=== PATIENT | male | born 1990 | race Caucasian/White ===

== ENCOUNTER 2016-10-12 21:11 | Emergency (ER) | payer OTHER ==
[~2016-10-12] VITALS: Ht 170.2 cm; Wt 83.1 kg
[~2016-10-12 21:11] MED LIST: METH10TA4 PO; TYLOTC500 PO; [UNRECOGNIZED DRUG - CODE] PO
[2016-10-12 21:18] VITALS: TEMP 36.9; Ht 170.2 cm; Wt 83.1 kg
--- NOTE | 2016-10-12 22:11 | DIAGNOSTIC IMAGING REPORT ---
RIGHT WRIST MIN 3 VIEWS ROUTINE CLINICAL HISTORY: Severe right wrist pain. COMPARISON: None FINDINGS: Alignment of the right wrist is anatomic. No fracture or osseous lesion is identified. Joint spaces are preserved and no erosions are identified. IMPRESSION: Unremarkable right wrist radiographs. Electronically signed by: Kedar Land M.D. 10/12/2016 10:09 PM Dictated Date/Time: 10/12/2016 10:08 PM
[2016-10-12] MEDS ORDERED: TRAMADOL HCL 50 MG HOME PACK PO ONE (22:15)
[2016-10-12] MEDS ORDERED: TRAM-10 PO (22:19)
[2016-10-12 22:34] VITALS: BP 118/70; PULSE 72; O2SAT 98
--- NOTE | 2016-10-13 03:49 | EMERGENCY ROOM VISIT NOTE ---
ED Visit Note First contact with patient: 21:35 Chief Complaint: Right hand pain. History of Present Illness: Mr. Ball is a 26-year-old white male who ambulates into the ED accompanied by female friend complaining of posterior right hand pain. Patient reports he developed posterior right hand pain approximately one week ago. Since that time his pain has been constant and gradually increasing in intensity. He places his discomfort over the posterior predominately over the second through fifth metacarpals. He has difficulty describing his pain but does report intermittently its throbbing and sometimes in a sharp. He rates his discomfort 7/10. He feels like his pain is radiating around the hand and is now involving the anterior aspect of the metacarpals. His pain worsens with palpation, making a fist and flexion of the MCP joints. He has not identified any alleviating factors related to the pain. He reports he has taken a few doses of ibuprofen without relief of his discomfort. Associated with his discomfort he has noted some mild swelling over the posterior hand. He denies fevers, chills, sweats, recent trauma, previous traumas surgeries, shoulder pain, neck pain, elbow pain, forearm pain, recent injuries, previous significant injuries or surgeries. Review of Systems: As noted above in history of present illness. 5 body systems were reviewed and found to be negative as noted above. Past Medical History: Attention deficit disorder, seizures, sepsis, status post appendectomy and splenectomy. Current Medications: Concerta, Tylenol and Ritalin. Allergies to Medications: Penicillin. Social History: Patient is currently employed; he lives with his and feels safe in his home environment; he denies tobacco and alcohol use. Physical Examination: Vital Signs: Date Time Temp Pulse Resp B/P Pulse Ox O2 Delivery O2 Flow Rate FiO2 10/12/16 22:34 72 20 118/70 98 10/12/16 21:18 36.9 88 18 121/73 98 Room Air GENERAL: 26-year-old male in mild to moderate distress due to pain, nontoxic- appearing, afebrile and hemodynamically stable. NEUROLOGICAL: Awake, alert and oriented to person, place and time. Answering questions appropriately and following commands. Normal gait. Good hand eye coordination. No focal motor sensory deficits. SKIN: Warm, dry and pink. RIGHT HAND: No gross bony deformity. No tenderness throughout the forearm, wrist or carpals. Over the posterior aspect of the hand the skin is mildly erythematous and edematous. It is not warm or in the left hand. There is no signs of cellulitis or lymphangitis. This is diffuse and not localized to one area. He has tenderness over the posterior metacarpals without bony deformity or crepitus. No tenderness over the anterior metacarpals. He refused to do range of motion history the fingers due to pain but he did attempt. Throughout the fingers the skin was warm and pink and capillary refill is brisk. He was able to distinguish light sensations through all dermatomes of the hand. Do not appreciate any open wounds on the posterior anterior hand. ED Course: Patient is assessed as noted above. Right Hand X-Rays: Were read by myself and the radiologist showing no acute fractures or dislocations. No swelling or soft tissue injuries/ foreign bodies. Patient was placed in a wrist lacer splint. Patient was educated about cari's findings and instructed on his treatment plan; he verbalized understanding and agreement with this plan. Clinical Impression: Right hand pain. Decision-Making: Initially my differential diagnosis I considered cellulitis, other skin infections, metacarpal fracture, MCP joint dislocation, early contusion and other causes. Disposition: Patient discharged home in stable condition accompanied by his ; prior to departure he was reassessed and subjectively reported he was feeling much better and rated his discomfort 2/10. Plan: Comfort measures were discussed with the patient including alternating 50 mg of Ultram and 650 mg of acetaminophen every 3 hours, ice over areas of pain and swelling, splint use and follow-up with orthopedics. Patient was signed off work for 3 days. Patient was educated about tonight's findings and instructed on his treatment plan; he verbalizes understanding and agreement with this plan.
[2017-01-23] MEDS ORDERED: AMPH10TA2 PO (21:21)
== END 2016-10-12 22:35 | disposition home or self-care (01) ==
LOC: C.EDB 21:12 → C.EDD 22:35
DX: M25.541 Pain in joints of right hand (principal); G40.909 Epilepsy, unspecified, not intractable, without status epilepticus; F90.9 Attention-deficit hyperactivity disorder, unspecified type; Z98.890 Other specified postprocedural states; Z79.899 Other long term (current) drug therapy; Z88.0 Allergy status to penicillin

== ENCOUNTER 2017-01-23 21:07 | Emergency (ER) | payer OTHER ==
[~2017-01-23] VITALS: Ht 170.2 cm; Wt 81.1 kg
[~2017-01-23 21:07] MED LIST changes: +TRAM-10 PO
[2017-01-23 21:14] VITALS: TEMP 36.8; Ht 170.2 cm; Wt 81.1 kg
[2017-01-23] MEDS ORDERED: CNC/54 PO (21:21)
[2017-01-23] MEDS ORDERED: NORCO 5/325MG HOME PACK PO ONE (21:45)
[2017-01-23] MEDS ORDERED: HYDR-5688 PO (22:04)
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
[2017-01-23 22:12] VITALS: BP 143/92; PULSE 83; O2SAT 96
[2017-07-07] MEDS ORDERED: ACET-1256 PO (20:40)
[2017-07-07] MEDS ORDERED: AMX875 PO (20:40)
[2017-07-07] MEDS ORDERED: METH1TAB19 PO (20:40)
[2017-07-07] MEDS ORDERED: AMPH10TA2 PO (21:21)
[2017-07-08] MEDS ORDERED: OXYC-57 PO (00:48)
[2017-07-08] MEDS ORDERED: ONDA4TAB10 SL (00:48)
[2017-07-08] MEDS ORDERED: TAMS0.4C38 PO (00:48)
[2017-07-08] MEDS ORDERED: NAPR-1169 PO (00:48)
== END 2017-01-23 22:12 | disposition home or self-care (01) ==
LOC: C.EDB 21:08 → C.EDD 22:12
DX: L55.1 Sunburn of second degree (principal); F90.9 Attention-deficit hyperactivity disorder, unspecified type; Z79.899 Other long term (current) drug therapy; Z86.69 Personal history of other diseases of the nervous system and sense organs; Z82.0 Family history of epilepsy and other diseases of the nervous system; Z82.49 Family history of ischemic heart disease and other diseases of the circulatory system; Z83.3 Family history of diabetes mellitus; Z83.6 Family history of other diseases of the respiratory system

== ENCOUNTER 2017-06-05 20:09 | Emergency (ER) | payer OTHER ==
[~2017-06-05] VITALS: Ht 170.2 cm; Wt 79.6 kg
[~2017-06-05 20:09] MED LIST changes: +AMPH10TA2 PO; +CNC/54 PO; +HYDR-5688 PO; -METH10TA4 PO; -TRAM-10 PO; -TYLOTC500 PO; -[UNRECOGNIZED DRUG - CODE] PO
[2017-06-05 20:27] VITALS: TEMP 37; Ht 170.2 cm; Wt 79.6 kg
[2017-06-05] MEDS ORDERED: PROPARACAINE HCL 0.5% OP SOLN 15 ML BTL ONE (20:53)
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
[2017-06-05 21:48] VITALS: BP 129/77; PULSE 72; O2SAT 96
== END 2017-06-05 21:48 | disposition home or self-care (01) ==
LOC: C.EDB 20:10 → C.EDD 21:48
DX: S05.91XA Unspecified injury of right eye and orbit, initial encounter (principal); Y99.0 Civilian activity done for income or pay; W20.8XXA Other cause of strike by thrown, projected or falling object, initial encounter; Y92.89 Other specified places as the place of occurrence of the external cause; Y93.G1 Activity, food preparation and clean up; F90.9 Attention-deficit hyperactivity disorder, unspecified type; Z90.81 Acquired absence of spleen; Z79.899 Other long term (current) drug therapy

== ENCOUNTER 2018-01-06 21:21 | Emergency (ER) | payer OTHER ==
[~2018-01-06] VITALS: Ht 170.2 cm; Wt 80.5 kg
[~2018-01-06 21:21] MED LIST changes: +ACET-1256 PO; +AMX875 PO; -CNC/54 PO; -HYDR-5688 PO; +METH1TAB19 PO; +ONDA4TAB10 SL; +OXYC-57 PO; +TAMS0.4C38 PO
[2018-01-06 21:31] VITALS: TEMP 36.8; Ht 170.2 cm; Wt 80.5 kg
--- NOTE | 2018-01-06 21:50 | EMERGENCY ROOM VISIT NOTE ---
History Report prepared by Dai: Jose Alfredo Pappas Under the Supervision of: Dr. Donte Pickens M.D. First contact with patient: 21:37 Chief Complaint: SHOULDER PAIN Stated Complaint: SEVERE LEFT SHOULDER PAIN, CANT PUT WEIGHT ON IT History of Present Illness The patient is a 27 year old white male with a past medical history of ADD and seizures who presents to the ED with a cc of constant left arm pain beginning at 1500 yesterday. Patient states that the pain starts at his shoulder and radiates down to his hand. He states that the pain is worsened when he raises his arm. He describes the pain as feeling like "pins and needles". He denies a history of similar symptoms. Patient states that Tylenol has not resolved the symptoms. He states that his last seizure was in 2004. He states that he does not take medication for his seizures. Patient states that he is right-handed. Negative symptoms include an upset stomach. Source of History: patient Onset: 1500 yesterday Position: arm (left) Quality: other ("Pins and needles") Timing: constant Modifying Factors (Worsening): elevation (Raising arm) Modifying Factors (Relieving): other (None) Note: Patient denies an upset stomach. Review of Systems See HPI for pertinent positives and negatives. A total of ten systems were reviewed and were otherwise negative. Past Medical & Surgical Medical Problems: (1) ADD (attention deficit disorder) (2) History of seizures Surgical Problems: (1) History of splenectomy (2) S/P appendectomy (3) S/P splenectomy (4) Splenectomy Family History Cancer Diabetes mellitus MOTHER FH: lung cancer MATERNAL GRANDFATHER Hypertension Seizures Social History Smoking Status: Never Smoker Alcohol Use: none Marital Status: Housing Status: lives with family Occupation Status: employed Current/Historical Medications Scheduled Amphetamine-Dextroamphetamine 10MG (Adderall 10MG), 10 MG PO DAILY Methylphenidate Hcl (Methylphenidate Hcl Er), 54 MG PO QAM Scheduled PRN Acetaminophen (Tylenol), 1,000 MG PO Q6H PRN for Pain Allergies Coded Allergies: Penicillins (Verified Allergy, Intermediate, lip swollen, 01/06/18) Physical Exam Vital Signs Date Time Temp Pulse Resp B/P (MAP) Pulse Ox O2 Delivery O2 Flow Rate FiO2 01/06/18 22:55 82 20 132/76 98 01/06/18 21:31 36.8 83 18 127/82 98 Room Air Physical Exam GENERAL: Awake, alert, well-appearing, NAD, thinning hair HENT: Normocephalic, atraumatic, poor dentition. EYES: Normal conjunctiva. Sclera non-icteric. PERRL. No anisocoria. NECK: Supple. No nuchal rigidity. FROM. RESPIRATORY: CTAB, no rhonchi, wheezing, crackles CARDIAC: RRR, no MRG ABDOMEN: Soft, NTND, BS+, LUQ incisional scar MSK: No chest wall TTP, no LE edema; left shoulder pain with external rotation, abduction, and internal rotation positive empty can test NEURO: GCS 15, CN 2-12 intact, moves all 4s on command SKIN: No rash or jaundice noted. Medical Decision & Procedures ER Provider Diagnostic Interpretation: Radiology results as stated below per my review and radiologist interpretation: LEFT SHOULDER 3 VIEWS HISTORY: L shoulder pain COMPARISON: None. FINDINGS: There is no fracture or dislocation. Soft tissues are unremarkable. No radiopaque foreign bodies. The left clavicle is intact. IMPRESSION: No fractures. Electronically signed by: Osei Mejias M.D. 01/06/2018 10:33 PM Medications Administered Medications (Trade) Dose Ordered Sig/Sabine Route Start Time Stop Time Status Last Admin Dose Admin Ibuprofen (Motrin Tab) 600 mg NOW STAT PO 01/06/18 21:57 01/06/18 22:00 DC 01/06/18 22:08 600 MG Acetaminophen (Tylenol Tab) 650 mg NOW STAT PO 01/06/18 21:57 01/06/18 22:00 DC 01/06/18 22:08 650 MG ED Course 2142: The patient was evaluated in room A12B. A complete history and physical exam was performed. 2301: I reevaluated the patient. Discussed results and discharge instructions. He verbalized understanding and agreement. The patient is ready for discharge. Medical Decision Nursing notes reviewed. Ancillary studies and prior records reviewed. The patient is a 27 year old white male with a past medical history of ADD and seizures who presents to the ED with a cc of constant left arm pain beginning at 1500 yesterday. The patient's presentation and history were concerning for fracture, dislocation , neurovascular compromise, compartment syndrome, soft tissue injury, as well as others were entertained. Patient was seen and evaluated the bedside. Patient did complain of some left upper extremity shoulder pain as well as some paresthesias in the left upper extremity. Patient denies any recent heavy lifting strains sprains or trauma. Patient denies any chest pain or shortness of breath. I do not believe that this is referred chest pain or ACS. Patient did have pain with internal and external rotation as well as abduction. The patient did have positive empty cans test. The patient shoulder is not erythematous or swollen. Less likely septic arthritis. The patient is right-hand dominant. Patient did have a shoulder feel completed and was given Motrin Tylenol. Patient's pain was mildly improved. Patient's shoulder film was negative for acute fracture dislocation. Patient likely has a rotator cuff tear. Possibly supraspinatus. We did discuss the need for additional conservative measures and that he can follow-up with his PCP and if needed could discuss possible injections versus physical therapy versus orthopedic management. Patient was deemed suitable for outpatient follow-up and treatment at this time. Patient was given strict follow-up, discharge, and return precautions. All questions were answered. Patient was deemed suitable for outpatient follow-up at this time. Patient agreed with the plan of care and was safely discharged home. Medication Reconcilliation Current Medication List: was personally reviewed by me Blood Pressure Screening Patient's blood pressure: Normal blood pressure Blood pressure disposition: Did not require urgent referral Impression Primary Impression: Shoulder pain, acute Additional Impression: Supraspinatus tendon tear Scribe Attestation The scribe's documentation has been prepared under my direction and personally reviewed by me in its entirety. I confirm that the note above accurately reflects all work, treatment, procedures, and medical decision making performed by me. Departure Information Dispostion Home / Self-Care Referrals Jose Connelly M.D. (PCP) Patient Instructions ED Shoulder Pain [facility], ED Torn Rotator Cuff, My [facility] Additional Instructions Please return to the emergency department if you have worsening or recurrent symptoms not amenable to at-home treatment. Please call for a follow-up appointment with her primary care physician. Please take your medications as prescribed. If you have other concerns and/or complaints please feel free to also call your primary care physician's office or return the ED for further evaluation, management, and treatment. Please consider additional conservative management which may include physical therapy and follow-up with your primary care physician. You may discuss in injections into the joint as well as surgical management or more advanced imaging like an MRI if you have failure of conservative measures. You may take 800 mg Ibuprofen every 6 hours as needed for pain/fever with food unless told by your physician not to take NSAIDs. You may take tylenol 1000 mg every 6 hours as needed for pain/fever unless told by your physician to not take it or have liver problems. You may take motrin and tylenol separately or at the same time. Take your medications as prescribed. You have been examined and treated today on an emergency basis only. This is not a substitute for, or an effort to provide, complete comprehensive medical care. It is impossible to recognize and treat all injuries or illnesses in a single emergency department visit. It is therefore important that you follow up closely with [facility], your PCP, and/or your specialist(s). Call as soon as possible for an appointment. Thank you for your time and consideration. I look forward to speaking with you again soon. Please don't hesitate to call us if you have any questions. Problem Qualifiers Primary Impression: Shoulder pain, acute Laterality: left Qualified Codes: M25.512 - Pain in left shoulder Additional Impression: Supraspinatus tendon tear Encounter type: initial encounter Laterality: left Qualified Codes: S46.812A - Strain of other muscles, fascia and tendons at shoulder and upper arm level, left arm, initial encounter
[2018-01-06] MEDS ORDERED: IBUPROFEN 600 MG TAB PO STA (21:57)
[2018-01-06] MEDS ORDERED: ACETAMINOPHEN 325 MG TAB PO STA (21:57)
--- NOTE | 2018-01-06 22:34 | DIAGNOSTIC IMAGING REPORT ---
LEFT SHOULDER 3 VIEWS HISTORY: L shoulder pain COMPARISON: None. FINDINGS: There is no fracture or dislocation. Soft tissues are unremarkable. No radiopaque foreign bodies. The left clavicle is intact. IMPRESSION: No fractures. Electronically signed by: Osei Mejias M.D. 01/06/2018 10:33 PM Dictated Date/Time: 01/06/2018 10:32 PM
[2018-01-06 22:55] VITALS: BP 132/76; PULSE 82; O2SAT 98
== END 2018-01-06 22:57 | disposition home or self-care (01) ==
LOC: C.EDB 21:23 → C.EDA 22:57
DX: M25.512 Pain in left shoulder (principal); S46.812A Strain of other muscles, fascia and tendons at shoulder and upper arm level, left arm, initial encounter; X58.XXXA Exposure to other specified factors, initial encounter; Z88.0 Allergy status to penicillin

== ENCOUNTER 2018-04-14 17:38 | Emergency (ER) | payer OTHER ==
[~2018-04-14] VITALS: Ht 172.7 cm; Wt 79.6 kg
[~2018-04-14 17:38] MED LIST changes: -AMX875 PO; -ONDA4TAB10 SL; -OXYC-57 PO; -TAMS0.4C38 PO
[2018-04-14 17:48] VITALS: TEMP 37.1; Ht 172.7 cm; Wt 79.6 kg
[2018-04-14] MEDS ORDERED: CLOTRIMAZOLE 1% CR 15 GM TUBE EXT STA (18:06)
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
[2018-04-14 18:25] VITALS: BP 131/68; PULSE 9; O2SAT 97
== END 2018-04-14 18:35 | disposition home or self-care (01) ==
LOC: C.EDB 17:38 → C.EDD 18:35
DX: B35.4 Tinea corporis (principal); F98.8 Other specified behavioral and emotional disorders with onset usually occurring in childhood and adolescence; Z88.1 Allergy status to other antibiotic agents

== ENCOUNTER 2021-07-03 11:26 | Inpatient (IN) ==
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
[2021-07-03] MEDS ORDERED: ONDANSETRON INJ 2 MG/ML 2 ML VIAL IV STA (12:37)
[2021-07-03] MEDS ORDERED: SODIUM CHLORIDE 0.9% 1000ML 1,000 ML IV SCH (12:45)
[2021-07-03] MEDS ORDERED: cefTRIAXone SODIUM 2,000 MG/70 ML BAG IV STA (12:49)
[2021-07-03] MEDS ORDERED: AZITHROMYCIN 250 MG TAB PO ONE (12:49)
--- NOTE | 2021-07-03 13:20 | XRay Report ---
XR chest 1V portable CLINICAL HISTORY: Weakness. COMPARISON STUDY: Chest CT May 18, 2021. FINDINGS: Lung volumes are at the lower limits of normal. Lungs are clear. There is no pneumothorax o r pleural effusion. Cardiac size is normal. Mediastinal contours are normal. There is no evidence for pulmonary edema. IMPRESSION: No acute cardiopulmonary findings. ACT 112: Negative or not required by law. Electronically signed by: Kedar Land M.D. 07/03/2021 1:19 PM
[2021-07-03 13:24] LABS: Basophils # (auto) 0.03 K/uL (0-0.2); Basophils % (auto) 0.1 %; Eosinophils # (auto) 0.03 K/uL (0-0.5); Eosinophils % (auto) 0.1 %; Hematocrit (blood only) 46.6 % (42-52); Hemoglobin 15.4 g/dL (14.0-18.0); Immature Granulocytes # (auto) 0.05 K/uL (0.00-0.02); Immature Granulocytes % (auto) 0.2 %; Lymphocytes # (auto) 1.56 K/uL (1.2-3.4); Lymphocytes % (auto) 7.3 %; Mean Corpuscular Hemoglobin 29.7 pg (25-34); Mean Corpuscular Volume 89.8 fL (80-100); Mean Platelet Volume 9.8 fL (7.4-10.4); Monocytes % (auto) 6.1 %; Neutrophils # (auto) 18.27 K/uL (1.4-6.5); Neutrophils % (auto) 86.2 %; Platelet Count 576 K/uL (130-400); RDW Coefficient of Variation 14.7 % (11.5-14.5); RDW Standard Deviation 48.4 fL (36.4-46.3); Red Blood Count 5.19 M/uL (4.7-6.1); White Blood Count 21.24 K/uL (4.8-10.8)
[2021-07-03 14:19] LABS: Albumin Level 4.4 gm/dl (3.4-5.0); BUN Creatinine Ratio 14.2 (10-20); Bilirubin,Total 0.5 mg/dl (0.2-1); Calcium 9.7 mg/dl (8.5-10.1); Est GFR (African American) 124.7 ml/min; Est GFR (Non-African American) 107.6 ml/min; Globulin 4.6 gm/dl (2.5-4.0); Thyroid Stimulating Hormone 0.882 uIu/ml (0.300-4.500)
[2021-07-03 14:34] LABS: Appearance Urine Clear (Clear); Bilirubin Urine Negative (Negative); Blood Urine Negative (Negative); Color Urine Yellow; Glucose Urine UA Negative (Negative); Ketones Urine Negative (Negative); Leukocyte Esterase Urine Negative (Negative); Nitrite Urine Negative (Negative); Protein Urine Negative (Negative); Specific Gravity Urine 1.016 (1.000-1.030); Urobilinogen Urine Negative (Negative)
[2021-07-03] MEDS ORDERED: ACETAMINOPHEN 500 MG TAB PO STA (15:53)
[2021-07-03] MEDS ORDERED: ACETAMINOPHEN 500 MG TAB ONE (15:55)
[2021-07-03 16:15] LABS: Potassium 3.6 mmol/L (3.5-5.1)
[2021-07-03 16:20] LABS: Magnesium 2.1 mg/dl (1.8-2.4)
[2021-07-03] MEDS ORDERED: SODIUM CHLORIDE 0.9% 1000ML 1,000 ML IV ONE ×2 (16:51→20:38)
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
[2021-07-03] MEDS ORDERED: BENZONATATE 100 MG CAPSULE PO PRN (18:47)
[2021-07-03] MEDS ORDERED: ONDANSETRON INJ 2 MG/ML 2 ML VIAL IV PRN (18:47)
[2021-07-03] MEDS: guaiFENesin 600 MG TABCR PO SCH (20:23)
[2021-07-03] MEDS: NSS + 20MEQ KCL 20 MEQ/1,000 ML BAG IV SCH (20:24)
[2021-07-03] MEDS: ACETAMINOPHEN 500 MG TAB PO PRN (21:05)
[2021-07-03] MEDS ORDERED: MoRPHine SULFATE 4 MG/ML 1 ML CARP\\VIAL IV STA (22:31)
[2021-07-03] MEDS ORDERED: OPTIRAY 320 100ml IV ONE (22:48)
[2021-07-04] MEDS ORDERED: SODIUM CHLORIDE 0.9% 1000ML 1,000 ML IV ONE (01:02)
[2021-07-04] MEDS: ACETAMINOPHEN 500 MG TAB PO PRN (03:11)
[2021-07-04] MEDS: KETOROLAC TROMETHAMINE 10 MG TABLET PO PRN ×3 (05:20→19:28)
--- NOTE | 2021-07-04 06:57 | Electrocardiogram Report ---
Test Reason : Blood Pressure : / mmHG Vent. Rate : 088 BPM Atrial Rate : 088 BPM P-R Int : 146 ms QRS Dur : 088 ms QT Int : 366 ms P-R-T Axes : 031 036 030 degrees QTc Int : 442 ms Normal sinus rhythm Nonspecific T wave abnormality Abnormal ECG When compared with ECG of 26-MAY-2021 01:36, No significant change was found Confirmed by Emery Gomez ([id number]) on 07/04/2021 6:57:02 AM Referred By: REFERRED SELF Confirmed By:Emery Gomez
[2021-07-04 07:00] LABS: Basophils # (auto) 0.02 K/uL (0-0.2); Basophils % (auto) 0.1 %; Eosinophils # (auto) 0.03 K/uL (0-0.5); Eosinophils % (auto) 0.1 %; Hematocrit (blood only) 38.7 % (42-52); Hemoglobin 12.4 g/dL (14.0-18.0); Immature Granulocytes # (auto) 0.07 K/uL (0.00-0.02); Immature Granulocytes % (auto) 0.3 %; Lymphocytes # (auto) 2.58 K/uL (1.2-3.4); Lymphocytes % (auto) 10.9 %; Mean Corpuscular Hemoglobin 28.8 pg (25-34); Mean Corpuscular Volume 89.8 fL (80-100); Mean Platelet Volume 9.6 fL (7.4-10.4); Monocytes # (auto) 2.07 K/uL (0.11-0.59); Monocytes % (auto) 8.8 %; Neutrophils # (auto) 18.85 K/uL (1.4-6.5); Neutrophils % (auto) 79.8 %; Platelet Count 472 K/uL (130-400); RDW Coefficient of Variation 14.6 % (11.5-14.5); Red Blood Count 4.31 M/uL (4.7-6.1); White Blood Count 23.62 K/uL (4.8-10.8)
[2021-07-04 07:37] LABS: BUN Creatinine Ratio 9.2 (10-20); Calcium 8.6 mg/dl (8.5-10.1); Creatinine Clr Calc Pharmacy 133.3 ml/min; Est GFR (African American) 135.2 ml/min; Est GFR (Non-African American) 116.7 ml/min; Potassium 3.4 mmol/L (3.5-5.1)
[2021-07-04] MEDS: NSS + 20MEQ KCL 20 MEQ/1,000 ML BAG IV SCH (07:48)
[2021-07-04] MEDS: METHYLPHENIDATE 54 MG PO SCH (07:54)
[2021-07-04] MEDS: PATIENT'S OWN CONTROLLED MED 1 PO SCH (07:55)
[2021-07-04] MEDS: SERTRALINE HCL 50 MG TABLET PO SCH (07:56)
[2021-07-04] MEDS: guaiFENesin 600 MG TABCR PO SCH ×2 (07:56→20:16)
--- NOTE | 2021-07-04 08:44 | CT Scan Report ---
ABDOMEN AND PELVIS CT WITH IV CONTRAST CT DOSE: 465.88 mGy.cm HISTORY: Acute generalized abdominal pain with sepsis abdominal pain, sepsis TECHNIQUE: Multiaxial CT images of the abdomen and pelvis were performed following the IV administrat ion of 90 cc of Optiray, A dose lowering technique was utilized adhering to the principles of ALARA. COMPARISON STUDY: CT abdomen and pelvis 07/07/2017 FINDINGS: Areas of linear left greater than right bibasilar consolidation are present. No pneumatosis or pneumoperitoneum. The imaged inferior cardiac chambers are unremarkable. Absent spleen with surgi dianne clips of the abdominal left upper quadrant. Numerous soft tissue nodules are noted throughout the abdomen and pelvis suggestive of splenosis which appear unchanged from comparison. Unremarkable panc reas, gallbladder and adrenal glands. Hepatic steatosis. Patent portal vein. Unremarkable kidneys. No hydronephrosis. Prostate and urinary bladder are unremarkable. Aorta and IVC are within normal limits. No adenopathy. No bowel obstruction or bowel wall thickening. Colonic dive rticulosis. Scattered air-fluid levels are noted within the large bowel. Appendectomy. Unremarkable s oft tissues. Tiny fat filled periumbilical hernia is noted with diastases of 1.9 cm containing a subc entimeter splenule. Unremarkable soft tissues. No acute fracture. IMPRESSION: 1. Linear bibasilar consolidation suggests atelectasis. Pneumonia considered less likely. 2. No bowel obstruction or bowel wall thickening. 3. Appendectomy. 4. Hepatic steatosis. 5. Splenectomy with abdominopelvic splenosis redemonstrated. ACT 112: Negative or not required by law. The above report was generated using voice recognition software. It may contain grammatical, syntax o r spelling errors. Electronically signed by: Michel Holt M.D. 07/04/2021 8:43 AM
[2021-07-04] MEDS: METHYLPHENIDATE HCL 10 MG TABLET PO SCH (11:09)
[2021-07-04] MEDS: cefTRIAXone SODIUM 2,000 MG in DEXTROSE 5% 50 ML IV SCH (12:15)
[2021-07-04] MEDS ORDERED: POLYETHYLENE (MIRALAX) 17 GM PACK PO STA (17:36)
[2021-07-04] MEDS ORDERED: POLYETHYLENE (MIRALAX) 17 GM PACK PO PRN (19:17)
--- NOTE | 2021-07-04 21:51 | Hospitalist Progress Note ---
Date of Service July 04, 2021 Assessment & Plan (1) Sepsis: Plan: 2nd to acute pharyngitis, R AOM. Can't rule out more serious illness in light of his asplenic status. CXR negative despite his cough. COVID negative. Rapid strep negative in light of pharyngitis - send throat culture. Blood cultures collected and sent. continue rocephin IV. Repeat a cxr tomorrow if cough worsens or lower respiratory tract symptoms or signs occur. (2) AOM (acute otitis media): Plan: Right. Mild. Antibiotics as above. (3) Acute pharyngitis: Plan: Viral vs bacterial. Rapid strep negative in ER - send throat culture. If throat culture is negative for bacteria could consider mono testing. Magic mouthwash prn. (4) Asplenia status during current hospitalization: Plan: s/p splenectomy as a child. He is at risk of more serious, invasive bacterial infections. (5) Elevated alanine aminotransferase (ALT) level: Plan: Cause uncertain. 2nd to current illness?? Repeat ast/alt in am. (6) Poor dentition: Plan: Should see dentist leela after discharge. At risk of SBE, etc. Blood cultures pending. (7) History of seizures: Plan: noted no seizure since childhood he is not on seizure meds chronicallly (8) ADD (attention deficit disorder): Plan: at his request continue his usual ADHD meds and zoloft Plan: FEN - continue IVF, diet as tolerated DVT proph - low risk, defer on chemical means Admission and Anticipated Discharge Date Admission Date: July 03, 2021 Subjective 31 yo male reports having throat pain. Review of Systems Review of Systems: All systems reviewed & are unremarkable except as noted in HPI & below Physical Exam Physical Exam: Gen - looks sick but nontoxic Eyes - mild conjunctival injection HENT - right TM injected especially the superior portion, mild decrease in landmarks; L TM wnl; nose - congested; throat- tonsils 3+, nearly 4+; tonsils injected, minimal exudate; very very poor dentition Neck - multiple cervical lymph nodes - tender Heart - tachy, s1 s2, no murmur Lungs - CTA b/l Abd - soft, large LUQ scar, NT, no liver enlargement, BS+ Ext - no edema, pulses 2+ b/l Skin - no rash Neuro - strength 5/5 x 4 exts; gait wnl Lymph - multiple tender cervical lymph nodes b/l Results & Data Results & Data ([facility]) Vital Signs (Past 12 Hours) Vital Signs Temp Pulse Pulse Pulse Resp BP Pulse Ox 07/04/21 19:41 36.9 C 97 H 16 153/101 H 95 07/04/21 15:56 36.7 C 78 16 142/79 H 98 07/04/21 14:19 87 07/04/21 12:08 36.8 C 86 16 141/92 H 96 PG Care Time/CCT Total # of Minutes Spent Total Time Spent with Patient: Total time spent is greater than 50% in coordination of care (as documented) at patient's floor/unit and/or counseling patient: Coding Level of Care Code 47140 Subseq Hosp Care Lvl 2 Diagnoses Sepsis A41.9 AOM (acute otitis media) H66.90 Acute pharyngitis J02.9 Asplenia status during current hospitalization Z90.81 Elevated alanine aminotransferase (ALT) level R74.01 Poor dentition K08.9 History of seizures Z87.898 ADD (attention deficit disorder) F98.8
[2021-07-04 22:05] LABS: Basophils # (auto) 0.03 K/uL (0-0.2); Basophils % (auto) 0.2 %; Eosinophils % (auto) 0.6 %; Hematocrit (blood only) 37.2 % (42-52); Hemoglobin 12.5 g/dL (14.0-18.0); Immature Granulocytes # (auto) 0.03 K/uL (0.00-0.02); Immature Granulocytes % (auto) 0.2 %; Lymphocytes # (auto) 3.13 K/uL (1.2-3.4); Lymphocytes % (auto) 17.6 %; Mean Corpuscular Hemoglobin 29.3 pg (25-34); Mean Corpuscular Volume 87.3 fL (80-100); Mean Platelet Volume 9.5 fL (7.4-10.4); Monocytes # (auto) 1.61 K/uL (0.11-0.59); Monocytes % (auto) 9.1 %; Neutrophils # (auto) 12.87 K/uL (1.4-6.5); Neutrophils % (auto) 72.3 %; Platelet Count 484 K/uL (130-400); RDW Coefficient of Variation 14.7 % (11.5-14.5); RDW Standard Deviation 47.4 fL (36.4-46.3); Red Blood Count 4.26 M/uL (4.7-6.1); White Blood Count 17.77 K/uL (4.8-10.8)
[2021-07-04] MEDS: POLYETHYLENE (MIRALAX) 17 GM PACK PO SCH (22:16)
[2021-07-04 22:18] LABS: Mean Corpuscular Hgb Conc 33.6 g/dL (32-36)
--- NOTE | 2021-07-04 23:12 | Electrocardiogram Report ---
Test Reason : Blood Pressure : / mmHG Vent. Rate : 113 BPM Atrial Rate : 113 BPM P-R Int : 164 ms QRS Dur : 088 ms QT Int : 336 ms P-R-T Axes : 020 040 005 degrees QTc Int : 460 ms Poor data quality, interpretation may be adversely affected Sinus tachycardia Nonspecific T wave abnormality Abnormal ECG When compared with ECG of 03-JUL-2021 13:21, No significant change was found Confirmed by Emery Gomez ([id number]) on 07/04/2021 11:12:14 PM Referred By: REFERRED SELF Confirmed By:Emery Gomez
[2021-07-05] MEDS: ACETAMINOPHEN 500 MG TAB PO PRN ×4 (00:17→23:37)
[2021-07-05] MEDS: KETOROLAC TROMETHAMINE 10 MG TABLET PO PRN ×3 (03:46→20:04)
[2021-07-05] MEDS ORDERED: traMADol HCL 50 MG TABLET PO STA ×2 (07:42→18:07)
[2021-07-05] MEDS: guaiFENesin 600 MG TABCR PO SCH ×2 (07:50→20:04)
[2021-07-05] MEDS: POLYETHYLENE (MIRALAX) 17 GM PACK PO SCH (07:50)
[2021-07-05] MEDS: METHYLPHENIDATE 54 MG PO SCH (07:50)
[2021-07-05] MEDS: PATIENT'S OWN CONTROLLED MED 1 PO SCH (07:50)
[2021-07-05] MEDS: SERTRALINE HCL 50 MG TABLET PO SCH (07:51)
[2021-07-05] MEDS: METHYLPHENIDATE HCL 10 MG TABLET PO SCH (11:52)
[2021-07-05] MEDS: cefTRIAXone SODIUM 2,000 MG in DEXTROSE 5% 50 ML IV SCH (11:52)
--- NOTE | 2021-07-05 21:06 | Hospitalist Progress Note ---
Date of Service July 05, 2021 Assessment & Plan (1) Sepsis: Plan: 2nd to acute pharyngitis, R AOM. Can't rule out more serious illness in light of his asplenic status. CXR negative despite his cough. COVID negative. Rapid strep negative in light of pharyngitis - send throat culture. Blood cultures collected and sent. continue rocephin IV. WBC improving. (2) AOM (acute otitis media): Plan: Right. Mild. Antibiotics as above. (3) Acute pharyngitis: Plan: Viral vs bacterial. Rapid strep negative in ER - send throat culture. If throat culture is negative for bacteria could consider mono testing. Magic mouthwash prn. (4) Asplenia status during current hospitalization: Plan: s/p splenectomy as a child. He is at risk of more serious, invasive bacterial infections. (5) Elevated alanine aminotransferase (ALT) level: Plan: Cause uncertain. 2nd to current illness?? Repeat ast/alt in am. (6) Poor dentition: Plan: Should see dentist leela after discharge. At risk of SBE, etc. Blood cultures pending. (7) History of seizures: Plan: noted no seizure since childhood he is not on seizure meds chronicallly (8) ADD (attention deficit disorder): Plan: at his request continue his usual ADHD meds and zoloft Plan: FEN - continue IVF, diet as tolerated DVT proph - low risk, defer on chemical means Admission and Anticipated Discharge Date Admission Date: July 03, 2021 Subjective Patient reports no new symptoms. Continues to have throat pain. Review of Systems Review of Systems: All systems reviewed & are unremarkable except as noted in HPI & below Physical Exam Physical Exam: Gen - looks sick but nontoxic Eyes - mild conjunctival injection HENT - right TM injected especially the superior portion, mild decrease in landmarks; L TM wnl; nose - congested; throat- tonsils 3+, nearly 4+; tonsils injected, minimal exudate; very very poor dentition Neck - multiple cervical lymph nodes - tender Heart - tachy, s1 s2, no murmur Lungs - CTA b/l Abd - soft, large LUQ scar, NT, no liver enlargement, BS+ Ext - no edema, pulses 2+ b/l Skin - no rash Neuro - strength 5/5 x 4 exts; gait wnl Lymph - multiple tender cervical lymph nodes b/l Results & Data Results & [facility] ([facility]) Vital Signs (Past 12 Hours) Vital Signs Temp Pulse Pulse Resp BP Pulse Ox 07/05/21 19:45 37.0 C 102 H 18 148/102 H 93 07/05/21 15:16 36.9 C 112 H 20 161/107 H 94 07/05/21 15:00 106 H 07/05/21 11:14 36.7 C 100 H 18 137/83 94 07/05/21 10:35 106 H 148/98 H PG Care Time/CCT Total # of Minutes Spent Total Time Spent with Patient: Total time spent is greater than 50% in coordination of care (as documented) at patient's floor/unit and/or counseling patient: Coding Level of Care Code 32509 Subseq Hosp Care Lvl 2 Diagnoses Sepsis A41.9 AOM (acute otitis media) H66.90 Acute pharyngitis J02.9 Asplenia status during current hospitalization Z90.81 Elevated alanine aminotransferase (ALT) level R74.01 Poor dentition K08.9 History of seizures Z87.898 ADD (attention deficit disorder) F98.8
[2021-07-06] MEDS: KETOROLAC TROMETHAMINE 10 MG TABLET PO PRN ×3 (05:14→18:08)
[2021-07-06] MEDS: guaiFENesin 600 MG TABCR PO SCH ×2 (07:33→20:53)
[2021-07-06] MEDS: ACETAMINOPHEN 500 MG TAB PO PRN (07:33)
[2021-07-06] MEDS: SERTRALINE HCL 50 MG TABLET PO SCH (07:34)
[2021-07-06] MEDS: POLYETHYLENE (MIRALAX) 17 GM PACK PO SCH (07:34)
[2021-07-06] MEDS: METHYLPHENIDATE 54 MG PO SCH (07:34)
[2021-07-06] MEDS: PATIENT'S OWN CONTROLLED MED 1 PO SCH (07:34)
--- NOTE | 2021-07-06 10:46 | Hospitalist Progress Note ---
Date of Service July 06, 2021 Assessment & Plan (1) Sepsis: Plan: 2nd to acute pharyngitis, R AOM. Can't rule out more serious illness in light of his asplenic status. CXR negative despite his cough. COVID negative. Rapid strep negative in light of pharyngitis Blood cultures negative to date . continue rocephin IV. WBC improving. (2) AOM (acute otitis media): Plan: Right. Mild. Antibiotics as above. No sign of malignant otitis (3) Acute pharyngitis: Plan: Viral vs bacterial. Rapid strep negative in ER - throat culture negative to date Magic mouthwash prn. (4) Asplenia status during current hospitalization: Plan: s/p splenectomy as a child. He is at risk of more serious, invasive bacterial infections. (5) Elevated alanine aminotransferase (ALT) level: Plan: Cause uncertain. 2nd to current illness?? Serial labs . (6) Poor dentition: Plan: Should see dentist leela after discharge. At risk of SBE, etc. Blood cultures pending. (7) History of seizures: Plan: noted no seizure since childhood he is not on seizure meds chronicallly (8) ADD (attention deficit disorder): Plan: at his request continue his usual ADHD meds and zoloft Plan: Probable discharge to home tomorrow, 07/07, on oral antibiotic Admission and Anticipated Discharge Date Admission Date: July 03, 2021 Subjective Alert and oriented. No acute distress. He is hesitant to go home today but agrees to go home tomorrow on oral antibiotics. Review of Systems Review of Systems: Constitutional-no fever or chills ENT-no blurred vision, no double vision, no epistaxis, no sore throat. Right otitis media noted. No evidence of malignant otitis. Poor dentition Respiratory-no cough, no wheezing, no shortness of breath Cardiac-no palpitations, no chest pain, no syncope GI-no nausea, vomiting, diarrhea, melena, hematochezia -no urinary retention, no urinary incontinence, no dysuria, no hematuria Musculoskeletal-no joint pain, no muscle tenderness Skin-no bruising, no rashes, no pruritus Neuro-no isolated weakness, no paresthesia, no weakness Psych-no depression, no anxiety Physical Exam Physical Exam: General-alert and oriented x3, no fevers, no chills HEENT-head atraumatic and normocephalic, right sided otitis media noted. No sign of malignant otitis. Poor dentition. Neck-no lymphadenopathy or thyromegaly, trachea midline Chest-clear to auscultation percussion. No rales wheezing or rhonchi Cardiac-regular rate and rhythm, normal S1 and S2, no murmurs Abdomen-normal bowel sounds, nontender, no hepatosplenomegaly Extremities-no cyanosis, clubbing, or edema Neuro-cranial nerves II through XII intact, motor and sensory function within normal limits, strength symmetrical 5/5, no focal deficits Psych-normal affect, normal mood Results & Data Results & [facility] ([facility]) Vital Signs (Past 12 Hours) Vital Signs Temp Pulse Pulse Resp BP Pulse Ox 07/06/21 07:29 36.9 C 98 H 18 147/91 H 94 07/06/21 07:00 64 07/06/21 03:06 36.7 C 100 H 16 150/75 H 94 07/05/21 22:53 36.9 C 95 H 18 145/91 H 95 Laboratory Results 07/04/21 21:57 07/04/21 06:25 PG Care Time/CCT Total # of Minutes Spent Total Time Spent with Patient: Total time spent is greater than 50% in coordination of care (as documented) at patient's floor/unit and/or counseling patient: Coding Level of Care Code 54762 Subseq Hosp Care Lvl 3 Diagnoses Sepsis A41.9 AOM (acute otitis media) H66.90 Acute pharyngitis J02.9 Asplenia status during current hospitalization Z90.81 Elevated alanine aminotransferase (ALT) level R74.01 Poor dentition K08.9 History of seizures Z87.898 ADD (attention deficit disorder) F98.8
[2021-07-06] MEDS: cefTRIAXone SODIUM 2,000 MG in DEXTROSE 5% 50 ML IV SCH (11:35)
[2021-07-06] MEDS: METHYLPHENIDATE HCL 10 MG TABLET PO SCH (11:35)
[2021-07-06] MEDS: METOPROLOL TARTRATE 1 MG/ML VIAL IV PRN ×2 (21:40→22:29)
[2021-07-06 21:50] LABS: Albumin Globulin Ratio 0.8 (0.9-2); Albumin Level 3.4 gm/dl (3.4-5.0); BUN Creatinine Ratio 16.6 (10-20); Bilirubin,Total 0.2 mg/dl (0.2-1); Calcium 9.3 mg/dl (8.5-10.1); Creatinine Clr Calc Pharmacy 119.4 ml/min; Est GFR (African American) 120.1 ml/min; Est GFR (Non-African American) 103.6 ml/min; Globulin 4.4 gm/dl (2.5-4.0); Potassium 3.2 mmol/L (3.5-5.1); Total Protein 7.8 gm/dl (6.4-8.2)
[2021-07-07] MEDS: METHYLPHENIDATE 54 MG PO SCH (07:47)
[2021-07-07] MEDS: SERTRALINE HCL 50 MG TABLET PO SCH (07:48)
[2021-07-07] MEDS: guaiFENesin 600 MG TABCR PO SCH (07:48)
[2021-07-07] MEDS: PATIENT'S OWN CONTROLLED MED 1 PO SCH (07:49)
[2021-07-07] MEDS: POLYETHYLENE (MIRALAX) 17 GM PACK PO SCH (07:55)
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
[2021-07-07 13:35] LABS: EBV Nuclear Ag Antibody <18.00 U/mL; EBV Virus Capsid Ag IgG Ab >750.00 U/mL; Epstein Barr Virus Early Ag Ab <9.00 U/mL
== END 2021-07-07 12:22 | disposition home or self-care (01) | DRG 152 ==
LOC: ED 11:26 → 2N 16:47 → SUATTDRO 16:47 → 2N 18:24

== ENCOUNTER 2021-07-17 16:55 | Observation (INO) ==
[2021-07-17 18:10] LABS: Basophils # (auto) 0.02 K/uL (0-0.2); Basophils % (auto) 0.2 %; Eosinophils # (auto) 0.07 K/uL (0-0.5); Eosinophils % (auto) 0.8 %; Hematocrit (blood only) 42.1 % (42-52); Hemoglobin 13.7 g/dL (14.0-18.0); Immature Granulocytes # (auto) 0.02 K/uL (0.00-0.02); Immature Granulocytes % (auto) 0.2 %; Lymphocytes # (auto) 3.01 K/uL (1.2-3.4); Lymphocytes % (auto) 34.4 %; Mean Corpuscular Hemoglobin 29.1 pg (25-34); Mean Corpuscular Hgb Conc 32.5 g/dL (32-36); Mean Corpuscular Volume 89.6 fL (80-100); Mean Platelet Volume 9.8 fL (7.4-10.4); Monocytes # (auto) 0.87 K/uL (0.11-0.59); Neutrophils # (auto) 4.75 K/uL (1.4-6.5); Neutrophils % (auto) 54.4 %; Platelet Count 611 K/uL (130-400); RDW Coefficient of Variation 14.3 % (11.5-14.5); RDW Standard Deviation 47.5 fL (36.4-46.3); White Blood Count 8.74 K/uL (4.8-10.8)
--- NOTE | 2021-07-17 18:21 | XRay Report ---
XR knee RT 1 or 2V routine HISTORY: 31 years-old Male possible septic joint acute right knee pain COMPARISON: None TECHNIQUE: 2 views of the right knee FINDINGS: Trace joint effusion. No acute fracture, dislocation, opaque foreign body or osseous erosion. No sign ificant joint space narrowing. IMPRESSION: Trace joint effusion without acute fracture. ACT 112: Negative or not required by law. The above report was generated using voice recognition software. It may contain grammatical, syntax o r spelling errors. Electronically signed by: Michel Holt M.D. 07/17/2021 6:19 PM
[2021-07-17 18:25] LABS: Partial Thromboplastin Time 26.4 Seconds (21.0-31.0); Prothrombin Time 9.9 Seconds (9.0-12.0)
[2021-07-17 18:32] LABS: Alanine Aminotransferase 74 U/L (12-78); Albumin Level 3.9 gm/dl (3.4-5.0); Aspartate Aminotransferase 30 U/L (15-37); BUN Creatinine Ratio 8.5 (10-20); Blood Urea Nitrogen 8 mg/dl (7-18); C Reactive Protein < 0.29 mg/dl (0-0.29); Carbon Dioxide 22 mmol/L (21-32); Chloride 110 mmol/L (98-107); Creatinine Clr Calc Pharmacy 126.4 ml/min; Est GFR (African American) 132.1 ml/min; Est GFR (Non-African American) 113.9 ml/min; Glucose 86 mg/dl (70-99); Magnesium 2.3 mg/dl (1.8-2.4); Potassium 3.8 mmol/L (3.5-5.1); Sodium 140 mmol/L (136-145)
[2021-07-17 18:36] LABS: Albumin Globulin Ratio 0.9 (0.9-2); Alkaline Phosphatase 81 U/L (45-117); Bilirubin,Total 0.3 mg/dl (0.2-1); Globulin 4.2 gm/dl (2.5-4.0); Total Protein 8.1 gm/dl (6.4-8.2); Troponin I < 0.015 ng/ml (0-0.045)
[2021-07-17] MEDS ORDERED: ONDANSETRON INJ 2 MG/ML 2 ML VIAL IV STA (21:14)
[2021-07-17] MEDS ORDERED: MoRPHine SULFATE 4 MG/ML 1 ML CARP\\VIAL IV STA (21:14)
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
[2021-07-17 22:11] LABS: Procalcitonin < 0.05 ng/ml (0-0.5)
[2021-07-17 22:17] LABS: Lyme Ab IgG w/WB Rflx Negative (Negative)
[2021-07-17 22:42] LABS: Lyme Ab IgM w/WB Rflx Equivocal (Negative)
--- NOTE | 2021-07-17 22:47 | Ultrasound Report ---
US venous doppler LE RT HISTORY: 31 years-old Male Atraumatic R knee pain pain and swelling of the right knee COMPARISON: Right knee radiographs 07/17/2021 TECHNIQUE: Multiple real-time sonographic images of the right lower extremity deep venous structures were obtained assessing grayscale appearance, color and spectral flow. FINDINGS: Normal flow, compressibility, phasicity and augmentation. IMPRESSION: No sonographic evidence of deep venous thrombosis. ACT 112: Negative or not required by law. The above report was generated using voice recognition software. It may contain grammatical, syntax o r spelling errors. Electronically signed by: Michel Holt M.D. 07/17/2021 10:45 PM
[2021-07-17] MEDS ORDERED: XYLOCAINE 1%/SOD BICARB 20 ML VIAL INFIL ONE (22:53)
--- NOTE | 2021-07-18 00:25 | Emergency Department Note ---
ED Visit Note I did evaluate and examine this patient myself. I did guide management for the patient. I agree with the PA's assessment as discussed. Please see the PAs dictation for further details. I did independently review the x-rays and blood work. ESR is slightly elevated at 22. His white count is not elevated and he has no left shift. His CRP is within normal limits. Electrolytes are unremarkable. Antibody testing for Lyme is negative for IgG but equivocal for IgM. X-ray of the knee shows a trace effusion. DVT study is negative of the right leg. After discussion of risks and benefits arthrocentesis was performed. The PA attempted arthrocentesis but was unsuccessful. I did perform the procedure as noted below. Arthrocentesis Indication: Knee pain and effusion eval for septic arthritis Location: Right knee. Verbal consent was obtained after the risks and benefits were explained, including but not limited to bleeding, scarring, infection, pain, and bone/joint/nerve damage. At this time, the risks of the procedure are less than the risks of NOT performing the procedure. A time out was taken and the correct patient and site identified. The skin was prepped with betadine and a sterile field set. The wound was anesthetized with 2 ml of 1% lidocaine without epinephrine. I did anterior the joint lateral to the patella and drained approximately 2 cc of bloody synovial fluid. The patient tolerated the procedure well. No complications were noted. Unfortunately there was not enough fluid to obtain a cell count. A Gram stain and culture was sent instead.Given his recent history of sepsis and history of asplenia I did recommend that he be hospitalized for IV antibiotics. He was given Rocephin IV. The case was discussed with orthopedics and the hospitalist service. .
[2021-07-18] MEDS ORDERED: cefTRIAXone SODIUM 1,000 MG/50 ML BAG IV STA (01:40)
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
[2021-07-18] MEDS ORDERED: ALUMINUM/MAGNESIUM SUSP 30 ML UDC PO PRN (05:43)
[2021-07-18] MEDS ORDERED: MAGNESIUM HYDROXIDE SUSP 30 ML UDC PO PRN (05:43)
[2021-07-18] MEDS ORDERED: ONDANSETRON INJ 2 MG/ML 2 ML VIAL IV PRN (05:43)
[2021-07-18] MEDS: DOXYCYCLINE HYCLATE 100 MG in DEXTROSE 5% 100 ML IV SCH ×2 (06:49→17:35)
[2021-07-18] MEDS: SERTRALINE HCL 50 MG TABLET PO SCH (07:48)
[2021-07-18] MEDS: ACETAMINOPHEN 325 MG TAB PO PRN ×2 (07:51→15:45)
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
--- NOTE | 2021-07-18 09:35 | Ultrasound Report ---
US abdomen limited CLINICAL HISTORY: LUQ abd us/l kidney. Asplenic, L flank pain TECHNIQUE: Multiple real-time sonographic images of the left upper quadrant were obtained. Comparison: None available at the time of this dictation. FINDINGS: The spleen is surgically absent. Left kidney measures 10.8 x 6.2 x 5.1 cm. No hydronephrosis or chandler s are seen. IMPRESSION: Status post splenectomy. No evidence of left hydronephrosis or mass. ACT 112: Negative or not required by law. Electronically signed by: González Welch M.D. 07/18/2021 9:34 AM
[2021-07-18 09:57] LABS: Appearance Urine Clear (Clear); Bilirubin Urine Negative (Negative); Blood Urine Negative (Negative); Color Urine Yellow; Glucose Urine UA Negative (Negative); Ketones Urine Negative (Negative); Leukocyte Esterase Urine Negative (Negative); Nitrite Urine Negative (Negative); Protein Urine Negative (Negative); Specific Gravity Urine 1.008 (1.000-1.030); Urobilinogen Urine Negative (Negative)
[2021-07-18] MEDS: POLYETHYLENE (MIRALAX) 17 GM PACK PO SCH (11:13)
[2021-07-18] MEDS ORDERED: METHYLPHENIDATE HCL 10 MG TABLET PO SCH (11:30)
[2021-07-18 13:17] LABS: D Dimer 250 ug/L FEU (0-500)
--- NOTE | 2021-07-18 17:14 | XRay Report ---
XR knee RT 1 or 2V routine CLINICAL HISTORY: knee swelling, concern for septic arthritis TECHNIQUE: 2 views of the right knee were obtained. Comparison: None available at the time of this dictation. FINDINGS: There is no evidence of an acute fracture. The alignment is anatomic. Joint spaces are well-preserved . No joint effusion is seen. No soft tissue abnormality is seen. IMPRESSION: No evidence of acute osseous injury. ACT 112: Negative or not required by law. Electronically signed by: González Welch M.D. 07/18/2021 5:13 PM
[2021-07-18] MEDS: cephALEXin 500 MG CAP PO SCH (20:29)
--- NOTE | 2021-07-19 02:54 | Billing Data ---
Date of Service July 19, 2021 Coding Level of Care Code INT OBSERVATION CARE 70M LVL 3
[2021-07-19 08:08] LABS: Basophils # (auto) 0.02 K/uL (0-0.2); Basophils % (auto) 0.2 %; Eosinophils # (auto) 0.08 K/uL (0-0.5); Hematocrit (blood only) 41.6 % (42-52); Hemoglobin 13.6 g/dL (14.0-18.0); Lymphocytes # (auto) 2.09 K/uL (1.2-3.4); Lymphocytes % (auto) 26.1 %; Mean Corpuscular Hemoglobin 29.2 pg (25-34); Mean Corpuscular Hgb Conc 32.7 g/dL (32-36); Mean Corpuscular Volume 89.5 fL (80-100); Mean Platelet Volume 9.8 fL (7.4-10.4); Monocytes # (auto) 0.91 K/uL (0.11-0.59); Monocytes % (auto) 11.4 %; Neutrophils # (auto) 4.91 K/uL (1.4-6.5); Neutrophils % (auto) 61.3 %; Platelet Count 637 K/uL (130-400); RDW Coefficient of Variation 14.2 % (11.5-14.5); RDW Standard Deviation 46.6 fL (36.4-46.3); Red Blood Count 4.65 M/uL (4.7-6.1); White Blood Count 8.01 K/uL (4.8-10.8)
[2021-07-19] MEDS: DOXYCYCLINE HYCLATE 100 MG in DEXTROSE 5% 100 ML IV SCH (08:09)
[2021-07-19] MEDS: POLYETHYLENE (MIRALAX) 17 GM PACK PO SCH (08:21)
[2021-07-19] MEDS: cephALEXin 500 MG CAP PO SCH ×2 (08:22→12:32)
[2021-07-19] MEDS: SERTRALINE HCL 50 MG TABLET PO SCH (08:23)
[2021-07-19 08:47] LABS: BUN Creatinine Ratio 15.2 (10-20); Creatinine Clr Calc Pharmacy 124.3 ml/min; Est GFR (African American) 132.1 ml/min; Est GFR (Non-African American) 113.9 ml/min; Potassium 3.7 mmol/L (3.5-5.1)
[2021-07-19] MEDS ORDERED: METHYLPHENIDATE HCL 10 MG TABLET PO SCH (09:00)
--- NOTE | 2021-07-19 09:53 | Electrocardiogram Report ---
Test Reason : Blood Pressure : / mmHG Vent. Rate : 074 BPM Atrial Rate : 074 BPM P-R Int : 136 ms QRS Dur : 096 ms QT Int : 408 ms P-R-T Axes : 019 039 043 degrees QTc Int : 452 ms Normal sinus rhythm Normal ECG When compared with ECG of 03-JUL-2021 20:49, Vent. rate has decreased BY 39 BPM Nonspecific T wave abnormality no longer evident in Anterior leads Confirmed by Jhoan Lantigua ([id number]) on 07/19/2021 9:52:35 AM Referred By: REFERRED SELF Confirmed By:Jhoan Lantigua
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
[2021-07-22 02:47] LABS: 18KDIGG Band NON-REACTIVE; 23KDIGG Band NON-REACTIVE; 23KDIGM Band REACTIVE; 28KDIGG Band NON-REACTIVE; 30KDIGG Band NON-REACTIVE; 39KDIGG Band NON-REACTIVE; 39KDIGM Band NON-REACTIVE; 41KDIGG Band NON-REACTIVE; 41KDIGM Band NON-REACTIVE; 45KDIGG Band NON-REACTIVE; 58KDIGG Band NON-REACTIVE; 66KDIGG Band NON-REACTIVE; 93KDIGG Band NON-REACTIVE; Lyme Antibodies, WB IgG NEGATIVE (NEGATIVE); Lyme Antibodies, WB IgM NEGATIVE (NEGATIVE)
[2021-07-22 18:00] LABS: Lyme DNA PCR CSF or Synovial Not detected (Not Detected); Lyme DNA Source Synovial Fluid
== END 2021-07-19 17:50 | disposition home or self-care (01) ==
LOC: ED 16:55 → 3N 16:55 → SUATTDRO 07-18 02:48 → 3N 07-18 04:47

== ENCOUNTER 2022-02-23 16:40 | Inpatient (IN) ==
--- NOTE | 2022-02-23 17:16 | Emergency Department Note ---
Impression & Plan Suicidal ideation, Depression ED Provider Note NAME: ADEBAYO BRAUN AGE: 31 SEX: M : 1990 ARRIVES VIA: [employer] INFORMANT: Patient ED PROVIDER(S): Aryan Orta DO CHIEF COMPLAINT: Suicidal ideations HPI: Patient is a 31-year-old male with a past medical history of hypertension, hyperlipidemia, GERD, who presents to the ER for suicidal thoughts. He was referred in. He notes he has been thinking about killing himself for the past several months and has gotten worse recently. He has been thinking about cutting his throat or hang himself. He denies any auditory visual hallucinations. Does have some thoughts of wanting to hurt the gentleman that his left him for. No other exacerbating or remitting factors. ROS: See above HPI for pertinent positives & negatives. A total of 10 systems reviewed and were otherwise negative. PAST MEDICAL HISTORY:See Below PAST SURGICAL HISTORY:See Below FAMILY HISTORY:See Below SOCIAL HISTORY:See Below HOME MEDICATIONS:See Below ALLERGIES:See Below VITALS:See Below PHYSICAL EXAMINATION: GENERAL: Sitting up in bed, alert, well appearing, well nourished, no distress, non-toxic EYE EXAM: normal conjunctiva. OROPHARYNX:mucous membranes are moist LUNGS: Clear to auscultation. Normal chest wall mechanics HEART: no murmurs, S1 normal and S2 normal ABDOMEN: abdomen soft, non-tender, normo-active bowel sounds, no masses, no rebound or guarding. UPPER EXTREMITIES: upper extremities are grossly normal. LOWER EXTREMITIES: No pitting edema. NEURO EXAM: Normal sensorium, cranial nerves II-XII grossly intact, normal speech, no gross weakness of arms, no gross weakness of legs. PSYCH: Admits to suicidal ideations with a plan MEDICAL DECISION MAKING: Patient is a 31-year-old male who presents ER for suicidal ideations with a plan. Blood work was obtained and showed a mild leukocytosis 12,000. No significant anemia. BMP along with LFTs bilirubin and TSH was unremarkable. UA was clean. Tox was negative. Alcohol and COVID were negative. Patient was updated bedside. Patient was evaluated by 3 S. and admitted for further work-up on the 201. Start Time:1700 Reason: Patient with PMHx of hypertension underwent ED Observation for suicidal ideations. Fam Hx: No pertinent family history SocHx: See Below Assessment(s): Reevaluated multiple times Summary: As described above in the MDM Disposition: 02/23/2022 at 2230 Total Time: 5.5hrs Triage Nursing notes reviewed. Limited review of prior medical records performed Vital Signs: reviewed and remarkable for htn Differential diagnosis: Mood disorder, infection, hypoglycemia, electrolyte abnormalities, cardiac sources, intracerebral event, toxicologic, trauma, neurologic, as well as other pathologies. ER treatment provided: See below Diagnostics interpreted by me: ECG: none Laboratory studies: As stated above and show below. Imaging studies: See below Consultation(s): none Procedures: none Critical Care: None Past Med/Surg History Medical History ADD (attention deficit disorder) COVID-19 History of seizures HTN (hypertension) Poor dentition Tinea corporis Surgical History S/P appendectomy S/P splenectomy Family History Mother Diabetes PAD (peripheral artery disease) Amputation of leg Aunt Myocardial infarction Denies family history of Ovarian cancer Prostate cancer Breast cancer Colorectal cancer Social History Smoking Status: Never smoker Second Hand Exposure: No; Hx Alcohol Use: No Hx Substance Use: No Preferred Language: Greek Communication Ability: Effective Visual Impairment: No Limitations Hearing Ability: Normal Major General Required: No Beliefs That Will Affect Care: None marital status: Current Living Situation: Alone Current Living Situation Comment: Alone in apartment current occupational status: employed current occupation: [employer] How many Children do You have: 0 Feels Safe at Home: No Is there a partner from a previous relationship who is making you feel unsafe now?: No Childhood Exposure to Second-Hand Smoke: Yes Assistive Devices: None Allergies Allergies Allergy/AdvReac Type Severity Reaction Status Date / Time Penicillins Allergy Intermediate lip Verified 02/02/22 11:22 swollen, positive skin testing triamcinolone Allergy Intermediate RED, Verified 02/02/22 11:22 IRRITATED AREA WHERE APPLIED. Home Meds Home Medications Medication Instructions Recorded Confirmed methylphenidate HCl 54 mg 54 mg PO QAM 11/08/18 02/23/22 tablet,extended release 24 hr (Concerta) methylphenidate HCl 20 mg tablet 20 mg PO QDL 05/24/21 02/23/22 (Ritalin) Previous Rx's Medication Instructions Recorded cyanocobalamin (vitamin B-12) 1,000 mcg .ROUTE .COMPLEX 28 Days 11/30/21 1,000 mcg/mL injection solution #4 ml amlodipine 5 mg tablet 5 mg PO DAILY #30 tab 01/27/22 atorvastatin 10 mg tablet 10 mg PO QPM #30 tab 02/04/22 Results & Data (ED) Vital Signs Vital Signs - 24 hr 02/23/22 16:51 02/23/22 18:34 Temperature 36.7 C Temperature Source Oral Pulse Rate 83 Pulse Rate [Right Finger] 80 Pulse Rhythm Regular Pulse Rhythm [Right Finger] Regular Pulse Strength Normal Pulse Strength [Right Finger] Normal Respiratory Rate 20 18 Respiratory Effort / Characteristics Non-Labored Spontaneous Non-Labored Spontaneous Respiratory Depth Normal Normal Respiratory Pattern Regular Regular Blood Pressure 170/96 H Blood Pressure [Right Arm] 160/92 H Blood Pressure Mean 120 Blood Pressure Mean [Right Arm] 114 Blood Pressure Position Sitting Blood Pressure Position [Right Arm] Sitting Pulse Oximetry 93 94 Oxygen Delivery Method Room Air Room Air Sepsis Recent Fever Within 48 Hours No Sepsis New/Unexplained Change in Mental Status N/A Sepsis Action Taken by Nursing No Action Required Laboratory Data Result diagrams: 02/23/22 17:44 02/23/22 17:44 Lab Results 02/23/22 02/23/22 02/23/22 Range/Units 17:44 17:44 17:44 WBC 12.14 H (4.8-10.8) K/uL RBC 5.01 (4.7-6.1) M/uL Hgb 14.9 (14.0-18.0) g/dL Hct 44.2 (42-52) % MCV 88.2 (80-100) fL MCH 29.7 (25-34) pg MCHC 33.7 (32-36) g/dL RDW Std Deviation 44.2 (36.4-46.3) fL RDW Coeff of Josselyn 13.7 (11.5-14.5) % Plt Count 560 H (130-400) K/uL MPV 9.8 (7.4-10.4) fL Immature Gran % (Auto) 0.2 % Neut % (Auto) 73.8 % Lymph % (Auto) 18.3 % [place] % (Auto) 7.3 % Eos % (Auto) 0.2 % Baso % (Auto) 0.2 % Neut # (Auto) 8.96 H (1.4-6.5) K/uL Lymph # (Auto) 2.22 (1.2-3.4) K/uL [place] # (Auto) 0.89 H (0.11-0.59) K/uL Eos # (Auto) 0.03 (0-0.5) K/uL Baso # (Auto) 0.02 (0-0.2) K/uL Immature Gran # (Auto) 0.02 (0.00-0.02) K/uL Sodium 139 (136-145) mmol/L Potassium 3.5 (3.5-5.1) mmol/L Chloride 105 (98-107) mmol/L Carbon Dioxide 24 (21-32) mmol/L Anion Gap 10 (3-11) BUN 11 (6-23) mg/dl Creatinine 1.01 (0.6-1.4) mg/dl Est Cr Clr Drug Dosing Not Reportable Est GFR ( Amer) 114.3 ml/min Est GFR (Non-Af Amer) 98.7 ml/min BUN/Creatinine Ratio 10.9 (10-20) Glucose 84 (70-99(Fasting)) mg/dl Calcium 9.7 (8.5-10.1) mg/dl Total Bilirubin 0.5 (0.2-1.0) mg/dl AST 20 (13-39) U/L ALT 30 (7-52) U/L Alkaline Phosphatase 78 (34-104) U/L Total Protein 8.1 (6.0-8.3) gm/dl Albumin 4.6 (3.4-5.0) gm/dl Globulin 3.5 (2.5-4.0) gm/dl Albumin/Globulin Ratio 1.3 (0.9-2) TSH 1.842 (0.300-4.500) uIu/ml Urine Color Urine Appearance (Clear) Urine pH (4.5-7.5) Ur Specific [place] (1.000-1.030) Urine Protein (Negative) Urine Glucose (UA) (Negative) Urine Ketones (Negative) Urine Blood (Negative) Urine Nitrite (Negative) Urine Bilirubin (Negative) Urine Urobilinogen (Negative) Ur Leukocyte Esterase (Negative) Urine WBC (Auto) (0-5) /hpf Urine RBC (Auto) (0-4) /hpf U Hyaline Cast (Auto) (0-5) /lpf U Epithel Cells (Auto) (0-5) /lpf Urine Bacteria (Auto) (Negative) Salicylates (3.0-30) mg/dl Urine Opiates Screen (Neg) Ur Methadone, Qual (Neg) Acetaminophen (10-30) ug/ml Urine Barbiturates (Neg) Ur Phencyclidine (PCP) (Neg) U Amphetamin/Meth Scrn (Neg) MDMA (Ecstasy) Screen (Neg) U Benzodiazepines Scrn (Neg) Ur Cocaine Metabolite (Neg) U Marijuana (THC) Screen (Neg) Ethyl Alcohol mg/dL (<10.0) mg/dl SARS-CoV-2, RNA, NAAT (NEGATIVE) 02/23/22 02/23/22 02/23/22 Range/Units 17:44 17:44 17:46 WBC (4.8-10.8) K/uL RBC (4.7-6.1) M/uL Hgb (14.0-18.0) g/dL Hct (42-52) % MCV (80-100) fL MCH (25-34) pg MCHC (32-36) g/dL RDW Std Deviation (36.4-46.3) fL RDW Coeff of Josselyn (11.5-14.5) % Plt Count (130-400) K/uL MPV (7.4-10.4) fL Immature Gran % (Auto) % Neut % (Auto) % Lymph % (Auto) % [place] % (Auto) % Eos % (Auto) % Baso % (Auto) % Neut # (Auto) (1.4-6.5) K/uL Lymph # (Auto) (1.2-3.4) K/uL [place] # (Auto) (0.11-0.59) K/uL Eos # (Auto) (0-0.5) K/uL Baso # (Auto) (0-0.2) K/uL Immature Gran # (Auto) (0.00-0.02) K/uL Sodium (136-145) mmol/L Potassium (3.5-5.1) mmol/L Chloride (98-107) mmol/L Carbon Dioxide (21-32) mmol/L Anion Gap (3-11) BUN (6-23) mg/dl Creatinine (0.6-1.4) mg/dl Est Cr Clr Drug Dosing Est GFR ( Amer) ml/min Est GFR (Non-Af Amer) ml/min BUN/Creatinine Ratio (10-20) Glucose (70-99(Fasting)) mg/dl Calcium (8.5-10.1) mg/dl Total Bilirubin (0.2-1.0) mg/dl AST (13-39) U/L ALT (7-52) U/L Alkaline Phosphatase (34-104) U/L Total Protein (6.0-8.3) gm/dl Albumin (3.4-5.0) gm/dl Globulin (2.5-4.0) gm/dl Albumin/Globulin Ratio (0.9-2) TSH (0.300-4.500) uIu/ml Urine Color Urine Appearance (Clear) Urine pH (4.5-7.5) Ur Specific [place] (1.000-1.030) Urine Protein (Negative) Urine Glucose (UA) (Negative) Urine Ketones (Negative) Urine Blood (Negative) Urine Nitrite (Negative) Urine Bilirubin (Negative) Urine Urobilinogen (Negative) Ur Leukocyte Esterase (Negative) Urine WBC (Auto) (0-5) /hpf Urine RBC (Auto) (0-4) /hpf U Hyaline Cast (Auto) (0-5) /lpf U Epithel Cells (Auto) (0-5) /lpf Urine Bacteria (Auto) (Negative) Salicylates < 3.0 L (3.0-30) mg/dl Urine Opiates Screen (Neg) Ur Methadone, Qual (Neg) Acetaminophen < 3 L (10-30) ug/ml Urine Barbiturates (Neg) Ur Phencyclidine (PCP) (Neg) U Amphetamin/Meth Scrn (Neg) MDMA (Ecstasy) Screen (Neg) U Benzodiazepines Scrn (Neg) Ur Cocaine Metabolite (Neg) U Marijuana (THC) Screen (Neg) Ethyl Alcohol mg/dL < 10.0 (<10.0) mg/dl SARS-CoV-2, RNA, NAAT NEGATIVE (NEGATIVE) 02/23/22 02/23/22 Range/Units 19:05 Unknown WBC (4.8-10.8) K/uL RBC (4.7-6.1) M/uL Hgb (14.0-18.0) g/dL Hct (42-52) % MCV (80-100) fL MCH (25-34) pg MCHC (32-36) g/dL RDW Std Deviation (36.4-46.3) fL RDW Coeff of Josselyn (11.5-14.5) % Plt Count (130-400) K/uL MPV (7.4-10.4) fL Immature Gran % (Auto) % Neut % (Auto) % Lymph % (Auto) % [place] % (Auto) % Eos % (Auto) % Baso % (Auto) % Neut # (Auto) (1.4-6.5) K/uL Lymph # (Auto) (1.2-3.4) K/uL [place] # (Auto) (0.11-0.59) K/uL Eos # (Auto) (0-0.5) K/uL Baso # (Auto) (0-0.2) K/uL Immature Gran # (Auto) (0.00-0.02) K/uL Sodium (136-145) mmol/L Potassium (3.5-5.1) mmol/L Chloride (98-107) mmol/L Carbon Dioxide (21-32) mmol/L Anion Gap (3-11) BUN (6-23) mg/dl Creatinine (0.6-1.4) mg/dl Est Cr Clr Drug Dosing Est GFR ( Amer) ml/min Est GFR (Non-Af Amer) ml/min BUN/Creatinine Ratio (10-20) Glucose (70-99(Fasting)) mg/dl Calcium (8.5-10.1) mg/dl Total Bilirubin (0.2-1.0) mg/dl AST (13-39) U/L ALT (7-52) U/L Alkaline Phosphatase (34-104) U/L Total Protein (6.0-8.3) gm/dl Albumin (3.4-5.0) gm/dl Globulin (2.5-4.0) gm/dl Albumin/Globulin Ratio (0.9-2) TSH (0.300-4.500) uIu/ml Urine Color Yellow Urine Appearance Clear (Clear) Urine pH 5.5 (4.5-7.5) Ur Specific [place] 1.020 (1.000-1.030) Urine Protein Trace H (Negative) Urine Glucose (UA) Negative (Negative) Urine Ketones Trace H (Negative) Urine Blood Negative (Negative) Urine Nitrite Negative (Negative) Urine Bilirubin Negative (Negative) Urine Urobilinogen Negative (Negative) Ur Leukocyte Esterase Negative (Negative) Urine WBC (Auto) 1-5 (0-5) /hpf Urine RBC (Auto) 0-4 (0-4) /hpf U Hyaline Cast (Auto) 10-30 H (0-5) /lpf U Epithel Cells (Auto) 10-20 H (0-5) /lpf Urine Bacteria (Auto) Negative (Negative) Salicylates (3.0-30) mg/dl Urine Opiates Screen Neg (Neg) Ur Methadone, Qual Neg (Neg) Acetaminophen (10-30) ug/ml Urine Barbiturates Neg (Neg) Ur Phencyclidine (PCP) Neg (Neg) U Amphetamin/Meth Scrn Neg (Neg) MDMA (Ecstasy) Screen Neg (Neg) U Benzodiazepines Scrn Neg (Neg) Ur Cocaine Metabolite Neg (Neg) U Marijuana (THC) Screen Neg (Neg) Ethyl Alcohol mg/dL (<10.0) mg/dl SARS-CoV-2, RNA, NAAT (NEGATIVE) Discharge Plan Visit Data Chief Complaint: Mental Health Evaluation ED Provider: Aryan Orta Discharge Problem: Suicidal ideation, Depression Forms Stand Alone Forms: My [facility], Suicide Prevention Resources Prescriptions Prescriptions: No Action cyanocobalamin (vitamin B-12) 1,000 mcg/mL solution 1,000 mcg .ROUTE .COMPLEX 28 Days Qty: 4 RF: 3 atorvastatin 10 mg tablet 10 mg PO QPM Qty: 30 RF: 2 amlodipine 5 mg tablet 5 mg PO DAILY Qty: 30 RF: 2 methylphenidate HCl [Concerta] 54 mg Tablet Extended Release 24hr 54 mg PO QAM RF: 0 methylphenidate HCl [Ritalin] 20 mg tablet 20 mg PO QDL RF: 0 Referrals Referrals: Vidya Horvath CRNP [Primary Care Provider] - Discharge Problem: Depression Qualifiers: Depression Type: unspecified Qualified Code(s): F32.A - Depression, unspecified
[2022-02-23 18:02] LABS: Basophils # (auto) 0.02 K/uL (0-0.2); Basophils % (auto) 0.2 %; Eosinophils # (auto) 0.03 K/uL (0-0.5); Eosinophils % (auto) 0.2 %; Hematocrit (blood only) 44.2 % (42-52); Hemoglobin 14.9 g/dL (14.0-18.0); Immature Granulocytes # (auto) 0.02 K/uL (0.00-0.02); Immature Granulocytes % (auto) 0.2 %; Lymphocytes # (auto) 2.22 K/uL (1.2-3.4); Lymphocytes % (auto) 18.3 %; Mean Corpuscular Hemoglobin 29.7 pg (25-34); Mean Corpuscular Hgb Conc 33.7 g/dL (32-36); Mean Corpuscular Volume 88.2 fL (80-100); Mean Platelet Volume 9.8 fL (7.4-10.4); Monocytes # (auto) 0.89 K/uL (0.11-0.59); Monocytes % (auto) 7.3 %; Neutrophils # (auto) 8.96 K/uL (1.4-6.5); Neutrophils % (auto) 73.8 %; Platelet Count 560 K/uL (130-400); RDW Coefficient of Variation 13.7 % (11.5-14.5); RDW Standard Deviation 44.2 fL (36.4-46.3); Red Blood Count 5.01 M/uL (4.7-6.1); White Blood Count 12.14 K/uL (4.8-10.8)
[2022-02-23 18:39] LABS: Acetaminophen < 3 ug/ml (10-30); Alanine Aminotransferase 30 U/L (7-52); Albumin Globulin Ratio 1.3 (0.9-2); Albumin Level 4.6 gm/dl (3.4-5.0); Alkaline Phosphatase 78 U/L (34-104); Anion Gap 10 (3-11); Aspartate Aminotransferase 20 U/L (13-39); BUN Creatinine Ratio 10.9 (10-20); Bilirubin,Total 0.5 mg/dl (0.2-1.0); Blood Urea Nitrogen 11 mg/dl (6-23); Calcium 9.7 mg/dl (8.5-10.1); Carbon Dioxide 24 mmol/L (21-32); Chloride 105 mmol/L (98-107); Est GFR (African American) 114.3 ml/min; Est GFR (Non-African American) 98.7 ml/min; Globulin 3.5 gm/dl (2.5-4.0); Glucose 84 mg/dl (70-99(Fasting)); Potassium 3.5 mmol/L (3.5-5.1); Salicylate < 3.0 mg/dl (3.0-30); Sodium 139 mmol/L (136-145); Total Protein 8.1 gm/dl (6.0-8.3)
[2022-02-23 19:31] LABS: Appearance Urine Clear (Clear); Bacteria Urine Automated Negative (Negative); Bilirubin Urine Negative (Negative); Blood Urine Negative (Negative); Color Urine Yellow; Glucose Urine UA Negative (Negative); Ketones Urine Trace (Negative); Leukocyte Esterase Urine Negative (Negative); Nitrite Urine Negative (Negative); Protein Urine Trace (Negative); RBC Urine Automated 0-4 /hpf (0-4); Urobilinogen Urine Negative (Negative); pH Urine 5.5 (4.5-7.5)
[2022-02-23 20:54] LABS: Amphetamines+Metham, Urine Neg (Neg); Barbiturates, Urine Neg (Neg); Benzodiazepine, Urine Neg (Neg); Cocaine, Urine Neg (Neg); MDMA (Ecstacy), Urine Neg (Neg); Methadone, Urine Neg (Neg); Opiate, Urine Neg (Neg); Phencyclidine, Urine Neg (Neg)
[2022-02-23] MEDS ORDERED: SODIUM CHLORIDE 0.65% NA SOLN 45 ML (OCEAN) PRN (22:19)
[2022-02-23] MEDS ORDERED: BISMUTH SUBSALICYLATE LIQD 236 ML PO PRN (22:19)
[2022-02-23] MEDS ORDERED: MAGNESIUM HYDROXIDE SUSP 30 ML UDC PO PRN (22:19)
[2022-02-23] MEDS ORDERED: ALUMINUM/MAGNESIUM SUSP 30 ML UDC PO PRN (22:19)
[2022-02-23] MEDS ORDERED: MELATONIN 3 MG TAB PO PRN (23:53)
[2022-02-24] MEDS ORDERED: METHYLPHENIDATE HCL 54 MG PO SCH (09:00)
[2022-02-24] MEDS ORDERED: METHYLPHENIDATE 54 MG PO SCH (09:00)
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
[2022-02-24] MEDS: amLODIPine BESYLATE 5 MG TAB PO SCH (10:25)
[2022-02-24] MEDS: METHYLPHENIDATE 54 MG PO SCH (10:26)
[2022-02-24] MEDS: METHYLPHENIDATE HCL 10 MG TABLET PO SCH (13:23)
[2022-02-24] MEDS ORDERED: risperiDONE 0.5 MG TABLET PO PRN (17:20)
[2022-02-24] MEDS: ACETAMINOPHEN 325 MG TAB PO PRN (21:42)
[2022-02-24] MEDS ORDERED: QUEtiapine FUMARATE 25 MG TABLET PO SCH (22:00)
[2022-02-24] MEDS: ATORVASTATIN 10 MG TAB PO SCH (22:06)
[2022-02-24] MEDS: hydrOXYzine HCl 25 MG TAB PO PRN ×2 (22:24→23:30)
[2022-02-25] MEDS: [UNRECOGNIZED DRUG - REMARK] PO SCH (07:26)
[2022-02-25] MEDS: METHYLPHENIDATE 54 MG PO SCH (07:27)
[2022-02-25 08:34] LABS: Chol HDL Ratio 5.8 (0-5)
[2022-02-25] MEDS: amLODIPine BESYLATE 5 MG TAB PO SCH (08:50)
[2022-02-25] MEDS ORDERED: METHYLPHENIDATE 54 MG PO SCH (09:00)
--- NOTE | 2022-02-25 09:10 | Psychiatric Progress Note ---
Date of Service February 25, 2022 Impression / Recommendations Impression 31 yo man with hx of ADHD, possible schizophrenia and suspected intellectual disability admitted for worsening command auditory hallucinations with SI and HI. Diagnostically consistent with MDD, ADHD by history, and unspecified psychosis- possible psychotic spectrum illness, timing unclear as some symptoms have been present since age 19, but hallucinations can also be seen in intellectual disabilities without a primary psychotic disorder. Sounds like he had a bad COVID infection in late spring so also possible this a post-COVID infection sequelae as there have been some case reports of post-COVID psychosis but no evidence of behavioral disorganization as occurred in most of these cases. Stimulant-induced psychosis unlikely as stimulant medication use has been since childhood with no recent dose changes. The patient is deemed unstable and requires psychiatric hospitalization for diagnostic clarification, safety and stabilization, medication management and development of further coping skills. 02/25/22: Re-reviewed medication options and my review of his chart from [facility] and discussion with Sulema Zimmerman's medical assembly. Discussed medication treatment options in detail. Discussed risks, benefits and alternatives including antipsychotics, SSRIs, mirtazapine, depakote. Patient would like to start and consented to mirtazapine for MDD, insomnia, low appetite as well as risperidone for hallucinations. Reviewed side effects including but not limited to: GI, THOMAS, sexual side effects, and counseled on black box warning of potential for emergence of or increased SI and need to let staff know should this occur or should they feel unsafe. Also discussed importance of seeking emergency care following discharge if this side effect occurs in the future. As well as movement (TD, NMS), cardiac (QTc prolongation), and metabolic (stroke, insulin resistance). Reviewed fasting labs, some improvements since December when lipitor was added still with elevated total cholesterol. Worsening of voices in response to stressors, like with difficult topics in group, further consistent with ID response rather than primary psychotic illness. (1) MDD (major depressive disorder), recurrent episode, moderate: (2) Unspecified psychosis not due to a substance or known physiological condition: (3) Suicidal ideation: (4) ADHD (attention deficit hyperactivity disorder): (5) Self-harming behavior: (6) Poor dentition: 02/25/22: Start risperidone 0.25mg BID for hallucinations. Mirtazapine 7.5 mg qhs for insomnia and MDD. Continue stimulants. 02/24/22: The patient was admitted to the [facility] ([facility] mental health unit) on q15 min checks (behavioral with suicide precautions) for safety. The patient will participate in group, recreational, and milieu therapies and will be offered additional individual and family sessions as clinically appropriate. -Continue Concerta qAM and Ritalin qafternoon -Fasting labs in qAM -Risperidone 0.5 mg BID prn, may consider scheduling after review of [facility] records -Left message for Sulema Erasmo at [facility], awaiting records -May benefit from addition of SSRI, could consider fluoxetine or escitalopram or mirtazapine -Will need duty to warn on discharge for HI toward ex-'s partner Inventory Assets Strengths: motivated to get treatment, has outpatient providers, has housing and a job, has trusted friend Needs: safety and stabilization, medication adjustment, additional coping skills, increased outpatient services Suicide Risk Level Suicide Risk Level Comments: High-Moderate due to severe depression with SI with plan prior to admission and command AH but feels safe in the hospital, no command AH here, able to safety contract and agrees to let nursing/staff know should they develop plan, intent if command AH return or feel unable to remain safe. Risk Factors Assessment Male: Yes : Yes Do You Have Access To A Gun?: No Health Problems: Yes Mental Health Diagnoses: Yes Previous Attempt: Yes Hopelessness: Yes Protective Factors Assessment Employed: Yes ([id number]) Stable Relationships: Yes Good Rapport with Provider: Yes Interval History Identifying Information ADEBAYO BRAUN is a 31-year-old man who currently lives in [place] alone, has a history of ADHD and possible schizophrenia, and was admitted on 02/23/22 22:30 on a 201 voluntary commitment for worsening auditory hallucinations with SI and HI. Chief Complaint "Group was hard, we talked about a lot of stuff". Review of Systems Sleep Information Total Hours of Sleep: 5.5 Sleep Comments: pt given melatonin per rn. pt on q-15 minute checks Meal Information Percent Meal Consumed - Breakfast: 50 Percent Meal Consumed - Lunch: 90 Percent Meal Consumed - Dinner: 75 Nutrition Comment: pt. does not usually eat breakfast Subjective Subjective Patient was seen & assessed and interval progress reviewed with treatment team nursing and social work. Feels he slept better last night but still only about 5 hours and intermittent. Fewer voices today but had voices of SI and HI during group therapy when they were discussing different topics. Reviewed his fasting labs and that his total cholesterol, TGs, and LDL and HDL are all improving since last month was lipitor was started by his PCP. He had some dizziness this morning, possibly due to Vistaril versus risperidone prn. Continues to feel easily overwhelmed. No urges for self-harm. Physical Exam Psychiatric Orientation: alert and oriented x 3 Apperance: appropriately dressed and appropriately groomed Eye Contact: good eye contact Motor Behavior: no abnormal motor movements Speech: normal rate/rhythm/volume of speech Affect: + depressed affect and + anxious affect Mood: + depressed mood and + anxious mood Thought Process: + concrete thought process Thought Content: reality based without delusions Suicidal Thoughts: denies suicidal plan (thoughts of hanging prior to admission, none in hospital, feels safe here) and denies suicidal intent; + reports suicidal thoughts Homicidal Thoughts: denies homicidal plan (had thoughts prior to admission, none currently ) and denies homicidal intent; + reports homicidal thoughts Hallucinations: + auditory hallucinations (command), + visual hallucinations and + tactile hallucinations Cognition: recent memory grossly intact, remote memory grossly intact, attention grossly intact and language grossly intact Estimated Intelligence: + below average estimated intelligence Insight: + limited insight Judgement: + limited judgement Vital Signs (Past 24 Hours) Last Vital Signs Temp 36.9 C 02/25/22 06:45 Pulse 76 02/25/22 06:46 Resp 18 02/25/22 06:45 BP 134/89 02/25/22 06:46 Pulse Ox 94 02/23/22 18:34 Results & Data ([facility]) Laboratory Results Laboratory Results - last 24 hr 02/25/22 07:26 Fasting Glucose 82 Triglycerides 99 Cholesterol 208 H LDL Cholesterol, Calc 152 VLDL Cholesterol, Calc 20 HDL Cholesterol 36 Cholesterol/HDL Ratio 5.8 H Current Inpatient Medications Current Inpatient Medications: Current Inpatient Medications Acetaminophen (Acetaminophen 325 Mg Tab) 650 mg PO Q4H PRN PRN Reason: Headache or Minor Fever Stop: 03/25/22 22:18 Last Admin: 02/24/22 21:42 Dose: 650 mg Documented by: Al Hydrox/Mg Hydrox/Simethicone (Aluminum/Magnesium Susp 30 Ml Udc) 30 ml PO Q4H PRN PRN Reason: GI Upset Stop: 07/28/22 22:18 Amlodipine Besylate (Amlodipine Besylate 5 Mg Tab) 5 mg PO DAILY CLARY Stop: 03/26/22 08:59 Last Admin: 02/25/22 08:50 Dose: 5 mg Documented by: Atorvastatin Calcium (Atorvastatin 10 Mg Tab) 10 mg PO QPM CLARY Stop: 03/26/22 20:59 Last Admin: 02/24/22 22:06 Dose: 10 mg Documented by: Bismuth Subsalicylate (Bismuth Subsalicylate Liqd 236 Ml) 15 ml PO PRN PRN PRN Reason: Loose Stool Stop: 03/25/22 22:18 Hydroxyzine HCl (Hydroxyzine Hcl 25 Mg Tab) 50 mg PO HSZ PRN PRN Reason: Insomnia Stop: 03/25/22 22:18 Last Admin: 02/24/22 23:30 Dose: 50 mg Documented by: Hydroxyzine HCl (Hydroxyzine Hcl 25 Mg Tab) 25 mg PO Q4H PRN PRN Reason: Anxiety Stop: 03/25/22 22:18 Magnesium Hydroxide (Magnesium Hydroxide Susp 30 Ml Udc) 30 ml PO DAILY PRN PRN Reason: Constipation Stop: 03/25/22 22:18 Melatonin (Melatonin 3 Mg Tab) 3 mg PO HS PRN PRN Reason: Sleep Stop: 03/25/22 23:52 Last Admin: 02/24/22 00:32 Dose: 3 mg Documented by: Methylphenidate HCl (Methylphenidate Hcl 10 Mg Tablet) 20 mg PO QDL CLARY Stop: 03/10/22 12:29 Last Admin: 02/24/22 13:23 Dose: 20 mg Documented by: Methylphenidate HCl (Methylphenidate) 1 ea PO DAILY@[facility] Stop: 03/11/22 06:59 Last Admin: 02/25/22 07:26 Dose: 1 ea Documented by: Methylphenidate Er 54 Mg~Patient's Own Controlled Med 1 1 ea PO QAM CLARY Stop: 03/10/22 08:59 Last Admin: 02/25/22 07:27 Dose: Not Given Documented by: Risperidone (Risperidone 0.5 Mg Tablet) 0.5 mg PO BID PRN PRN Reason: Anxiety/Agitation Stop: 03/26/22 20:59 Last Admin: 02/24/22 22:20 Dose: 0.5 mg Documented by: Sodium Chloride (Sodium Chloride 0.65% Na Soln 45 Ml ([place])) 1 - 2 sprays NA PRN PRN PRN Reason: Nasal Dryness/Congestion Stop: 03/25/22 22:18 Mental Health & Subst Abuse Tx Therapist Name of Therapist: None Wildlife Management Professor Name of Wildlife Management Professor: None Post Discharge Appointments Primary Care Physician Name Of Family Doctor: Vidya Horvath
[2022-02-25] MEDS: METHYLPHENIDATE HCL 10 MG TABLET PO SCH (12:43)
[2022-02-25] MEDS ORDERED: IBUPROFEN 600 MG TAB PO PRN (16:41)
[2022-02-25] MEDS: MIRTAZAPINE TAB 15 MG TAB PO SCH (20:32)
[2022-02-25] MEDS: risperiDONE 0.5 MG TABLET PO SCH (20:33)
[2022-02-25] MEDS: ATORVASTATIN 10 MG TAB PO SCH (20:33)
[2022-02-26] MEDS: [UNRECOGNIZED DRUG - REMARK] PO SCH (08:14)
[2022-02-26] MEDS: METHYLPHENIDATE 54 MG PO SCH (08:15)
[2022-02-26] MEDS: risperiDONE 0.5 MG TABLET PO SCH ×2 (08:48→21:19)
[2022-02-26] MEDS: amLODIPine BESYLATE 5 MG TAB PO SCH (08:48)
--- NOTE | 2022-02-26 09:01 | Psychiatric Progress Note ---
Date of Service February 26, 2022 Impression / Recommendations Impression 31 yo man with hx of ADHD, possible schizophrenia and suspected intellectual disability admitted for worsening command auditory hallucinations with SI and HI. Diagnostically consistent with MDD, ADHD by history, and unspecified psychosis- possible psychotic spectrum illness, timing unclear as some symptoms have been present since age 19, but hallucinations can also be seen in intellectual disabilities without a primary psychotic disorder. Sounds like he had a bad COVID infection in late spring so also possible this a post-COVID infection sequelae as there have been some case reports of post-COVID psychosis but no evidence of behavioral disorganization as occurred in most of these cases. Stimulant-induced psychosis unlikely as stimulant medication use has been since childhood with no recent dose changes. The patient is deemed unstable and requires psychiatric hospitalization for diagnostic clarification, safety and stabilization, medication management and development of further coping skills. 02/26/22: Ongoing worsening of voices in response to stressors, like with difficult topics in group or speaking about his father's , further consistent with ID response rather than primary psychotic illness but remains on differential. Could also be an OCD component though hearing specific voice less consistent with this. Discussed starting escitalopram to help with anxiety and depression which he consents to. Tolerating risperidone and mirtazapine. Reviewed side effects including but not limited to: GI, THOMAS, sexual side effects, and counseled on black box warning of potential for emergence of or increased SI and need to let staff know should this occur or should they feel unsafe. Also discussed importance of seeking emergency care following discharge if this side effect occurs in the future. Given periods of HI toward ex-'s ex-boyfriend I did a duty to warn via phone to [facility] [employer] as Osei doesn't know the address or location of Lam who he experiences HI toward. Spoke with an officer who took the information and will attempt to contact Lam. loan workout officer will call back if we need to notify the police department before Osei's discharge. (1) MDD (major depressive disorder), recurrent episode, moderate: (2) Unspecified psychosis not due to a substance or known physiological condition: (3) Suicidal ideation: (4) ADHD (attention deficit hyperactivity disorder): (5) Self-harming behavior: (6) Poor dentition: 02/26/22: Start escitalopram 5mg qd. Continue risperidone and mirtazapine. 02/25/22: Start risperidone 0.25mg BID for hallucinations. Mirtazapine 7.5 mg qhs for insomnia and MDD. Continue stimulants. 02/24/22: The patient was admitted to the [facility] ([facility] mental health unit) on q15 min checks (behavioral with suicide precautions) for safety. The patient will participate in group, recreational, and milieu therapies and will be offered additional individual and family sessions as clinically appropriate. -Continue Concerta qAM and Ritalin qafternoon -Fasting labs in qAM -Risperidone 0.5 mg BID prn, may consider scheduling after review of [facility] records -Left message for Sulema Erasmo at [facility], awaiting records -May benefit from addition of SSRI, could consider fluoxetine or escitalopram or mirtazapine -Will need duty to warn on discharge for HI toward ex-'s partner Inventory Assets Strengths: motivated to get treatment, has outpatient providers, has housing and a job, has trusted friend Needs: safety and stabilization, medication adjustment, additional coping skills, increased outpatient services Suicide Risk Level Suicide Risk Level Comments: High-Moderate due to severe depression with SI with plan prior to admission and command AH but feels safe in the hospital, brief command AH today but alerted staff and felt better after using coping strategies, able to safety contract and agrees to let nursing/staff know should they develop plan, intent if command AH return or feel unable to remain safe. Risk Factors Assessment Male: Yes : Yes Do You Have Access To A Gun?: No Health Problems: Yes Mental Health Diagnoses: Yes Previous Attempt: Yes Hopelessness: Yes Protective Factors Assessment Employed: Yes ([employer]) Stable Relationships: Yes Good Rapport with Provider: Yes Interval History Identifying Information OSEI BRAUN is a 31-year-old man who currently lives in [place] alone, has a history of ADHD and possible schizophrenia, and was admitted on 02/23/22 22:30 on a 201 voluntary commitment for worsening auditory hallucinations with SI and HI. Chief Complaint "It got really bad today". Review of Systems Sleep Information Total Hours of Sleep: 8.75 Sleep Comments: pt given melatonin per rn. pt on q-15 minute checks Meal Information Percent Meal Consumed - Breakfast: 95 Percent Meal Consumed - Lunch: 100 Percent Meal Consumed - Dinner: 100 Nutrition Comment: pt. does not usually eat breakfast Subjective Subjective Patient was seen & assessed and interval progress reviewed with treatment team nursing and social work. Osei is having more intense thoughts of SI and HI and urges for self-harm via head-banging today due to louder voices. He attributes this to talking about his dad's and the grief from this during groups. No side effects from risperidone. He got an additional prn but wasn't sure if it helped with the voices. Slept better with the mirtazapine and no side effects from this. Reamins anxious about being unable to manage these voices and thoughts on his own. Feels safe in the hospital and glad he is here. Took prn Vistaril and utilized some distraction strategies to help cope with intrusive thoughts. Physical Exam Psychiatric Orientation: alert and oriented x 3 Apperance: appropriately dressed and appropriately groomed Eye Contact: good eye contact Motor Behavior: no abnormal motor movements Speech: normal rate/rhythm/volume of speech Affect: + depressed affect and + anxious affect Mood: + depressed mood and + anxious mood Thought Process: + concrete thought process Thought Content: reality based without delusions Suicidal Thoughts: denies suicidal plan (thoughts of hanging prior to admission, none in hospital, feels safe here) and denies suicidal intent; + reports suicidal thoughts Homicidal Thoughts: denies homicidal plan (had thoughts prior to admission, none currently ) and denies homicidal intent; + reports homicidal thoughts Hallucinations: + auditory hallucinations (command), + visual hallucinations and + tactile hallucinations Cognition: recent memory grossly intact, remote memory grossly intact, attention grossly intact and language grossly intact Estimated Intelligence: + below average estimated intelligence Insight: + limited insight Judgement: + limited judgement Vital Signs (Past 24 Hours) Last Vital Signs Temp 36.6 C 02/26/22 06:00 Pulse 88 02/26/22 06:37 Resp 18 02/26/22 06:00 BP 152/96 H 02/26/22 06:37 Pulse Ox 94 02/23/22 18:34 Results & Data ([facility]) Current Inpatient Medications Current Inpatient Medications: Current Inpatient Medications Acetaminophen (Acetaminophen 325 Mg Tab) 650 mg PO Q4H PRN PRN Reason: Headache or Minor Fever Stop: 03/25/22 22:18 Last Admin: 02/24/22 21:42 Dose: 650 mg Documented by: Al Hydrox/Mg Hydrox/Simethicone (Aluminum/Magnesium Susp 30 Ml Udc) 30 ml PO Q4H PRN PRN Reason: GI Upset Stop: 03/25/22 22:18 Amlodipine Besylate (Amlodipine Besylate 5 Mg Tab) 5 mg PO DAILY CLARY Stop: 03/26/22 08:59 Last Admin: 02/26/22 08:48 Dose: 5 mg Documented by: Atorvastatin Calcium (Atorvastatin 10 Mg Tab) 10 mg PO QPM CLARY Stop: 03/26/22 20:59 Last Admin: 02/25/22 20:33 Dose: 10 mg Documented by: Bismuth Subsalicylate (Bismuth Subsalicylate Liqd 236 Ml) 15 ml PO PRN PRN PRN Reason: Loose Stool Stop: 03/25/22 22:18 Hydroxyzine HCl (Hydroxyzine Hcl 25 Mg Tab) 50 mg PO HSZ PRN PRN Reason: Insomnia Stop: 03/25/22 22:18 Last Admin: 02/24/22 23:30 Dose: 50 mg Documented by: Hydroxyzine HCl (Hydroxyzine Hcl 25 Mg Tab) 25 mg PO Q4H PRN PRN Reason: Anxiety Stop: 03/25/22 22:18 Ibuprofen (Ibuprofen 600 Mg Tab) 600 mg PO Q8H PRN PRN Reason: knee pain Stop: 03/27/22 16:40 Magnesium Hydroxide (Magnesium Hydroxide Susp 30 Ml Udc) 30 ml PO DAILY PRN PRN Reason: Constipation Stop: 03/25/22 22:18 Melatonin (Melatonin 3 Mg Tab) 3 mg PO HS PRN PRN Reason: Sleep Stop: 03/25/22 23:52 Last Admin: 02/24/22 00:32 Dose: 3 mg Documented by: Methylphenidate HCl (Methylphenidate Hcl 10 Mg Tablet) 20 mg PO QDL CLARY Stop: 03/10/22 12:29 Last Admin: 02/25/22 12:43 Dose: 20 mg Documented by: Methylphenidate HCl (Methylphenidate) 1 ea PO DAILY@0700 [facility] Stop: 03/11/22 06:59 Last Admin: 02/26/22 08:14 Dose: 1 ea Documented by: Mirtazapine (Mirtazapine Tab 15 Mg Tab) 7.5 mg PO HS CLARY Stop: 03/27/22 21:59 Last Admin: 02/25/22 20:32 Dose: 7.5 mg Documented by: Methylphenidate Er 54 Mg~Patient's Own Controlled Med 1 1 ea PO QAM CLARY Stop: 03/10/22 08:59 Last Admin: 02/26/22 08:15 Dose: Not Given Documented by: Risperidone (Risperidone 0.5 Mg Tablet) 0.25 mg PO BID CLARY Stop: 03/27/22 20:59 Last Admin: 02/26/22 08:48 Dose: 0.25 mg Documented by: Risperidone (Risperidone 0.5 Mg Tablet) 0.25 mg PO BID PRN PRN Reason: Anxiety/Agitation Stop: 03/26/22 20:59 Sodium Chloride (Sodium Chloride 0.65% Na Soln 45 Ml ([place])) 1 - 2 sprays NA PRN PRN PRN Reason: Nasal Dryness/Congestion Stop: 03/25/22 22:18 Mental Health & Subst Abuse Tx Therapist Name of Therapist: None Cargo Operations Agent Name of Cargo Operations Agent: None Post Discharge Appointments Primary Care Physician Name Of Family Doctor: Vidya Horvath
[2022-02-26] MEDS: METHYLPHENIDATE HCL 10 MG TABLET PO SCH (12:56)
[2022-02-26] MEDS: risperiDONE 0.5 MG TABLET PO PRN ×2 (12:57→17:26)
[2022-02-26] MEDS: hydrOXYzine HCl 25 MG TAB PO PRN (15:33)
[2022-02-26] MEDS: MIRTAZAPINE TAB 15 MG TAB PO SCH (21:20)
[2022-02-26] MEDS: ATORVASTATIN 10 MG TAB PO SCH (21:20)
[2022-02-27] MEDS: [UNRECOGNIZED DRUG - REMARK] PO SCH (06:28)
[2022-02-27] MEDS: risperiDONE 0.5 MG TABLET PO SCH ×2 (08:06→21:35)
[2022-02-27] MEDS: amLODIPine BESYLATE 5 MG TAB PO SCH (08:08)
[2022-02-27] MEDS: METHYLPHENIDATE 54 MG PO SCH (08:21)
[2022-02-27] MEDS ORDERED: ESCITALOPRAM OXALATE 10 MG TAB PO SCH (09:00)
[2022-02-27] MEDS ORDERED: BENZTROPINE MESYLATE 1 MG TAB PO PRN (10:33)
[2022-02-27] MEDS ORDERED: diphenhydrAMINE Capsule 25 MG CAP PO PRN (10:33)
--- NOTE | 2022-02-27 11:30 | Psychiatric Progress Note ---
Date of Service February 27, 2022 Impression / Recommendations Impression 31 yo man with hx of ADHD, possible schizophrenia and suspected intellectual disability admitted for worsening command auditory hallucinations with SI and HI. Diagnostically consistent with MDD, ADHD by history, and unspecified psychosis- possible psychotic spectrum illness, timing unclear as some symptoms have been present since age 19, but hallucinations can also be seen in intellectual disabilities without a primary psychotic disorder. Sounds like he had a bad COVID infection in late spring so also possible this a post-COVID infection sequelae as there have been some case reports of post-COVID psychosis but no evidence of behavioral disorganization as occurred in most of these cases. Stimulant-induced psychosis unlikely as stimulant medication use has been since childhood with no recent dose changes. The patient is deemed unstable and requires psychiatric hospitalization for diagnostic clarification, safety and stabilization, medication management and development of further coping skills. 02/27/22: perseveration and limited coping consistent with ID, discussed that stimulants can contribute to auditory and tactile greer but he has been on for >10 years without incident and reports of greer seem more perseverative with his depressive ruminations at this time so will continue for now as otherwise does not seem disorganized/psychotic. (1) MDD (major depressive disorder), recurrent episode, moderate: (2) Unspecified psychosis not due to a substance or known physiological condition: (3) Suicidal ideation: (4) ADHD (attention deficit hyperactivity disorder): (5) Self-harming behavior: (6) Poor dentition: 02/27/22: he agreed to titrate Lexapro. Will add prn Cogentin in case facial symptoms are early dystonia. Benadryl prn allergic reactions. Consider holding stimulant. 02/26/22: Start escitalopram 5mg qd. Continue risperidone and mirtazapine. 02/25/22: Start risperidone 0.25mg BID for hallucinations. Mirtazapine 7.5 mg qhs for insomnia and MDD. Continue stimulants. 02/24/22: The patient was admitted to the [facility] on q15 min checks (behavioral with suicide precautions) for safety. The patient will participate in group, recreational, and milieu therapies and will be offered additional individual and family sessions as clinically appropriate. -Continue Concerta qAM and Ritalin qafternoon -Fasting labs in qAM -Risperidone 0.5 mg BID prn, may consider scheduling after review of [facility] records -Left message for Sulema Zimmerman at [place], awaiting records -May benefit from addition of SSRI, could consider fluoxetine or escitalopram or mirtazapine -Will need duty to warn on discharge for HI toward ex-'s partner Inventory Assets Strengths: motivated to get treatment, has outpatient providers, has housing and a job, has trusted friend Needs: safety and stabilization, medication adjustment, additional coping skills, increased outpatient services Suicide Risk Level Suicide Risk Level Comments: High-Moderate due to severe depression with SI with plan prior to admission and command AH but is improving and contracts to go to staff. Risk Factors Assessment Male: Yes : Yes Do You Have Access To A Gun?: No Health Problems: Yes Mental Health Diagnoses: Yes Previous Attempt: Yes Hopelessness: Yes Protective Factors Assessment Employed: Yes ([employer]) Stable Relationships: Yes Good Rapport with Provider: Yes Interval History Identifying Information ADEBAYO BRAUN is a 31-year-old man who currently lives in [place] alone, has a history of ADHD and possible schizophrenia, and was admitted on 02/23/22 22:30 on a 201 voluntary commitment for worsening auditory hallucinations with SI and HI. Chief Complaint "I'm really no better, I don't understand why I have these thoughts for so long." Review of Systems Sleep Information Total Hours of Sleep: 7 Sleep Comments: pt on q-15 minute checks Meal Information Percent Meal Consumed - Breakfast: 50 Percent Meal Consumed - Lunch: 100 Percent Meal Consumed - Dinner: 100 Nutrition Comment: pt. does not usually eat breakfast Subjective Subjective Patient was seen & assessed and interval progress reviewed with nursing and social work. Staff report he confuses own thoughts for voices at times. is agreeable to involving friend Donnie in [place] in his hospital stay, lifelong friend/former Big Brother. His mood dropped yesterday in thinking of his father and did take Vistaril prn. Around that time continue to have non specific thoughts to harm self, perseverative to the point of feeling like a command. Ruminative about loss of relationship. Although he has non specific thoughts about taking out his anger he has no intent or plan to harm anyone else. He does worry he'd self-harm if not hospitalized. states he felt like his lip was a bit swollen this am, denies dystonia and has no swelling, rash, dystonia on exam, no tongue tremor or difficulty swallowing. Physical Exam Psychiatric Orientation: alert and oriented x 3 Apperance: appropriately dressed and appropriately groomed (poor dentition) Eye Contact: + fair eye contact Motor Behavior: no abnormal motor movements Speech: normal rate/rhythm/volume of speech Affect: + depressed affect Mood: + depressed mood and + anxious mood Thought Process: + concrete thought process Thought Content: reality based without delusions Suicidal Thoughts: denies suicidal plan (thoughts of hanging prior to admission, none in hospital, feels safe here) and denies suicidal intent; + reports suicidal thoughts Homicidal Thoughts: denies homicidal thoughts, denies homicidal plan (had thoughts prior to admission, none currently ) and denies homicidal intent Hallucinations: + tactile hallucinations; no auditory hallucinations and no visual hallucinations Cognition: attention grossly intact and language grossly intact Estimated Intelligence: + below average estimated intelligence Insight: + limited insight Judgement: + limited judgement Vital Signs (Past 24 Hours) Last Vital Signs Temp 36.5 C 02/27/22 07:03 Pulse 92 H 02/27/22 07:04 Resp 16 02/27/22 07:03 BP 136/95 02/27/22 07:04 Pulse Ox 94 02/23/22 18:34 Results & Data ([facility]) Current Inpatient Medications Current Inpatient Medications: Current Inpatient Medications Acetaminophen (Acetaminophen 325 Mg Tab) 650 mg PO Q4H PRN PRN Reason: Headache or Minor Fever Stop: 03/25/22 22:18 Last Admin: 02/24/22 21:42 Dose: 650 mg Documented by: Al Hydrox/Mg Hydrox/Simethicone (Aluminum/Magnesium Susp 30 Ml Udc) 30 ml PO Q4H PRN PRN Reason: GI Upset Stop: 03/25/22 22:18 Amlodipine Besylate (Amlodipine Besylate 5 Mg Tab) 5 mg PO DAILY CLARY Stop: 03/26/22 08:59 Last Admin: 02/27/22 08:08 Dose: 5 mg Documented by: Atorvastatin Calcium (Atorvastatin 10 Mg Tab) 10 mg PO QPM CLARY Stop: 03/26/22 20:59 Last Admin: 02/26/22 21:20 Dose: 10 mg Documented by: Benztropine Mesylate (Benztropine Mesylate 1 Mg Tab) 1 mg PO Q6 PRN PRN Reason: muscle spasm Stop: 03/29/22 10:32 Bismuth Subsalicylate (Bismuth Subsalicylate Liqd 236 Ml) 15 ml PO PRN PRN PRN Reason: Loose Stool Stop: 03/25/22 22:18 Diphenhydramine HCl (Diphenhydramine Capsule 25 Mg Cap) 25 mg PO Q4 PRN PRN Reason: Allergic Reaction Stop: 03/29/22 10:32 Escitalopram Oxalate (Escitalopram Oxalate 10 Mg Tab) 10 mg PO QAM CLARY Stop: 03/30/22 08:59 Hydroxyzine HCl (Hydroxyzine Hcl 25 Mg Tab) 50 mg PO HSZ PRN PRN Reason: Insomnia Stop: 03/25/22 22:18 Last Admin: 02/24/22 23:30 Dose: 50 mg Documented by: Hydroxyzine HCl (Hydroxyzine Hcl 25 Mg Tab) 25 mg PO Q4H PRN PRN Reason: Anxiety Stop: 03/25/22 22:18 Last Admin: 02/26/22 15:33 Dose: 25 mg Documented by: Ibuprofen (Ibuprofen 600 Mg Tab) 600 mg PO Q8H PRN PRN Reason: knee pain Stop: 03/27/22 16:40 Magnesium Hydroxide (Magnesium Hydroxide Susp 30 Ml Udc) 30 ml PO DAILY PRN PRN Reason: Constipation Stop: 03/25/22 22:18 Melatonin (Melatonin 3 Mg Tab) 3 mg PO HS PRN PRN Reason: Sleep Stop: 03/25/22 23:52 Last Admin: 02/24/22 00:32 Dose: 3 mg Documented by: Methylphenidate HCl (Methylphenidate Hcl 10 Mg Tablet) 20 mg PO QDL CLARY Stop: 03/10/22 12:29 Last Admin: 02/26/22 12:56 Dose: 20 mg Documented by: Methylphenidate HCl (Methylphenidate) 1 ea PO DAILY@0700 CLARY Stop: 03/11/22 06:59 Last Admin: 02/27/22 06:28 Dose: 1 ea Documented by: Mirtazapine (Mirtazapine Tab 15 Mg Tab) 7.5 mg PO HS CLARY Stop: 03/27/22 21:59 Last Admin: 02/26/22 21:20 Dose: 7.5 mg Documented by: Methylphenidate Er 54 Mg~Patient's Own Controlled Med 1 1 ea PO QAM CLARY Stop: 03/10/22 08:59 Last Admin: 02/27/22 08:21 Dose: Not Given Documented by: Risperidone (Risperidone 0.5 Mg Tablet) 0.25 mg PO BID CLARY Stop: 03/27/22 20:59 Last Admin: 02/27/22 08:06 Dose: 0.25 mg Documented by: Risperidone (Risperidone 0.5 Mg Tablet) 0.25 mg PO BID PRN PRN Reason: Anxiety/Agitation Stop: 03/26/22 20:59 Last Admin: 02/26/22 17:26 Dose: 0.25 mg Documented by: Sodium Chloride (Sodium Chloride 0.65% Na Soln 45 Ml ([place])) 1 - 2 sprays NA PRN PRN PRN Reason: Nasal Dryness/Congestion Stop: 03/25/22 22:18 Mental Health & Subst Abuse Tx Psychiatrist Name of Psychiatrist: Eugenie Zimmerman Psychiatrist's Date of Appointment with Psychiatrist: 03/18/22 Time of Appointment with Psychiatrist: 9:00 AM Psychiatric Appointment Comment: [address] [facility] [place] Therapist Name of Therapist: Helena Clemente Therapist's Date of Therapist Appointment: 03/03/22 Time of Therapist Appointment: 10:00 AM Therapy Appointment Comment: [address] [facility], [address], [facility] [address] Gear Machine Operator General Name of Gear Machine Operator General: None Post Discharge Appointments Primary Care Physician Name Of Family Doctor: Vidya Horvath
[2022-02-27] MEDS: METHYLPHENIDATE HCL 10 MG TABLET PO SCH (12:28)
[2022-02-27] MEDS: MIRTAZAPINE TAB 15 MG TAB PO SCH (21:36)
[2022-02-27] MEDS: ATORVASTATIN 10 MG TAB PO SCH (21:36)
[2022-02-28] MEDS: [UNRECOGNIZED DRUG - REMARK] PO SCH (06:29)
[2022-02-28] MEDS: risperiDONE 0.5 MG TABLET PO SCH ×2 (08:06→21:02)
[2022-02-28] MEDS: amLODIPine BESYLATE 5 MG TAB PO SCH (08:07)
[2022-02-28] MEDS: METHYLPHENIDATE 54 MG PO SCH (08:08)
[2022-02-28] MEDS ORDERED: ESCITALOPRAM OXALATE 10 MG TAB PO SCH (09:00)
[2022-02-28] MEDS: ACETAMINOPHEN 325 MG TAB PO PRN (10:33)
--- NOTE | 2022-02-28 13:09 | Psychiatric Progress Note ---
Date of Service February 28, 2022 Impression / Recommendations Impression 31 yo man with hx of ADHD, possible schizophrenia and suspected intellectual disability admitted for worsening command auditory hallucinations with SI and HI. Diagnostically consistent with MDD, ADHD by history, and unspecified psychosis- possible psychotic spectrum illness, timing unclear as some symptoms have been present since age 19, but hallucinations can also be seen in intellectual disabilities without a primary psychotic disorder. Sounds like he had a bad COVID infection in late spring so also possible this a post-COVID infection sequelae as there have been some case reports of post-COVID psychosis but no evidence of behavioral disorganization as occurred in most of these cases. Stimulant-induced psychosis unlikely as stimulant medication use has been since childhood with no recent dose changes. The patient is deemed unstable and requires psychiatric hospitalization for diagnostic clarification, safety and stabilization, medication management and development of further coping skills. 02/28/22: perseveration and limited coping consistent with ID, reports greer but doesn't appear to be responding to internal stimuli and clearly anxious on how to deal with his thoughts/fearful around discharge. suspect some activation by SSRI. (1) MDD (major depressive disorder), recurrent episode, moderate: (2) Unspecified psychosis not due to a substance or known physiological condition: (3) Suicidal ideation: (4) ADHD (attention deficit hyperactivity disorder): (5) Self-harming behavior: (6) Poor dentition: 02/28/22: hold today's noon dose of Ritalin as jittery. Still not sleeping well per patient, titrate Remeron as tolerating better than Lexapro so far. Monitor reports of greer. No clear indication to increase Risperdal today. Lexap ro 5 mg tomorrow. 02/27/22: he agreed to titrate Lexapro. Will add prn Cogentin in case facial symptoms are early dystonia. Benadryl prn allergic reactions. Consider holding stimulant. 02/26/22: Start escitalopram 5mg qd. Continue risperidone and mirtazapine. 02/25/22: Start risperidone 0.25mg BID for hallucinations. Mirtazapine 7.5 mg qhs for insomnia and MDD. Continue stimulants. 02/24/22: The patient was admitted to the [facility] ([facility]) on q15 min checks (behavioral with suicide precautions) for safety. The patient will participate in group, recreational, and milieu therapies and will be offered additional individual and family sessions as clinically appropriate. -Continue Concerta qAM and Ritalin qafternoon -Fasting labs in qAM -Risperidone 0.5 mg BID prn, may consider scheduling after review of [facility] records -Left message for Sulema Zimmerman at [place], awaiting records -May benefit from addition of SSRI, could consider fluoxetine or escitalopram or mirtazapine -Will need duty to warn on discharge for HI toward ex-'s partner Inventory Assets Strengths: motivated to get treatment, has outpatient providers, has housing and a job, has trusted friend Needs: safety and stabilization, medication adjustment, additional coping skills, increased outpatient services Suicide Risk Level Suicide Risk Level Comments: High-Moderate due to severe depression with SI with plan prior to admission and command but is improving and contracts to go to staff. Risk Factors Assessment Male: Yes : Yes Do You Have Access To A Gun?: No Health Problems: Yes Mental Health Diagnoses: Yes Previous Attempt: Yes Hopelessness: Yes Protective Factors Assessment Employed: Yes ([employer]) Stable Relationships: Yes Good Rapport with Provider: Yes Interval History Identifying Information ADEBAYO BRAUN is a 31-year-old man who currently lives in [place] alone, has a history of ADHD and possible schizophrenia, and was admitted on 02/23/22 22:30 on a 201 voluntary commitment for worsening auditory hallucinations with SI and HI. Chief Complaint "I feel all jittery." Review of Systems Sleep Information Total Hours of Sleep: 7.25 Sleep Comments: pt on q-15 minute cheks Meal Information Percent Meal Consumed - Breakfast: 100 Percent Meal Consumed - Lunch: 100 Percent Meal Consumed - Dinner: 100 Subjective Subjective Patient was seen & assessed and interval progress reviewed with nursing and social work. issue with facial swelling (subjective) yesterday am resolved. rated his mood last pm as 5 and confused. Stated that he feels tachy today, more restless with some visible tremor right upper extremity coinciding with 1 dose of Lexapro 10 mg. HR increase since starting Lexapro (unclear if causation). States he awoke with auditory greer to self harm, mainly "worried how I would deal with them at home as I don't want to cut." Physical Exam Psychiatric Orientation: alert and oriented x 3 Apperance: appropriately dressed and appropriately groomed (poor dentition) Eye Contact: + fair eye contact Motor Behavior: no abnormal motor movements Speech: normal rate/rhythm/volume of speech Affect: + depressed affect and + anxious affect Mood: + depressed mood Thought Process: + concrete thought process Thought Content: reality based without delusions Suicidal Thoughts: denies suicidal plan (thoughts of hanging prior to admission, none in hospital, feels safe here) and denies suicidal intent; + reports suicidal thoughts Homicidal Thoughts: denies homicidal thoughts, denies homicidal plan (had thoughts prior to admission, none currently ) and denies homicidal intent Hallucinations: no auditory hallucinations, no visual hallucinations and no tactile hallucinations Cognition: recent memory grossly intact, remote memory grossly intact, attention grossly intact and language grossly intact Estimated Intelligence: + below average estimated intelligence Insight: + limited insight Judgement: + limited judgement Vital Signs (Past 24 Hours) Last Vital Signs Temp 36.6 C 02/28/22 07:02 Pulse 108 H 02/28/22 07:02 Resp 16 02/28/22 07:02 BP 145/92 H 02/28/22 07:02 Pulse Ox 94 02/23/22 18:34 Results & Data ([facility]) Current Inpatient Medications Current Inpatient Medications: Current Inpatient Medications Acetaminophen (Acetaminophen 325 Mg Tab) 650 mg PO Q4H PRN PRN Reason: Headache or Minor Fever Stop: 03/25/22 22:18 Last Admin: 02/28/22 10:33 Dose: 650 mg Documented by: Al Hydrox/Mg Hydrox/Simethicone (Aluminum/Magnesium Susp 30 Ml Udc) 30 ml PO Q4H PRN PRN Reason: GI Upset Stop: 03/25/22 22:18 Amlodipine Besylate (Amlodipine Besylate 5 Mg Tab) 5 mg PO DAILY CLARY Stop: 03/26/22 08:59 Last Admin: 02/28/22 08:07 Dose: 5 mg Documented by: Atorvastatin Calcium (Atorvastatin 10 Mg Tab) 10 mg PO QPM CLARY Stop: 03/26/22 20:59 Last Admin: 02/27/22 21:36 Dose: 10 mg Documented by: Benztropine Mesylate (Benztropine Mesylate 1 Mg Tab) 1 mg PO Q6 PRN PRN Reason: muscle spasm Stop: 03/29/22 10:32 Bismuth Subsalicylate (Bismuth Subsalicylate Liqd 236 Ml) 15 ml PO PRN PRN PRN Reason: Loose Stool Stop: 03/25/22 22:18 Diphenhydramine HCl (Diphenhydramine Capsule 25 Mg Cap) 25 mg PO Q4 PRN PRN Reason: Allergic Reaction Stop: 03/29/22 10:32 Escitalopram Oxalate (Escitalopram Oxalate 10 Mg Tab) 5 mg PO QAM CLARY Stop: 03/31/22 08:59 Hydroxyzine HCl (Hydroxyzine Hcl 25 Mg Tab) 50 mg PO HSZ PRN PRN Reason: Insomnia Stop: 03/25/22 22:18 Last Admin: 02/24/22 23:30 Dose: 50 mg Documented by: Hydroxyzine HCl (Hydroxyzine Hcl 25 Mg Tab) 25 mg PO Q4H PRN PRN Reason: Anxiety Stop: 03/25/22 22:18 Last Admin: 02/26/22 15:33 Dose: 25 mg Documented by: Ibuprofen (Ibuprofen 600 Mg Tab) 600 mg PO Q8H PRN PRN Reason: knee pain Stop: 03/27/22 16:40 Magnesium Hydroxide (Magnesium Hydroxide Susp 30 Ml Udc) 30 ml PO DAILY PRN PRN Reason: Constipation Stop: 03/25/22 22:18 Melatonin (Melatonin 3 Mg Tab) 3 mg PO HS PRN PRN Reason: Sleep Stop: 03/25/22 23:52 Last Admin: 02/24/22 00:32 Dose: 3 mg Documented by: Methylphenidate HCl (Methylphenidate Hcl 10 Mg Tablet) 20 mg PO QDL CLARY Stop: 03/10/22 12:29 Last Admin: 02/27/22 12:28 Dose: 20 mg Documented by: Methylphenidate HCl (Methylphenidate) 1 ea PO DAILY@0700 CLARY Stop: 03/11/22 06:59 Last Admin: 02/28/22 06:29 Dose: 1 ea Documented by: Mirtazapine (Mirtazapine Tab 15 Mg Tab) 15 mg PO HS CLARY Stop: 03/30/22 21:59 Methylphenidate Er 54 Mg~Patient's Own Controlled Med 1 1 ea PO QAM CLARY Stop: 03/10/22 08:59 Last Admin: 02/28/22 08:08 Dose: Not Given Documented by: Risperidone (Risperidone 0.5 Mg Tablet) 0.25 mg PO BID CLARY Stop: 03/27/22 20:59 Last Admin: 02/28/22 08:06 Dose: 0.25 mg Documented by: Risperidone (Risperidone 0.5 Mg Tablet) 0.25 mg PO BID PRN PRN Reason: Anxiety/Agitation Stop: 03/26/22 20:59 Last Admin: 02/26/22 17:26 Dose: 0.25 mg Documented by: Sodium Chloride (Sodium Chloride 0.65% Na Soln 45 Ml ([place])) 1 - 2 sprays NA PRN PRN PRN Reason: Nasal Dryness/Congestion Stop: 03/25/22 22:18 Mental Health & Subst Abuse Tx Psychiatrist Name of Psychiatrist: Eugenie Zimmerman Psychiatrist's Date of Appointment with Psychiatrist: 03/18/22 Time of Appointment with Psychiatrist: 9:00 AM Psychiatric Appointment Comment: [address] [facility] [place] Therapist Name of Therapist: Helena Clemente Therapist's Date of Therapist Appointment: 03/03/22 Time of Therapist Appointment: 10:00 AM Therapy Appointment Comment: [address] [facility], [address], [place] [address] Porcelain Slusher Name of Porcelain Slusher: None Post Discharge Appointments Primary Care Physician Name Of Family Doctor: Vidya Horvath
[2022-02-28] MEDS: ATORVASTATIN 10 MG TAB PO SCH (21:02)
[2022-02-28] MEDS: MIRTAZAPINE TAB 15 MG TAB PO SCH (21:03)
[2022-03-01] MEDS: [UNRECOGNIZED DRUG - REMARK] PO SCH (06:16)
[2022-03-01] MEDS: amLODIPine BESYLATE 5 MG TAB PO SCH (08:11)
[2022-03-01] MEDS: risperiDONE 0.5 MG TABLET PO SCH ×2 (08:12→21:11)
[2022-03-01] MEDS: METHYLPHENIDATE 54 MG PO SCH (08:14)
[2022-03-01] MEDS ORDERED: ESCITALOPRAM OXALATE 10 MG TAB PO SCH (09:00)
[2022-03-01] MEDS ORDERED: cloNIDine HCL 0.1 MG TAB PO ONE (11:19)
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
[2022-03-01] MEDS: hydrOXYzine HCl 25 MG TAB PO PRN (15:44)
[2022-03-01] MEDS: MIRTAZAPINE TAB 15 MG TAB PO SCH (21:11)
[2022-03-01] MEDS: ATORVASTATIN 10 MG TAB PO SCH (22:02)
[2022-03-02] MEDS: [UNRECOGNIZED DRUG - REMARK] PO SCH (07:59)
[2022-03-02] MEDS: amLODIPine BESYLATE 5 MG TAB PO SCH (07:59)
[2022-03-02] MEDS: METHYLPHENIDATE 54 MG PO SCH (08:00)
[2022-03-02] MEDS: ACETAMINOPHEN 325 MG TAB PO PRN ×2 (08:15→17:24)
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
[2022-03-02] MEDS: risperiDONE 0.5 MG TABLET PO SCH (21:53)
[2022-03-02] MEDS: ATORVASTATIN 10 MG TAB PO SCH (21:53)
[2022-03-02] MEDS: MIRTAZAPINE TAB 15 MG TAB PO SCH (21:53)
[2022-03-03] MEDS: [UNRECOGNIZED DRUG - REMARK] PO SCH (06:16)
[2022-03-03] MEDS: METHYLPHENIDATE 54 MG PO SCH (06:17)
[2022-03-03] MEDS: ACETAMINOPHEN 325 MG TAB PO PRN ×3 (06:59→19:35)
[2022-03-03] MEDS: amLODIPine BESYLATE 5 MG TAB PO SCH (08:29)
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
[2022-03-03] MEDS: risperiDONE 0.5 MG TABLET PO SCH (17:18)
[2022-03-03] MEDS: hydrOXYzine HCl 25 MG TAB PO PRN (17:18)
[2022-03-03] MEDS: ATORVASTATIN 10 MG TAB PO SCH (21:24)
[2022-03-03] MEDS: MIRTAZAPINE TAB 15 MG TAB PO SCH (21:24)
[2022-03-04] MEDS: [UNRECOGNIZED DRUG - REMARK] PO SCH (06:34)
[2022-03-04] MEDS: METHYLPHENIDATE 54 MG PO SCH (08:02)
[2022-03-04] MEDS: amLODIPine BESYLATE 5 MG TAB PO SCH (08:35)
[2022-03-04] MEDS: hydrOXYzine HCl 25 MG TAB PO PRN (11:57)
[2022-03-04] MEDS: ACETAMINOPHEN 325 MG TAB PO PRN (11:58)
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
[2022-03-04] MEDS: risperiDONE 0.5 MG TABLET PO SCH (17:51)
[2022-03-04] MEDS ORDERED: PRAZOSIN HCL 1 MG CAP PO SCH (22:00)
[2022-03-04] MEDS: MIRTAZAPINE TAB 15 MG TAB PO SCH (22:02)
[2022-03-04] MEDS: ATORVASTATIN 10 MG TAB PO SCH (22:02)
[2022-03-05] MEDS: [UNRECOGNIZED DRUG - REMARK] PO SCH (06:28)
[2022-03-05] MEDS: METHYLPHENIDATE 54 MG PO SCH (06:38)
[2022-03-05] MEDS: amLODIPine BESYLATE 5 MG TAB PO SCH (08:16)
--- NOTE | 2022-03-05 09:07 | Discharge Summary ---
Date of Service March 05, 2022 History of Present Illness As per Dr. Saldana on admission: Osei presents for psychiatric admission for worsening auditory hallucinations telling him to kill himself or to hurt his ex-'s new partner which is leading to depression and fears of being unable to remain safe. He referred to the ED by his outpatient psychiatric PA Sulema Zimmerman from his outpatient appointment at [facility] yesterday. His feels his symptoms have arisen in the context of multiple recent psychosocial stressors including health issues including upcoming dental surgery to remove all of his teeth in February, recent episodes of syncope, still with taste/smell lose from COVID infection in early December and chronic knee/back/neck pain as well as worrying about finances and losing his job and apartment. Today Osei identifies a history of some vague auditory hallucinations since about age 19 when his father as well times where he experiences visual hallucinations of seeing his father and now and then tactile hallucinations of feeling like someone is touching his arm. In the last week the voices have increased and started to tell him to kill himself by hanging. The voices also have been telling him to hurt his ex-'s new partner, who was his childhood friend, a man named Lam Waldron. He does not know how to spell his name and doesn't know where Lam lives. He states he would never kill Lam but sometimes the voices make him want to "slash his tires" or "stab him just to hurt him". The voices are really distressing to him and made him feel unable to remain safe outside of the hospital since he lives alone. He felt better after attending a [employer] baseball game this weekend but then the voices came back. He endorses depression symptoms due to the voices of low mood, anxiety, decreased appetite, difficulty with sleep and helplessness. He has a history of self- harming behaviors via head-banging and has been doing this about 3 times per week when he gets overwhelmed by the voices or by his emotions. He has been taking Concerta and Ritalin since childhood for ADHD. Was recently trialed on seroquel (stopped due to HLD) and then abilify (but had weakness and felt dizzy) by his [facility] provider. Psychiatric ROS notable for history of periodic periods of time with elevated mood, decreased sleep and increased goal driven activities for up to 3 days (last a few months ago) but no hx of overt andriy and no current symptoms. No hx substance use. History of bullying and special education/IEP throughout school. No history of violence or aggression or legal charges. No PTSD symptoms identified. Physical Exam Psychiatric See admission H&P and DOD assessment. Vital Signs (Past 24 Hours) Last Vital Signs Temp 36.4 C L 03/05/22 06:00 Pulse 108 H 03/05/22 06:53 Resp 18 03/05/22 06:00 BP 129/88 03/05/22 06:53 Pulse Ox 98 03/01/22 06:00 Principal Diagnosis depressive disorder Psychiatric Data See daily stay summary. In short, safety was maintained and the patient was cooperative with care. Medication changes included trial of Risperdal in place of Seroquel and a trial of Remeron and Lexapro. He seemed activated on the SSRI with restlessness, jitteriness and elevated BP so the trial of Lexapro was discontinued. He did better on lower dose of Remeron as well. Although he reported hallucinations at bedtime and at times upon awakening then seem to be perseverative thoughts and would worsen when feeling anxious around discharge as cognitive level limits coping skills. He clearly had no desire to hurt himself or anyone else. A family session was held with his lifelong friend and safety plan was completed prior to discharge. He had some nightmares that were upsetting to him. His midday dose of Ritalin was held/discontinued due to BP elevations/tachycardia. This can be reassessed on an outpatient basis. He did start of prazosin the evening prior to discharge for PTSD related nightmares and this appeared helpful. He would like to continue to transition home and reevaluate need at his outpatient follow up appointment. Day of Discharge Assessment Today the patient voices readiness for discharge. They note improvement in mood and deny thoughts to harm self or others. Thoughts remain organized and they are improved from admission. There is no evidence of psychosis. They agree to take mediations as prescribed and keep follow-up appointments. They are stable for discharge to outpatient level of care. Transition of Care Transition Of Care Record: was reviewed with the patient Advance Directives Advance Directives Information Provided: Yes Advance Directives: No Mental Health Advance Directive: No Advance Directives on File: No Living Will: No Power of Manager University: No Advance Directives Reason:: Declines as Mental Health Visit. Suicide Risk Level Suicide Risk Level Comments: Suicide risk at discharge is deemed low as the patient is no longer requiring 24-hr monitoring, has a safety plan, and is free of suicidal ideation at discharge. Risk Factors Assessment Male: Yes : Yes Do You Have Access To A Gun?: No Health Problems: Yes Mental Health Diagnoses: Yes Previous Attempt: Yes Hopelessness: Yes Protective Factors Assessment Employed: Yes ([employer]) Stable Relationships: Yes Good Rapport with Provider: Yes Total Time Total Time Spent: Greater Than 30 Minutes Total Time Includes: Examination of the patient, Discharge Planning and Medication Reconciliation Discharge Data Lab Results 02/23/22 02/23/22 02/23/22 17:44 17:44 17:44 WBC 12.14 H RBC 5.01 Hgb 14.9 Hct 44.2 MCV 88.2 MCH 29.7 MCHC 33.7 RDW Std Deviation 44.2 RDW Coeff of Josselyn 13.7 Plt Count 560 H MPV 9.8 Immature Gran % (Auto) 0.2 Neut % (Auto) 73.8 Lymph % (Auto) 18.3 [place] % (Auto) 7.3 Eos % (Auto) 0.2 Baso % (Auto) 0.2 Neut # (Auto) 8.96 H Lymph # (Auto) 2.22 [place] # (Auto) 0.89 H Eos # (Auto) 0.03 Baso # (Auto) 0.02 Immature Gran # (Auto) 0.02 Sodium 139 Potassium 3.5 Chloride 105 Carbon Dioxide 24 Anion Gap 10 BUN 11 Creatinine 1.01 Est Cr Clr Drug Dosing Not Reportable Est GFR ( Amer) 114.3 Est GFR (Non-Af Amer) 98.7 BUN/Creatinine Ratio 10.9 Glucose 84 Fasting Glucose Calcium 9.7 Total Bilirubin 0.5 AST 20 ALT 30 Alkaline Phosphatase 78 Total Protein 8.1 Albumin 4.6 Globulin 3.5 Albumin/Globulin Ratio 1.3 Triglycerides Cholesterol LDL Cholesterol, Calc VLDL Cholesterol, Calc HDL Cholesterol Cholesterol/HDL Ratio TSH 1.842 Urine Color Urine Appearance Urine pH Ur Specific [place] Urine Protein Urine Glucose (UA) Urine Ketones Urine Blood Urine Nitrite Urine Bilirubin Urine Urobilinogen Ur Leukocyte Esterase Urine WBC (Auto) Urine RBC (Auto) U Hyaline Cast (Auto) U Epithel Cells (Auto) Urine Bacteria (Auto) Salicylates Urine Opiates Screen Ur Methadone, Qual Acetaminophen Urine Barbiturates Ur Phencyclidine (PCP) U Amphetamin/Meth Scrn MDMA (Ecstasy) Screen U Benzodiazepines Scrn Ur Cocaine Metabolite U Marijuana (THC) Screen Ethyl Alcohol mg/dL SARS-CoV-2, RNA, NAAT 02/23/22 02/23/22 02/23/22 17:44 17:44 17:46 WBC RBC Hgb Hct MCV MCH MCHC RDW Std Deviation RDW Coeff of Josselyn Plt Count MPV Immature Gran % (Auto) Neut % (Auto) Lymph % (Auto) [place] % (Auto) Eos % (Auto) Baso % (Auto) Neut # (Auto) Lymph # (Auto) [place] # (Auto) Eos # (Auto) Baso # (Auto) Immature Gran # (Auto) Sodium Potassium Chloride Carbon Dioxide Anion Gap BUN Creatinine Est Cr Clr Drug Dosing Est GFR ( Amer) Est GFR (Non-Af Amer) BUN/Creatinine Ratio Glucose Fasting Glucose Calcium Total Bilirubin AST ALT Alkaline Phosphatase Total Protein Albumin Globulin Albumin/Globulin Ratio Triglycerides Cholesterol LDL Cholesterol, Calc VLDL Cholesterol, Calc HDL Cholesterol Cholesterol/HDL Ratio TSH Urine Color Urine Appearance Urine pH Ur Specific [place] Urine Protein Urine Glucose (UA) Urine Ketones Urine Blood Urine Nitrite Urine Bilirubin Urine Urobilinogen Ur Leukocyte Esterase Urine WBC (Auto) Urine RBC (Auto) U Hyaline Cast (Auto) U Epithel Cells (Auto) Urine Bacteria (Auto) Salicylates < 3.0 L Urine Opiates Screen Ur Methadone, Qual Acetaminophen < 3 L Urine Barbiturates Ur Phencyclidine (PCP) U Amphetamin/Meth Scrn MDMA (Ecstasy) Screen U Benzodiazepines Scrn Ur Cocaine Metabolite U Marijuana (THC) Screen Ethyl Alcohol mg/dL < 10.0 SARS-CoV-2, RNA, NAAT NEGATIVE 02/23/22 02/23/22 02/25/22 19:05 Unknown 07:26 WBC RBC Hgb Hct MCV MCH MCHC RDW Std Deviation RDW Coeff of Josselyn Plt Count MPV Immature Gran % (Auto) Neut % (Auto) Lymph % (Auto) [place] % (Auto) Eos % (Auto) Baso % (Auto) Neut # (Auto) Lymph # (Auto) [place] # (Auto) Eos # (Auto) Baso # (Auto) Immature Gran # (Auto) Sodium Potassium Chloride Carbon Dioxide Anion Gap BUN Creatinine Est Cr Clr Drug Dosing Est GFR ( Amer) Est GFR (Non-Af Amer) BUN/Creatinine Ratio Glucose Fasting Glucose 82 Calcium Total Bilirubin AST ALT Alkaline Phosphatase Total Protein Albumin Globulin Albumin/Globulin Ratio Triglycerides 99 Cholesterol 208 H LDL Cholesterol, Calc 152 VLDL Cholesterol, Calc 20 HDL Cholesterol 36 Cholesterol/HDL Ratio 5.8 H TSH Urine Color Yellow Urine Appearance Clear Urine pH 5.5 Ur Specific [place] 1.020 Urine Protein Trace H Urine Glucose (UA) Negative Urine Ketones Trace H Urine Blood Negative Urine Nitrite Negative Urine Bilirubin Negative Urine Urobilinogen Negative Ur Leukocyte Esterase Negative Urine WBC (Auto) 1-5 Urine RBC (Auto) 0-4 U Hyaline Cast (Auto) 10-30 H U Epithel Cells (Auto) 10-20 H Urine Bacteria (Auto) Negative Salicylates Urine Opiates Screen Neg Ur Methadone, Qual Neg Acetaminophen Urine Barbiturates Neg Ur Phencyclidine (PCP) Neg U Amphetamin/Meth Scrn Neg MDMA (Ecstasy) Screen Neg U Benzodiazepines Scrn Neg Ur Cocaine Metabolite Neg U Marijuana (THC) Screen Neg Ethyl Alcohol mg/dL SARS-CoV-2, RNA, NAAT Hospital Course (1) MDD (major depressive disorder), recurrent episode, moderate: (2) Unspecified psychosis not due to a substance or known physiological condition: (3) Suicidal ideation: (4) ADHD (attention deficit hyperactivity disorder): (5) Self-harming behavior: (6) Poor dentition: 03/04/22: trial of Prazosin 1 mg qhs trial for nightmares. 03/03/22: decrease Remeron to 7.5 mg since timing of nightmares coincides with increase. Shift Risperdal to earlier evening as main time for breakthrough hs. Consider switch to Latuda (failed Abilify, Seroquel) or d/c Concerta. 03/02/22: continue current meds and tx plan. 03/01/22: hold noon Ritalin again due to hypertension, clonidine 0.1 mg now. will need PCP f/u. d/c Lexapro trial. 02/28/22: hold today's noon dose of Ritalin as jittery. Still not sleeping well per patient, titrate Remeron as tolerating better than Lexapro so far. Monitor reports of greer. No clear indication to increase Risperdal today. Lexapro 5 mg tomorrow. 02/27/22: he agreed to titrate Lexapro. Will add prn Cogentin in case facial symptoms are early dystonia. Benadryl prn allergic reactions. Consider holding stimulant. 02/26/22: Start escitalopram 5mg qd. Continue risperidone and mirtazapine. 02/25/22: Start risperidone 0.25mg BID for hallucinations. Mirtazapine 7.5 mg qhs for insomnia and MDD. Continue stimulants. 02/24/22: The patient was admitted to the [facility] ([facility] mental [facility] unit) on q15 min checks (behavioral with suicide precautions) for safety. The patient will participate in group, recreational, and milieu therapies and will be offered additional individual and family sessions as clinically appropriate. -Continue Concerta qAM and Ritalin qafternoon -Fasting labs in qAM -Risperidone 0.5 mg BID prn, may consider scheduling after review of [facility] records -Left message for Sulema Zimmerman at [facility], awaiting records -May benefit from addition of SSRI, could consider fluoxetine or escitalopram or mirtazapine -Will need duty to warn on discharge for HI toward ex-'s partner Mental Health & Subst Abuse Tx Psychiatrist Name of Psychiatrist: [facility] - Sulema Zimmerman Psychiatrist's Date of Appointment with Psychiatrist: 03/18/22 Time of Appointment with Psychiatrist: 9:00 AM Psychiatric Appointment Comment: [address], [facility] Therapist Name of Therapist: [facility] Date of Therapist Appointment: 03/09/22 Time of Therapist Appointment: 10:00 AM Therapy Appointment Comment: [address], [address], [facility] [address] [employer] Fuel Enrichment Technician Name of Nuclear Fuel Enrichment Technician: None Phone Number for Nuclear Fuel Enrichment Technician: [phone] Post Discharge Appointments Primary Care Physician Name Of Family Doctor: Vidya Horvath Primary Care Date of Appointment with PCP: 03/08/22 Time of Appointment with PCP: 4:00 p.m. Provider Appointment Comment: [id number], [place] Discharge Plan Discharge Items Patient Disposition: Home - Self-Care Reason For Visit: mhe Discharge Diagnosis: major depressive disorder Activity: Resume your previous activity Non-emergency contact: Primary Care Provider, Psychiatrist and Therapist Call non-emergency contact if: you have any medication questions and your symptoms worsen Follow-up/Referrals: Vidya Horvath CRNP [Primary Care Provider] - Diet: Regular Addtl Attending Provider Instructions: SPECIAL CARE INSTRUCTIONS: 1. Follow through with your scheduled aftercare appointments. If unable to keep an appointment, please call to reschedule. 2. Take your medication only as prescribed. Medication should not be changed or stopped without the approval of your doctor. In the event of worsening symptoms or concerns about side effects, contact your doctor immediately. 3. Utilize new healthy coping skills, anger management skills, and stress management skills learned during your hospitalization. Journal feelings and process them with a support person. Identify stressors or situations that may result in relapse, deterioration or inappropriate behaviors and develop a plan to deal with those issues. 4. If your coping skills are ineffective and you are in crisis, contact your outpatient providers for direction. If unable to reach your providers, please call the [facility] CRISIS LINE AT , go to the [facility] walk-in center at [address], [address], [place], or go to the closest Emergency Room. 5. Avoid alcohol and un-prescribed drugs. 6. You have been provided with the Mental Health Advance Directives Pamphlet for your review. 7. Your condition is stable for discharge to outpatient level of care, but recovery is an ongoing process. Ifthoughts to harm yourself or others return, follow the safety plan developed during your stay. Planning for a safe return home includes securing weapons. Our treatment team recommends weaponsbe removed from the home until your outpatient provider reassesses your progress. In rare cases where the items themselvescannot be removed, guns and ammunitionshould be secured separatelyand keys stored by a reliable personoutside of the home. If you were admitted on an involuntary commitment, the police or other legal authorities may be involved in this process. AFTERCARE APPOINTMENTS: * Please call your insurance company prior to your scheduled appointment to confirm your aftercare providers are covered. Take your insurance information to your appointments. WHO TO CALL AND WHEN: Medical Emergencies: For questions or emergencies related to your hospital stay, please contact the Inpatient Behavioral Health Unit at [phone]. A lead man over all [employer] in [employer] is on-call 21/03 for the Behavioral Health Unit for emergencies At any time you feel your situation is an emergency, you may also call 911 immediately. Pending Studies at Discharge: No Stand-Alone Forms: My [facility], Smoking Cessation Medications and DC Order Prescriptions: New hydroxyzine HCl 25 mg Tablet 25 mg PO Q6 PRN (Reason: anxiety) Qty: 14 RF: 0 mirtazapine 15 mg Tablet 7.5 mg PO HS Qty: 15 RF: 0 risperidone 0.5 mg Tablet 0.5 mg PO DAILYBD Qty: 30 RF: 0 prazosin 1 mg Capsule 1 mg PO HS Qty: 30 RF: 0 Continued cyanocobalamin (vitamin B-12) 1,000 mcg/mL solution 1,000 mcg .ROUTE .COMPLEX 28 Days Qty: 4 RF: 3 atorvastatin 10 mg tablet 10 mg PO QPM Qty: 30 RF: 2 amlodipine 5 mg tablet 5 mg PO DAILY Qty: 30 RF: 2 methylphenidate HCl [Concerta] 54 mg Tablet Extended Release 24hr 54 mg PO QAM Qty: 30 RF: 0 Discontinued methylphenidate HCl [Concerta] 54 mg Tablet Extended Release 24hr 54 mg PO QAM RF: 0 methylphenidate HCl [Ritalin] 20 mg tablet 20 mg PO QDL RF: 0 quetiapine 25 mg tablet 25 mg PO HS RF: 0 Discharge Orders: Discharge Order (Routine); Ordered 03/05/22 Ordered By: Donna Whitlock Admission Data Admit Date/Time: 02/23/22 22:30 Attending Provider: Donna Whitlock Admit Provider: Sarah Saldana Primary Care Provider: Vidya Horvath Other Interventions: Discharge Summary Assessment (RN) Last Done: 03/05/22 11:04 PSY Interdisciplinary Discharge Planning Last Done: 03/05/22 13:31 Coding Level of Care Code 17136 D/C day mgmt > 30 min Diagnoses MDD (major depressive disorder), recurrent episode, moderate F33.1 Unspecified psychosis not due to a substance or known physiological condition F29 Suicidal ideation R45.851 ADHD (attention deficit hyperactivity disorder) F90.9 Self-harming behavior Poor dentition K08.9
== END 2022-03-05 13:54 | disposition home or self-care (01) | DRG 885 ==
LOC: ED 16:40 → 3S 22:30 → SUATTDRO 22:30 → 3S 22:50

== ENCOUNTER 2022-03-16 13:47 | Inpatient (IN) ==
[2022-03-16 14:50] LABS: Appearance Urine Clear (Clear); Bacteria Urine Automated Negative (Negative); Bilirubin Urine Negative (Negative); Blood Urine Trace (Negative); Cast Urine Automated 0 /lpf (0-5); Color Urine Yellow; Epithelial Cell Urine Auto 0-5 /lpf (0-5); Glucose Urine UA 2+ (Negative); Ketones Urine Negative (Negative); Leukocyte Esterase Urine Negative (Negative); Nitrite Urine Negative (Negative); Protein Urine Negative (Negative); RBC Urine Automated 0-4 /hpf (0-4); Specific Gravity Urine 1.016 (1.000-1.030); Urobilinogen Urine Negative (Negative)
[2022-03-16 15:01] LABS: Acetaminophen < 3 ug/ml (10-30); Salicylate < 3.0 mg/dl (3.0-30)
[2022-03-16 15:07] LABS: Albumin Globulin Ratio 1.4 (0.9-2); Albumin Level 4.6 gm/dl (3.4-5.0); BUN Creatinine Ratio 15.7 (10-20); Bilirubin,Total 0.2 mg/dl (0.2-1.0); Calcium 9.4 mg/dl (8.5-10.1); Creatinine Clr Calc Pharmacy 127.4 ml/min; Est GFR (African American) 132.1 ml/min; Est GFR (Non-African American) 113.9 ml/min; Globulin 3.4 gm/dl (2.5-4.0); Potassium 3.6 mmol/L (3.5-5.1)
[2022-03-16 15:13] LABS: Basophils # (auto) 0.04 K/uL (0-0.2); Basophils % (auto) 0.4 %; Eosinophils # (auto) 0.09 K/uL (0-0.50); Eosinophils % (auto) 0.8 %; Hemoglobin 13.7 g/dl (14.0-18.0); Immature Granulocytes # (auto) 0.13 K/uL (0.00-0.02); Immature Granulocytes % (auto) 1.2 %; Lymphocytes # (auto) 2.38 K/uL (1.2-3.4); Lymphocytes % (auto) 22.1 %; Mean Corpuscular Hemoglobin 28.4 pg (25.0-34.0); Mean Corpuscular Hgb Conc 32.6 g/dL (32.0-36.0); Mean Corpuscular Volume 87.1 fL (80.0-100.0); Mean Platelet Volume 9.5 fL (9.4-12.4); Monocytes # (auto) 0.83 K/uL (0.24-0.82); Monocytes % (auto) 7.7 %; Neutrophils # (auto) 7.32 K/uL (1.4-6.5); Neutrophils % (auto) 67.8 %; Platelet Count 550 K/uL (130-400); RDW Coefficient of Variation 14.7 % (11.5-14.5); RDW Standard Deviation 47.4 fL (36.4-46.3); Red Blood Count 4.82 M/uL (4.63-6.08); White Blood Count 10.79 K/ul (4.8-10.8)
[2022-03-16 15:17] LABS: Amphetamines+Metham, Urine Neg (Neg); Barbiturates, Urine Neg (Neg); Benzodiazepine, Urine Neg (Neg); Cocaine, Urine Neg (Neg); MDMA (Ecstacy), Urine Neg (Neg); Methadone, Urine Neg (Neg); Opiate, Urine Neg (Neg); Phencyclidine, Urine Neg (Neg)
--- NOTE | 2022-03-16 15:24 | Emergency Department Note ---
Impression & Plan Suicidal ideation, Depression ED Provider Note NAME: ADEBAYO BRAUN AGE: 31 SEX: M : 1990 ARRIVES VIA: Walk-In INFORMANT: Patient ED PROVIDER(S): Aryan Orta DO CHIEF COMPLAINT: Suicidal ideations HPI: Patient is a 31-year-old male who presents ER with a past medical history of ADHD, MDD, SI, depression, hyperlipidemia, hypertension who presents the ER for suicidal ideations with a plan to hang himself. He was just discharged from psychiatry facility in [place] and went to see his therapist today. He felt as though it was too big and felt more stressed out with it and consequently has having worsening suicidal thoughts today and she referred him in here today for further evaluation. Denies any headache or change in vision. No chest pain or shortness of breath. No nausea, vomiting, or diarrhea. No other exacerbating or remitting factors. ROS: See above HPI for pertinent positives & negatives. A total of 10 systems reviewed and were otherwise negative. PAST MEDICAL HISTORY:See Below PAST SURGICAL HISTORY:See Below FAMILY HISTORY:See Below SOCIAL HISTORY:See Below HOME MEDICATIONS:See Below ALLERGIES:See Below VITALS:See Below PHYSICAL EXAMINATION: GENERAL: Sitting up in bed, alert, well appearing, well nourished, no distress, non-toxic EYE EXAM: normal conjunctiva. OROPHARYNX: no exudate, no erythema, lips, buccal mucosa, and tongue normal and mucous membranes are moist NECK: supple, no nuchal rigidity, no adenopathy, non-tender LUNGS: Clear to auscultation. Normal chest wall mechanics HEART: no murmurs, S1 normal and S2 normal ABDOMEN: abdomen soft, non-tender, normo-active bowel sounds, no masses, no rebound or guarding. BACK: Back is symmetrical on inspection and there is no deformity, no midline tenderness, no CVA tenderness. SKIN: no rashes and no bruising UPPER EXTREMITIES: upper extremities are grossly normal. LOWER EXTREMITIES: No pitting edema. NEURO EXAM: Normal sensorium, cranial nerves II-XII grossly intact, normal speech, no gross weakness of arms, no gross weakness of legs. PSYCH: Admits to suicidal ideations with a plan to kill himself by hanging MEDICAL DECISION MAKING: Patient is a 31-year-old male who presents ER for suicidal ideations with a plan to hang himself. He was just discharged today from [place] [facility]. Labs were obtained and showed no significant leukocytosis or anemia. BMP with slightly elevated glucose at 190. LFTs bilirubin were unremarkable. TSH was normal. UA was clean. Tox was negative. Alcohol negative. COVID- negative. Patient was admitted to [address]. Triage Nursing notes reviewed. Limited review of prior medical records performed Vital Signs: reviewed and remarkable for HTN and tachy Differential diagnosis: Mood disorder, infection, hypoglycemia, electrolyte abnormalities, cardiac sources, intracerebral event, toxicologic, trauma, neurologic, as well as other pathologies. ER treatment provided: See below Diagnostics interpreted by me: ECG: none Laboratory studies: As stated above and show below. Imaging studies: See below Consultation(s): none Procedures: none Critical Care: None Past Med/Surg History Medical History ADD (attention deficit disorder) COVID-19 History of seizures HTN (hypertension) Poor dentition Self-harming behavior Tinea corporis Surgical History S/P appendectomy S/P splenectomy Family History Mother Diabetes PAD (peripheral artery disease) Amputation of leg Aunt Myocardial infarction Denies family history of Ovarian cancer Prostate cancer Breast cancer Colorectal cancer Social History Smoking Status: Never smoker Second Hand Exposure: No; Hx Alcohol Use: No Hx Substance Use: No Preferred Language: Swedish Communication Ability: Effective Visual Impairment: No Limitations Hearing Ability: Normal Department Manager Required: No Beliefs That Will Affect Care: None marital status: Current Living Situation: Alone Current Living Situation Comment: Alone in apartment current occupational status: employed current occupation: [employer] How many Children do You have: 0 Feels Safe at Home: No Is there a partner from a previous relationship who is making you feel unsafe now?: No Childhood Exposure to Second-Hand Smoke: Yes Dental Care, Regularly: No Physical Activity Frequency: Does not Exercise Seatbelt Use: never Sunscreen Use: Yes Assistive Devices: None Allergies Allergies Allergy/AdvReac Type Severity Reaction Status Date / Time Penicillins Allergy Intermediate lip Verified 03/08/22 16:14 swollen, positive skin testing triamcinolone Allergy Intermediate RED, Verified 03/08/22 16:14 IRRITATED AREA WHERE APPLIED. Home Meds Home Medications Medication Instructions Recorded Confirmed melatonin 3 mg tablet 3 mg PO HS 03/16/22 03/16/22 meloxicam 7.5 mg tablet 7.5 mg PO DAILY 03/16/22 03/16/22 mirtazapine 30 mg tablet (Remeron) 30 mg PO HS 03/16/22 03/16/22 risperidone 0.5 mg tablet 0.5 mg PO QPM 03/16/22 03/16/22 trazodone 100 mg tablet 100 mg PO HS PRN Insomnia 03/16/22 03/16/22 Previous Rx's Medication Instructions Recorded cyanocobalamin (vitamin B-12) 1,000 mcg .Route .COMPLEX 4 weeks 11/30/21 1,000 mcg/mL injection solution #4 mL amlodipine 5 mg tablet 5 mg PO DAILY #30 tabs 01/27/22 atorvastatin 10 mg tablet 10 mg PO QPM #30 tabs 02/04/22 hydroxyzine HCl 25 mg tablet 25 mg PO Q6 PRN anxiety #14 tabs 03/05/22 methylphenidate HCl 54 mg 54 mg PO QAM #30 tabs 03/05/22 tablet,extended release 24 hr (Concerta) mirtazapine 15 mg tablet 7.5 mg PO HS #15 tabs 03/05/22 prazosin 1 mg capsule 1 mg PO HS #30 caps 03/05/22 Results & Data (ED) Vital Signs Vital Signs - 24 hr 03/16/22 13:55 03/16/22 18:07 Temperature 37.2 C Temperature Source Temporal Artery Scan Pulse Rate 123 H Pulse Rate [Apical] 86 Pulse Rhythm [Apical] Regular Respiratory Rate 18 16 Respiratory Depth Normal Blood Pressure 152/104 H Blood Pressure [Left Arm] 161/111 H Blood Pressure Mean 120 Blood Pressure Mean [Left Arm] 127 Pulse Oximetry 96 97 Oxygen Delivery Method Room Air Room Air Sepsis New/Unexplained Change in Mental Status No Sepsis Action Taken by Nursing No Action Required Laboratory Data Result diagrams: 03/16/22 14:28 03/16/22 14:28 Lab Results 03/16/22 03/16/22 03/16/22 Range/Units 14:20 14:20 14:20 WBC (4.8-10.8) K/ul RBC (4.63-6.08) M/uL Hgb (14.0-18.0) g/dl Hct (40.1-51.0) % MCV (80.0-100.0) fL MCH (25.0-34.0) pg MCHC (32.0-36.0) g/dL RDW Std Deviation (36.4-46.3) fL RDW Coeff of Josselyn (11.5-14.5) % Plt Count (130-400) K/uL MPV (9.4-12.4) fL Immature Gran % (Auto) % Neut % (Auto) % Lymph % (Auto) % Newberry % (Auto) % Eos % (Auto) % Baso % (Auto) % Neut # (Auto) (1.4-6.5) K/uL Lymph # (Auto) (1.2-3.4) K/uL Newberry # (Auto) (0.24-0.82) K/uL Eos # (Auto) (0-0.50) K/uL Baso # (Auto) (0-0.2) K/uL Immature Gran # (Auto) (0.00-0.02) K/uL Sodium (136-145) mmol/L Potassium (3.5-5.1) mmol/L Chloride (98-107) mmol/L Carbon Dioxide (21-32) mmol/L Anion Gap (3-11) BUN (6-23) mg/dl Creatinine (0.6-1.4) mg/dl Est Cr Clr Drug Dosing ml/min Est GFR ( Amer) ml/min Est GFR (Non-Af Amer) ml/min BUN/Creatinine Ratio (10-20) Glucose (70-99(Fasting)) mg/dl Calcium (8.5-10.1) mg/dl Total Bilirubin (0.2-1.0) mg/dl AST (13-39) U/L ALT (7-52) U/L Alkaline Phosphatase (34-104) U/L Total Protein (6.0-8.3) gm/dl Albumin (3.4-5.0) gm/dl Globulin (2.5-4.0) gm/dl Albumin/Globulin Ratio (0.9-2) TSH (0.300-4.500) uIu/ml Urine Color Yellow Urine Appearance Clear (Clear) Urine pH 5.0 (4.5-7.5) Ur Specific Monroe 1.016 (1.000-1.030) Urine Protein Negative (Negative) Urine Glucose (UA) 2+ H (Negative) Urine Ketones Negative (Negative) Urine Blood Trace H (Negative) Urine Nitrite Negative (Negative) Urine Bilirubin Negative (Negative) Urine Urobilinogen Negative (Negative) Ur Leukocyte Esterase Negative (Negative) Urine WBC (Auto) 1-5 (0-5) /hpf Urine RBC (Auto) 0-4 (0-4) /hpf U Hyaline Cast (Auto) 0 (0-5) /lpf U Epithel Cells (Auto) 0-5 (0-5) /lpf Urine Bacteria (Auto) Negative (Negative) Salicylates (3.0-30) mg/dl Urine Opiates Screen Neg (Neg) Ur Methadone, Qual Neg (Neg) Acetaminophen (10-30) ug/ml Urine Barbiturates Neg (Neg) Ur Phencyclidine (PCP) Neg (Neg) U Amphetamin/Meth Scrn Neg (Neg) MDMA (Ecstasy) Screen Neg (Neg) U Benzodiazepines Scrn Neg (Neg) Ur Cocaine Metabolite Neg (Neg) U Marijuana (THC) Screen Neg (Neg) Ethyl Alcohol mg/dL (<10.0) mg/dl SARS-CoV-2, RNA, NAAT NEGATIVE (NEGATIVE) 03/16/22 03/16/22 03/16/22 Range/Units 14:28 14:28 14:28 WBC 10.79 (4.8-10.8) K/ul RBC 4.82 (4.63-6.08) M/uL Hgb 13.7 L (14.0-18.0) g/dl Hct 42.0 (40.1-51.0) % MCV 87.1 (80.0-100.0) fL MCH 28.4 (25.0-34.0) pg MCHC 32.6 (32.0-36.0) g/dL RDW Std Deviation 47.4 H (36.4-46.3) fL RDW Coeff of Josselyn 14.7 H (11.5-14.5) % Plt Count 550 H (130-400) K/uL MPV 9.5 (9.4-12.4) fL Immature Gran % (Auto) 1.2 % Neut % (Auto) 67.8 % Lymph % (Auto) 22.1 % Newberry % (Auto) 7.7 % Eos % (Auto) 0.8 % Baso % (Auto) 0.4 % Neut # (Auto) 7.32 H (1.4-6.5) K/uL Lymph # (Auto) 2.38 (1.2-3.4) K/uL Newberry # (Auto) 0.83 H (0.24-0.82) K/uL Eos # (Auto) 0.09 (0-0.50) K/uL Baso # (Auto) 0.04 (0-0.2) K/uL Immature Gran # (Auto) 0.13 H (0.00-0.02) K/uL Sodium 138 (136-145) mmol/L Potassium 3.6 (3.5-5.1) mmol/L Chloride 104 (98-107) mmol/L Carbon Dioxide 24 (21-32) mmol/L Anion Gap 10 (3-11) BUN 14 (6-23) mg/dl Creatinine 0.89 (0.6-1.4) mg/dl Est Cr Clr Drug Dosing 127.4 ml/min Est GFR ( Amer) 132.1 ml/min Est GFR (Non-Af Amer) 113.9 ml/min BUN/Creatinine Ratio 15.7 (10-20) Glucose 198 H (70-99(Fasting)) mg/dl Calcium 9.4 (8.5-10.1) mg/dl Total Bilirubin 0.2 (0.2-1.0) mg/dl AST 26 (13-39) U/L ALT 74 H (7-52) U/L Alkaline Phosphatase 73 (34-104) U/L Total Protein 8.0 (6.0-8.3) gm/dl Albumin 4.6 (3.4-5.0) gm/dl Globulin 3.4 (2.5-4.0) gm/dl Albumin/Globulin Ratio 1.4 (0.9-2) TSH 1.626 (0.300-4.500) uIu/ml Urine Color Urine Appearance (Clear) Urine pH (4.5-7.5) Ur Specific Monroe (1.000-1.030) Urine Protein (Negative) Urine Glucose (UA) (Negative) Urine Ketones (Negative) Urine Blood (Negative) Urine Nitrite (Negative) Urine Bilirubin (Negative) Urine Urobilinogen (Negative) Ur Leukocyte Esterase (Negative) Urine WBC (Auto) (0-5) /hpf Urine RBC (Auto) (0-4) /hpf U Hyaline Cast (Auto) (0-5) /lpf U Epithel Cells (Auto) (0-5) /lpf Urine Bacteria (Auto) (Negative) Salicylates (3.0-30) mg/dl Urine Opiates Screen (Neg) Ur Methadone, Qual (Neg) Acetaminophen (10-30) ug/ml Urine Barbiturates (Neg) Ur Phencyclidine (PCP) (Neg) U Amphetamin/Meth Scrn (Neg) MDMA (Ecstasy) Screen (Neg) U Benzodiazepines Scrn (Neg) Ur Cocaine Metabolite (Neg) U Marijuana (THC) Screen (Neg) Ethyl Alcohol mg/dL (<10.0) mg/dl SARS-CoV-2, RNA, NAAT (NEGATIVE) 03/16/22 03/16/22 Range/Units 14:28 14:28 WBC (4.8-10.8) K/ul RBC (4.63-6.08) M/uL Hgb (14.0-18.0) g/dl Hct (40.1-51.0) % MCV (80.0-100.0) fL MCH (25.0-34.0) pg MCHC (32.0-36.0) g/dL RDW Std Deviation (36.4-46.3) fL RDW Coeff of Josselyn (11.5-14.5) % Plt Count (130-400) K/uL MPV (9.4-12.4) fL Immature Gran % (Auto) % Neut % (Auto) % Lymph % (Auto) % Newberry % (Auto) % Eos % (Auto) % Baso % (Auto) % Neut # (Auto) (1.4-6.5) K/uL Lymph # (Auto) (1.2-3.4) K/uL Newberry # (Auto) (0.24-0.82) K/uL Eos # (Auto) (0-0.50) K/uL Baso # (Auto) (0-0.2) K/uL Immature Gran # (Auto) (0.00-0.02) K/uL Sodium (136-145) mmol/L Potassium (3.5-5.1) mmol/L Chloride (98-107) mmol/L Carbon Dioxide (21-32) mmol/L Anion Gap (3-11) BUN (6-23) mg/dl Creatinine (0.6-1.4) mg/dl Est Cr Clr Drug Dosing ml/min Est GFR ( Amer) ml/min Est GFR (Non-Af Amer) ml/min BUN/Creatinine Ratio (10-20) Glucose (70-99(Fasting)) mg/dl Calcium (8.5-10.1) mg/dl Total Bilirubin (0.2-1.0) mg/dl AST (13-39) U/L ALT (7-52) U/L Alkaline Phosphatase (34-104) U/L Total Protein (6.0-8.3) gm/dl Albumin (3.4-5.0) gm/dl Globulin (2.5-4.0) gm/dl Albumin/Globulin Ratio (0.9-2) TSH (0.300-4.500) uIu/ml Urine Color Urine Appearance (Clear) Urine pH (4.5-7.5) Ur Specific Monroe (1.000-1.030) Urine Protein (Negative) Urine Glucose (UA) (Negative) Urine Ketones (Negative) Urine Blood (Negative) Urine Nitrite (Negative) Urine Bilirubin (Negative) Urine Urobilinogen (Negative) Ur Leukocyte Esterase (Negative) Urine WBC (Auto) (0-5) /hpf Urine RBC (Auto) (0-4) /hpf U Hyaline Cast (Auto) (0-5) /lpf U Epithel Cells (Auto) (0-5) /lpf Urine Bacteria (Auto) (Negative) Salicylates < 3.0 L (3.0-30) mg/dl Urine Opiates Screen (Neg) Ur Methadone, Qual (Neg) Acetaminophen < 3 L (10-30) ug/ml Urine Barbiturates (Neg) Ur Phencyclidine (PCP) (Neg) U Amphetamin/Meth Scrn (Neg) MDMA (Ecstasy) Screen (Neg) U Benzodiazepines Scrn (Neg) Ur Cocaine Metabolite (Neg) U Marijuana (THC) Screen (Neg) Ethyl Alcohol mg/dL < 10.0 (<10.0) mg/dl SARS-CoV-2, RNA, NAAT (NEGATIVE) Discharge Plan Visit Data Chief Complaint: Mental Health Evaluation Stated Complaint: SUICIDAL THOUGHTS ED Provider: Aryan Orta Discharge Problem: Suicidal ideation, Depression Patient Disposition: Admitted As Inpatient Discharge Instructions Interventions: ED Discharge Assessment Last Done: 03/16/22 18:35
[2022-03-16] MEDS ORDERED: SODIUM CHLORIDE 0.65% NA SOLN 45 ML (OCEAN) PRN (18:14)
[2022-03-16] MEDS ORDERED: ALUMINUM/MAGNESIUM SUSP 30 ML UDC PO PRN (18:14)
[2022-03-16] MEDS ORDERED: MAGNESIUM HYDROXIDE SUSP 30 ML UDC PO PRN (18:14)
[2022-03-16] MEDS ORDERED: BISMUTH SUBSALICYLATE LIQD 236 ML PO PRN (18:14)
[2022-03-16] MEDS ORDERED: cloNIDine HCL 0.1 MG TAB PO ONE (18:57)
[2022-03-16] MEDS ORDERED: PRAZOSIN HCL 1 MG CAP PO SCH (21:00)
[2022-03-16] MEDS: MIRTAZAPINE TAB 15 MG TAB PO SCH (22:05)
[2022-03-16] MEDS: ATORVASTATIN 10 MG TAB PO SCH (22:07)
[2022-03-16] MEDS: risperiDONE 0.5 MG TABLET PO SCH (22:07)
[2022-03-16] MEDS: ACETAMINOPHEN 325 MG TAB PO PRN (22:09)
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
[2022-03-17] MEDS: MELOXICAM 7.5 MG TAB PO SCH (08:37)
[2022-03-17] MEDS: amLODIPine BESYLATE 5 MG TAB PO SCH (08:37)
[2022-03-17] MEDS: ATORVASTATIN 10 MG TAB PO SCH (22:11)
[2022-03-17] MEDS: risperiDONE 0.5 MG TABLET PO SCH (22:12)
[2022-03-17] MEDS: PRAZOSIN HCL 1 MG CAP PO SCH (22:12)
[2022-03-17] MEDS: MIRTAZAPINE TAB 15 MG TAB PO SCH (22:12)
[2022-03-18] MEDS: ACETAMINOPHEN 325 MG TAB PO PRN ×2 (05:43→22:58)
--- NOTE | 2022-03-18 07:52 | Psychiatric Progress Note ---
Date of Service March 18, 2022 Impression / Recommendations Impression 31 yo male with limited cognitive abilities impacting coping who is becoming dependent on inpatient care for support and socialization. He is expressing recurrent SI, denies intent to act on thoughts here and was quite comfortable going to staff during last stay. 03/18/22: ongoing nightmares, does not appear to be responding to internal stimuli (1) MDD (major depressive disorder), recurrent episode, moderate: (2) ADHD (attention deficit hyperactivity disorder): (3) HTN (hypertension): Plan 03/18/22: Taper and d/c Remeron as nightmares only issue following increase from 7.5 mg last stay. Continue prazosin for now. Increase Risperdal to 1 mg daily to further trial, mainly to help with mood though patient has consistently reported auditory greer. 03/17/22: The patient was admitted to the [facility] ([facility]) on q15 min checks (behavioral with suicide precautions) for safety. The patient will participate in group, recreational, and milieu therapies and will be offered additional individual and family sessions as clinically appropriate. Reconsented for medications, reviewed holding stimulant to monitor his BP. He desired trial of a higher dose of prazosin for report of nightmares. Inventory Assets Strengths: employed, has apartment Needs: improving coping skills, increase social network and structured activities outside of work Suicide Risk Level Suicide Risk Level: High-Moderate (q15 min suicide checks) Risk Factors Assessment Male: Yes : Yes Do You Have Access To A Gun?: No Mental Health Diagnoses: Yes Substance Use Disorders: No Previous Psychiatric Hospitalization: Yes Protective Factors Assessment : No Employed: Yes ([employer]) Supportive Family: No Interval History Identifying Information ADEBAYO BRAUN is a 31-year-old M from [place] who was recently discharged from on 03/05/22, who is now readmitted on his transport home from [facility] on 03/16/22 18:14 on a 201 voluntary commitment for SI with plan. Chief Complaint "I'm not going to lie the voices told me to hurt myself this am." Review of Systems Sleep Information Total Hours of Sleep: 6.5 Sleep Comments: pt on q-15 minute checks Meal Information Percent Meal Consumed - Breakfast: 50 Percent Meal Consumed - Lunch: 100 Percent Meal Consumed - Dinner: 100 Subjective Subjective Patient was seen & assessed and interval progress reviewed with nursing and social work. Complains of nightmares and internal stimuli. Goes to staff appropriately, more attention seeking so far this stay. Tachy attributed to anxiety. Did not describe irritability or lack of focus off of Concerta. States that non-stimulants were tried in past for ADHd and "did nothing". Physical Exam Psychiatric Orientation: alert and oriented x 3 Apperance: appropriately dressed and appropriately groomed Eye Contact: good eye contact Motor Behavior: no abnormal motor movements Speech: normal rate/rhythm/volume of speech Affect: + depressed affect Mood: + depressed mood Thought Process: goal directed thought process Thought Content: reality based without delusions Suicidal Thoughts: denies suicidal plan and denies suicidal intent; + reports suicidal thoughts Homicidal Thoughts: denies homicidal thoughts Hallucinations: no auditory hallucinations and no visual hallucinations Cognition: attention grossly intact and language grossly intact Estimated Intelligence: consistent with education level Insight: + limited insight Judgement: + limited judgement Vital Signs (Past 24 Hours) Last Vital Signs Temp 36.9 C 03/18/22 06:36 Pulse 112 H 03/18/22 06:37 Resp 16 03/18/22 06:36 BP 132/91 03/18/22 06:37 Pulse Ox 96 03/16/22 18:59 O2 Del Method 03/16/22 18:59 Results & Data ([facility]) Current Inpatient Medications Current Inpatient Medications: Current Inpatient Medications Acetaminophen (Acetaminophen 325 Mg Tab) 650 mg PO Q4H PRN PRN Reason: Headache or Minor Fever Stop: 04/15/22 18:13 Last Admin: 03/18/22 05:43 Dose: 650 mg Al Hydrox/Mg Hydrox/Simethicone (Aluminum/Magnesium Susp 30 Ml Udc) 30 ml PO Q4H PRN PRN Reason: GI Upset Stop: 04/15/22 18:13 Amlodipine Besylate (Amlodipine Besylate 5 Mg Tab) 5 mg PO DAILY CLARY Stop: 04/16/22 08:59 Last Admin: 03/17/22 08:37 Dose: 5 mg Atorvastatin Calcium (Atorvastatin 10 Mg Tab) 10 mg PO QPM CLARY Stop: 04/15/22 20:59 Last Admin: 03/17/22 22:11 Dose: 10 mg Bismuth Subsalicylate (Bismuth Subsalicylate Liqd 236 Ml) 15 ml PO PRN PRN PRN Reason: Loose Stool Stop: 04/15/22 18:13 Hydroxyzine HCl (Hydroxyzine Hcl 25 Mg Tab) 25 mg PO Q6 PRN PRN Reason: anxiety Stop: 04/15/22 18:10 Magnesium Hydroxide (Magnesium Hydroxide Susp 30 Ml Udc) 30 ml PO DAILY PRN PRN Reason: Constipation Stop: 04/15/22 18:13 Meloxicam (Meloxicam 7.5 Mg Tab) 7.5 mg PO DAILY CLARY Stop: 03/22/22 09:01 Last Admin: 03/17/22 08:37 Dose: 7.5 mg Mirtazapine (Mirtazapine Tab 15 Mg Tab) 30 mg PO HS CLARY Stop: 04/15/22 20:59 Last Admin: 03/17/22 22:12 Dose: 30 mg Prazosin HCl (Prazosin Hcl 1 Mg Cap) 2 mg PO HS CLARY Stop: 04/16/22 21:59 Last Admin: 03/17/22 22:12 Dose: 2 mg Risperidone (Risperidone 0.5 Mg Tablet) 0.5 mg PO QPM CLARY Stop: 04/15/22 20:59 Last Admin: 03/17/22 22:12 Dose: 0.5 mg Sodium Chloride (Sodium Chloride 0.65% Na Soln 45 Ml ([place])) 1 - 2 sprays NA PRN PRN PRN Reason: Nasal Dryness/Congestion Stop: 04/15/22 18:13 Trazodone HCl (Trazodone Hcl 100 Mg Tab) 100 mg PO HS PRN PRN Reason: Insomnia Stop: 04/15/22 18:10 Mental Health & Subst Abuse Tx Therapist Name of Therapist: kesha rosa at [place] Date of Therapist Appointment: 03/09/22 Pompom Maker Name of Pompom Maker: "don't have one" Post Discharge Appointments Primary Care Physician Name Of Family Doctor: Dr Renee Horvath
[2022-03-18] MEDS: amLODIPine BESYLATE 5 MG TAB PO SCH (09:12)
[2022-03-18] MEDS: MELOXICAM 7.5 MG TAB PO SCH (09:12)
[2022-03-18] MEDS ORDERED: BENZTROPINE MESYLATE 1 MG TAB PO PRN (14:09)
[2022-03-18] MEDS: PRAZOSIN HCL 1 MG CAP PO SCH (22:18)
[2022-03-18] MEDS: MIRTAZAPINE TAB 15 MG TAB PO SCH (22:18)
[2022-03-18] MEDS: risperiDONE 1 MG TABLET PO SCH (22:18)
[2022-03-18] MEDS: ATORVASTATIN 10 MG TAB PO SCH (22:18)
[2022-03-19] MEDS: MELOXICAM 7.5 MG TAB PO SCH (08:29)
[2022-03-19] MEDS: amLODIPine BESYLATE 5 MG TAB PO SCH (08:29)
[2022-03-19] MEDS ORDERED: amLODIPine BESYLATE 5 MG TAB PO ONE (12:15)
--- NOTE | 2022-03-19 13:26 | Psychiatric Progress Note ---
Date of Service March 19, 2022 Impression / Recommendations Impression 31 yo male with limited cognitive abilities impacting coping who is becoming dependent on inpatient care for support and socialization. He is expressing recurrent SI, denies intent to act on thoughts here and was quite comfortable going to staff during last stay. 03/19/22: appears more anxious/depressed with reports of greer (1) MDD (major depressive disorder), recurrent episode, moderate: (2) ADHD (attention deficit hyperactivity disorder): (3) HTN (hypertension): Plan 03/19/22: last dose of Remeron tonight, reviewed with patient that medications need to be taken more than once to determine efficacy. He was agreeable to increase in Norvasc as on it several months and having intermittent HTN here even off of Concerta. 03/18/22: Taper and d/c Remeron as nightmares only issue following increase from 7.5 mg last stay. Continue prazosin for now. Increase Risperdal to 1 mg daily to further trial, mainly to help with mood though patient has consistently reported auditory greer. 03/17/22: The patient was admitted to the [facility] ([facility] mental health [facility]) on q15 min checks (behavioral with suicide precautions) for safety. The patient will participate in group, recreational, and milieu therapies and will be offered additional individual and family sessions as clinically appropriate. Reconsented for medications, reviewed holding stimulant to monitor his BP. He desired trial of a higher dose of prazosin for report of nightmares. Inventory Assets Strengths: employed, has apartment Needs: improving coping skills, increase social network and structured activities outside of work Suicide Risk Level Suicide Risk Level: High-Moderate (q15 min suicide checks) Risk Factors Assessment Male: Yes : Yes Do You Have Access To A Gun?: No Mental Health Diagnoses: Yes Substance Use Disorders: No Previous Psychiatric Hospitalization: Yes Protective Factors Assessment : No Employed: Yes ([employer]) Supportive Family: No Interval History Identifying Information ADEBAYO BRAUN is a 31-year-old M from [place] who was recently discharged from on 03/05/22, who is now readmitted on his transport home from [facility] on 03/16/22 18:14 on a 201 voluntary commitment for SI with plan. Chief Complaint "I feel like nothing is helping, my nightmares and voices are worse". Review of Systems Sleep Information Total Hours of Sleep: 6 Sleep Comments: pt on q-15 minute checks Meal Information Percent Meal Consumed - Breakfast: 100 Percent Meal Consumed - Lunch: 100 Percent Meal Consumed - Dinner: 100 Subjective Subjective Patient was seen & assessed and interval progress reviewed with treatment team. Patient appears more irritable this stay, seems to need to convince staff of how much he needs extended stay. Although does not appear to be responding to internal stimuli he seems quite distressed by auditory greer, denies any urge to act on thoughts on unit, "I know I'm safe here if something happens." BP and pulse elevated again today likely due to anxiety. He did tell staff that he has non specific desire to hurt someone yesterday meaning to act out in the community but not here, very nonspecific. Physical Exam Psychiatric Orientation: alert and oriented x 3 Apperance: appropriately dressed Eye Contact: good eye contact Motor Behavior: no abnormal motor movements Speech: normal rate/rhythm/volume of speech Affect: + depressed affect Mood: + depressed mood Thought Process: goal directed thought process Thought Content: reality based without delusions Suicidal Thoughts: denies suicidal plan and denies suicidal intent; + reports suicidal thoughts Homicidal Thoughts: denies homicidal thoughts Hallucinations: no auditory hallucinations and no visual hallucinations Cognition: attention grossly intact and language grossly intact Estimated Intelligence: consistent with education level Insight: + limited insight Judgement: + limited judgement Vital Signs (Past 24 Hours) Last Vital Signs Temp 36.9 C 03/19/22 06:31 Pulse 111 H 03/19/22 06:31 Resp 16 03/19/22 06:31 BP 147/88 H 03/19/22 06:31 Pulse Ox 96 03/16/22 18:59 O2 Del Method 03/16/22 18:59 Results & Data ([facility]) Current Inpatient Medications Current Inpatient Medications: Current Inpatient Medications Acetaminophen (Acetaminophen 325 Mg Tab) 650 mg PO Q4H PRN PRN Reason: Headache or Minor Fever Stop: 04/15/22 18:13 Last Admin: 03/18/22 22:58 Dose: 650 mg Al Hydrox/Mg Hydrox/Simethicone (Aluminum/Magnesium Susp 30 Ml Udc) 30 ml PO Q4H PRN PRN Reason: GI Upset Stop: 04/15/22 18:13 Amlodipine Besylate (Amlodipine Besylate 5 Mg Tab) 7.5 mg PO DAILY CLARY Stop: 04/19/22 08:59 Atorvastatin Calcium (Atorvastatin 10 Mg Tab) 10 mg PO QPM CLARY Stop: 04/15/22 20:59 Last Admin: 03/18/22 22:18 Dose: 10 mg Benztropine Mesylate (Benztropine Mesylate 1 Mg Tab) 1 mg PO Q6 PRN PRN Reason: Muscle Spasm Stop: 04/17/22 14:08 Bismuth Subsalicylate (Bismuth Subsalicylate Liqd 236 Ml) 15 ml PO PRN PRN PRN Reason: Loose Stool Stop: 04/15/22 18:13 Hydroxyzine HCl (Hydroxyzine Hcl 25 Mg Tab) 25 mg PO Q6 PRN PRN Reason: anxiety Stop: 04/15/22 18:10 Magnesium Hydroxide (Magnesium Hydroxide Susp 30 Ml Udc) 30 ml PO DAILY PRN PRN Reason: Constipation Stop: 04/15/22 18:13 Meloxicam (Meloxicam 7.5 Mg Tab) 7.5 mg PO DAILY CLARY Stop: 03/22/22 09:01 Last Admin: 03/19/22 08:29 Dose: 7.5 mg Mirtazapine (Mirtazapine Tab 15 Mg Tab) 15 mg PO HS CLARY Stop: 03/19/22 22:01 Last Admin: 03/18/22 22:18 Dose: 15 mg Prazosin HCl (Prazosin Hcl 1 Mg Cap) 2 mg PO HS CLARY Stop: 04/16/22 21:59 Last Admin: 03/18/22 22:18 Dose: 2 mg Risperidone (Risperidone 1 Mg Tablet) 1 mg PO QPM CLARY Stop: 04/17/22 20:59 Last Admin: 03/18/22 22:18 Dose: 1 mg Sodium Chloride (Sodium Chloride 0.65% Na Soln 45 Ml ([place])) 1 - 2 sprays NA PRN PRN PRN Reason: Nasal Dryness/Congestion Stop: 04/15/22 18:13 Trazodone HCl (Trazodone Hcl 100 Mg Tab) 100 mg PO HS PRN PRN Reason: Insomnia Stop: 04/15/22 18:10 Mental Health & Subst Abuse Tx Therapist Name of Therapist: kesha rosa at [facility] Date of Therapist Appointment: 03/09/22 Grain Operations Manager Name of Grain Operations Manager: "don't have one" Post Discharge Appointments Primary Care Physician Name Of Family Doctor: Dr Renee Horvath
[2022-03-19] MEDS: ACETAMINOPHEN 325 MG TAB PO PRN ×2 (17:13→21:24)
[2022-03-19] MEDS: ATORVASTATIN 10 MG TAB PO SCH (22:19)
[2022-03-19] MEDS: PRAZOSIN HCL 1 MG CAP PO SCH (22:19)
[2022-03-19] MEDS: risperiDONE 1 MG TABLET PO SCH (22:19)
[2022-03-19] MEDS: MIRTAZAPINE TAB 15 MG TAB PO SCH (22:19)
[2022-03-19] MEDS: traZODone HCL 100 MG TAB PO PRN (22:49)
[2022-03-20] MEDS: ACETAMINOPHEN 325 MG TAB PO PRN ×5 (05:52→23:49)
[2022-03-20] MEDS: MELOXICAM 7.5 MG TAB PO SCH (08:35)
[2022-03-20] MEDS: amLODIPine BESYLATE 5 MG TAB PO SCH (08:36)
[2022-03-20] MEDS: BENZOCAINE 20% (ORAJEL) 11.9 GM TUBE MT PRN ×2 (11:36→23:48)
--- NOTE | 2022-03-20 15:40 | Psychiatric Progress Note ---
Date of Service March 20, 2022 Impression / Recommendations Impression 31 yo male with limited cognitive abilities impacting coping who is becoming dependent on inpatient care for support and socialization. He is expressing recurrent SI, denies intent to act on thoughts here and was quite comfortable going to staff during last stay. Continues to have auditory hallucinations, unclear how much these are his internal thoughts of SI versus external voices as well as depressed mood but atypical with periods of brightening, consistent with limited cognitive abilities and poor coping skills. 03/20/22:reviewed interim progress per Dr. Whitlock. Endorsing severe depression and auditory mobley related to SI but feels safe in the hospital but feels unable to function outside of a secure setting. Goal of working to establish additional outpatient supports. Will discontinue risperidone as he finds this unhelpful and will switch to haldol as he's trialed multiple other antipsychotics without benefit previously. Discussed medication treatment options in detail. Discussed risks, benefits and alternatives. He consented to haldol for auditory mobley.Reviewed side effects including but not limited to: movement (TD, NMS), cardiac (QTc prolongation), and metabolic (stroke, insulin resistance) and necessity for routine fasting lipid and glucose labwork, reviewed recent results, and AIMS done with score of 0. (1) MDD (major depressive disorder), recurrent episode, moderate: (2) ADHD (attention deficit hyperactivity disorder): (3) HTN (hypertension): Plan 03/20/22: Discontinue risperidone, start haldol 0.5 mg BID 03/19/22: last dose of Remeron tonight, reviewed with patient that medications need to be taken more than once to determine efficacy. He was agreeable to increase in Norvasc as on it several months and having intermittent HTN here even off of Concerta. 03/18/22: Taper and d/c Remeron as nightmares only issue following increase from 7.5 mg last stay. Continue prazosin for now. Increase Risperdal to 1 mg daily to further trial, mainly to help with mood though patient has consistently reported auditory mobley. 03/17/22: The patient was admitted to the [facility] ([facility] mental health unit) on q15 min checks (behavioral with suicide precautions) for safety. The patient will participate in group, recreational, and milieu therapies and will be offered additional individual and family sessions as clinically appropriate. Reconsented for medications, reviewed holding stimulant to monitor his BP. He desired trial of a higher dose of prazosin for report of nightmares. Inventory Assets Strengths: employed, has apartment Needs: improving coping skills, increase social network and structured activities outside of work Suicide Risk Level Suicide Risk Level: High-Moderate (q15 min suicide checks) Suicide Risk Level Comments: ongoing depression with AH and SI but feels safe in the hospital and agrees to alert staff should SI worsen, he feel unable to remain safe or should he develop command AH. Risk Factors Assessment Male: Yes : Yes Do You Have Access To A Gun?: No Mental Health Diagnoses: Yes Substance Use Disorders: No Previous Psychiatric Hospitalization: Yes Protective Factors Assessment : No Employed: Yes ([employer]) Supportive Family: No Interval History Identifying Information ADEBAYO BRAUN is a 31-year-old M from [place] who was recently discharged from on 03/05/22, who is now readmitted on his transport home from [facility] on 03/16/22 18:14 on a 201 voluntary commitment for SI with plan. Chief Complaint "I need more skills". Review of Systems Sleep Information Total Hours of Sleep: 6 Sleep Comments: pt on q-15 minute checks Meal Information Percent Meal Consumed - Breakfast: 50 Percent Meal Consumed - Lunch: 100 Percent Meal Consumed - Dinner: 100 Subjective Subjective Patient was seen & assessed and interval progress reviewed with treatment team nursing and social work. Has periods of brightened affect but also with periods of hopelessness and extreme helplessness stating he can't imagine being outside of the hospital. Tells me the voices have gotten "a lot worse" and he doesn't feel the risperidone is helping. Feels unsure about his housing as he feels like "I don't know how I'll be alone, I don't know what I'm capable of" which he describes as worrying about acting on voices of thoughts of SI if he was alone. Reviewed goal of helping to reduce voices and he agrees to medication change. He also wants to focus on learning new skills and working on ways to help with loneliness. Continues to have pain in his gums related to dental issues. Physical Exam Psychiatric Orientation: alert and oriented x 3 Apperance: appropriately dressed and appropriately groomed Eye Contact: + fair eye contact Motor Behavior: no abnormal motor movements Speech: normal rate/rhythm/volume of speech Affect: + depressed affect Mood: + depressed mood Thought Process: goal directed thought process Thought Content: reality based without delusions Suicidal Thoughts: denies suicidal plan and denies suicidal intent; + reports suicidal thoughts Homicidal Thoughts: denies homicidal thoughts Hallucinations: + auditory hallucinations; no visual hallucinations Cognition: attention grossly intact and language grossly intact Estimated Intelligence: + below average estimated intelligence Insight: + limited insight Judgement: + limited judgement Vital Signs (Past 24 Hours) Last Vital Signs Temp 36.6 C 03/20/22 06:38 Pulse 90 03/20/22 06:39 Resp 18 03/20/22 06:38 BP 126/81 03/20/22 06:39 Pulse Ox 96 03/16/22 18:59 O2 Del Method 03/16/22 18:59 Results & Data ([facility]) Current Inpatient Medications Current Inpatient Medications: Current Inpatient Medications Acetaminophen (Acetaminophen 325 Mg Tab) 650 mg PO Q4H PRN PRN Reason: Headache or Minor Fever Stop: 04/15/22 18:13 Last Admin: 03/20/22 11:35 Dose: 650 mg Al Hydrox/Mg Hydrox/Simethicone (Aluminum/Magnesium Susp 30 Ml Udc) 30 ml PO Q4H PRN PRN Reason: GI Upset Stop: 04/15/22 18:13 Amlodipine Besylate (Amlodipine Besylate 5 Mg Tab) 7.5 mg PO DAILY CLARY Stop: 04/19/22 08:59 Last Admin: 03/20/22 08:36 Dose: 7.5 mg Atorvastatin Calcium (Atorvastatin 10 Mg Tab) 10 mg PO QPM CLARY Stop: 04/15/22 20:59 Last Admin: 03/19/22 22:19 Dose: 10 mg Benzocaine (Benzocaine 20% (Orajel) 11.9 Gm Tube) 1 appln MT TID PRN PRN Reason: tooth pain Stop: 04/19/22 08:18 Last Admin: 03/20/22 11:36 Dose: 1 appln Benztropine Mesylate (Benztropine Mesylate 1 Mg Tab) 1 mg PO Q6 PRN PRN Reason: Muscle Spasm Stop: 04/17/22 14:08 Bismuth Subsalicylate (Bismuth Subsalicylate Liqd 236 Ml) 15 ml PO PRN PRN PRN Reason: Loose Stool Stop: 04/15/22 18:13 Haloperidol (Haloperidol 0.5 Mg Tab) 0.5 mg PO BID CLARY Stop: 04/19/22 20:59 Hydroxyzine HCl (Hydroxyzine Hcl 25 Mg Tab) 25 mg PO Q6 PRN PRN Reason: anxiety Stop: 04/15/22 18:10 Magnesium Hydroxide (Magnesium Hydroxide Susp 30 Ml Udc) 30 ml PO DAILY PRN PRN Reason: Constipation Stop: 04/15/22 18:13 Meloxicam (Meloxicam 7.5 Mg Tab) 7.5 mg PO DAILY CLARY Stop: 03/22/22 09:01 Last Admin: 03/20/22 08:35 Dose: 7.5 mg Prazosin HCl (Prazosin Hcl 1 Mg Cap) 2 mg PO HS CLARY Stop: 04/16/22 21:59 Last Admin: 03/19/22 22:19 Dose: 2 mg Sodium Chloride (Sodium Chloride 0.65% Na Soln 45 Ml ([place])) 1 - 2 sprays NA PRN PRN PRN Reason: Nasal Dryness/Congestion Stop: 04/15/22 18:13 Trazodone HCl (Trazodone Hcl 100 Mg Tab) 100 mg PO HS PRN PRN Reason: Insomnia Stop: 04/15/22 18:10 Last Admin: 03/19/22 22:49 Dose: 100 mg Mental Health & Subst Abuse Tx Psychiatrist Name of Psychiatrist: Eugenie Hua- Sulema Zimmerman Psychiatrist's Psychiatric Appointment Comment: [address] [place], [place] Therapist Name of Therapist: Helena Melendez- Barbara Kwon Therapist's Date of Therapist Appointment: 03/09/22 Therapy Appointment Comment: [address] [place], [place] Urgent Care Name of Urgent Care: "don't have one" Post Discharge Appointments Primary Care Physician Name Of Family Doctor: Dr Renee Horvath Primary Care Provider Appointment Comment: [id number], [place]
[2022-03-20] MEDS: ATORVASTATIN 10 MG TAB PO SCH (22:17)
[2022-03-20] MEDS: PRAZOSIN HCL 1 MG CAP PO SCH (22:17)
[2022-03-20] MEDS: haloperidoL 0.5 MG TAB PO SCH (22:17)
[2022-03-21] MEDS: traZODone HCL 100 MG TAB PO PRN ×2 (00:01→21:33)
--- NOTE | 2022-03-21 08:47 | Psychiatric Progress Note ---
Date of Service March 21, 2022 Impression / Recommendations Impression 31 yo male with limited cognitive abilities impacting coping who is becoming dependent on inpatient care for support and socialization. He is expressing recurrent SI, denies intent to act on thoughts here and was quite comfortable going to staff during last stay. Continues to have auditory hallucinations, unclear how much these are his internal thoughts of SI versus external voices as well as depressed mood but atypical with periods of brightening, consistent with limited cognitive abilities and poor coping skills. MNPR due to poor boundaries and periods of intermittent HI. 03/21/22:remains unable to safety plan outside of the hospital, depressed and continues to hear voices which he attributes as the contributor to his SI. Found haldol helpful but caused fatigue so will adjust to qhs dosing. (1) MDD (major depressive disorder), recurrent episode, moderate: (2) ADHD (attention deficit hyperactivity disorder): (3) HTN (hypertension): Plan 03/21/22: Decrease haldol to 0.5mg qhs due to daytime fatigue. Continue prazosin. Consider another SSRI trial-poor response to sertraline and escitalopram in past, consider fluoxetine. 03/20/22: Discontinue risperidone, start haldol 0.5 mg BID 03/19/22: last dose of Remeron tonight, reviewed with patient that medications need to be taken more than once to determine efficacy. He was agreeable to increase in Norvasc as on it several months and having intermittent HTN here even off of Concerta. 03/18/22: Taper and d/c Remeron as nightmares only issue following increase from 7.5 mg last stay. Continue prazosin for now. Increase Risperdal to 1 mg daily to further trial, mainly to help with mood though patient has consistently reported auditory mobley. 03/17/22: The patient was admitted to the [facility] ([facility] inpatient mental health unit) on q15 min checks (behavioral with suicide precautions) for safety. The patient will participate in group, recreational, and milieu therapies and will be offered additional individual and family sessions as clinically appropriate. Reconsented for medications, reviewed holding stimulant to monitor his BP. He desired trial of a higher dose of prazosin for report of nightmares. Inventory Assets Strengths: employed, has apartment Needs: improving coping skills, increase social network and structured activities outside of work Suicide Risk Level Suicide Risk Level: High-Moderate (q15 min suicide checks) Suicide Risk Level Comments: ongoing depression with AH and SI but feels safe in the hospital and agrees to alert staff should SI worsen, he feel unable to remain safe or should he develop command AH. Risk Factors Assessment Male: Yes : Yes Do You Have Access To A Gun?: No Mental Health Diagnoses: Yes Substance Use Disorders: No Previous Psychiatric Hospitalization: Yes Protective Factors Assessment : No Employed: Yes ([employer]) Supportive Family: No Interval History Identifying Information ADEBAYO BRAUN is a 31-year-old M from [employer] who was recently discharged from on 03/05/22, who is now readmitted on his transport home from [facility] on 03/16/22 18:14 on a 201 voluntary commitment for SI with plan. Chief Complaint "I think of hurting myself a little bit". Review of Systems Sleep Information Total Hours of Sleep: 6 Sleep Comments: pt on q-15 minute checks Meal Information Percent Meal Consumed - Breakfast: 50 Percent Meal Consumed - Lunch: 100 Percent Meal Consumed - Dinner: 60 Subjective Subjective Patient was seen & assessed and interval progress reviewed with treatment team nursing and social work. Attending all groups. Remains brighter when around people and affect flattens and struggles when alone. Reports his mood is "a little better" today as the voices have lessened a bit. Slept well last night. Some fatigue today from the haldol. No other side effects. Still having voices but less intense today. Still with thoughts of SI. No HI this morning but intermittent at times. Physical Exam Psychiatric Orientation: alert and oriented x 3 Apperance: appropriately dressed and appropriately groomed Eye Contact: good eye contact and + fair eye contact Motor Behavior: no abnormal motor movements Speech: normal rate/rhythm/volume of speech Affect: + depressed affect and + flat affect Mood: + depressed mood and + anxious mood Thought Process: goal directed thought process Thought Content: reality based without delusions Suicidal Thoughts: denies suicidal plan and denies suicidal intent; + reports suicidal thoughts Homicidal Thoughts: denies homicidal thoughts (none currently but occur intermittently at times), denies homicidal plan and denies homicidal intent Hallucinations: + auditory hallucinations; no visual hallucinations Cognition: attention grossly intact and language grossly intact Estimated Intelligence: + below average estimated intelligence Insight: + limited insight Judgement: + limited judgement Vital Signs (Past 24 Hours) Last Vital Signs Temp 36.8 C 03/21/22 06:44 Pulse 99 H 03/21/22 06:45 Resp 18 03/21/22 06:44 BP 122/84 03/21/22 06:45 Pulse Ox 96 03/16/22 18:59 O2 Del Method 03/16/22 18:59 Results & Data ([facility]) Current Inpatient Medications Current Inpatient Medications: Current Inpatient Medications Acetaminophen (Acetaminophen 325 Mg Tab) 650 mg PO Q4H PRN PRN Reason: Headache or Minor Fever Stop: 04/15/22 18:13 Last Admin: 03/20/22 23:49 Dose: 650 mg Al Hydrox/Mg Hydrox/Simethicone (Aluminum/Magnesium Susp 30 Ml Udc) 30 ml PO Q4H PRN PRN Reason: GI Upset Stop: 04/15/22 18:13 Amlodipine Besylate (Amlodipine Besylate 5 Mg Tab) 7.5 mg PO DAILY CLARY Stop: 04/19/22 08:59 Last Admin: 03/20/22 08:36 Dose: 7.5 mg Atorvastatin Calcium (Atorvastatin 10 Mg Tab) 10 mg PO QPM CLARY Stop: 04/15/22 20:59 Last Admin: 03/20/22 22:17 Dose: 10 mg Benzocaine (Benzocaine 20% (Orajel) 11.9 Gm Tube) 1 appln MT TID PRN PRN Reason: tooth pain Stop: 04/19/22 08:18 Last Admin: 03/20/22 23:48 Dose: 1 appln Benztropine Mesylate (Benztropine Mesylate 1 Mg Tab) 1 mg PO Q6 PRN PRN Reason: Muscle Spasm Stop: 04/17/22 14:08 Bismuth Subsalicylate (Bismuth Subsalicylate Liqd 236 Ml) 15 ml PO PRN PRN PRN Reason: Loose Stool Stop: 04/15/22 18:13 Haloperidol (Haloperidol 0.5 Mg Tab) 0.5 mg PO BID CLARY Stop: 04/19/22 20:59 Last Admin: 03/20/22 22:17 Dose: 0.5 mg Hydroxyzine HCl (Hydroxyzine Hcl 25 Mg Tab) 25 mg PO Q6 PRN PRN Reason: anxiety Stop: 04/15/22 18:10 Magnesium Hydroxide (Magnesium Hydroxide Susp 30 Ml Udc) 30 ml PO DAILY PRN PRN Reason: Constipation Stop: 04/15/22 18:13 Meloxicam (Meloxicam 7.5 Mg Tab) 7.5 mg PO DAILY CLARY Stop: 03/22/22 09:01 Last Admin: 03/20/22 08:35 Dose: 7.5 mg Prazosin HCl (Prazosin Hcl 1 Mg Cap) 2 mg PO HS CLARY Stop: 04/16/22 21:59 Last Admin: 03/20/22 22:17 Dose: 2 mg Sodium Chloride (Sodium Chloride 0.65% Na Soln 45 Ml ([place])) 1 - 2 sprays NA PRN PRN PRN Reason: Nasal Dryness/Congestion Stop: 04/15/22 18:13 Trazodone HCl (Trazodone Hcl 100 Mg Tab) 100 mg PO HS PRN PRN Reason: Insomnia Stop: 04/15/22 18:10 Last Admin: 03/21/22 00:01 Dose: 100 mg Mental Health & Subst Abuse Tx Psychiatrist Name of Psychiatrist: Eugenie Hua- Sulema Zimmerman Psychiatrist's Psychiatric Appointment Comment: [address] [place], [place] Therapist Name of Therapist: Helena Melendez- Barbara Kwon Therapist's Date of Therapist Appointment: 03/09/22 Therapy Appointment Comment: [address] [place], [place] Manager Sterile Processing Name of Manager Sterile Processing: "don't have one" Post Discharge Appointments Primary Care Physician Name Of Family Doctor: Dr Renee Horvath Primary Care Provider Appointment Comment: [id number], [place]
[2022-03-21] MEDS: ACETAMINOPHEN 325 MG TAB PO PRN ×3 (09:12→21:34)
[2022-03-21] MEDS: amLODIPine BESYLATE 5 MG TAB PO SCH (09:13)
[2022-03-21] MEDS: MELOXICAM 7.5 MG TAB PO SCH (09:14)
[2022-03-21] MEDS: BENZOCAINE 20% (ORAJEL) 11.9 GM TUBE MT PRN ×2 (09:14→22:04)
[2022-03-21] MEDS: haloperidoL 0.5 MG TAB PO SCH (09:14)
[2022-03-21] MEDS: ATORVASTATIN 10 MG TAB PO SCH (21:33)
[2022-03-21] MEDS: PRAZOSIN HCL 1 MG CAP PO SCH (21:34)
[2022-03-21] MEDS ORDERED: haloperidoL 0.5 MG TAB PO SCH (22:00)
[2022-03-22] MEDS: ACETAMINOPHEN 325 MG TAB PO PRN ×2 (08:29→12:28)
[2022-03-22] MEDS: amLODIPine BESYLATE 5 MG TAB PO SCH (08:30)
--- NOTE | 2022-03-22 08:44 | Psychiatric Progress Note ---
Date of Service March 22, 2022 Impression / Recommendations Impression 31 yo male with limited cognitive abilities impacting coping who is becoming dependent on inpatient care for support and socialization. He is expressing recurrent SI, denies intent to act on thoughts here and was quite comfortable going to staff during last stay. Continues to have auditory hallucinations, unclear how much these are his internal thoughts of SI versus external voices as well as depressed mood but atypical with periods of brightening, consistent with limited cognitive abilities and poor coping skills. MNPR due to poor boundaries and periods of intermittent HI. 03/22/22:intensified auditory hallucinations today with HI and SI. Remains unable to safety plan outside of the hospital, and his [id number]-law, one of his only supports outside of the hospital feels that she can no longer provide transportation or support for him. Ongoing efforts to explore additional outpatient supports and resources as he has very few services particularly for his intellectual disability. Dentition also remains a major barrier as without te-[id number]-law he has no one who can accompany him for dental procedure requiring anesthesia to help with the pain. Reviewed inpatient records from [place] admission just prior to [facility] presentation-discharge dx of MDD with psychotic features. Discussed option of adding antidepressant medication to help with worsening of SI which he agrees to. Discussed risks, benefits and alternatives. He consented to fluoxetine for MDD and anxiety. Reviewed side effects including but not limited to: GI, THOMAS, sexual side effects, and counseled on black box warning of potential for emergence of or increased SI and need to let staff know should this occur or should they feel unsafe. Also discussed importance of seeking emergency care following discharge if this side effect occurs in the future. (1) MDD (major depressive disorder), recurrent episode, moderate: (2) ADHD (attention deficit hyperactivity disorder): (3) HTN (hypertension): Plan 03/22/22: Increase haldol to 0.25mg qAM & 1 mg qhs given worsening of AH. Start fluoxetine 10mg for depression. 03/21/22: Decrease haldol to 0.5mg qhs due to daytime fatigue. Continue prazosin. Consider another SSRI trial-poor response to sertraline and escitalopram in past, consider fluoxetine. 03/20/22: Discontinue risperidone, start haldol 0.5 mg BID 03/19/22: last dose of Remeron cari, reviewed with patient that medications need to be taken more than once to determine efficacy. He was agreeable to increase in Norvasc as on it several months and having intermittent HTN here even off of Concerta. 03/18/22: Taper and d/c Remeron as nightmares only issue following increase from 7.5 mg last stay. Continue prazosin for now. Increase Risperdal to 1 mg daily to further trial, mainly to help with mood though patient has consistently reported auditory mobley. 03/17/22: The patient was admitted to the [facility] ([facility] mental health unit) on q15 min checks (behavioral with suicide precautions) for safety. The patient will participate in group, recreational, and milieu therapies and will be offered additional individual and family sessions as clinically appropriate. Reconsented for medications, reviewed holding stimulant to monitor his BP. He desired trial of a higher dose of prazosin for report of nightmares. Inventory Assets Strengths: employed, has apartment Needs: improving coping skills, increase social network and structured activities outside of work Suicide Risk Level Suicide Risk Level: High-Moderate (q15 min suicide checks) Suicide Risk Level Comments: ongoing depression with AH and SI but feels safe in the hospital and agrees to alert staff should SI worsen, he feel unable to remain safe or should he develop command AH. Risk Factors Assessment Male: Yes : Yes Do You Have Access To A Gun?: No Mental Health Diagnoses: Yes Substance Use Disorders: No Previous Psychiatric Hospitalization: Yes Protective Factors Assessment : No Employed: Yes ([employer]) Supportive Family: No Interval History Identifying Information ADEBAYO BRAUN is a 31-year-old M from [employer] who was recently discharged from on 03/05/22, who is now readmitted on his transport home from [facility] on 03/16/22 18:14 on a 201 voluntary commitment for SI with plan. Chief Complaint "I'm not good". Review of Systems Sleep Information Total Hours of Sleep: 7 Sleep Comments: pt on q-15 minute checks Meal Information Percent Meal Consumed - Breakfast: 80 Percent Meal Consumed - Lunch: 75 Percent Meal Consumed - Dinner: 100 Subjective Subjective Patient was seen & assessed and interval progress reviewed with treatment team nursing and social work. Increased AH this morning with thoughts of SI and HI to stab others but doesn't want to act on HI thoughts and distressed by these. States the voices are "even louder this morning". Continues to have significant pain from his teeth. Would like to restart his stimulant medication. Physical Exam Psychiatric Orientation: alert and oriented x 3 Apperance: appropriately dressed and appropriately groomed Eye Contact: + fair eye contact Motor Behavior: no abnormal motor movements Speech: normal rate/rhythm/volume of speech Affect: + flat affect Mood: + depressed mood and + anxious mood Thought Process: goal directed thought process Thought Content: reality based without delusions Suicidal Thoughts: denies suicidal plan and denies suicidal intent; + reports suicidal thoughts Homicidal Thoughts: denies homicidal intent; + reports homicidal thoughts and + reports homicidal plan (thoughts of stabbing others) Hallucinations: + auditory hallucinations; no visual hallucinations Cognition: attention grossly intact and language grossly intact Estimated Intelligence: + below average estimated intelligence Insight: + limited insight Judgement: + limited judgement Vital Signs (Past 24 Hours) Last Vital Signs Temp 36.5 C 03/22/22 06:21 Pulse 88 03/22/22 06:21 Resp 16 03/22/22 06:21 BP 128/85 03/22/22 06:21 Pulse Ox 96 03/16/22 18:59 O2 Del Method 03/16/22 18:59 Results & Data ([facility]) Current Inpatient Medications Current Inpatient Medications: Current Inpatient Medications Acetaminophen (Acetaminophen 325 Mg Tab) 650 mg PO Q4H PRN PRN Reason: Headache or Minor Fever Stop: 04/15/22 18:13 Last Admin: 03/22/22 08:29 Dose: 650 mg Al Hydrox/Mg Hydrox/Simethicone (Aluminum/Magnesium Susp 30 Ml Udc) 30 ml PO Q4H PRN PRN Reason: GI Upset Stop: 04/15/22 18:13 Amlodipine Besylate (Amlodipine Besylate 5 Mg Tab) 7.5 mg PO DAILY CLARY Stop: 04/19/22 08:59 Last Admin: 03/22/22 08:30 Dose: 7.5 mg Atorvastatin Calcium (Atorvastatin 10 Mg Tab) 10 mg PO QPM CLARY Stop: 04/15/22 20:59 Last Admin: 03/21/22 21:33 Dose: 10 mg Benzocaine (Benzocaine 20% (Orajel) 11.9 Gm Tube) 1 appln MT TID PRN PRN Reason: tooth pain Stop: 04/19/22 08:18 Last Admin: 03/21/22 22:04 Dose: 1 appln Benztropine Mesylate (Benztropine Mesylate 1 Mg Tab) 1 mg PO Q6 PRN PRN Reason: Muscle Spasm Stop: 04/17/22 14:08 Bismuth Subsalicylate (Bismuth Subsalicylate Liqd 236 Ml) 15 ml PO PRN PRN PRN Reason: Loose Stool Stop: 04/15/22 18:13 Haloperidol (Haloperidol 0.5 Mg Tab) 0.5 mg PO HS CLARY Stop: 04/20/22 21:59 Last Admin: 03/21/22 21:34 Dose: 0.5 mg Hydroxyzine HCl (Hydroxyzine Hcl 25 Mg Tab) 25 mg PO Q6 PRN PRN Reason: anxiety Stop: 04/15/22 18:10 Magnesium Hydroxide (Magnesium Hydroxide Susp 30 Ml Udc) 30 ml PO DAILY PRN PRN Reason: Constipation Stop: 04/15/22 18:13 Meloxicam (Meloxicam 7.5 Mg Tab) 7.5 mg PO DAILY CLARY Stop: 03/22/22 09:01 Last Admin: 03/21/22 09:14 Dose: 7.5 mg Prazosin HCl (Prazosin Hcl 1 Mg Cap) 2 mg PO HS CLARY Stop: 04/16/22 21:59 Last Admin: 03/21/22 21:34 Dose: 2 mg Sodium Chloride (Sodium Chloride 0.65% Na Soln 45 Ml ([place])) 1 - 2 sprays NA PRN PRN PRN Reason: Nasal Dryness/Congestion Stop: 04/15/22 18:13 Trazodone HCl (Trazodone Hcl 100 Mg Tab) 100 mg PO HS PRN PRN Reason: Insomnia Stop: 04/15/22 18:10 Last Admin: 03/21/22 21:33 Dose: 100 mg Mental Health & Subst Abuse Tx Psychiatrist Name of Psychiatrist: Eugenie Hua- Sulema Zimmerman Psychiatrist's Psychiatric Appointment Comment: [address] [place], [place] Therapist Name of Therapist: [facility]- Barbara Kwon Therapist's Date of Therapist Appointment: 03/09/22 Therapy Appointment Comment: [address] [place], [place] Form Grader Name of Form Grader: "don't have one" Post Discharge Appointments Primary Care Physician Name Of Family Doctor: Dr Renee Horvath Primary Care Provider Appointment Comment: [id number], [place]
[2022-03-22] MEDS: BENZOCAINE 20% (ORAJEL) 11.9 GM TUBE MT PRN ×2 (09:53→13:08)
[2022-03-22] MEDS: haloperidoL 0.5 MG TAB PO SCH (09:54)
[2022-03-22] MEDS: MELOXICAM 7.5 MG TAB PO SCH (09:54)
[2022-03-22] MEDS: hydrOXYzine HCl 25 MG TAB PO PRN (15:46)
[2022-03-22] MEDS: traZODone HCL 100 MG TAB PO PRN (22:22)
[2022-03-22] MEDS: haloperidoL 1 MG TAB PO SCH (22:22)
[2022-03-22] MEDS: PRAZOSIN HCL 1 MG CAP PO SCH (22:22)
[2022-03-22] MEDS: ATORVASTATIN 10 MG TAB PO SCH (22:22)
[2022-03-23] MEDS: amLODIPine BESYLATE 5 MG TAB PO SCH (08:17)
[2022-03-23] MEDS: haloperidoL 0.5 MG TAB PO SCH (08:17)
[2022-03-23] MEDS: FLUoxetine HCL 10 MG CAP PO SCH (08:17)
--- NOTE | 2022-03-23 08:36 | Psychiatric Progress Note ---
Date of Service March 23, 2022 Impression / Recommendations Impression 31 yo male with limited cognitive abilities impacting coping who is becoming dependent on inpatient care for support and socialization. He is expressing recurrent SI, denies intent to act on thoughts here and was quite comfortable going to staff during last stay. Continues to have auditory hallucinations, unclear how much these are his internal thoughts of SI versus external voices as well as depressed mood but atypical with periods of brightening, consistent with limited cognitive abilities and poor coping skills. MNPR due to poor boundaries and periods of intermittent HI. 03/23/22:improvement in voices with medication adjustments and ongoing work to develop more coping skills. Suspect that the auditory hallucinations and his SI and HI are primarily driven by loneliness and potential way of describing his need for increased support/to get his needs met. Voices also seemed to worsen in the context of his ongoing dental pain which seems to be in better control today with the switch away from meloxicam and back to ibuprofen. He spoke with his ex [id number]-hmo Jerry, who is his primary support outside of the hospital who also wondered if his suicidal ideation and homicidal ideation and voices may be in part a way of seeking support from others when he is feeling isolated or lonely. She does worry about how he will do on his own as he tends to not follow through with outpatient supports. She is not able to take him to his dental appointment which was originally scheduled for this but is willing to accompany him to his dental appointment if it is rescheduled for [place] in the month. (1) MDD (major depressive disorder), recurrent episode, moderate: (2) ADHD (attention deficit hyperactivity disorder): (3) HTN (hypertension): Plan 03/23/22: Continue with current medication and tx plan. 03/22/22: Increase haldol to 0.25mg qAM & 1 mg qhs given worsening of AH. Start fluoxetine 10mg for depression. 03/21/22: Decrease haldol to 0.5mg qhs due to daytime fatigue. Continue prazosin. Consider another SSRI trial-poor response to sertraline and escitalopram in past, consider fluoxetine. 03/20/22: Discontinue risperidone, start haldol 0.5 mg BID 03/19/22: last dose of Remeron cari, reviewed with patient that medications need to be taken more than once to determine efficacy. He was agreeable to i [facility]crease in [facility] as on it several months and having intermittent HTN here even off of Concerta. 03/18/22: Taper and d/c Remeron as nightmares only issue following increase from 7.5 mg last stay. Continue prazosin for now. Increase Risperdal to 1 mg daily to further trial, mainly to help with mood though patient has consistently reported auditory mobley. 03/17/22: The patient was admitted to the [facility] ([facility] inpatient mental health unit) on q15 min checks (behavioral with suicide precautions) for safety. The patient will participate in group, recreational, and milieu therapies and will be offered additional individual and family sessions as clinically appropriate. Reconsented for medications, reviewed holding stimulant to monitor his BP. He desired trial of a higher dose of prazosin for report of nightmares. Inventory Assets Strengths: employed, has apartment Needs: improving coping skills, increase social network and structured activities outside of work Suicide Risk Level Suicide Risk Level: Moderate (q15 min suicide checks) Suicide Risk Level Comments: still with AH but mood improving and no SI and HI today and feels safe in the hospital and agrees to alert staff should SI reoccur, worsen, he feel unable to remain safe or should he develop command AH. Risk Factors Assessment Male: Yes : Yes Do You Have Access To A Gun?: No Mental Health Diagnoses: Yes Substance Use Disorders: No Previous Psychiatric Hospitalization: Yes Protective Factors Assessment : No Employed: Yes ([employer]) Supportive Family: No Interval History Identifying Information ADEBAYO BRAUN is a 31-year-old M from [employer] who was recently discharged from on 03/05/22, who is now readmitted on his transport home from [facility] on 03/16/22 18:14 on a 201 voluntary commitment for SI with plan. Chief Complaint "I'm a little better today". Review of Systems Sleep Information Total Hours of Sleep: 6.5 Sleep Comments: pt on q-15 minute checks Meal Information Percent Meal Consumed - Breakfast: 60 Percent Meal Consumed - Lunch: 20 Percent Meal Consumed - Dinner: 100 Subjective Subjective Patient was seen & assessed and interval progress reviewed with treatment team nursing and social work. He reports feeling a little bit better today due to the voices lessening with the medication changes. He denies any side effects from the increased dose of Haldol nor from the addition of fluoxetine. He denies any command auditory hallucinations today. He continues to feel very a pprehensive about how he may do at home as the voices tend to get worse when he is alone. Physical Exam Psychiatric Orientation: alert and oriented x 3 Apperance: appropriately dressed and appropriately groomed Eye Contact: good eye contact Motor Behavior: no abnormal motor movements Speech: normal rate/rhythm/volume of speech Affect: + labile affect (flat at times, other times bright) Mood: + depressed mood and + anxious mood Thought Process: goal directed thought process Thought Content: reality based without delusions Suicidal Thoughts: denies suicidal thoughts Homicidal Thoughts: denies homicidal thoughts Hallucinations: + auditory hallucinations; no visual hallucinations Cognition: attention grossly intact and language grossly intact Estimated Intelligence: consistent with education level and + below average estimated intelligence Insight: + limited insight Judgement: + limited judgement Vital Signs (Past 24 Hours) Last Vital Signs Temp 36.9 C 03/23/22 06:33 Pulse 108 H 03/23/22 06:33 Resp 16 03/23/22 06:33 BP 130/73 03/23/22 06:33 Pulse Ox 96 03/16/22 18:59 O2 Del Method 03/16/22 18:59 Results & Data ([facility]) Current Inpatient Medications Current Inpatient Medications: Current Inpatient Medications Acetaminophen (Acetaminophen 325 Mg Tab) 650 mg PO Q4H PRN PRN Reason: Headache or Minor Fever Stop: 04/15/22 18:13 Last Admin: 03/22/22 12:28 Dose: 650 mg Al Hydrox/Mg Hydrox/Simethicone (Aluminum/Magnesium Susp 30 Ml Udc) 30 ml PO Q4H PRN PRN Reason: GI Upset Stop: 04/15/22 18:13 Amlodipine Besylate (Amlodipine Besylate 5 Mg Tab) 7.5 mg PO DAILY CLARY Stop: 04/19/22 08:59 Last Admin: 03/23/22 08:17 Dose: 7.5 mg Atorvastatin Calcium (Atorvastatin 10 Mg Tab) 10 mg PO QPM CLARY Stop: 04/15/22 20:59 Last Admin: 03/22/22 22:22 Dose: 10 mg Benzocaine (Benzocaine 20% (Orajel) 11.9 Gm Tube) 1 appln MT QID PRN PRN Reason: tooth pain Stop: 04/19/22 08:18 Benztropine Mesylate (Benztropine Mesylate 1 Mg Tab) 1 mg PO Q6 PRN PRN Reason: Muscle Spasm Stop: 04/17/22 14:08 Bismuth Subsalicylate (Bismuth Subsalicylate Liqd 236 Ml) 15 ml PO PRN PRN PRN Reason: Loose Stool Stop: 04/15/22 18:13 Fluoxetine HCl (Fluoxetine Hcl 10 Mg Cap) 10 mg PO QAM CLARY Stop: 04/22/22 08:59 Last Admin: 03/23/22 08:17 Dose: 10 mg Haloperidol (Haloperidol 0.5 Mg Tab) 0.25 mg PO QAM CLARY Stop: 04/21/22 08:59 Last Admin: 03/23/22 08:17 Dose: 0.25 mg Haloperidol (Haloperidol 1 Mg Tab) 1 mg PO HS CLARY Stop: 04/21/22 21:59 Last Admin: 03/22/22 22:22 Dose: 1 mg Hydroxyzine HCl (Hydroxyzine Hcl 25 Mg Tab) 25 mg PO Q6 PRN PRN Reason: anxiety Stop: 04/15/22 18:10 Last Admin: 03/22/22 15:46 Dose: 25 mg Ibuprofen (Ibuprofen 800 Mg Tab) 800 mg PO QID PRN PRN Reason: tooth pain Stop: 04/22/22 07:59 Magnesium Hydroxide (Magnesium Hydroxide Susp 30 Ml Udc) 30 ml PO DAILY PRN PRN Reason: Constipation Stop: 04/15/22 18:13 Prazosin HCl (Prazosin Hcl 1 Mg Cap) 2 mg PO HS CLARY Stop: 04/16/22 21:59 Last Admin: 03/22/22 22:22 Dose: 2 mg Sodium Chloride (Sodium Chloride 0.65% Na Soln 45 Ml ([place])) 1 - 2 sprays NA PRN PRN PRN Reason: Nasal Dryness/Congestion Stop: 04/15/22 18:13 Trazodone HCl (Trazodone Hcl 100 Mg Tab) 100 mg PO HS PRN PRN Reason: Insomnia Stop: 04/15/22 18:10 Last Admin: 03/22/22 22:22 Dose: 100 mg Mental Health & Subst Abuse Tx Psychiatrist Name of Psychiatrist: Eugenie Zimmerman Psychiatrist's Date of Appointment with Psychiatrist: 04/06/22 Time of Appointment with Psychiatrist: 11:00 AM Psychiatric Appointment Comment: [address] [place], [place] Therapist Name of Therapist: Helena Melendez- Barbara Kwon Therapist's Date of Therapist Appointment: 03/30/22 Time of Therapist Appointment: 3:00 PM Therapy Appointment Comment: [address] [place], [place] Ict Support Engineer Name of Ict Support Engineer: "don't have one" Post Discharge Appointments Primary Care Physician Name Of Family Doctor: Dr Renee Horvath Primary Care Date of Appointment with PCP: 04/01/22 Time of Appointment with PCP: 4:00 PM Provider Appointment Comment: [id number], [place]
[2022-03-23] MEDS: IBUPROFEN 800 MG TAB PO PRN ×2 (12:29→18:46)
[2022-03-23] MEDS: BENZOCAINE 20% (ORAJEL) 11.9 GM TUBE MT PRN ×4 (13:16→22:31)
[2022-03-23] MEDS: hydrOXYzine HCl 25 MG TAB PO PRN (17:11)
[2022-03-23] MEDS: haloperidoL 1 MG TAB PO SCH (21:57)
[2022-03-23] MEDS: ATORVASTATIN 10 MG TAB PO SCH (21:58)
[2022-03-23] MEDS: PRAZOSIN HCL 1 MG CAP PO SCH (21:59)
[2022-03-23] MEDS: traZODone HCL 100 MG TAB PO PRN (21:59)
[2022-03-24] MEDS: hydrOXYzine HCl 25 MG TAB PO PRN (02:09)
[2022-03-24] MEDS: amLODIPine BESYLATE 5 MG TAB PO SCH (08:01)
[2022-03-24] MEDS: FLUoxetine HCL 10 MG CAP PO SCH (08:02)
[2022-03-24] MEDS: haloperidoL 0.5 MG TAB PO SCH (08:02)
[2022-03-24] MEDS: IBUPROFEN 800 MG TAB PO PRN ×2 (08:03→16:42)
[2022-03-24] MEDS: BENZOCAINE 20% (ORAJEL) 11.9 GM TUBE MT PRN ×2 (10:33→16:24)
--- NOTE | 2022-03-24 16:41 | Discharge Summary ---
Date of Service March 24, 2022 History of Present Illness Osei is known to [facility] from recent inpatient stay 02/24-03/05/22 for primarily SI and reports of command hallucinations that seemed to be related to intense thoughts he had difficulty coping with. He was back in the ED within the week and transferred to [place] on 03/11/22. He submitted a 72 hr. notice and was transported back to the area by [employer] and he asked the otr company truck driver to take him to [facility] ED instead of home where he verbalized SI with a plan to hang himself. On of his main stressors remains focus on his past relationship and jealousy directed at newer partners of his ex but he has no contact with them, doesn't know how to access and no intent, "I just get made and wish I could hit him on the street." Osei states that he has had more pain in his right knee and his teeth (which were scheduled to be extracted on 03/25/22). He mentioned that his mother in law (ex) still helps him with appointments/bringing items to the hospital and picking up food from the foodbank which he is thankful for. Remains focussed on his perceived need for longer hospitalization. Physical Exam Vital Signs (Past 24 Hours) Last Vital Signs Temp 36.6 C 03/24/22 06:00 Pulse 77 03/24/22 06:37 Resp 16 03/24/22 06:00 BP 116/74 03/24/22 06:37 Pulse Ox 96 03/16/22 18:59 O2 Del Method 03/24/22 06:00 See admission H&P and DOD summary. Principal Diagnosis Major Depressive Disorder, Post Traumatic Stress Disorder Psychiatric Data See daily stay summary. In short, safety was maintained and the patient was cooperative with care. Osei's mood varied through his stay with periods of time when he would appear more flat while alone and times with significant brightening of affect including laughing with peers and playing games shortly after endorsing auditory hallucinations or endorsing SI and HI. Even with period s of SI and HI he was never violent or aggression, remained behaviorally appropriate throughout his stay, and never engaged in any self-harming behaviors. Based on observations during his stay from a diagnostic standpoint it is not felt at this time that he has a primary psychotic disorder, rather suspect that his experience of hallucinations are related to past trauma of memories of his father dying and his statements regarding voices, SI and HI seem to be primarily prompted by feelings of social isolation, boredom and loneliness and serve as his way of communicating his need for increased support and as way of having his needs met. There does seem to be a component of possible complex PTSD and Major Depressive but there were no signs of any other disorganized nor psychotic symptoms during his stay. Given his co-occurring intellectual disability his experience of voices, SI and HI also seem to be his main method of engaging services as he does find the hospital to be a supportive and enjoyable environment. His dental pain, with an upcoming dental surgery, also seems to negatively contribute to his emotional distress and scheduled pain medications, acetaminophen and ibuprofen, and topical oral numbing gel provided significant relief and helped to improve his mood. During his stay medication changes included discontinuation of risperidone, mirtazapine and Concerta and initiation of low dose haldol and fluoxetine and they tolerated this well. If his mood remains stable with no worsening of hallucinations then could consider restarting Concerta and stimulant medications for ADHD in the outpatient setting, would ensure his blood pressure remains normal if this is added back in the future. A support session was held with his friend Donnie and safety plan was completed prior to discharge. He was referred for additional mental health and intellectual disability services through the [facility] program and he completed the intake to begin [facility] services. He will continue with outpatient therapy and psychiatric services. On the day of discharge he denied SI and HI and felt the voices were "much better". He stated his mood was "good" and "ready" for discharge. He is looking forward to going to [employer], his birthday next week, having his dental surgery, going to a [employer] baseball game this weekend and the start of football games in the fall and engaging in aftercare appointments for psychiatry, therapy and with his new [facility] services. Reviewed his safety plan and having this easily available should thoughts of SI re-emerge in the future. Reviewed importance of seeking emergency care should SI intensify, worsen or should they feel unsafe in the future which they agree to do. Day of Discharge Assessment Today the patient voices readiness for discharge. They note improvement in mood and anxiety. They deny thoughts of harm to self or others. Thoughts are organized and they are clinically improved from admission. There is no evidence of psychosis. They improved in the hospital with support and medication adjustments. They agree to take medications as prescribed and keep follow-up appointments. At the time of the discharge they are deemed to be stable and appropriate for outpatient level of care. They are not deemed to be at imminent risk of harm to self or others. They are aware of emergency and crisis services. Knows to call 911 or go to nearest emergency care center if in a crisis which cannot be handled as an outpatient. Transition of Care Transition Of Care Record: was reviewed with the patient Advance Directives Advance Directives Information Provided: Yes Advance Directives: No Mental Health Advance Directive: No Advance Directives on File: No Living Will: No Power of Beauty Shop Manager: No Advance Directives Reason:: Declines as Mental Health Visit. Suicide Risk Level Suicide Risk Level Comments: Acute risk is low given improvement in mood and denial of SI, lack of access to lethal means, hopefulness and additional outpatient supports and coping skills. Chronic risk is low to moderate given psychiatric co-morbid diagnoses, hx self- harm emotional reactivity, prior psychiatric hospitalizations, poor social support, mood disorder, childhood trauma but also with protective factors. Counseled on ways to reduce acute and chronic risk including engaging with outpatient providers, using safety plan if needed, utilizing supports, taking medication, and using coping skills. Modifiable risk factors of SI and depression were addressed during hospitalization through development of new coping skills, family meeting, safety planning, and medication adjustments. Risk Factors Assessment Male: Yes : Yes Do You Have Access To A Gun?: No Mental Health Diagnoses: Yes Substance Use Disorders: No Previous Attempt: No Previous Psychiatric Hospitalization: Yes Hopelessness: No Protective Factors Assessment : No Employed: Yes ([employer]) Stable Relationships: Yes Supportive Family: No Good Rapport with Provider: Yes Discharge Data Lab Results 03/16/22 03/16/22 03/16/22 14:20 14:20 14:20 WBC RBC Hgb Hct MCV MCH MCHC RDW Std Deviation RDW Coeff of Josselyn Plt Count MPV Immature Gran % (Auto) Neut % (Auto) Lymph % (Auto) [place] % (Auto) Eos % (Auto) Baso % (Auto) Neut # (Auto) Lymph # (Auto) [place] # (Auto) Eos # (Auto) Baso # (Auto) Immature Gran # (Auto) Sodium Potassium Chloride Carbon Dioxide Anion Gap BUN Creatinine Est Cr Clr Drug Dosing Est GFR ( Amer) Est GFR (Non-Af Amer) BUN/Creatinine Ratio Glucose Calcium Total Bilirubin AST ALT Alkaline Phosphatase Total Protein Albumin Globulin Albumin/Globulin Ratio TSH Urine Color Yellow Urine Appearance Clear Urine pH 5.0 Ur Specific [place] 1.016 Urine Protein Negative Urine Glucose (UA) 2+ H Urine Ketones Negative Urine Blood Trace H Urine Nitrite Negative Urine Bilirubin Negative Urine Urobilinogen Negative Ur Leukocyte Esterase Negative Urine WBC (Auto) 1-5 Urine RBC (Auto) 0-4 U Hyaline Cast (Auto) 0 U Epithel Cells (Auto) 0-5 Urine Bacteria (Auto) Negative Salicylates Urine Opiates Screen Neg Ur Methadone, Qual Neg Acetaminophen Urine Barbiturates Neg Ur Phencyclidine (PCP) Neg U Amphetamin/Meth Scrn Neg MDMA (Ecstasy) Screen Neg U Benzodiazepines Scrn Neg Ur Cocaine Metabolite Neg U Marijuana (THC) Screen Neg Ethyl Alcohol mg/dL SARS-CoV-2, RNA, NAAT NEGATIVE 03/16/22 03/16/22 03/16/22 14:28 14:28 14:28 WBC 10.79 RBC 4.82 Hgb 13.7 L Hct 42.0 MCV 87.1 MCH 28.4 MCHC 32.6 RDW Std Deviation 47.4 H RDW Coeff of Josselyn 14.7 H Plt Count 550 H MPV 9.5 Immature Gran % (Auto) 1.2 Neut % (Auto) 67.8 Lymph % (Auto) 22.1 [place] % (Auto) 7.7 Eos % (Auto) 0.8 Baso % (Auto) 0.4 Neut # (Auto) 7.32 H Lymph # (Auto) 2.38 [place] # (Auto) 0.83 H Eos # (Auto) 0.09 Baso # (Auto) 0.04 Immature Gran # (Auto) 0.13 H Sodium 138 Potassium 3.6 Chloride 104 Carbon Dioxide 24 Anion Gap 10 BUN 14 Creatinine 0.89 Est Cr Clr Drug Dosing 127.4 Est GFR ( Amer) 132.1 Est GFR (Non-Af Amer) 113.9 BUN/Creatinine Ratio 15.7 Glucose 198 H Calcium 9.4 Total Bilirubin 0.2 AST 26 ALT 74 H Alkaline Phosphatase 73 Total Protein 8.0 Albumin 4.6 Globulin 3.4 Albumin/Globulin Ratio 1.4 TSH 1.626 Urine Color Urine Appearance Urine pH Ur Specific [place] Urine Protein Urine Glucose (UA) Urine Ketones Urine Blood Urine Nitrite Urine Bilirubin Urine Urobilinogen Ur Leukocyte Esterase Urine WBC (Auto) Urine RBC (Auto) U Hyaline Cast (Auto) U Epithel Cells (Auto) Urine Bacteria (Auto) Salicylates Urine Opiates Screen Ur Methadone, Qual Acetaminophen Urine Barbiturates Ur Phencyclidine (PCP) U Amphetamin/Meth Scrn MDMA (Ecstasy) Screen U Benzodiazepines Scrn Ur Cocaine Metabolite U Marijuana (THC) Screen Ethyl Alcohol mg/dL SARS-CoV-2, RNA, NAAT 03/16/22 03/16/22 14:28 14:28 WBC RBC Hgb Hct MCV MCH MCHC RDW Std Deviation RDW Coeff of Josselyn Plt Count MPV Immature Gran % (Auto) Neut % (Auto) Lymph % (Auto) [place] % (Auto) Eos % (Auto) Baso % (Auto) Neut # (Auto) Lymph # (Auto) [place] # (Auto) Eos # (Auto) Baso # (Auto) Immature Gran # (Auto) Sodium Potassium Chloride Carbon Dioxide Anion Gap BUN Creatinine Est Cr Clr Drug Dosing Est GFR ( Amer) Est GFR (Non-Af Amer) BUN/Creatinine Ratio Glucose Calcium Total Bilirubin AST ALT Alkaline Phosphatase Total Protein Albumin Globulin Albumin/Globulin Ratio TSH Urine Color Urine Appearance Urine pH Ur Specific [place] Urine Protein Urine Glucose (UA) Urine Ketones Urine Blood Urine Nitrite Urine Bilirubin Urine Urobilinogen Ur Leukocyte Esterase Urine WBC (Auto) Urine RBC (Auto) U Hyaline Cast (Auto) U Epithel Cells (Auto) Urine Bacteria (Auto) Salicylates < 3.0 L Urine Opiates Screen Ur Methadone, Qual Acetaminophen < 3 L Urine Barbiturates Ur Phencyclidine (PCP) U Amphetamin/Meth Scrn MDMA (Ecstasy) Screen U Benzodiazepines Scrn Ur Cocaine Metabolite U Marijuana (THC) Screen Ethyl Alcohol mg/dL < 10.0 SARS-CoV-2, RNA, NAAT Hospital Course (1) MDD (major depressive disorder), recurrent episode, moderate: (2) Post traumatic stress disorder (PTSD): (3) ADHD (attention deficit hyperactivity disorder): (4) HTN (hypertension): (5) Intellectual disability: Plan 03/23/22: Continue with current medication and tx plan. 03/22/22: Increase haldol to 0.25mg qAM & 1 mg qhs given worsening of AH. Start fluoxetine 10mg for depression. 03/21/22: Decrease haldol to 0.5mg qhs due to daytime fatigue. Continue prazosin. Consider another SSRI trial-poor response to sertraline and escitalopram in past, consider fluoxetine. 03/20/22: Discontinue risperidone, start haldol 0.5 mg BID 03/19/22: last dose of Remeron tonight, reviewed with patient that medications ne ed to be taken more than once to determine efficacy. He was agreeable to increase in Norvasc as on it several months and having intermittent HTN here even off of Concerta. 03/18/22: Taper and d/c Remeron as nightmares only issue following increase from 7.5 mg last stay. Continue prazosin for now. Increase Risperdal to 1 mg daily to further trial, mainly to help with mood though patient has consistently reported auditory mobley. 03/17/22: The patient was admitted to the [facility] ([facility] inpatient mental health unit) on q15 min checks (behavioral with suicide precautions) for safety. The patient will participate in group, recreational, and milieu therapies and will be offered additional individual and family sessions as clinically appropriate. Reconsented for medications, reviewed holding stimulant to monitor his BP. He desired trial of a higher dose of prazosin for report of nightmares. Mental Health & Subst Abuse Tx Psychiatrist Name of Psychiatrist: Eugenie Hua- Sulema Zimmerman Psychiatrist's Date of Appointment with Psychiatrist: 04/06/22 Time of Appointment with Psychiatrist: 11:00 AM Psychiatric Appointment Comment: [address] [place], [place] Psychiatrist Release of Information: Obtained, Reviewed and Signed Therapist Name of Therapist: Helena Melendez- Barbara Kwon Therapist's Date of Therapist Appointment: 03/30/22 Time of Therapist Appointment: 3:00 PM Therapy Appointment Comment: [address] [place], [place] Therapist Release of Information: Obtained, Reviewed and Signed Facility Practice Specialist Name of Facility Practice Specialist: "don't have one" Post Discharge Appointments Primary Care Physician Name Of Family Doctor: Dr Renee Horvath Primary [facility] Date of Appointment with PCP: 04/01/22 Time of Appointment with PCP: 4:00 PM Provider Appointment Comment: [id number], [place] [facility] Release of Information: Obtained, Reviewed and Signed Specialist Name of Specialist: [facility] - Dr. Ferris Phone Number for Specialist: Date of Appointment with Specialist: 04/12/22 Time of Appointment with Specialist: Arrive at 6:45 AM, surgery at 7:00 AM Specialty Appointment Comment: [address], [place] [address] Specialist Release of Information: Obtained, Reviewed and Signed Contact Information Discharge Discharge Address: [address] [place] [address], [facility], [place] [address] Discharge Plan Discharge Items Patient Disposition: Home - Self-Care Reason For Visit: MDD Discharge Diagnosis: Major Depressive Disorder Activity: Resume your previous activity Non-emergency contact: Primary Care Provider and Therapist Call non-emergency contact if: you have any medication questions and your symptoms worsen Follow-up/Referrals: Vidya Horvath CRNP [Primary Care Provider] - Diet: Regular Addtl Attending Provider Instructions: SPECIAL CARE INSTRUCTIONS: 1. Follow through with your scheduled aftercare appointments. If unable to keep an appointment, please call to reschedule. 2. Take your medication only as prescribed. Medication should not be changed or stopped without the approval of your doctor. In the event of worsening symptoms or concerns about side effects, contact your doctor immediately. 3. Utilize new healthy coping skills, anger management skills, and stress management skills learned during your hospitalization. Journal feelings and process them with a support person. Identify stressors or situations that may result in relapse, deterioration or inappropriate behaviors and develop a plan to deal with those issues. 4. If your coping skills are ineffective and you are in crisis, contact your outpatient providers for direction. If unable to reach your providers, please call the [facility] CRISIS LINE AT , go to the [facility] walk-in center at [address], [address], [place], or go to the closest Emergency Room. 5. Avoid alcohol and un-prescribed drugs. 6. You have been provided with the Mental Health Advance Directives Pamphlet for your review. 7. Your condition is stable for discharge to outpatient level of care, but recovery is an ongoing process. Ifthoughts to harm yourself or others return, follow the safety plan developed during your stay. Planning for a safe return home includes securing weapons. Our treatment team recommends weaponsbe removed from the home until your outpatient provider reassesses your progress. In rare cases where the items themselvescannot be removed, guns and ammunitionshould be secured separatelyand keys stored by a reliable personoutside of the home. If you were admitted on an involuntary commitment, the police or other legal authorities may be involved in this process. AFTERCARE APPOINTMENTS: * Please call your insurance company prior to your scheduled appointment to confirm your aftercare providers are covered. Take your insurance information to your appointments. WHO TO CALL AND WHEN: Medical Emergencies: For questions or emergencies related to your hospital stay, please contact the Inpatient Behavioral Health Unit at [phone]. A sample grader is on-call 21/03 for the Behavioral Health Unit for emergencies At any time you feel your situation is an emergency, you may also call 911 immediately. Pending Studies at Discharge: No Stand-Alone Forms: My [facility] Medications and DC Order Prescriptions: New amlodipine [Norvasc] 5 mg Tablet 7.5 mg PO DAILY 30 Days Qty: 45 0RF prazosin 2 mg capsule 2 mg PO HS 30 Days Qty: 30 0RF trazodone 100 mg Tablet 100 mg PO HS PRN (Reason: MDD) 30 Days Qty: 30 0RF benztropine 1 mg Tablet 1 mg PO DAILY PRN (Reason: muscle stiffness) 30 Days Qty: 30 0RF fluoxetine 10 mg Capsule 10 mg PO QAM 30 Days Qty: 30 0RF haloperidol 0.5 mg Tablet 0.25 mg PO QAM 30 Days Qty: 15 0RF haloperidol 1 mg Tablet 1 mg PO HS 30 Days Qty: 30 0RF ibuprofen 800 mg Tablet 800 mg PO QID PRN (Reason: dental pain) 15 Days Qty: 30 0RF HurriCaine 20 % Gel 1 applic MT QID PRN (Reason: dental pain) Qty: 30 0RF acetaminophen 325 mg Tablet 650 mg PO Q4H PRN (Reason: dental pain) Qty: 1 0RF Continued atorvastatin 10 mg tablet 10 mg PO QPM Qty: 30 2RF hydroxyzine HCl 25 mg Tablet 25 mg PO Q6 PRN (Reason: anxiety) Qty: 14 0RF Discontinued cyanocobalamin (vitamin B-12) 1,000 mcg/mL solution 1,000 mcg .ROUTE .COMPLEX 28 Days Qty: 4 3RF Rx Instructions: Inject 1 mL SQ once a week for 4 weeks, then inject 1 mL SQ once a month. amlodipine 5 mg tablet 5 mg PO DAILY Qty: 30 2RF risperidone 0.5 mg tablet 0.5 mg PO QPM meloxicam 7.5 mg Tablet 7.5 mg PO DAILY Rx Instructions: TAKE FOR 7 DAYS melatonin 3 mg Tablet 3 mg PO HS trazodone 100 mg Tablet 100 mg PO HS PRN (Reason: Insomnia) mirtazapine [Remeron] 30 mg Tablet 30 mg PO HS mirtazapine 15 mg Tablet 7.5 mg PO HS Qty: 15 0RF prazosin 1 mg Capsule 1 mg PO HS Qty: 30 0RF methylphenidate HCl [Concerta] 54 mg Tablet Extended Release 24hr 54 mg PO QAM Qty: 30 0RF Discharge Orders: Discharge Order (Routine); Ordered 03/24/22 Ordered By: Sarah Saldana Admission Data Admit Date/Time: 03/16/22 18:14 Attending Provider: Donna Whitlock Admit Provider: Donna Whitlock Primary Care Provider: Vidya Horvath Other Interventions: PSY Interdisciplinary Discharge Planning Last Done: 03/24/22 14:37 Coding Level of Care Code 42226 D/C day mgmt > 30 min Diagnoses MDD (major depressive disorder), recurrent episode, moderate F33.1 Post traumatic stress disorder (PTSD) F43.10 ADHD (attention deficit hyperactivity disorder) F90.9 HTN (hypertension) I10 Intellectual disability F79 Time Spent (min) 45
[2022-03-24] MEDS ORDERED: DESTROY THIS MEDICATION ONE (16:52)
== END 2022-03-24 18:46 | disposition home or self-care (01) | DRG 885 ==
LOC: ED 13:47 → 3S 18:14

== ENCOUNTER 2022-04-06 13:02 | Inpatient (IN) ==
[2022-04-06 14:11] LABS: Basophils # (auto) 0.03 K/uL (0-0.2); Basophils % (auto) 0.3 %; Eosinophils # (auto) 0.02 K/uL (0-0.50); Eosinophils % (auto) 0.2 %; Hematocrit (blood only) 42.8 % (40.1-51.0); Hemoglobin 14.4 g/dl (14.0-18.0); Immature Granulocytes # (auto) 0.03 K/uL (0.00-0.02); Immature Granulocytes % (auto) 0.3 %; Lymphocytes # (auto) 2.09 K/uL (1.2-3.4); Lymphocytes % (auto) 22.3 %; Mean Corpuscular Hemoglobin 28.9 pg (25.0-34.0); Mean Corpuscular Hgb Conc 33.6 g/dL (32.0-36.0); Mean Corpuscular Volume 85.8 fL (80.0-100.0); Mean Platelet Volume 9.6 fL (9.4-12.4); Monocytes # (auto) 0.74 K/uL (0.24-0.82); Monocytes % (auto) 7.9 %; Neutrophils # (auto) 6.46 K/uL (1.4-6.5); Platelet Count 539 K/uL (130-400); RDW Coefficient of Variation 14.5 % (11.5-14.5); RDW Standard Deviation 45.5 fL (36.4-46.3); Red Blood Count 4.99 M/uL (4.63-6.08); White Blood Count 9.37 K/ul (4.8-10.8)
[2022-04-06 14:40] LABS: Acetaminophen < 3 ug/ml (10-30); Salicylate < 3.0 mg/dl (3.0-30)
[2022-04-06 14:41] LABS: Albumin Globulin Ratio 1.4 (0.9-2); Albumin Level 4.5 gm/dl (3.4-5.0); BUN Creatinine Ratio 11.2 (10-20); Bilirubin,Total 0.2 mg/dl (0.2-1.0); Calcium 9.8 mg/dl (8.5-10.1); Creatinine Clr Calc Pharmacy 135.8 ml/min; Est GFR (African American) 131.1 ml/min; Est GFR (Non-African American) 113.1 ml/min; Globulin 3.2 gm/dl (2.5-4.0); Potassium 3.8 mmol/L (3.5-5.1); Total Protein 7.7 gm/dl (6.0-8.3)
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
[2022-04-06 14:58] LABS: Appearance Urine Clear (Clear); Bilirubin Urine Negative (Negative); Blood Urine Negative (Negative); Color Urine Yellow; Glucose Urine UA Negative (Negative); Ketones Urine Negative (Negative); Leukocyte Esterase Urine Negative (Negative); Nitrite Urine Negative (Negative); Protein Urine Negative (Negative); Specific Gravity Urine 1.007 (1.000-1.030); Urobilinogen Urine Negative (Negative); pH Urine 6.5 (4.5-7.5)
[2022-04-06 15:26] LABS: Amphetamines+Metham, Urine Neg (Neg); Barbiturates, Urine Neg (Neg); Benzodiazepine, Urine Neg (Neg); Cocaine, Urine Neg (Neg); MDMA (Ecstacy), Urine Neg (Neg); Methadone, Urine Neg (Neg); Opiate, Urine Neg (Neg); Phencyclidine, Urine Neg (Neg)
[2022-04-06] MEDS ORDERED: ACETAMINOPHEN 325 MG TAB PO PRN (16:27)
[2022-04-06] MEDS ORDERED: BISMUTH SUBSALICYLATE LIQD 236 ML PO PRN (16:27)
[2022-04-06] MEDS ORDERED: MAGNESIUM HYDROXIDE SUSP 30 ML UDC PO PRN (16:27)
[2022-04-06] MEDS ORDERED: hydrOXYzine HCl 25 MG TAB PO PRN (16:27)
[2022-04-06] MEDS ORDERED: SODIUM CHLORIDE 0.65% NA SOLN 45 ML (OCEAN) PRN (16:27)
[2022-04-06] MEDS ORDERED: ALUMINUM/MAGNESIUM SUSP 30 ML UDC PO PRN (16:27)
[2022-04-06] MEDS ORDERED: haloperidoL 1 MG TAB PO SCH (21:00)
[2022-04-06] MEDS: hydrOXYzine HCl 25 MG TAB PO PRN (21:51)
[2022-04-07] MEDS ORDERED: BENZOCAINE 20% (ORAJEL) 11.9 GM TUBE MT PRN (09:47)
[2022-04-07] MEDS ORDERED: BENZTROPINE MESYLATE 1 MG TAB PO PRN (09:47)
[2022-04-07] MEDS ORDERED: IBUPROFEN 800 MG TAB PO PRN (09:47)
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
[2022-04-07] MEDS: amLODIPine BESYLATE 5 MG TAB PO SCH (12:19)
[2022-04-07] MEDS: FLUoxetine HCL 10 MG CAP PO SCH (12:19)
[2022-04-07] MEDS: haloperidoL 0.5 MG TAB PO SCH (12:24)
[2022-04-07] MEDS: METHYLPHENIDATE HCL 10 MG TABLET PO SCH (13:53)
[2022-04-07] MEDS: ATORVASTATIN 10 MG TAB PO SCH (22:40)
[2022-04-07] MEDS: PRAZOSIN HCL 1 MG CAP PO SCH (22:41)
[2022-04-07] MEDS: haloperidoL 1 MG TAB PO SCH (22:43)
[2022-04-07] MEDS: hydrOXYzine HCl 25 MG TAB PO PRN (23:08)
[2022-04-08] MEDS: FLUoxetine HCL 10 MG CAP PO SCH (07:25)
[2022-04-08] MEDS: METHYLPHENIDATE HCL 10 MG TABLET PO SCH ×2 (07:25→14:23)
[2022-04-08] MEDS: amLODIPine BESYLATE 5 MG TAB PO SCH (07:25)
[2022-04-08] MEDS: haloperidoL 0.5 MG TAB PO SCH (07:58)
[2022-04-08] MEDS ORDERED: traZODone HCL 100 MG TAB PO PRN (17:12)
--- NOTE | 2022-04-08 17:17 | Psychiatric Progress Note ---
Date of Service April 08, 2022 Impression / Recommendations Impression 32 yo man with multiple recent psychiatric hospitalizations, last ~ 2 weeks ago, with a history of intellectual disability, complex PTSD and MDD admitted for re- emergence of auditory hallucinations and SI with plan in the context of anxiety about upcoming dental procedure and one week without his medication. Focus will be on brief admission to re-establish safety, continue to advocate for increased outpatient resources-especially through intellectual disability services as he is well wrapped in terms of psychiatric services, and ongoing work with developing coping skills, stress reduction strategies and distress tolerance. Although he notes significant improvement in his mood today historically his SI and command AH can vary throughout the day so at this time given severity of symptoms over the last two days hospitalization is deemed necessary to ensure safety and stability and development of further coping skills. MNPR given periods of intermittent HI and difficulty with boundaries with peers 04/08/22: Movement and auditory hallucinations today but continues to have some suicidal ideation this morning and feels unable to return home as unable to safety contract. As has been seen during previous admissions he will report symptoms of depression but can quickly appear to have shifts in his mood observed shortly after our interview laughing with peers and enjoying games. He continues to struggle with coping skills particularly when he feels lonely or when he feels strong emotions so we continued discussing and working on this. He feels his medications are working well and he is tolerating them well. No increase in blood pressure or change in auditory hallucinations with reinitiation of Ritalin. He is future oriented about work and his dental procedure. Remains interested in getting more involved with outpatient resources through psych rehab. (1) Intellectual disability: (2) Post traumatic stress disorder (PTSD): (3) ADHD (attention deficit hyperactivity disorder): (4) MDD (major depressive disorder), recurrent episode, moderate: (5) Poor dentition: (6) HTN (hypertension): (7) Dyslipidemia: (8) Synovitis of knee: Plan 04/08/22: Continue current medications and treatment plan. Ongoing work reviewing coping skills for different emotions. 04/07/22: The patient was admitted to the [facility] ([facility]) on q15 min checks (behavioral with suicide precautions) for safety. The patient will participate in group, recreational, and milieu therapies and will be offered additional individual and family sessions as clinically appropriate. Continue haldol, prazosin and fluoxetine. Will restart Ritalin as BID since Concerta is not on hospital formulary. Reviewed PERMA strategies for helping w ith his mood and working on creating list of reasons for living for instances when his mood worsens in the future. Inventory Assets Strengths: employed, has own housing, outpatient services, resilient Needs: safety and stabilization, additional coping skills, increased outpatient services Suicide Risk Level Suicide Risk Level: Moderate (q15 min suicide checks) Suicide Risk Level Comments: Moderate due to worsened depression with SI with plan prior to admission and command AH but denies AH still with intermittent SI but feels safe in the hospital, able to safety contract and agrees to let nursing/staff know should they develop plan, intent or feel unable to remain safe. Risk Factors Assessment Male: Yes : Yes Do You Have Access To A Gun?: No Health Problems: Yes Mental Health Diagnoses: Yes Substance Use Disorders: No Previous Attempt: No Family History of Suicide: No Previous Psychiatric Hospitalization: Yes Hopelessness: No Protective Factors Assessment Employed: No Stable Relationships: Yes Good Rapport with Provider: Yes Interval History Identifying Information ADEBAYO BRAUN is a 32-year-old M who currently lives in [place] alone, has a history of intellectual disability, MDD and complex PTSD, and was admitted on 04/06/22 16:27 on a 201 voluntary commitment for command AH telling him to hurt himself or others and SI with plan of hanging himself or cutting his throat. Chief Complaint "I'm not as good today". Review of Systems Sleep Information Total Hours of Sleep: 6.25 Meal Information Percent Meal Consumed - Breakfast: 75 Percent Meal Consumed - Lunch: 100 Percent Meal Consumed - Dinner: 100 Subjective Subjective Patient was seen & assessed and interval progress reviewed with treatment team nursing and social work. Been engaging with groups and socializing with peers. States he had difficulty sleeping last night requested that his trazodone as needed be ordered as this tends to be helpful. Denies any side effects from his medication other than dry mouth this morning which he states is a new side effect he has not had before. Reviewed oral hygiene practices including drinking plenty of water. Reports his mood is more down today and he is having suicidal ideation. However he is not having any voices today he feels those have gotten much better. Reviewed coping skills he can use including positive psychiatry/psychology model per month that he had worked on. Reviewed strate jeannie he can use following upcoming dental procedure which she is nervous about. States he struggles the most when he is alone. Physical Exam Psychiatric Orientation: alert and oriented x 3 Apperance: appropriately dressed and appropriately groomed Eye Contact: good eye contact Motor Behavior: no abnormal motor movements Speech: normal rate/rhythm/volume of speech Affect: + depressed affect, + anxious affect and + labile affect (depressed but later laughing with peers and smiling ) Mood: + depressed mood and + anxious mood Thought Process: goal directed thought process and + concrete thought process Thought Content: reality based without delusions Suicidal Thoughts: denies suicidal intent; + reports suicidal thoughts (intermittent today) and + reports suicidal plan (none currently but plans of hanging himself or cutting himself prior to adm) Homicidal Thoughts: denies homicidal plan and denies homicidal intent; + reports homicidal thoughts (none currently but intermittent nonspecific thoughts ) Hallucinations: no auditory hallucinations and no visual hallucinations Cognition: recent memory grossly intact, remote memory grossly intact, attention grossly intact and language grossly intact Estimated Intelligence: + below average estimated intelligence Insight: + limited insight Judgement: + limited judgement Vital Signs (Past 24 Hours) Last Vital Signs Temp 36.8 C 04/08/22 06:00 Pulse 82 04/08/22 06:34 Resp 16 04/08/22 06:00 BP 129/78 04/08/22 06:34 Pulse Ox 98 04/08/22 06:00 O2 Del Method 04/08/22 06:00 Results & Data ([facility]) Current Inpatient Medications Current Inpatient Medications: Current Inpatient Medications Acetaminophen (Acetaminophen 325 Mg Tab) 650 mg PO Q4H PRN PRN Reason: Headache or Minor Fever Stop: 05/06/22 16:26 Last Admin: 04/06/22 18:11 Dose: 650 mg Al Hydrox/Mg Hydrox/Simethicone (Aluminum/Magnesium Susp 30 Ml Udc) 30 ml PO Q4H PRN PRN Reason: GI Upset Stop: 05/06/22 16:26 Amlodipine Besylate (Amlodipine Besylate 5 Mg Tab) 7.5 mg PO DAILY CLARY Stop: 05/07/22 09:59 Last Admin: 04/08/22 07:25 Dose: 7.5 mg Atorvastatin Calcium (Atorvastatin 10 Mg Tab) 10 mg PO QPM CLARY Stop: 05/07/22 20:59 Last Admin: 04/07/22 22:40 Dose: 10 mg Benzocaine (Benzocaine 20% (Orajel) 11.9 Gm Tube) 1 appln MT QID PRN PRN Reason: dental pain Stop: 05/07/22 09:46 Benztropine Mesylate (Benztropine Mesylate 1 Mg Tab) 1 mg PO DAILY PRN PRN Reason: muscle stiffness Stop: 05/07/22 09:46 Bismuth Subsalicylate (Bismuth Subsalicylate Liqd 236 Ml) 15 ml PO PRN PRN PRN Reason: Loose Stool Stop: 05/06/22 16:26 Fluoxetine HCl (Fluoxetine Hcl 10 Mg Cap) 10 mg PO QAM [facility] Stop: 05/07/22 09:59 Last Admin: 04/08/22 07:25 Dose: 10 mg Haloperidol (Haloperidol 0.5 Mg Tab) 0.25 mg PO QAM CLARY Stop: 05/07/22 09:59 Last Admin: 04/08/22 07:58 Dose: 0.25 mg Haloperidol (Haloperidol 1 Mg Tab) 1 mg PO HS CLARY Stop: 05/07/22 21:59 Last Admin: 04/07/22 22:43 Dose: 1 mg Hydroxyzine HCl (Hydroxyzine Hcl 25 Mg Tab) 50 mg PO HSZ PRN PRN Reason: Insomnia Stop: 05/06/22 16:26 Last Admin: 04/07/22 23:08 Dose: 50 mg Hydroxyzine HCl (Hydroxyzine Hcl 25 Mg Tab) 25 mg PO Q4H PRN PRN Reason: Anxiety Stop: 05/06/22 16:26 Last Admin: 04/07/22 22:40 Dose: 25 mg Ibuprofen (Ibuprofen 800 Mg Tab) 800 mg PO QID PRN PRN Reason: dental pain Stop: 05/07/22 09:46 Magnesium Hydroxide (Magnesium Hydroxide Susp 30 Ml Udc) 30 ml PO DAILY PRN PRN Reason: Constipation Stop: 05/06/22 16:26 Methylphenidate HCl (Methylphenidate Hcl 10 Mg Tablet) 10 mg PO [id number] CLARY Stop: 04/21/22 13:59 Last Admin: 04/08/22 14:23 Dose: 10 mg Prazosin HCl (Prazosin Hcl 1 Mg Cap) 2 mg PO HS CLARY Stop: 05/07/22 21:59 Last Admin: 04/07/22 22:41 Dose: 2 mg Sodium Chloride (Sodium Chloride 0.65% Na Soln 45 Ml ([place])) 1 - 2 sprays NA PRN PRN PRN Reason: Nasal Dryness/Congestion Stop: 05/06/22 16:26 Mental Health & Subst Abuse Tx Psychiatrist Name of Psychiatrist: Eugenie Hua - Sulema Zimmerman Psychiatrist's Date of Appointment with Psychiatrist: 04/30/22 Time of Appointment with Psychiatrist: 9:00 AM Psychiatric Appointment Comment: [address] [facility] [place] [address] Therapist Name of Therapist: Helena Melendez - Barbara Kwon Therapist's Date of Therapist Appointment: 04/15/22 Time of Therapist Appointment: 1:00 PM Therapy Appointment Comment: [address] [facility], [address], [place] [address] Warehouse Administrative Assistant Name of Warehouse Administrative Assistant: [facility] Phone Number for Warehouse Administrative Assistant: [phone] Case Management Appointment Comment: Follow up per your regular schedule. Post Discharge Appointments Primary Care Physician Name Of Family Doctor: [facility] - DEJAH Alberto Primary Care Date of Appointment with PCP: 04/19/22 Time of Appointment with PCP: 4:00 PM Provider Appointment Comment: [address] [facility] [place] [address] Specialist Name of Specialist: [facility] - Dr. Ferris Phone Number for Specialist: [phone] Date of Appointment with Specialist: 04/12/22 Time of Appointment with Specialist: Arrive at 6:45 AM, surgery at 7:00 AM Specialty Appointment Comment: [address] [facility] [facility] [address], [place]ULETTE Dominique [address] Contact Information Discharge Discharge Address: [address] [place] [address], [place] [address]
[2022-04-08] MEDS: PRAZOSIN HCL 1 MG CAP PO SCH (22:12)
[2022-04-08] MEDS: haloperidoL 1 MG TAB PO SCH (22:13)
[2022-04-08] MEDS: ATORVASTATIN 10 MG TAB PO SCH (22:13)
[2022-04-09] MEDS: METHYLPHENIDATE HCL 10 MG TABLET PO SCH (06:27)
[2022-04-09] MEDS ORDERED: ONDANSETRON 2 MG OD TAB PO PRN (08:45)
[2022-04-09] MEDS: haloperidoL 0.5 MG TAB PO SCH (09:08)
[2022-04-09] MEDS: amLODIPine BESYLATE 5 MG TAB PO SCH (09:09)
[2022-04-09] MEDS: FLUoxetine HCL 10 MG CAP PO SCH (09:10)
--- NOTE | 2022-04-09 10:41 | Discharge Summary ---
Date of Service April 09, 2022 History of Present Illness Osei presents for psychiatric admission for increased auditory hallucinations telling him to hurt himself or nonspecific others (denies any plan nor intent and no recent aggression) and SI with plan of hanging himself or cutting his throat which began two evenings ago. Osei is well known to me from his two recent admissions to [facility] for similar symptoms including from 02/24/2022 - 03/05/2022 and from 03/17/22 - 03/24/2022. He was also briefly hospitalized at [facility] from 03/11/22 - 03/16/22 after submitting a 72 hour notice and then directing his Uber driver utility worker on his way from [place] to bring him to the [facility] ED resulting in his [facility] admission two weeks ago in late February. At the time of his last discharge it was felt that his symptomatology represents complex PTSD and major depression and that the voices and SI increase during times of stress and loneliness and seem to be a means through which he can communicate his level of psychic distress. Both of his previous hospitalizations were prompted by increased stress and worry about an upcoming dental procedure to have his teeth removed which was delayed due to his last hospitalization in late February. The procedure was rescheduled for this upcoming Tuesday04/12/2022 and seems to be the primary driving factor behind his increased distress as he worries about the pain and being alone after the procedure. Osei was unable to get his medications filled for about 1 week after discharge due to the cost stating "I should have picked up my medication before I spent all my money on [employer]" but has been taking haldol 0.25mg qAM & 1mg qhs as well as fluoxetine 10mg daily in addition to prazosin 2mg qhs for the last week. He attended a group therapy session on Tuesday evening, 04/05/2022, at [place] and developed increased SI. He states prior to this "I'd been doing really well, I don't know why I had a bad day". He then saw his outpatient psychiatric provider the next day for a follow-up appointment at [place] and reported SI with plan and could not identify any reasons for living as well as command AH to hurt himself or others so police were called and he was brought to the ED. Last night in the ED he endorsed ongoing SI as well as depressive symptoms including decreased appetite and more difficulty sleeping. Today he reports he is having a much better day and cites reasons for living such as his family and friends. He worked two shifts at [employer] since his last discharge and continues to find therapy helpful. Expresses disappointment that he ended up back in the ED. He agrees that his dental procedure and stress of this, and possibility it could get rescheduled to the oral surgeon's schedule, likely caused his worsening mood over the last two days. Physical Exam Vital Signs (Past 24 Hours) Last Vital Signs Temp 36.6 C 04/09/22 06:00 Pulse 118 H 04/09/22 06:26 Resp 18 04/09/22 06:00 BP 136/80 04/09/22 06:26 Pulse Ox 99 04/09/22 06:00 O2 Del Method 04/09/22 06:00 Principal Diagnosis Major depressive disorder and complex post traumatic stress disorder Psychiatric Data See daily stay summary. In short, patient was engaged with the social/therapeutic milieu of the unit, safety was maintained and the patient was cooperative with care. As per his previous stay he re-constituted rapidly on arrival to the unit noting significant improvement in his mood and consistently denied any command auditory hallucinations. I continue to feel that his presentation is consistent with complex PTSD and a means of communicating his needs for increased social support as he never demonstrates other symptoms of primary psychotic disorder except auditory hallucinations and never appears distracted by internal stimuli nor ever demonstrates any thought blocking. Medication changes included re-initiation of ritalin and they tolerated this well. Reviewed risks of increasing his BP and contributing to tachycardia and he was advised to stop the Ritalin should he experience this or should he find that the voices get worse. Osei utilizes hospitalization as a means of seeking increased social support and in the future may benefit from reassurance and efforts to safety plan to home if he presents to the ED rather than inpatient hospitalization as this is less likely to offer benefit and I worry is re- enforcing maladaptive behaviors including avoidance of obligations such as his job that are needed to help him create more structure and are protective factors for his mental health. I remain a strong advocate for him to have increased support through his intellectual disability services as his main concerns remain social isolation and difficulty navigating daily tasks such as money management and motivation to attend his job. A safety plan was completed prior to discharge. On the day of discharge he stated his mood was "ok" and remained future-oriented including getting his dental procedure in a few days noting "I need that really bad", football, [employer] games, working, and meeting up with friends he met during his last hospitalization and engaging in aftercare appointments for psychiatry, therapy and with his dependency case manager who are working to set him up with psych rehab services. Day of Discharge Assessment Today the patient voices readiness for discharge. He notes improvement in mood. He denies thoughts of harm to self or others. Thoughts are organized and they are clinically improved from admission. There is no evidence of psychosis. He continues to have intermittent auditory hallucinations "just a little bit" which are non-command in nature and occur intermittently when he feels lonely or sad and to which he does not appear to be responding to any internal stimuli. He improved in the hospital with support and medication adjustments. He agrees to take medications as prescribed and keep follow-up appointments. At the time of the discharge he is deemed to be stable and appropriate for outpatient level of care. He is not deemed to be at imminent risk of harm to self or others. He is aware of emergency and crisis services. Knows to call 911 or go to nearest emergency care center if in a crisis which cannot be handled as an outpatient. Transition of Care Transition Of Care Record: was reviewed with the patient Advance Directives Advance Directives Information Provided: Yes Advance Directives: No Mental Health Advance Directive: No Advance Directives on File: No Living Will: No Power of Tube Winder Hand: No Advance Directives Reason:: Declines as Mental Health Visit. Suicide Risk Level Suicide Risk Level Comments: Acute risk is low given improvement in mood and denial of SI, lack of access to lethal means, hopefulness and future-oriented with bright affect. Chronic risk is moderate given psychiatric co-morbid diagnoses, and hx trauma and limited social supports but also with no history of a prior attempt, reduction in self- harming behaviors and increasing outpatient services. Counseled on ways to reduce acute and chronic risk including engaging with outpatient providers, creating daily routine, using PERMA strategies to increase happiness, using safety plan if needed, utilizing supports, taking medication, and using coping skills especially for managing trauma symptoms. Modifiable risk factors of SI and depression were addressed during hospitalization through development of new coping skills, safety planning, and medication adjustments. Risk Factors Assessment Male: Yes : Yes Do You Have Access To A Gun?: No Health Problems: Yes Mental Health Diagnoses: Yes Substance Use Disorders: No Previous Attempt: No Family History of Suicide: No Previous Psychiatric Hospitalization: Yes Hopelessness: No Protective Factors Assessment Employed: Yes Stable Relationships: Yes Good Rapport with Provider: Yes Discharge Data Lab Results 04/06/22 04/06/22 04/06/22 13:42 13:42 13:42 WBC 9.37 RBC 4.99 Hgb 14.4 Hct 42.8 MCV 85.8 MCH 28.9 MCHC 33.6 RDW Std Deviation 45.5 RDW Coeff of Josselyn 14.5 Plt Count 539 H MPV 9.6 Immature Gran % (Auto) 0.3 Neut % (Auto) 69.0 Lymph % (Auto) 22.3 Upson % (Auto) 7.9 Eos % (Auto) 0.2 Baso % (Auto) 0.3 Neut # (Auto) 6.46 Lymph # (Auto) 2.09 Upson # (Auto) 0.74 Eos # (Auto) 0.02 Baso # (Auto) 0.03 Immature Gran # (Auto) 0.03 H Sodium 138 Potassium 3.8 Chloride 105 Carbon Dioxide 25 Anion Gap 8 BUN 10 Creatinine 0.89 Est Cr Clr Drug Dosing 135.8 Est GFR ( Amer) 131.1 Est GFR (Non-Af Amer) 113.1 BUN/Creatinine Ratio 11.2 Glucose 112 H Calcium 9.8 Total Bilirubin 0.2 AST 27 ALT 57 H Alkaline Phosphatase 85 Total Protein 7.7 Albumin 4.5 Globulin 3.2 Albumin/Globulin Ratio 1.4 TSH 0.775 Urine Color Urine Appearance Urine pH Ur Specific Salina Urine Protein Urine Glucose (UA) Urine Ketones Urine Blood Urine Nitrite Urine Bilirubin Urine Urobilinogen Ur Leukocyte Esterase Salicylates Urine Opiates Screen Ur Methadone, Qual Acetaminophen Urine Barbiturates Ur Phencyclidine (PCP) U Amphetamin/Meth Scrn MDMA (Ecstasy) Screen U Benzodiazepines Scrn Ur Cocaine Metabolite U Marijuana (THC) Screen Ethyl Alcohol mg/dL SARS-CoV-2, RNA, NAAT 04/06/22 04/06/22 04/06/22 13:42 13:42 13:42 WBC RBC Hgb Hct MCV MCH MCHC RDW Std Deviation RDW Coeff of Josselyn Plt Count MPV Immature Gran % (Auto) Neut % (Auto) Lymph % (Auto) Upson % (Auto) Eos % (Auto) Baso % (Auto) Neut # (Auto) Lymph # (Auto) Upson # (Auto) Eos # (Auto) Baso # (Auto) Immature Gran # (Auto) Sodium Potassium Chloride Carbon Dioxide Anion Gap BUN Creatinine Est Cr Clr Drug Dosing Est GFR ( Amer) Est GFR (Non-Af Amer) BUN/Creatinine Ratio Glucose Calcium Total Bilirubin AST ALT Alkaline Phosphatase Total Protein Albumin Globulin Albumin/Globulin Ratio TSH Urine Color Urine Appearance Urine pH Ur Specific Salina Urine Protein Urine Glucose (UA) Urine Ketones Urine Blood Urine Nitrite Urine Bilirubin Urine Urobilinogen Ur Leukocyte Esterase Salicylates < 3.0 L Urine Opiates Screen Ur Methadone, Qual Acetaminophen < 3 L Urine Barbiturates Ur Phencyclidine (PCP) U Amphetamin/Meth Scrn MDMA (Ecstasy) Screen U Benzodiazepines Scrn Ur Cocaine Metabolite U Marijuana (THC) Screen Ethyl Alcohol mg/dL < 10.0 SARS-CoV-2, RNA, NAAT NEGATIVE 04/06/22 04/06/22 14:27 14:27 WBC RBC Hgb Hct MCV MCH MCHC RDW Std Deviation RDW Coeff of Josselyn Plt Count MPV Immature Gran % (Auto) Neut % (Auto) Lymph % (Auto) Upson % (Auto) Eos % (Auto) Baso % (Auto) Neut # (Auto) Lymph # (Auto) Upson # (Auto) Eos # (Auto) Baso # (Auto) Immature Gran # (Auto) Sodium Potassium Chloride Carbon Dioxide Anion Gap BUN Creatinine Est Cr Clr Drug Dosing Est GFR ( Amer) Est GFR (Non-Af Amer) BUN/Creatinine Ratio Glucose Calcium Total Bilirubin AST ALT Alkaline Phosphatase Total Protein Albumin Globulin Albumin/Globulin Ratio TSH Urine Color Yellow Urine Appearance Clear Urine pH 6.5 Ur Specific Salina 1.007 Urine Protein Negative Urine Glucose (UA) Negative Urine Ketones Negative Urine Blood Negative Urine Nitrite Negative Urine Bilirubin Negative Urine Urobilinogen Negative Ur Leukocyte Esterase Negative Salicylates Urine Opiates Screen Neg Ur Methadone, Qual Neg Acetaminophen Urine Barbiturates Neg Ur Phencyclidine (PCP) Neg U Amphetamin/Meth Scrn Neg MDMA (Ecstasy) Screen Neg U Benzodiazepines Scrn Neg Ur Cocaine Metabolite Neg U Marijuana (THC) Screen Neg Ethyl Alcohol mg/dL SARS-CoV-2, RNA, NAAT Hospital Course (1) Intellectual disability: (2) Post traumatic stress disorder (PTSD): (3) ADHD (attention deficit hyperactivity disorder): (4) MDD (major depressive disorder), recurrent episode, moderate: (5) Poor dentition: (6) HTN (hypertension): (7) Dyslipidemia: (8) Synovitis of knee: Plan 04/08/22: Continue current medications and treatment plan. Ongoing work reviewing coping skills for different emotions. 04/07/22: The patient was admitted to the [facility] ([facility] mental health unit) on q15 min checks (behavioral with suicide precautions) for safety. The patient will participate in group, recreational, and milieu therapies and will be offered additional individual and family sessions as clinically appropriate. Continue haldol, prazosin and fluoxetine. Will restart Ritalin as BID since Concerta is not on hospital formulary. Reviewed PERMA strategies for helping with his mood and working on creating list of reasons for living for instances when his mood worsens in the future. Mental Health & Subst Abuse Tx Psychiatrist Name of Psychiatrist: Eugenie Hua - Sulema Zimmerman Psychiatrist's Date of Appointment with Psychiatrist: 04/30/22 Time of Appointment with Psychiatrist: 9:00 AM Psychiatric Appointment Comment: [address], [facility] [address] Therapist Name of Therapist: Helena Melendez - Barbara Kwon Therapist's Date of Therapist Appointment: 04/15/22 Time of Therapist Appointment: 1:00 PM Therapy Appointment Comment: [address], [address], [place] [address] Child Care Teacher Name of Child Care Teacher: Amelia Torres Service [facility] Phone Number for Child Care Teacher: [phone] Case Management Appointment Comment: Follow up per your regular schedule. Post Discharge Appointments Primary Care Physician Name Of Family Doctor: [facility] [place] - DEJAH Alberto Primary Care Date of Appointment with PCP: 04/19/22 Time of Appointment with PCP: 4:00 PM Provider Appointment Comment: [address], [address] [facility] [address] Specialist Name of Specialist: [facility] - Dr. Ferris Phone Number for Specialist: [phone] Date of Appointment with Specialist: 04/12/22 Time of Appointment with Specialist: Arrive at 6:45 AM, surgery at 7:00 AM Specialty Appointment Comment: [address], [place] [id number] Contact Information Discharge Discharge Address: [address], [place] [address] Discharge Plan Discharge Items Patient Disposition: Home - Self-Care Reason For Visit: MDD Discharge Diagnosis: Major Depressive Disorder Activity: Resume your previous activity Non-emergency contact: Primary Care Provider, Psychiatrist, Therapist and Client Technologies Analyst Call non-emergency contact if: you have any medication questions and your symptoms worsen Follow-up/Referrals: Vidya Horvath CRNP [Primary Care Provider] - Diet: Regular Addtl Attending Provider Instructions: SPECIAL CARE INSTRUCTIONS: 1. Follow through with your scheduled aftercare appointments. If unable to keep an appointment, please call to reschedule. 2. Take your medication only as prescribed. Medication should not be changed or stopped without the approval of your doctor. In the event of worsening symptoms or concerns about side effects, contact your doctor immediately. 3. Utilize new healthy coping skills, anger management skills, and stress management skills learned during your hospitalization. Journal feelings and process them with a support person. Identify stressors or situations that may result in relapse, deterioration or inappropriate behaviors and develop a plan to deal with those issues. 4. If your coping skills are ineffective and you are in crisis, contact your outpatient providers for direction. If unable to reach your providers, please call the [facility] CRISIS LINE AT , go to the [facility] walk-in center at [address], [address], [place], or go to the closest Emergency Room. 5. Avoid alcohol and un-prescribed drugs. 6. You have been provided with the Mental Health Advance Directives Pamphlet for your review. 7. Your condition is stable for discharge to outpatient level of care, but recovery is an ongoing process. Ifthoughts to harm yourself or others return, follow the safety plan developed during your stay. Planning for a safe return home includes securing weapons. Our treatment team recommends weaponsbe removed from the home until your outpatient provider reassesses your progress. In rare cases where the items themselvescannot be removed, guns and ammunitionshould be secured separatelyand keys stored by a reliable personoutside of the home. If you were admitted on an involuntary commitment, the police or other legal authorities may be involved in this process. AFTERCARE APPOINTMENTS: * Please call your insurance company prior to your scheduled appointment to confirm your aftercare providers are covered. Take your insurance information to your appointments. WHO TO CALL AND WHEN: Medical Emergencies: For questions or emergencies related to your hospital stay, please contact the Inpatient Behavioral Health Unit at [phone]. A city designer is on-call 21/03 for the Behavioral Health Unit for emergencies At any time you feel your situation is an emergency, you may also call 911 immediately. Pending Studies at Discharge: No Stand-Alone Forms: My [facility] Medications and DC Order Prescriptions: New methylphenidate HCl 10 mg Tablet 10 mg PO [id number] 30 Days Qty: 30 0RF Continued atorvastatin 10 mg tablet 10 mg PO QPM Qty: 30 2RF amlodipine [Norvasc] 5 mg Tablet 7.5 mg PO DAILY 30 Days Qty: 45 0RF prazosin 2 mg capsule 2 mg PO HS 30 Days Qty: 30 0RF trazodone 100 mg Tablet 100 mg PO HS PRN (Reason: MDD) 30 Days Qty: 30 0RF benztropine 1 mg Tablet 1 mg PO DAILY PRN (Reason: muscle stiffness) 30 Days Qty: 30 0RF fluoxetine 10 mg Capsule 10 mg PO QAM 30 Days Qty: 30 0RF haloperidol 0.5 mg Tablet 0.25 mg PO QAM 30 Days Qty: 15 0RF haloperidol 1 mg Tablet 1 mg PO HS 30 Days Qty: 30 0RF ibuprofen 800 mg Tablet 800 mg PO QID PRN (Reason: dental pain) 15 Days Qty: 30 0RF HurriCaine 20 % Gel 1 applic MT QID PRN (Reason: dental pain) Qty: 30 0RF acetaminophen 325 mg Tablet 650 mg PO Q4H PRN (Reason: dental pain) Qty: 1 0RF hydroxyzine HCl 25 mg Tablet 25 mg PO Q6 PRN (Reason: anxiety) Qty: 14 0RF Discontinued risperidone 1 mg tablet 1 mg PO HS methylphenidate HCl 54 mg tablet extended release 24hr 54 mg PO DAILY Discharge Orders: Discharge Order (Routine); Ordered 04/09/22 Ordered By: Sarah Saldana Admission Data Admit Date/Time: 04/06/22 16:27 Attending Provider: Sarah Saldana Admit Provider: Sarah Saldana Primary Care Provider: Vidya Horvath Other Interventions: Discharge Summary Assessment (RN) Last Done: 04/09/22 11:18 PSY Interdisciplinary Discharge Planning Last Done: 04/09/22 10:40 Coding Level of Care Code 14976 D/C day mgmt > 30 min Diagnoses Intellectual disability F79 Post traumatic stress disorder (PTSD) F43.10 ADHD (attention deficit hyperactivity disorder) F90.9 MDD (major depressive disorder), recurrent episode, moderate F33.1 Poor dentition K08.9 HTN (hypertension) I10 Dyslipidemia E78.5 Synovitis of knee M65.9 Time Spent (min) 45
== END 2022-04-09 11:55 | disposition home or self-care (01) | DRG 885 ==
LOC: ED 13:02 → 3S 16:27
DX: F32.A Depression, unspecified; F33.1 Major depressive disorder, recurrent, moderate; Z88.8 Allergy status to other drugs, medicaments and biological substances; Z86.16 Personal history of COVID-19; R44.0 Auditory hallucinations; Z88.0 Allergy status to penicillin; F90.9 Attention-deficit hyperactivity disorder, unspecified type; F43.10 Post-traumatic stress disorder, unspecified; K08.89 Other specified disorders of teeth and supporting structures; Z79.899 Other long term (current) drug therapy; F79 Unspecified intellectual disabilities; I10 Essential (primary) hypertension

== ENCOUNTER 2022-05-28 12:18 | Inpatient (IN) ==
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
[2022-05-28 14:49] LABS: Appearance Urine Clear (Clear); Bacteria Urine Automated Negative (Negative); Bilirubin Urine Negative (Negative); Blood Urine Trace (Negative); Color Urine Yellow; Epithelial Cell Urine Auto 0-5 /lpf (0-5); Glucose Urine UA Negative (Negative); Ketones Urine Negative (Negative); Leukocyte Esterase Urine Negative (Negative); Nitrite Urine Negative (Negative); Protein Urine Negative (Negative); RBC Urine Automated 0-4 /hpf (0-4); Specific Gravity Urine 1.009 (1.000-1.030); Urobilinogen Urine Negative (Negative)
[2022-05-28 14:50] LABS: Basophils # (auto) 0.05 K/uL (0-0.2); Basophils % (auto) 0.5 %; Eosinophils # (auto) 0.13 K/uL (0-0.50); Eosinophils % (auto) 1.4 %; Hematocrit (blood only) 40.8 % (40.1-51.0); Hemoglobin 13.4 g/dl (14.0-18.0); Immature Granulocytes # (auto) 0.02 K/uL (0.00-0.02); Immature Granulocytes % (auto) 0.2 %; Lymphocytes # (auto) 2.04 K/uL (1.2-3.4); Lymphocytes % (auto) 22.2 %; Mean Corpuscular Hemoglobin 28.8 pg (25.0-34.0); Mean Corpuscular Hgb Conc 32.8 g/dL (32.0-36.0); Mean Corpuscular Volume 87.7 fL (80.0-100.0); Mean Platelet Volume 9.7 fL (9.4-12.4); Monocytes # (auto) 0.96 K/uL (0.24-0.82); Monocytes % (auto) 10.5 %; Neutrophils # (auto) 5.98 K/uL (1.4-6.5); Neutrophils % (auto) 65.2 %; Platelet Count 535 K/uL (130-400); RDW Coefficient of Variation 14.1 % (11.5-14.5); RDW Standard Deviation 44.8 fL (36.4-46.3); Red Blood Count 4.65 M/uL (4.63-6.08); White Blood Count 9.18 K/ul (4.8-10.8)
[2022-05-28 14:56] LABS: Amphetamines+Metham, Urine Neg (Neg); Barbiturates, Urine Neg (Neg); Benzodiazepine, Urine Neg (Neg); Cocaine, Urine Neg (Neg); MDMA (Ecstacy), Urine Neg (Neg); Methadone, Urine Neg (Neg); Opiate, Urine Neg (Neg); Phencyclidine, Urine Neg (Neg)
[2022-05-28] MEDS ORDERED: ACETAMINOPHEN 500 MG TAB PO STA (14:58)
[2022-05-28] MEDS ORDERED: METHYLPHENIDATE HCL 10 MG TABLET PO SCH (15:00)
[2022-05-28 15:02] LABS: Acetaminophen < 3 ug/ml (10-30); Salicylate < 3.0 mg/dl (3.0-30)
[2022-05-28 15:03] LABS: Albumin Globulin Ratio 1.4 (0.9-2); Albumin Level 4.2 gm/dl (3.4-5.0); BUN Creatinine Ratio 8.7 (10-20); Bilirubin,Total 0.3 mg/dl (0.2-1.0); Calcium 9.3 mg/dl (8.5-10.1); Creatinine Clr Calc Pharmacy 121.5 ml/min; Est GFR (African American) 127.1 ml/min; Est GFR (Non-African American) 109.7 ml/min; Potassium 3.6 mmol/L (3.5-5.1); Total Protein 7.2 gm/dl (6.0-8.3)
[2022-05-28] MEDS ORDERED: SODIUM CHLORIDE 0.65% NA SOLN 45 ML (OCEAN) PRN (16:23)
[2022-05-28] MEDS ORDERED: ALUMINUM/MAGNESIUM SUSP 30 ML UDC PO PRN (16:23)
[2022-05-28] MEDS ORDERED: BISMUTH SUBSALICYLATE LIQD 236 ML PO PRN (16:23)
[2022-05-28] MEDS ORDERED: MAGNESIUM HYDROXIDE SUSP 30 ML UDC PO PRN (16:23)
[2022-05-28] MEDS ORDERED: hydrOXYzine HCl 25 MG TAB PO PRN ×2 (16:23)
[2022-05-28] MEDS ORDERED: BENZTROPINE MESYLATE 1 MG TAB PO PRN (17:43)
[2022-05-28] MEDS: PRAZOSIN HCL 1 MG CAP PO SCH (21:32)
[2022-05-28] MEDS: traZODone HCL 100 MG TAB PO SCH (21:33)
[2022-05-28] MEDS: ACETAMINOPHEN 325 MG TAB PO PRN (21:33)
[2022-05-28] MEDS: ATORVASTATIN 10 MG TAB PO SCH (21:33)
[2022-05-29] MEDS: amLODIPine BESYLATE 5 MG TAB PO SCH (08:33)
[2022-05-29] MEDS: PROPRANOLOL HCL 20 MG TAB PO SCH (08:33)
[2022-05-29] MEDS: FLUoxetine HCL 20 MG CAP PO SCH (08:33)
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
[2022-05-29] MEDS: ACETAMINOPHEN 325 MG TAB PO PRN (18:40)
[2022-05-29] MEDS: PRAZOSIN HCL 1 MG CAP PO SCH (21:35)
[2022-05-29] MEDS: ATORVASTATIN 10 MG TAB PO SCH (21:36)
[2022-05-29] MEDS: traZODone HCL 100 MG TAB PO SCH (22:15)
[2022-05-30] MEDS: FLUoxetine HCL 20 MG CAP PO SCH (08:46)
[2022-05-30] MEDS: amLODIPine BESYLATE 5 MG TAB PO SCH (08:46)
[2022-05-30] MEDS: PROPRANOLOL HCL 20 MG TAB PO SCH (08:46)
[2022-05-30] MEDS: ACETAMINOPHEN 325 MG TAB PO PRN (12:51)
--- NOTE | 2022-05-30 14:01 | Psychiatric Progress Note ---
Date of Service May 30, 2022 Impression / Recommendations Impression Osei is a 32 yo man with a history of MDD, intellectual disability, ADHD, possible dependent PD and complex PTSD with chronic SI and recurrent presentations to the ED over the last few months now admitted for his sixth psychiatric hospitalization in the last five months. Diagnostically most consistent with atypical depression and complicated bereavement vs PTSD. As noted during my last discharge summary from his stay from 04/07/22 to 04/09/22 I feel many of his symptoms are driven by his maladaptive/limited coping skills and social isolation. Goal will be for brief hospitalization to ensure safety and stabilization as prolonged stays are likely to further reinforce negative coping skills, cause more dependency/regression, and lead to further loss of outpatient supports. Continue to focus on adding to his outpatient supports and resources to allow him to feel less isolated and have more appropriate resources he can utilize when he experiences distress. Encouragingly he has consistently shown that he can seek out emergency/crisis resources when he feels unsafe and does so consistently in the outpatient setting which lowers his acute and chronic risk. However, this instance of some rehearsal behaviors, of stepping into the road, does warrant inpatient hospitalization as this is a change/intensification from his previous chronic SI. MNPR due to intrusiveness/poor boundaries with peers 05/30/22: Improvement in his mood. Tolerating medications. Motivational interviewing, review of cognitive thinking traps, strategies to organize appointments/increase adherence with utilizing outpatient supports/resources. Blood pressure remains stable. (1) Major depressive disorder, recurrent episode, with atypical features: (2) Intellectual disability: (3) Post traumatic stress disorder (PTSD): (4) ADHD (attention deficit hyperactivity disorder): (5) Intentional self-harm: Plan 05/30/22: Continue with current medications and tx plan. 05/29/22: The patient was admitted to the [facility]) on q15 min checks (behavioral with suicide precautions) for safety. The patient will participate in group, recreational, and milieu therapies and will be offered additional individual and family sessions as clinically appropriate. -Continue trazodone 100mg qhs and prazosin 1 mg qhs -Re-start fluoxetine 20mg qd -Hold Trintellix Inventory Assets Strengths: willing to get treatment, housing, outpatient providers, knows how to seek help when he feels unsafe Needs: safety and stabilization, medication adjustment, additional coping skills, increased outpatient services Suicide Risk Level Suicide Risk Level: High-Moderate (q15 min suicide checks) Suicide Risk Level Comments: High-Moderate due to depression with SI with plan prior to admission but feels safe in the hospital, able to safety contract and agrees to let nursing/staff know should they develop plan, intent or feel unable to remain safe. Risk Factors Assessment Male: Yes : Yes Do You Have Access To A Gun?: No Health Problems: Yes Mental Health Diagnoses: Yes Substance Use Disorders: No Previous Attempt: No Family History of Suicide: No Previous Psychiatric Hospitalization: Yes Hopelessness: No Protective Factors Assessment Mandaeism Beliefs: No : No Employed: Yes ([employer]) Stable Relationships: No Supportive Family: No Good Rapport with Provider: Yes Interval History Identifying Information OSEI BRAUN is a 32-year-old M who currently lives in [place] alone, has a history of MDD, intellectual disability, and possible dependent PD and was admitted on 05/28/22 16:23 on a 201 voluntary commitment for SI with plan of cutting himself or stepping into traffic. Chief Complaint "I feel a lot better today, the medications are helping". Review of Systems Sleep Information Total Hours of Sleep: 7 Meal Information Percent Meal Consumed - Breakfast: 90 Percent Meal Consumed - Lunch: 100 Percent Meal Consumed - Dinner: 100 Subjective Subjective Patient was seen & assessed and interval progress reviewed with treatment team nursing and social work. Out in the milieu yesterday afternoon/evening, attending to self-hygiene, eating well, bright affect with interactions and attending groups. Today reports his mood is "a lot better" and denies SI. Reviewed that his good mood is likely unrelated to the medication change of fluoxetine and encouraged less black/white thinking about mood being directly tied to whether or not a medication is helping or not helping. Reviewed normal fluctuations in mood from day to day and ways to use non-pharmacological strategies to help cope with mood changes. He came up with ideas of next time he has a rough or depressed mood he will cope by going to the gym, walking outside, riding the bus to be around others, or going to the Clubhouse. He feels his mood worsened after his divorce due to be lonely and due to increased medical issues over the past year with COVID infections, pain, and dental procedure. He is encouraged about all the new outpatient services that will starting ([facility] [place] psych rehab on Tuesday, mobile psych weekly, Clubhouse tour anytime he calls them to set up) as well as being seen at pain management clinic on 06/08/22 from a referral from his PCP and was provided with a load planner/calendar to keep track of these appointments. He denies SI, HI and no voices. Slept better which he attributes to the Vistaril prn helping. Physical Exam Psychiatric Orientation: alert and oriented x 3 Apperance: appropriately dressed and appropriately groomed Eye Contact: good eye contact Motor Behavior: no abnormal motor movements Speech: normal rate/rhythm/volume of speech Affect: euthymic affect Mood: no depressed mood and no anxious mood Thought Process: goal directed thought process Thought Content: reality based without delusions Suicidal Thoughts: denies suicidal thoughts Homicidal Thoughts: denies homicidal thoughts Hallucinations: no auditory hallucinations and no visual hallucinations Cognition: recent memory grossly intact, remote memory grossly intact, attention grossly intact and language grossly intact Estimated Intelligence: + below average estimated intelligence Insight: + limited insight Judgement: + limited judgement Vital Signs (Past 24 Hours) Last Vital Signs Temp 36.9 C 05/30/22 06:00 Pulse 105 H 05/30/22 06:27 Resp 18 05/30/22 06:00 BP 135/75 05/30/22 06:27 Pulse Ox 98 05/28/22 18:06 O2 Del Method 05/28/22 18:06 Results & Data ([facility]) Current Inpatient Medications Current Inpatient Medications: Current Inpatient Medications Acetaminophen (Acetaminophen 325 Mg Tab) 650 mg PO Q4H PRN PRN Reason: Headache or Minor Fever Stop: 06/27/22 16:22 Last Admin: 05/30/22 12:51 Dose: 650 mg Al Hydrox/Mg Hydrox/Simethicone (Aluminum/Magnesium Susp 30 Ml Udc) 30 ml PO Q4H PRN PRN Reason: GI Upset Stop: 06/27/22 16:22 Amlodipine Besylate (Amlodipine Besylate 5 Mg Tab) 5 mg PO DAILY CLARY Stop: 06/28/22 08:59 Last Admin: 05/30/22 08:46 Dose: 5 mg Atorvastatin Calcium (Atorvastatin 10 Mg Tab) 10 mg PO QPM CLARY Stop: 06/27/22 20:59 Last Admin: 05/29/22 21:36 Dose: 10 mg Bismuth Subsalicylate (Bismuth Subsalicylate Liqd 236 Ml) 15 ml PO PRN PRN PRN Reason: Loose Stool Stop: 06/27/22 16:22 Fluoxetine HCl (Fluoxetine Hcl 20 Mg Cap) 20 mg PO QAM CLARY Stop: 06/28/22 08:59 Last Admin: 05/30/22 08:46 Dose: 20 mg Hydroxyzine HCl (Hydroxyzine Hcl 25 Mg Tab) 50 mg PO HSZ PRN PRN Reason: Insomnia Stop: 06/27/22 16:22 Hydroxyzine HCl (Hydroxyzine Hcl 25 Mg Tab) 25 mg PO Q4H PRN PRN Reason: Anxiety Stop: 06/27/22 16:22 Magnesium Hydroxide (Magnesium Hydroxide Susp 30 Ml Udc) 30 ml PO DAILY PRN PRN Reason: Constipation Stop: 06/27/22 16:22 Prazosin HCl (Prazosin Hcl 1 Mg Cap) 1 mg PO HS CLARY Stop: 06/27/22 21:59 Last Admin: 05/29/22 21:35 Dose: 1 mg Propranolol HCl (Propranolol Hcl 20 Mg Tab) 40 mg PO DAILY CLARY Stop: 06/28/22 08:59 Last Admin: 05/30/22 08:46 Dose: 40 mg Sodium Chloride (Sodium Chloride 0.65% Na Soln 45 Ml ([place])) 1 - 2 sprays NA PRN PRN PRN Reason: Nasal Dryness/Congestion Stop: 06/27/22 16:22 Trazodone HCl (Trazodone Hcl 100 Mg Tab) 100 mg PO HS CLARY Stop: 06/27/22 20:59 Last Admin: 05/29/22 22:15 Dose: 100 mg Zinc Acetate/Diphenhydramine (Diphenhydramine 2%/Zinc 0.1% Cream 28gm Tube) 1 appln EXT BID PRN PRN Reason: itchiness wrist Stop: 06/28/22 12:33 Last Admin: 05/29/22 18:41 Dose: 1 appln Mental Health & Subst Abuse Tx Psychiatrist Name of Psychiatrist: Susy Garcia Psychiatrist's Date of Appointment with Psychiatrist: 05/31/22 Time of Appointment with Psychiatrist: 10:30am Therapist Name of Therapist: Barbara Kwon @[facility] Date of Therapist Appointment: 05/10/22 Time of Therapist Appointment: 8:00am Rigging Slinger Name of Rigging Slinger: Melissa Toure @[facility] Post Discharge Appointments Primary Care Physician Name Of Family Doctor: Vidya POND Primary Care Contact Information Discharge Phone Number: [phone] Discharge Address: [facility] [address] [place] [address]
[2022-05-30] MEDS: PRAZOSIN HCL 1 MG CAP PO SCH (21:42)
[2022-05-30] MEDS: ATORVASTATIN 10 MG TAB PO SCH (21:42)
[2022-05-30] MEDS: traZODone HCL 100 MG TAB PO SCH (22:44)
[2022-05-31] MEDS: PROPRANOLOL HCL 20 MG TAB PO SCH (08:39)
[2022-05-31] MEDS: amLODIPine BESYLATE 5 MG TAB PO SCH (08:39)
[2022-05-31] MEDS: FLUoxetine HCL 20 MG CAP PO SCH (08:39)
--- NOTE | 2022-05-31 08:54 | Discharge Summary ---
Date of Service May 31, 2022 History of Present Illness Osei is well known to me from his previous inpatient psychiatric admissions. He was discharged from the inpatient psychiatry unit at [place] 10 days ago after being there from 05/15/22-05/19/22 for similar presentation of depression with SI. He intermittently experiences voices that tell him to hurt himself or others but has never acted on these thoughts beyond superficial scratches on his arm on a few presentations. However, on he recalls having "a rough day" and that he was "struggling" all day and experienced SI with thoughts of walking into traffic or cutting himself as this was the 13th anniversary of his father's . He did go outside to the street outside his apartment and briefly stepped into the road when no cars were going by but then states he "basically chickened out" and decided not to attempt suicide and later reached out to Crisis, after talking with his outpatient psychiatric provider via phone, who encouraged him to present to the ED. He was discharged from [facility] on fluoxetine, Concerta, and trazodone. His haldol was stopped there as they did not feel he presented with symptoms of psychosis but rather appears voices he experiences are a result from trauma and his intellectual disability. Prior to that admission he been poorly adherence with his outpatient medications. During follow-up visit with his outpatient psychiatric provider from [place] on Tuesday he continued to report depression and she switched him from fluoxetine to Trintellix which he took for two days prior to presentation. Today he reports his mood is "ok" and "still not good, still wanting to hurt myself". He endorses low mood, difficulty sleeping, decreased motivation but also notes ongoing interest in video games, is future oriented about work, getting disability, and engaging with outpatient supports. 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 Further recent history confirmed as documented by manager english on 05/28/22: "Patient was brought to the ED via EMS under the recommendation of [facility] (local crisis). Patient presents calm, flat and cooperative in answering all questions asked of her. Patient reports suicidal ideations with thoughts to walk into traffic or use a box covering machine operator in an act to kill himself. Patient does have some very superficial cuts to the left wrist by using the edge of the plastic casing of a box covering machine operator. Patient has an ongoing history of self-harm, however, all cuts have been only superficial and never needing medical intervention. Patient reports he hears 2-3 different voices, both male and female telling him to hurt and/or kill himself, these voices are unknown to patient. Patient reports he noticed a decline in his mental health in November or December of this year. Patient identifies stressors as his ongoing mental health issues and the anniversary of the of his father 13 years ago. Patient reports depressive symptoms of s elf-devaluation, anhedonia, lack of motivation, loss of daily functioning, feelings of helpless/hopelessness, decreased sleep and appetite. Patient describes moderate anxiety on most days with symptoms of chest pain/discomfort, sweating, trembling and restlessness. Patient is diagnosed with MDD and PTSD and has been hospitalized last on 05/15/2022 at [facility] with previous admissions at [facility], [address] and [facility]. Patient has services for therapy with Barbara at [facility], medication management with Sulema at [facility] and a director community health nursing at [facility], Melissa Toure. Patient reports he is compliant with taking all of his medications. Patient recently completed intake with [facility] and [facility] with [facility] Psychiatric ROS notable for no current nor history of symptoms of andriy, acute psychosis, OCD nor eating disorder. Physical Exam Vital Signs (Past 24 Hours) Last Vital Signs Temp 36.9 C 05/31/22 06:32 Pulse 86 05/31/22 06:33 Resp 16 05/31/22 06:32 BP 123/78 05/31/22 06:33 Pulse Ox 98 05/28/22 18:06 O2 Del Method 05/28/22 18:06 See admission H&P and DOD summary. Principal Diagnosis Major depressive disorder, recurrent, with atypical features Psychiatric Data See daily stay summary. In short, patient was engaged with the social/therapeutic milieu of the unit, safety was maintained and the patient was cooperative with care. Medication changes included discontinuation of Trintellix (due to his history of poor adherence with medication and high risk of SNRI withdrawal side effects, and hx HTN) and initiation of fluoxetine (as he had tolerated this well during [facility] admission, never picked it up after discharge, and given longer half-life will help with reducing withdrawal in case of future non-adherence) and hydroxyzine for insomnia and he tolerated this well. A safety plan was completed prior to discharge. Osei reconstituted rapidly after admission with bright affect, engagement with groups and resolution of SI. Encouragingly he experienced no auditory hallucinations during this hospitalization and that has remained improved even o ff of any antipsychotic medication, continuing to confirm likely contribution from complex PTSD in addition to atypical depression and intellectual disability with difficulty using his coping skills. Similar to his previous admissions he is noted to typically develop SI when he feels lonely, sad or feels physical pain and struggles to utilize coping strategies in the outpatient setting. This admission was focused on helping him build motivation to engage with his outpatient supports, considering strategies to help with medication adherence, and challenging cognitive distortions/associations that all emotions he experiences are directly associated with whether or not a medication is working or not working. He has follow-up with psychiatry, group therapy, individual therapy, [facility] Psych [facility]hab on Tuesday/ starting this week, and mobile psych services weekly, and peer support and is looking forward to starting psych rehab as he likes group therapy settings. On the day of discharge he stated his mood was "good" and remained future- oriented including going grocery shopping, relaxing and engaging in aftercare appointments for mental health as well as intake next week at the pain clinic. As per my previous documentation from his discharge summary from 04/09/22 I continue to agree with the below assessment: "Osei utilizes hospitalization as a means of seeking increased social support and in the future may benefit from reassurance and efforts to safety plan to home if he presents to the ED rather than inpatient hospitalization as this is less likely to offer benefit and I worry is re-enforcing maladaptive behaviors including avoidance of obligations such as his job that are needed to help him create more structure and are protective factors for his mental health. I remain a strong advocate for him to have increased support through his intellectual disability services as his main concerns remain social isolation and difficulty navigating daily tasks such as money management and motivation to attend his job." Day of Discharge Assessment Today the patient voices readiness for discharge. They note improvement in mood and anxiety. They deny thoughts of harm to self or others. Thoughts are organized and they are clinically improved from admission. There is no evidence of psychosis. They improved in the hospital with support and medication adjustments. They agree to take medications as prescribed and keep follow-up appointments. At the time of the discharge they are deemed to be stable and appropriate for outpatient level of care. They are not deemed to be at imminent risk of harm to self or others. They are aware of emergency and crisis services. Knows to call 911 or go to nearest emergency care center if in a crisis which cannot be handled as an outpatient. Transition of Care Transition Of Care Record: was reviewed with the patient Advance Directives Advance Directives Information Provided: Yes Advance Directives: No Mental Health Advance Directive: No Advance Directives on File: No Living Will: No Power of [place]: No Advance Directives Reason:: Declines as Mental Health Visit. Suicide Risk Level Suicide Risk Level Comments: Acute risk is low given improvement in mood and denial of SI, lack of access to lethal means, improvement in sleep, hopefulness. Chronic risk is moderate given some non-modifiable risk factors: psychiatric co-morbid diagnoses, periods of impulsivity, hx self-harm, emotional reactivity, prior psychiatric hospitalizations, poor social support, childhood trauma but also with protective factors including no history of prior attempts and extensive outpatient supports. Counseled on ways to reduce acute and chronic risk including engaging with outpatient providers, using safety plan if needed, utilizing supports, taking medication, and using coping skills. Modifiable risk factors of SI and depression were addressed during hospitalization through development of new coping skills, motivational interviewing, strategies for organizing appointments/money management, safety planning, and medication adjustments. Risk Factors Assessment Male: Yes : Yes Do You Have Access To A Gun?: No Health Problems: Yes Mental Health Diagnoses: Yes Substance Use Disorders: No Previous Attempt: No Family History of Suicide: No Previous Psychiatric Hospitalization: Yes Hopelessness: No Protective Factors Assessment Christian Beliefs: No : No Employed: Yes ([employer]) Stable Relationships: No Supportive Family: No Good Rapport with Provider: Yes Discharge Data Lab Results 05/28/22 05/28/22 05/28/22 13:15 13:15 13:15 WBC RBC Hgb Hct MCV MCH MCHC RDW Std Deviation RDW Coeff of Josselyn Plt Count MPV Immature Gran % (Auto) Neut % (Auto) Lymph % (Auto) [place] % (Auto) Eos % (Auto) Baso % (Auto) Neut # (Auto) Lymph # (Auto) [place] # (Auto) Eos # (Auto) Baso # (Auto) Immature Gran # (Auto) Sodium Potassium Chloride Carbon Dioxide Anion Gap BUN Creatinine Est Cr Clr Drug Dosing Est GFR ( Amer) Est GFR (Non-Af Amer) BUN/Creatinine Ratio Glucose Calcium Total Bilirubin AST ALT Alkaline Phosphatase Total Protein Albumin Globulin Albumin/Globulin Ratio TSH Urine Color Yellow Urine Appearance Clear Urine pH 5.0 Ur Specific Irwin 1.009 Urine Protein Negative Urine Glucose (UA) Negative Urine Ketones Negative Urine Blood Trace H Urine Nitrite Negative Urine Bilirubin Negative Urine Urobilinogen Negative Ur Leukocyte Esterase Negative Urine WBC (Auto) 1-5 Urine RBC (Auto) 0-4 U Hyaline Cast (Auto) 1-5 U Epithel Cells (Auto) 0-5 Urine Bacteria (Auto) Negative Salicylates Urine Opiates Screen Neg Ur Methadone, Qual Neg Acetaminophen Urine Barbiturates Neg Ur Phencyclidine (PCP) Neg U Amphetamin/Meth Scrn Neg MDMA (Ecstasy) Screen Neg U Benzodiazepines Scrn Neg Ur Cocaine Metabolite Neg U Marijuana (THC) Screen Neg Ethyl Alcohol mg/dL SARS-CoV-2, RNA, NAAT NEGATIVE 05/28/22 05/28/22 05/28/22 13:25 13:25 13:25 WBC 9.18 RBC 4.65 Hgb 13.4 L Hct 40.8 MCV 87.7 MCH 28.8 MCHC 32.8 RDW Std Deviation 44.8 RDW Coeff of Josselyn 14.1 Plt Count 535 H MPV 9.7 Immature Gran % (Auto) 0.2 Neut % (Auto) 65.2 Lymph % (Auto) 22.2 Alexandria % (Auto) 10.5 Eos % (Auto) 1.4 Baso % (Auto) 0.5 Neut # (Auto) 5.98 Lymph # (Auto) 2.04 [place] # (Auto) 0.96 H Eos # (Auto) 0.13 Baso # (Auto) 0.05 Immature Gran # (Auto) 0.02 Sodium 140 Potassium 3.6 Chloride 108 H Carbon Dioxide 22 Anion Gap 10 BUN 8 Creatinine 0.92 Est Cr Clr Drug Dosing 121.5 Est GFR ( Amer) 127.1 Est GFR (Non-Af Amer) 109.7 BUN/Creatinine Ratio 8.7 L Glucose 87 Calcium 9.3 Total Bilirubin 0.3 AST 24 ALT 40 Alkaline Phosphatase 82 Total Protein 7.2 Albumin 4.2 Globulin 3.0 Albumin/Globulin Ratio 1.4 TSH 1.167 Urine Color Urine Appearance Urine pH Ur Specific Irwin Urine Protein Urine Glucose (UA) Urine Ketones Urine Blood Urine Nitrite Urine Bilirubin Urine Urobilinogen Ur Leukocyte Esterase Urine WBC (Auto) Urine RBC (Auto) U Hyaline Cast (Auto) U Epithel Cells (Auto) Urine Bacteria (Auto) Salicylates Urine Opiates Screen Ur Methadone, Qual Acetaminophen Urine Barbiturates Ur Phencyclidine (PCP) U Amphetamin/Meth Scrn MDMA (Ecstasy) Screen U Benzodiazepines Scrn Ur Cocaine Metabolite U Marijuana (THC) Screen Ethyl Alcohol mg/dL SARS-CoV-2, RNA, NAAT 05/28/22 05/28/22 13:25 13:25 WBC RBC Hgb Hct MCV MCH MCHC RDW Std Deviation RDW Coeff of Josselyn Plt Count MPV Immature Gran % (Auto) Neut % (Auto) Lymph % (Auto) [place] % (Auto) Eos % (Auto) Baso % (Auto) Neut # (Auto) Lymph # (Auto) [place] # (Auto) Eos # (Auto) Baso # (Auto) Immature Gran # (Auto) Sodium Potassium Chloride Carbon Dioxide Anion Gap BUN Creatinine Est Cr Clr Drug Dosing Est GFR ( Amer) Est GFR (Non-Af Amer) BUN/Creatinine Ratio Glucose Calcium Total Bilirubin AST ALT Alkaline Phosphatase Total Protein Albumin Globulin Albumin/Globulin Ratio TSH Urine Color Urine Appearance Urine pH Ur Specific Irwin Urine Protein Urine Glucose (UA) Urine Ketones Urine Blood Urine Nitrite Urine Bilirubin Urine Urobilinogen Ur Leukocyte Esterase Urine WBC (Auto) Urine RBC (Auto) U Hyaline Cast (Auto) U Epithel Cells (Auto) Urine Bacteria (Auto) Salicylates < 3.0 L Urine Opiates Screen Ur Methadone, Qual Acetaminophen < 3 L Urine Barbiturates Ur Phencyclidine (PCP) U Amphetamin/Meth Scrn MDMA (Ecstasy) Screen U Benzodiazepines Scrn Ur Cocaine Metabolite U Marijuana (THC) Screen Ethyl Alcohol mg/dL < 10.0 SARS-CoV-2, RNA, NAAT Hospital Course (1) Major depressive disorder, recurrent episode, with atypical features: (2) Intellectual disability: (3) Post traumatic stress disorder (PTSD): (4) ADHD (attention deficit hyperactivity disorder): (5) Intentional self-harm: Plan 05/30/22: Continue with current medications and tx plan. 05/29/22: The patient was admitted to the [facility] ([facility] mental health unit) on q15 min checks (behavioral with suicide precautions) for safety. The patient will participate in group, recreational, and milieu therapies and will be offered additional individual and family sessions as clinically appropriate. -Continue trazodone 100mg qhs and prazosin 1 mg qhs -Re-start fluoxetine 20mg qd -Hold [employer] [facility] Subst Abuse Tx Psychiatrist Name of Psychiatrist: Susy Garcia Psychiatrist's Date of Appointment with Psychiatrist: 05/31/22 Time of Appointment with Psychiatrist: 10:30am Therapist Name of Therapist: Barbara Kwon @[facility] Date of Therapist Appointment: 05/10/22 Time of Therapist Appointment: 8:00am B2B Account Executive Name of [employer] Account Executive: Melissa Toure @[facility] Post Discharge Appointments Primary Care Physician Name Of Family Doctor: Vidya POND Primary Care Contact Information Discharge Phone Number: [phone] Discharge [address]: [address] [place] [address] [place] [address] Discharge Plan Discharge Items Patient Disposition: Home - Self-Care Reason For Visit: MDD Discharge Diagnosis: Major Depressive Disorder, recurrent and Complicated bereavement Activity: Resume your previous activity Non-emergency contact: Primary Care Provider, Psychiatrist, Therapist and Plant Quality Manager Call non-emergency contact if: you have any medication questions and your symptoms worsen Follow-up/Referrals: Vidya Horvath CRNP [Primary Care Provider] - Diet: Regular Addtl Attending Provider Instructions: SPECIAL CARE INSTRUCTIONS: 1. Follow through with your scheduled aftercare appointments. If unable to keep an appointment, please call to reschedule. 2. Take your medication only as prescribed. Medication should not be changed or stopped without the approval of your doctor. In the event of worsening symptoms or concerns about side effects, contact your doctor immediately. 3. Utilize new healthy coping skills, anger management skills, and stress management skills learned during your hospitalization. Journal feelings and process them with a support person. Identify stressors or situations that may result in relapse, deterioration or inappropriate behaviors and develop a plan to deal with those issues. 4. If your coping skills are ineffective and you are in crisis, contact your outpatient providers for direction. If unable to reach your providers, please call the [facility] CRISIS LINE AT , go to the [facility] walk-in center at [address], [address], [place], or go to the closest Emergency Room. 5. Avoid alcohol and un-prescribed drugs. 6. You have been provided with the Mental Health Advance Directives Pamphlet for your review. 7. Your condition is stable for discharge to outpatient level of care, but recovery is an ongoing process. Ifthoughts to harm yourself or others return, follow the safety plan developed during your stay. Planning for a safe return home includes securing weapons. Our treatment team recommends weaponsbe removed from the home until your outpatient provider reassesses your progress. In rare cases where the items themselvescannot be removed, guns and ammunitionshould be secured separatelyand keys stored by a reliable personoutside of the home. If you were admitted on an involuntary commitment, the police or other legal authorities may be involved in this process. AFTERCARE APPOINTMENTS: * Please call your insurance company prior to your scheduled appointment to confirm your aftercare providers are covered. Take your insurance information to your appointments. WHO TO CALL AND WHEN: Medical Emergencies: For questions or emergencies related to your hospital stay, please contact the Inpatient Behavioral Health Unit at [phone]. A hospital receptionist is on-call 21/03 for the Behavioral Health Unit for emergencies At any time you feel your situation is an emergency, you may also call 911 immediately. Pending Studies at Discharge: No Stand-Alone Forms: My [facility] Medications and DC Order Prescriptions: New fluoxetine 20 mg Capsule 20 mg PO QAM 30 Days Qty: 30 0RF hydroxyzine HCl 50 mg tablet 50 mg PO HS PRN (Reason: insomnia) 30 Days Qty: 30 0RF Continued propranolol 40 mg tablet 40 mg PO DAILY Qty: 30 2RF amlodipine [Norvasc] 5 mg tablet 5 mg PO DAILY prazosin [Minipress] 2 mg capsule 2 mg PO HS atorvastatin [Lipitor] 10 mg tablet 10 mg PO QPM trazodone 100 mg tablet 100 mg PO HS Discontinued methylphenidate HCl [Ritalin] 10 mg tablet 10 mg PO DAILY Rx Instructions: Take one tab in afternoon. benztropine 1 mg tablet 1 mg PO DAILY Trintellix 5 mg Tablet 5 mg PO DAILY Discharge Orders: Discharge Order (Routine); Ordered 05/31/22 Ordered By: Sarah Wiggins/Other Patient Handouts: Depression: Tips to Help Yourself Admission Data Admit Date/Time: 05/28/22 16:23 Attending Provider: Donna Whitlock Admit Provider: Donna Whitlock Primary Care Provider: Vidya Horvath Other Interventions: Discharge Summary Assessment (RN) Last Done: 05/31/22 09:11 PSY New Vehicle Sales Consultant Assessment Last Done: 05/29/22 15:11 PSY Interdisciplinary Discharge Planning Last Done: 05/31/22 09:14 Coding Level of Care Code 22951 D/C day mgmt > 30 min Diagnoses Major depressive disorder, recurrent episode, with atypical features F33.9 Intellectual disability F79 Post traumatic stress disorder (PTSD) F43.10 ADHD (attention deficit hyperactivity disorder) F90.9 Intentional self-harm Time Spent (min) 35
== END 2022-05-31 09:25 | disposition home or self-care (01) | DRG 885 ==
LOC: ED 12:18 → 3S 16:23

== ENCOUNTER 2023-01-11 10:38 | Inpatient (IN) ==
[2023-01-11] MEDS ORDERED: NITROGLYCERIN SL 0.4 MG/TAB TAB SL PRN (11:22)
--- NOTE | 2023-01-11 11:38 | XRay Report ---
XR chest 1V portable CLINICAL HISTORY: Chest pain, nonspecific TECHNIQUE: Single frontal radiograph of the chest was obtained. Comparison: Comparison is made to chest radiograph 10/23/2019 FINDINGS: No lines and tubes are seen. The cardiomediastinal silhouette is normal. The lungs are clear. No evid ence of pleural effusion or pneumothorax. IMPRESSION: No acute chest disease. ACT 112: Negative or not required by law. Electronically signed by: González Welch M.D. 01/11/2023 11:37 AM
[2023-01-11 11:46] LABS: Appearance Urine Clear (Clear); Bacteria Urine Automated Negative (Negative); Bilirubin Urine Negative (Negative); Blood Urine Trace (Negative); Color Urine Yellow; Epithelial Cell Urine Auto 0-5 /lpf (0-5); Glucose Urine UA Negative (Negative); Ketones Urine Negative (Negative); Leukocyte Esterase Urine Negative (Negative); Nitrite Urine Negative (Negative); Protein Urine Negative (Negative); RBC Urine Automated 0-4 /hpf (0-4); Specific Gravity Urine 1.012 (1.000-1.030); Urobilinogen Urine Negative (Negative); WBC Urine Automated 0 /hpf (0-5)
[2023-01-11 11:50] LABS: Basophils # (auto) 0.04 K/uL (0-0.2); Basophils % (auto) 0.4 %; Eosinophils # (auto) 0.07 K/uL (0-0.50); Eosinophils % (auto) 0.8 %; Hemoglobin 13.9 g/dl (14.0-18.0); Immature Granulocytes # (auto) 0.03 K/uL (0.01-0.20); Immature Granulocytes % (auto) 0.3 %; Lymphocytes # (auto) 1.84 K/uL (1.2-3.4); Mean Corpuscular Hemoglobin 29.3 pg (25.0-34.0); Mean Corpuscular Hgb Conc 33.1 g/dL (32.0-36.0); Mean Corpuscular Volume 88.4 fL (80.0-100.0); Mean Platelet Volume 9.5 fL (9.4-12.4); Monocytes % (auto) 10.9 %; Neutrophils % (auto) 67.6 %; Platelet Count 542 K/uL (130-400); RDW Coefficient of Variation 14.8 % (11.5-14.5); RDW Standard Deviation 48.1 fL (36.4-46.3); Red Blood Count 4.75 M/uL (4.70-6.10); White Blood Count 9.18 K/ul (4.8-10.8)
[2023-01-11 12:01] LABS: Acetaminophen < 3 ug/ml (10-30); Salicylate < 3.0 mg/dl (3.0-30)
[2023-01-11 12:04] LABS: Albumin Globulin Ratio 1.5 (0.9-2); Albumin Level 4.6 gm/dl (3.4-5.0); BUN Creatinine Ratio 12.8 (10-20); Bilirubin,Total 0.3 mg/dl (0.2-1.0); Calcium 9.4 mg/dl (8.6-10.3); Creatinine Clr Calc Pharmacy 157.8 ml/min; Est GFR (African American) 138.4 ml/min; Est GFR (Non-African American) 119.4 ml/min; Globulin 3.1 gm/dl (2.5-4.0); Potassium 3.6 mmol/L (3.5-5.1); Total Protein 7.7 gm/dl (6.0-8.3)
[2023-01-11 12:10] LABS: Troponin I High Sensitivity 6.1 pg/ml (0-20)
[2023-01-11 12:18] LABS: INR 0.9 (0.9-1.1); Partial Thromboplastin Ratio 0.9; Partial Thromboplastin Time 26.2 Seconds (21.0-31.0); Prothrombin Time 10.3 Seconds (9.0-12.0)
[2023-01-11 12:22] LABS: Amphetamines+Metham, Urine Neg (Neg); Barbiturates, Urine Neg (Neg); Benzodiazepine, Urine Neg (Neg); Cocaine, Urine Neg (Neg); MDMA (Ecstacy), Urine Neg (Neg); Methadone, Urine Neg (Neg); Opiate, Urine Neg (Neg); Phencyclidine, Urine Neg (Neg)
--- NOTE | 2023-01-11 12:47 | CT Scan Report ---
CT SCAN OF THE BRAIN WITHOUT IV CONTRAST CLINICAL HISTORY: Headache. COMPARISON STUDY: CT of the brain dated 05/15/2022. TECHNIQUE: Unenhanced axial CT scan of the brain is performed from the vertex to the skull base. A d ose lowering technique was utilized adhering to the principles of ALARA. CT DOSE: 625.80 mGy.cm FINDINGS: Brain parenchyma: The brain parenchyma is normal in appearance. There is no hemorrhage, mass effect, or evidence of acute territorial ischemia by CT criteria. Zhao-white matter differentiation is preser brian. No extra-axial fluid collection is seen. Ventricles, sulci, cisterns: Normal in configuration. Intracranial vasculature: The visualized intracranial vasculature at the skull base is normal in appe arance. Calvarium: Unremarkable. Sinuses and mastoids: The visualized paranasal sinuses are clear. The mastoid air cells are well pneu matized. Orbits: The bony orbits are grossly intact. IMPRESSION: No acute intracranial abnormality. ACT 112: Negative or not required by law. Electronically signed by: Evan Duran M.D. 01/11/2023 12:46 PM
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
[2023-01-11] MEDS ORDERED: ACETAMINOPHEN 500 MG TAB PO STA (13:33)
[2023-01-11] MEDS ORDERED: hydrOXYzine HCl 25 MG TAB PO PRN ×2 (15:16)
[2023-01-11] MEDS ORDERED: ACETAMINOPHEN 325 MG TAB PO PRN (15:16)
[2023-01-11] MEDS ORDERED: BISMUTH SUBSALICYLATE LIQD 236 ML PO PRN (15:16)
[2023-01-11] MEDS ORDERED: MAGNESIUM HYDROXIDE SUSP 30 ML UDC PO PRN (15:16)
[2023-01-11] MEDS ORDERED: ALUMINUM/MAGNESIUM SUSP 30 ML UDC PO PRN (15:16)
[2023-01-11] MEDS ORDERED: SODIUM CHLORIDE 0.65% NA SOLN 45 ML (OCEAN) PRN (15:16)
--- NOTE | 2023-01-11 20:31 | Electrocardiogram Report ---
Test Reason : Blood Pressure : / mmHG Vent. Rate : 085 BPM Atrial Rate : 085 BPM P-R Int : 134 ms QRS Dur : 086 ms QT Int : 434 ms P-R-T Axes : 071 024 014 degrees QTc Int : 516 ms Normal sinus rhythm Nonspecific T wave abnormality Abnormal ECG When compared with ECG of 23-OCT-2022 12:36, Nonspecific T wave abnormality now evident in Lateral leads QT has lengthened Confirmed by Joey Negron ([id number]) on 01/11/2023 8:31:11 PM Referred By: Confirmed By:Bong Negron
[2023-01-11] MEDS ORDERED: traZODone HCL 50 MG TAB PO SCH (22:00)
[2023-01-11] MEDS ORDERED: PRAZOSIN HCL 1 MG CAP PO SCH (22:00)
[2023-01-11] MEDS ORDERED: cloNIDine HCL 0.1 MG TAB PO SCH (22:00)
[2023-01-12] MEDS ORDERED: PROPRANOLOL HCL 20 MG TAB PO SCH (09:00)
[2023-01-12] MEDS ORDERED: DULoxetine HCL 20 MG CAP PO SCH (09:00)
[2023-01-12] MEDS: amLODIPine BESYLATE 5 MG TAB PO SCH (09:19)
[2023-01-12] MEDS: PANTOprazole 40 MG TAB PO SCH (09:20)
[2023-01-12] MEDS ORDERED: DULoxetine HCL 20 MG CAP PO STA (09:49)
--- NOTE | 2023-01-12 10:23 | Electrocardiogram Report ---
Test Reason : Blood Pressure : / mmHG Vent. Rate : 086 BPM Atrial Rate : 086 BPM P-R Int : 126 ms QRS Dur : 082 ms QT Int : 404 ms P-R-T Axes : 006 020 013 degrees QTc Int : 483 ms Normal sinus rhythm Nonspecific T wave abnormality Abnormal ECG When compared with ECG of 11-JAN-2023 11:10, No significant change was found Confirmed by Joey Negron ([id number]) on 01/12/2023 10:22:39 AM Referred By: REFERRED SELF Confirmed By:Bong Negron
[2023-01-12] MEDS: METHYLPHENIDATE 54 MG PO SCH (11:45)
[2023-01-12] MEDS: PATIENT'S OWN CONTROLLED MED 1 PO SCH (11:46)
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
[2023-01-12] MEDS ORDERED: METHYLPHENIDATE HCL 10 MG TABLET PO SCH (14:00)
[2023-01-12] MEDS ORDERED: ATORVASTATIN 10 MG TAB PO SCH (21:00)
[2023-01-12] MEDS ORDERED: cloNIDine HCL 0.1 MG TAB PO SCH (22:00)
[2023-01-12] MEDS ORDERED: PRAZOSIN HCL 1 MG CAP PO SCH (22:00)
[2023-01-13] MEDS: amLODIPine BESYLATE 5 MG TAB PO SCH (07:48)
[2023-01-13] MEDS: PANTOprazole 40 MG TAB PO SCH (07:49)
[2023-01-13] MEDS: METHYLPHENIDATE 54 MG PO SCH (07:53)
[2023-01-13] MEDS: PATIENT'S OWN CONTROLLED MED 1 PO SCH (07:54)
--- NOTE | 2023-01-13 08:55 | Discharge Summary ---
Date of Service January 13, 2023 History of Present Illness Osei presented to the ED from his outpatient psychiatry appointment for elevated blood pressure and while being evaluated for this discussed an increase of his chronic suicidal ideation with thoughts of cutting himself with a knife. Osei is well known to our service and on evaluation by the psychiatric liason in the emergency department he reported that his SI had intensified to the point that he almost cut himself with a knife the day prior. He also reported an increase in self-harming behaviors the day prior by hitting his head. Today he reports he had been doing very well in terms of his mood until a few weeks ago. Reports since this time he's been struggling more with depression and periods of SI which he attributes to recent health issues including worsening of his back pain and recent episodes of bloody stool. He was seen in the ED for blood stool and has an upcoming appointment with his primary care provider to discuss this more. Another stressor recently has been weight gain and he's been struggling to lose weight even with making healthy eating choices and trying to walk more regularly. He has an upcoming outpatient appointment with a audio visual technician and is interested in seeing a upholstery covers inspector during his admission. He denies current SI but continues to have chronic intermittent SI. He denies any current symptoms of psychosis nor auditory hallucinations. He likes his current psychiatric medications and hasn't been experiencing any side effects from these. Physical Exam Vital Signs (Past 24 Hours) Last Vital Signs Temp 37.0 C 01/13/23 06:37 Pulse 99 H 01/13/23 06:38 Resp 16 01/13/23 06:37 BP 105/72 01/13/23 06:38 Pulse Ox 96 01/11/23 16:26 O2 Del Method Room Air 01/11/23 16:26 See admission H&P and DOD summary. Principal Diagnosis Major Depressive Disorder, recurrent Psychiatric Data See daily stay summary. Osei and his outpatient providers have done an excellent job helping him remain stable and functional in the outpatient setting over the last seven months and he is proud of the progress he's achieved. He felt ambivalent about the need for inpatient hospitalization but agreed that brief stabilization made sense given his recent increase in self-harm thoughts. He stabilized quickly with no further SI or thoughts of self-harm, was future- oriented and requested discharge so that he be able to follow-up with his PCP regarding recent digestive symptoms. Overall he was engaged with the social/therapeutic milieu of the unit, safety was maintained and the patient was cooperative with care. There were no medication changes. His blood pressure was normal during psychiatric admission and if this remains stable agree with outpatient psychiatry plan to potentially increase his duloxetine dose in the future. A safety plan was completed prior to discharge. Reviewed importance of seeking emergency care should SI intensify, worsen or should they feel unsafe in the future which they agree to do. On the day of discharge he stated his mood was "good and tired" and remained future-oriented including going for walks, upcoming [employer], engaging more with [facility], saving money for a cruise next year and engaging in aftercare appointments for psychiatry, therapy, primary care and new referral for crisis peer stabilization services. Day of Discharge Assessment Today the patient voices readiness for discharge. They note improvement in mood. They deny thoughts of harm to self or others. Thoughts are organized and they are clinically improved from admission. There is no evidence of psychosis. They improved in the hospital with support. They agree to take medications as prescribed and keep follow-up appointments. At the time of the discharge they are deemed to be stable and appropriate for outpatient level of care. They are not deemed to be at imminent risk of harm to self or others. They are aware of emergency and crisis services. Knows to call 911 or go to nearest emergency care center if in a crisis which cannot be handled as an outpatient. Transition of Care Transition Of Care Record: was reviewed with the patient Advance Directives Advance Directives Information Provided: Yes Advance Directives: No Mental Health Advance Directive: No Advance Directives on File: No Living Will: No Power of Biomedical Equipment Tech: No Advance Directives Reason:: Declines as Mental Health Visit. Suicide Risk Level Suicide Risk Level Comments: Acute risk is low given improvement in mood and denial of SI, lack of access to lethal means, hopefulness. Chronic risk is moderate given some non-modifiable risk factors: psychiatric co-morbid diagnoses, periods of impulsivity, hx self- harm, emotional reactivity, prior psychiatric hospitalizations, poor social support, childhood trauma but also with protective factors including no history of prior attempts, extensive outpatient supports, more financial stability, enjoys baseball season in the summer and has good rapport with his outpatient providers. Counseled on ways to reduce acute and chronic risk including engaging with outpatient providers, using safety plan if needed, utilizing supports, taking medication, creating more structure in his days and using coping skills. Modifiable risk factors of SI and depression were addressed during hospitalization through development of new coping skills, motivational interviewing, safety planning, and referral for new crisis peer outpatient resource. Risk Factors Assessment Male: Yes : Yes Do You Have Access To A Gun?: No Health Problems: Yes Mental Health Diagnoses: Yes Substance Use Disorders: No Previous Attempt: No Family History of Suicide: No Previous Psychiatric Hospitalization: Yes Hopelessness: No Protective Factors Assessment Employed: No Stable Relationships: Yes Good Rapport with Provider: Yes Discharge Data Lab Results 01/11/23 01/11/23 01/11/23 11:20 11:20 11:20 WBC 9.18 RBC 4.75 Hgb 13.9 L Hct 42.0 MCV 88.4 MCH 29.3 MCHC 33.1 RDW Std Deviation 48.1 H RDW Coeff of Josselyn 14.8 H Plt Count 542 H MPV 9.5 Immature Gran % (Auto) 0.3 Neut % (Auto) 67.6 Lymph % (Auto) 20.0 [place] % (Auto) 10.9 Eos % (Auto) 0.8 Baso % (Auto) 0.4 Neut # (Auto) 6.20 Lymph # (Auto) 1.84 [place] # (Auto) 1.00 H Eos # (Auto) 0.07 Baso # (Auto) 0.04 Immature Gran # (Auto) 0.03 PT 10.3 INR 0.9 APTT 26.2 PTT Ratio 0.9 Sodium 141 Potassium 3.6 Chloride 105 Carbon Dioxide 27 Anion Gap 9 BUN 10 Creatinine 0.78 Est Cr Clr Drug Dosing 157.8 Est GFR ( Amer) 138.4 Est GFR (Non-Af Amer) 119.4 BUN/Creatinine Ratio 12.8 Glucose 90 Calcium 9.4 Total Bilirubin 0.3 AST 59 H ALT 107 H Alkaline Phosphatase 74 Troponin I High Sens 6.1 Total Protein 7.7 Albumin 4.6 Globulin 3.1 Albumin/Globulin Ratio 1.5 Lipase 30 TSH Urine Color Urine Appearance Urine pH Ur Specific Neihart Urine Protein Urine Glucose (UA) Urine Ketones Urine Blood Urine Nitrite Urine Bilirubin Urine Urobilinogen Ur Leukocyte Esterase Urine WBC (Auto) Urine RBC (Auto) U Hyaline Cast (Auto) U Epithel Cells (Auto) Urine Bacteria (Auto) Salicylates Urine Opiates Screen Ur Methadone, Qual Acetaminophen Urine Barbiturates Ur Phencyclidine (PCP) U Amphetamin/Meth Scrn MDMA (Ecstasy) Screen U Benzodiazepines Scrn Ur Cocaine Metabolite U Marijuana (THC) Screen Ethyl Alcohol mg/dL SARS-CoV-2, RNA, NAAT 01/11/23 01/11/23 01/11/23 11:20 11:20 12:20 WBC RBC Hgb Hct MCV MCH MCHC RDW Std Deviation RDW Coeff of Josselyn Plt Count MPV Immature Gran % (Auto) Neut % (Auto) Lymph % (Auto) [place] % (Auto) Eos % (Auto) Baso % (Auto) Neut # (Auto) Lymph # (Auto) [place] # (Auto) Eos # (Auto) Baso # (Auto) Immature Gran # (Auto) PT INR APTT PTT Ratio Sodium Potassium Chloride Carbon Dioxide Anion Gap BUN Creatinine Est Cr Clr Drug Dosing Est GFR ( Amer) Est GFR (Non-Af Amer) BUN/Creatinine Ratio Glucose Calcium Total Bilirubin AST ALT Alkaline Phosphatase Troponin I High Sens Total Protein Albumin Globulin Albumin/Globulin Ratio Lipase TSH 1.345 Urine Color Urine Appearance Urine pH Ur Specific Neihart Urine Protein Urine Glucose (UA) Urine Ketones Urine Blood Urine Nitrite Urine Bilirubin Urine Urobilinogen Ur Leukocyte Esterase Urine WBC (Auto) Urine RBC (Auto) U Hyaline Cast (Auto) U Epithel Cells (Auto) Urine Bacteria (Auto) Salicylates < 3.0 L Urine Opiates Screen Ur Methadone, Qual Acetaminophen < 3 L Urine Barbiturates Ur Phencyclidine (PCP) U Amphetamin/Meth Scrn MDMA (Ecstasy) Screen U Benzodiazepines Scrn Ur Cocaine Metabolite U Marijuana (THC) Screen Ethyl Alcohol mg/dL < 10.0 SARS-CoV-2, RNA, NAAT 01/11/23 01/11/23 01/11/23 13:40 Unknown Unknown WBC RBC Hgb Hct MCV MCH MCHC RDW Std Deviation RDW Coeff of Josselyn Plt Count MPV Immature Gran % (Auto) Neut % (Auto) Lymph % (Auto) [place] % (Auto) Eos % (Auto) Baso % (Auto) Neut # (Auto) Lymph # (Auto) [place] # (Auto) Eos # (Auto) Baso # (Auto) Immature Gran # (Auto) PT INR APTT PTT Ratio Sodium Potassium Chloride Carbon Dioxide Anion Gap BUN Creatinine Est Cr Clr Drug Dosing Est GFR ( Amer) Est GFR (Non-Af Amer) BUN/Creatinine Ratio Glucose Calcium Total Bilirubin AST ALT Alkaline Phosphatase Troponin I High Sens 5.2 Total Protein Albumin Globulin Albumin/Globulin Ratio Lipase TSH Urine Color Yellow Urine Appearance Clear Urine pH 5.0 Ur Specific Ne[place]art 1.012 Urine Protein Negative Urine Glucose (UA) Negative Urine Ketones Negative Urine Blood Trace H Urine Nitrite Negative Urine Bilirubin Negative Urine Urobilinogen Negative Ur Leukocyte Esterase Negative Urine WBC (Auto) 0 Urine RBC (Auto) 0-4 U Hyaline Cast (Auto) 1-5 U Epithel Cells (Auto) 0-5 Urine Bacteria (Auto) Negative Salicylates Urine Opiates Screen Ur Methadone, Qual Acetaminophen Urine Barbiturates Ur Phencyclidine (PCP) U Amphetamin/Meth Scrn MDMA (Ecstasy) Screen U Benzodiazepines Scrn Ur Cocaine Metabolite U Marijuana (THC) Screen Ethyl Alcohol mg/dL SARS-CoV-2, RNA, NAAT NEGATIVE 01/11/23 Unknown WBC RBC Hgb Hct MCV MCH MCHC RDW Std Deviation RDW Coeff of Josselyn Plt Count MPV Immature Gran % (Auto) Neut % (Auto) Lymph % (Auto) [place] % (Auto) Eos % (Auto) Baso % (Auto) Neut # (Auto) Lymph # (Auto) [place] # (Auto) Eos # (Auto) Baso # (Auto) Immature Gran # (Auto) PT INR APTT PTT Ratio Sodium Potassium Chloride Carbon Dioxide Anion Gap BUN Creatinine Est Cr Clr Drug Dosing Est GFR ( Amer) Est GFR (Non-Af Amer) BUN/Creatinine Ratio Glucose Calcium Total Bilirubin AST ALT Alkaline Phosphatase Troponin I High Sens Total Protein Albumin Globulin Albumin/Globulin Ratio Lipase TSH Urine Color Urine Appearance Urine pH Ur Specific Neihart Urine Protein Urine Glucose (UA) Urine Ketones Urine Blood Urine Nitrite Urine Bilirubin Urine Urobilinogen Ur Leukocyte Esterase Urine WBC (Auto) Urine RBC (Auto) U Hyaline Cast (Auto) U Epithel Cells (Auto) Urine Bacteria (Auto) Salicylates Urine Opiates Screen Neg Ur Methadone, Qual Neg Acetaminophen Urine Barbiturates Neg Ur Phencyclidine (PCP) Neg U Amphetamin/Meth Scrn Neg MDMA (Ecstasy) Screen Neg U Benzodiazepines Scrn Neg Ur Cocaine Metabolite Neg U Marijuana (THC) Screen Neg Ethyl Alcohol mg/dL SARS-CoV-2, RNA, NAAT Hospital Course (1) MDD (major depressive disorder), recurrent episode, moderate: (2) Depression with suicidal ideation: (3) Intellectual disability: (4) Post traumatic stress disorder (PTSD): (5) ADHD (attention deficit hyperactivity disorder): (6) HTN (hypertension): (7) Lower thoracic back pain: Plan 01/12/2023: The patient was admitted to the [facility] ([facility] unit) on q15 min checks (behavioral with suicide precautions) for safety. The patient will participate in group, recreational, and milieu therapies and will be offered additional individual and family sessions as clinically appropriate. * Continue prior to admission medications: duloxetine 40mg qd, Concerta 54mg daily, Ritalin 20mg qafternoon, clonidine 0.1mg HS, prazosin 2mg HS as well as lipitor, Norvasc and protonix * Hold prior to admission Vraylar as not on hospital formulary and he cannot have anyone bring this in and plans for short admission * [place] consult Mental Health & Subst Abuse Tx Psychiatrist Name of Psychiatrist: Eugenie Hua Psychiatrist's Date Of Appointment With Psychiatric Provider: 01/26/2023 Time of Appointment with Psychiatrist: 1 PM Psychiatric Appointment Comment: [address] [facility], Therapist Name of Therapist: Helena Jimenez Therapist's Date of Therapist Appointment: 01/19/23 Time of Therapist Appointment: 3:00 PM Therapy Appointment Comment: [address] [facility], [address], [place] [address] Director Of Student Affairs Name of Director Of Student Affairs: [facility] Emma Torres Phone Number for Director Of Student Affairs: [phone] Case Management Appointment Comment: Please resume your normal schedule. Post Discharge Appointments Primary Care Physician Name Of Family Doctor/PCP: GABRIEL - DEJAH Alberto Primary Care Date of Future Appointment with PCP: 01/13/2023 Time of Appointment with PCP: 3:00 PM Provider Appointment Comment: [address], [place], [place] Relationship Advisor Name of Relationship Advisor: ESTER Peer Support Phone Number of Relationship Advisor: [phone] Relationship Advisor Appointment Comment: A ingredient specialist will follow-up with you directly. Contact Information Discharge Discharge Address: [facility] [address], [address], [place] [address] Discharge Plan Discharge Items Patient Disposition: Home - Self-Care Reason For Visit: MDD Discharge Diagnosis: Major Depressive Disorder, recurrent Activity: Resume your previous activity Non-emergency contact: Primary Care Provider, Psychiatrist, Therapist and Business Law Teacher Call non-emergency contact if: you have any medication questions and your symptoms worsen Follow-up/Referrals: Vidya Horvath CRNP [Primary Care Provider] - Diet: Regular Addtl Attending Provider Instructions: SPECIAL CARE INSTRUCTIONS: 1. Follow through with your scheduled aftercare appointments. If unable to keep an appointment, please call to reschedule. 2. Take your medication only as prescribed. Medication should not be changed or stopped without the approval of your doctor. In the event of worsening symptoms or concerns about side effects, contact your doctor immediately. 3. Utilize new healthy coping skills, anger management skills, and stress management skills learned during your hospitalization. Journal feelings and process them with a support person. Identify stressors or situations that may result in relapse, deterioration or inappropriate behaviors and develop a plan to deal with those issues. 4. If your coping skills are ineffective and you are in crisis, contact your outpatient providers for direction. If unable to reach your providers, please call the [facility] CRISIS LINE AT , go to the [facility] walk-in center at [address], [address], [place], or go to the closest Emergency Room. 5. Avoid alcohol and un-prescribed drugs. 6. You have been provided with the Mental Health Advance Directives Pamphlet for your review. 7. Your condition is stable for discharge to outpatient level of care, but recovery is an ongoing process. Ifthoughts to harm yourself or others return, follow the safety plan developed during your stay. Planning for a safe return home includes securing weapons. Our treatment team recommends weaponsbe removed from the home until your outpatient provider reassesses your progress. In rare cases where the items themselvescannot be removed, guns and ammunitionshould be secured separatelyand keys stored by a reliable personoutside of the home. If you were admitted on an involuntary commitment, the police or other legal authorities may be involved in this process. AFTERCARE APPOINTMENTS: * Please call your insurance company prior to your scheduled appointment to confirm your aftercare providers are covered. Take your insurance information to your appointments. WHO TO CALL AND WHEN: Medical Emergencies: For questions or emergencies related to your hospital stay, please contact the Inpatient Behavioral Health Unit at [phone]. A stapler machine is on-call 21/03 for the Behavioral Health Unit for emergencies National Crisis Hotline: 298 At any time you feel your situation is an emergency, you may also call 911 immediately. Pending Studies at Discharge: No Stand-Alone Forms: [facility] Medications and DC Order Prescriptions: Continued (DME) Flexichamber Spacer See Rx Instructions .Route Qty: 1 0RF Rx Instructions: As directed Vraylar 1.5 mg capsule 1.5 mg PO DAILY amlodipine 5 mg tablet 5 mg PO DAILY Qty: 30 2RF atorvastatin 10 mg tablet 10 mg PO QPM Qty: 30 2RF pantoprazole 40 mg tablet,delayed release (DR/EC) 40 mg PO DAILY Qty: 30 2RF prazosin [Minipress] 2 mg capsule 2 mg PO HS hydroxyzine pamoate 100 mg capsule 100 mg PO HS methylphenidate HCl 20 mg tablet 20 mg PO .QAFTERNOON methylphenidate HCl 54 mg tablet extended release 24hr 54 mg PO QAM clonidine HCl 0.1 mg tablet 0.1 mg PO HS duloxetine 20 mg capsule,delayed release(DR/EC) 40 mg PO QAM Discharge Orders: Discharge Order (Routine); Ordered 01/13/23 Ordered By: Sarah Saldana Admission Data Admit Date/Time: 01/11/23 16:10 Attending Provider: Sarah Saldana Admit Provider: Sarah Saldana Primary Care Provider: Vidya Horvath Other Interventions: PSY Interdisciplinary Discharge Planning Last Done: 01/13/23 09:51 Coding Level of Care Code 34546 D/C day mgmt > 30 min Diagnoses MDD (major depressive disorder), recurrent episode, moderate F33.1 Depression with suicidal ideation F32.A; R45.851 Intellectual disability F79 Post traumatic stress disorder (PTSD) F43.10 ADHD (attention deficit hyperactivity disorder) F90.9 HTN (hypertension) I10 Lower thoracic back pain M54.6 Time Spent (min) 40
[2023-01-13] MEDS ORDERED: DULoxetine HCL 20 MG CAP PO SCH (09:00)
== END 2023-01-13 12:55 | disposition home or self-care (01) | DRG 885 ==
LOC: ED 10:38 → 3S 16:10

== ENCOUNTER 2023-02-17 15:54 | Inpatient (IN) ==
[2023-02-17] MEDS ORDERED: oxyCODONE HCL IR 5 MG TAB (IMMEDIATE RELEASE) PO STA (17:21)
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
[2023-02-17 18:14] LABS: Basophils # (auto) 0.06 K/uL (0-0.2); Basophils % (auto) 0.6 %; Eosinophils # (auto) 0.09 K/uL (0-0.50); Eosinophils % (auto) 0.8 %; Hemoglobin 14.1 g/dl (14.0-18.0); Immature Granulocytes # (auto) 0.06 K/uL (0.01-0.20); Immature Granulocytes % (auto) 0.6 %; Lymphocytes # (auto) 2.31 K/uL (1.2-3.4); Lymphocytes % (auto) 21.2 %; Mean Corpuscular Hemoglobin 28.7 pg (25.0-34.0); Mean Corpuscular Hgb Conc 33.6 g/dL (32.0-36.0); Mean Corpuscular Volume 85.4 fL (80.0-100.0); Mean Platelet Volume 9.7 fL (9.4-12.4); Monocytes # (auto) 0.92 K/uL (0.11-0.59); Monocytes % (auto) 8.5 %; Neutrophils # (auto) 7.44 K/uL (1.40-6.50); Neutrophils % (auto) 68.3 %; Platelet Count 573 K/uL (130-400); RDW Coefficient of Variation 14.4 % (11.5-14.5); RDW Standard Deviation 44.7 fL (36.4-46.3); Red Blood Count 4.92 M/uL (4.70-6.10); White Blood Count 10.88 K/ul (4.8-10.8)
[2023-02-17 18:32] LABS: Albumin Globulin Ratio 1.3 (0.9-2); Albumin Level 4.3 gm/dl (3.4-5.0); BUN Creatinine Ratio 8.4 (10-20); Bilirubin,Total 0.3 mg/dl (0.2-1.0); Calcium 9.7 mg/dl (8.6-10.3); Creatinine Clr Calc Pharmacy 146.5 ml/min; Est GFR (African American) 134.9 ml/min; Est GFR (Non-African American) 116.4 ml/min; Globulin 3.3 gm/dl (2.5-4.0); Potassium 3.4 mmol/L (3.5-5.1); Total Protein 7.6 gm/dl (6.0-8.3)
--- NOTE | 2023-02-17 19:06 | Magnetic Resonance Report ---
MR lumbar spine wo con CLINICAL HISTORY: R leg weakness, bowel/bladder incontinence TECHNIQUE: Multiplanar sequences through the lumbar spine were obtained, without intravenous contrast . Comparison: Comparison is made to MRI lumbar spine 12/23/2022 FINDINGS: The alignment is anatomical. L1-L2: No significant abnormality. L2-L3: No significant abnormality. L3-L4: No significant abnormality. L4-L5: No significant abnormality. L5-S1: A focal posterior disc bulge at L5-S1 is unchanged from the prior exam with a prominent parace ntral disc protrusion measuring approximately 16 x 6 mm. There may be mild right neural foraminal merlyn nosis, similar to prior exam. The spinal ligaments are intact, without evidence of disruption or abnormal signal intensity. The spi nal cord is normal in signal intensity and there is no evidence of cord contusion. There is no eviden ce of an extradural, intradural, extramedullary or intramedullary lesion. Visualized soft tissues are normal. IMPRESSION: Redemonstration of L5-S1 disc protrusion with mild right neural foraminal stenosis. ACT 112: Negative or not required by law. Electronically signed by: González Welch M.D. 02/17/2023 7:04 PM
[2023-02-17 19:10] LABS: Appearance Urine Clear (Clear); Bilirubin Urine Negative (Negative); Blood Urine Negative (Negative); Color Urine Yellow; Glucose Urine UA Negative (Negative); Ketones Urine Negative (Negative); Leukocyte Esterase Urine Negative (Negative); Nitrite Urine Negative (Negative); Protein Urine Negative (Negative); Specific Gravity Urine 1.011 (1.000-1.030); Urobilinogen Urine Negative (Negative)
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
[2023-02-17] MEDS ORDERED: POTASSIUM CHLORIDE CRTAB 20 MEQ TABCR PO STA (21:46)
[2023-02-17] MEDS ORDERED: ONDANSETRON INJ 2 MG/ML 2 ML VIAL IV PRN (23:07)
[2023-02-18] MEDS ORDERED: ATORVASTATIN 10 MG TAB PO ONE (00:30)
[2023-02-18] MEDS ORDERED: PRAZOSIN HCL 1 MG CAP PO ONE (00:30)
[2023-02-18] MEDS ORDERED: Nursing to Pharmacy Communication SCH ×2 (00:30)
[2023-02-18] MEDS ORDERED: hydrOXYzine HCl 25 MG TAB PO ONE (00:30)
[2023-02-18] MEDS ORDERED: cloNIDine HCL 0.1 MG TAB PO ONE (00:30)
[2023-02-18] MEDS: ACETAMINOPHEN 1,000 MG/100 ML VIAL IV PRN ×3 (00:57→22:16)
[2023-02-18] MEDS: METHYLPHENIDATE PO SCH (06:12)
[2023-02-18 07:14] LABS: Basophils # (auto) 0.06 K/uL (0-0.2); Basophils % (auto) 0.7 %; Eosinophils # (auto) 0.13 K/uL (0-0.50); Eosinophils % (auto) 1.4 %; Hematocrit (blood only) 37.2 % (42.0-52.0); Hemoglobin 12.6 g/dl (14.0-18.0); Immature Granulocytes # (auto) 0.02 K/uL (0.01-0.20); Immature Granulocytes % (auto) 0.2 %; Lymphocytes # (auto) 2.44 K/uL (1.2-3.4); Lymphocytes % (auto) 26.9 %; Mean Corpuscular Hgb Conc 33.9 g/dL (32.0-36.0); Mean Corpuscular Volume 85.7 fL (80.0-100.0); Mean Platelet Volume 9.5 fL (9.4-12.4); Monocytes # (auto) 1.14 K/uL (0.11-0.59); Monocytes % (auto) 12.6 %; Neutrophils # (auto) 5.28 K/uL (1.40-6.50); Neutrophils % (auto) 58.2 %; Platelet Count 497 K/uL (130-400); RDW Coefficient of Variation 14.5 % (11.5-14.5); RDW Standard Deviation 45.6 fL (36.4-46.3); Red Blood Count 4.34 M/uL (4.70-6.10); White Blood Count 9.07 K/ul (4.8-10.8)
[2023-02-18] MEDS: KETOROLAC 30 MG/ML VIAL IV PRN ×2 (07:45→17:15)
[2023-02-18 07:46] LABS: Albumin Globulin Ratio 1.3 (0.9-2); Albumin Level 3.7 gm/dl (3.4-5.0); BUN Creatinine Ratio 11.4 (10-20); Bilirubin,Total 0.3 mg/dl (0.2-1.0); C Reactive Protein 0.5 mg/dl (0-0.5); Calcium 8.7 mg/dl (8.6-10.3); Est GFR (African American) 131.7 ml/min; Est GFR (Non-African American) 113.7 ml/min; Globulin 2.8 gm/dl (2.5-4.0); Potassium 3.6 mmol/L (3.5-5.1); Total Protein 6.5 gm/dl (6.0-8.3)
[2023-02-18] MEDS ORDERED: PNEUMOCOCCAL Polysaccharide Vaccine 25mcg/0.5mL vial/Syr IM ONE (08:00)
[2023-02-18] MEDS: DULoxetine HCL 20 MG CAP PO SCH (08:27)
[2023-02-18] MEDS: amLODIPine BESYLATE 5 MG TAB PO SCH (08:27)
--- NOTE | 2023-02-18 11:18 | Communication Note ---
Date of Service: February 18, 2023 received consult request as Vraylar non-formulary, no acute psychiatric concern. Patient is on lowest dose and does not need to be tapered. Given my knowledge of patient from previous admissions I feel that it can be held at this time. He often has difficulty coping given intellectual limitations and has difficulty differentiating own thoughts/PTSD from true hallucinations. Liaison can monitor and confirm aftercare and alert covering psychiatrist of any need for full consult in future. Hospitalist updated and agreed that question was answered adequately at this time. Will change to liaison consult.
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
--- NOTE | 2023-02-18 13:43 | Hospitalist Progress Note ---
Date of Service February 18, 2023 Assessment & Plan (1) Lumbar radiculopathy: Plan: With complaints of paresthesias, weakness and intermittent incontinence of bowel and bladder -MRI L-spine (02/17/23): remonstration of L5-S1 disc protrusion with mild right neural foraminal stenosis per ortho "Would recommend ongoing physical therapy is the mainstay of treatment would not consider any type of surgical intervention at this time or anytime in the near future. He may continue with pain management as an outpatient as well." PT and OT consulted anticipate discharge home tomorrow (2) Right low back pain: Plan: chronic as above (3) Intellectual disability: Plan: Chronic (4) Post traumatic stress disorder (PTSD): Plan: Chronic, stable Continue home medications Patient does not have Vraylar and not on formulary or available here and unable to get from home, per psych no need to taper and ok if he skips a few doses while admitted here Continue to follow with psych and outpatient counseling (5) ADHD (attention deficit hyperactivity disorder): Plan: chronic as above (6) MDD (major depressive disorder), recurrent episode, moderate: Plan: chronic as above (7) HTN (hypertension): Plan: chronic and stable BP 115/79 continue Amlodipine (8) Dyslipidemia: Plan: chronic and stable continue atorvastatin Admission and Anticipated Discharge Date Admission Date: February 17, 2023 Subjective Patient was seen this AM on rounds, he is resting well in bed. He states he is still having low back pain and numbness right leg. He states he has had these symptoms for the past 2 weeks. He tells me that he also has some incontinence of bowel and bladder at times and sometimes not. He tells me he follows with pain management and also in PT. Patient was seen by ortho today and they are recommending ongoing physical therapy is the mainstay of treatment would not consider any type of surgical intervention at this time or anytime in the near future and that he may continue with pain management as an outpatient as well. Patient does not have his Vraylar here and it is not on formulary. I spoke with psych and they stated there is no need or concern if he does not take for a few days while admitted. Review of Systems Constitutional: + weakness; no fever and no chills Respiratory: no cough, no chest congestion and no dyspnea Cardiovascular: no chest pain, no dyspnea and no dyspnea on exertion Gastrointestinal: no abdominal pain, no nausea and no vomiting Musculoskeletal: + back pain and + radicular pain; no neck pain and no swelling Integumentary: no rash, no lesions and no new lesions Neurologic: As above in history Psychiatric: history as stated above follows with [facility] psych consulted psych Physical Exam Constitutional: WD/WN, vitals as above Neck: trachea midline, no thyromegaly Respiratory: normal respiratory effort, lungs clear to auscultation Cardiovascular: RRR, no murmur, no edema Extremities: normal capillary refill; no calf tenderness and no edema Gastrointestinal (Abdomen): normal bowel sounds, soft, nontender, no hepatosplenomegaly Skin: no rashes, warm and dry Psychiatric: Orientation: alert and oriented x 3 Apperance: appropriately groomed Results & Data Results & Data Vital Signs (Past 12 Hours) Vital Signs Temp Pulse Resp BP Pulse Ox O2 Del Method 02/18/23 07:24 36.4 C L 76 16 115/79 95 Room Air 02/18/23 02:30 127/86 Laboratory Results Abnormal lab results 02/17/23 02/17/23 02/18/23 Range/Units 17:22 17:22 06:59 WBC 10.88 H (4.8-10.8) K/ul RBC 4.34 L (4.70-6.10) M/uL Hgb 12.6 L (14.0-18.0) g/dl Hct 37.2 L (42.0-52.0) % Plt Count 573 H 497 H (130-400) K/uL Neut # (Auto) 7.44 H (1.40-6.50) K/uL Casey # (Auto) 0.92 H 1.14 H (0.11-0.59) K/uL Potassium 3.4 L (3.5-5.1) mmol/L Chloride 108 H (98-107) mmol/L BUN/Creatinine Ratio 8.4 L (10-20) Glucose 112 H (70-99(Fasting)) mg/dl AST 49 H (13-39) U/L ALT 89 H (7-52) U/L 02/18/23 Range/Units 06:59 WBC (4.8-10.8) K/ul RBC (4.70-6.10) M/uL Hgb (14.0-18.0) g/dl Hct (42.0-52.0) % Plt Count (130-400) K/uL Neut # (Auto) (1.40-6.50) K/uL Casey # (Auto) (0.11-0.59) K/uL Potassium (3.5-5.1) mmol/L Chloride 109 H (98-107) mmol/L BUN/Creatinine Ratio (10-20) Glucose (70-99(Fasting)) mg/dl AST (13-39) U/L ALT 72 H (7-52) U/L Diagnostic Findings Lumbar Spine MRI 02/17/23 17:02 MR lumbar spine wo con CLINICAL HISTORY: R leg weakness, bowel/bladder incontinence TECHNIQUE: Multiplanar sequences through the lumbar spine were obtained, without intravenous contrast. Comparison: Comparison is made to MRI lumbar spine 12/23/2022 FINDINGS: The alignment is anatomical. L1-L2: No significant abnormality. L2-L3: No significant abnormality. L3-L4: No significant abnormality. L4-L5: No significant abnormality. L5-S1: A focal posterior disc bulge at L5-S1 is unchanged from the prior exam with a prominent paracentral disc protrusion measuring approximately 16 x 6 mm. There may be mild right neural foraminal stenosis, similar to prior exam. The spinal ligaments are intact, without evidence of disruption or abnormal signal intensity. The spinal cord is normal in signal intensity and there is no evidence of cord contusion. There is no evidence of an extradural, intradural, extramedullary or intramedullary lesion. Visualized soft tissues are normal. IMPRESSION: Redemonstration of L5-S1 disc protrusion with mild right neural foraminal stenosis. ACT 112: Negative or not required by law. Electronically signed by: González Welch M.D. 02/17/2023 7:04 PM PG Care Time/CCT Total # of Minutes Spent Total Time Spent with Patient: Total time spent is greater than 50% in coordination of care (as documented) at patient's floor/unit and/or counseling patient: Coding Level of Care Code 39882 SUB INP/OBS CARE 2/35MIN Diagnoses Lumbar radiculopathy M54.16 Right low back pain M54.50 Intellectual disability F79 Post traumatic stress disorder (PTSD) F43.10 ADHD (attention deficit hyperactivity disorder) F90.9 MDD (major depressive disorder), recurrent episode, moderate F33.1 HTN (hypertension) I10 Dyslipidemia E78.5
[2023-02-18] MEDS: METHYLPHENIDATE HCL 10 MG TABLET PO SCH (13:51)
[2023-02-18] MEDS: ATORVASTATIN 10 MG TAB PO SCH (21:12)
[2023-02-18] MEDS: cloNIDine HCL 0.1 MG TAB PO SCH (21:13)
[2023-02-18] MEDS: PRAZOSIN HCL 1 MG CAP PO SCH (21:14)
[2023-02-18] MEDS: hydrOXYzine HCl 25 MG TAB PO SCH (22:16)
--- NOTE | 2023-02-18 23:46 | Billing Data ---
Date of Service February 18, 2023 Coding Level of Care Code 27748 INT INP/OBS CARE
[2023-02-19] MEDS: METHYLPHENIDATE PO SCH (06:28)
[2023-02-19] MEDS: PATIENT'S OWN CONTROLLED MED 1 PO SCH (06:28)
[2023-02-19] MEDS: ACETAMINOPHEN 1,000 MG/100 ML VIAL IV PRN (08:10)
[2023-02-19] MEDS: amLODIPine BESYLATE 5 MG TAB PO SCH (09:25)
[2023-02-19] MEDS: DULoxetine HCL 20 MG CAP PO SCH (09:25)
--- NOTE | 2023-02-19 11:03 | Hospitalist Progress Note ---
Date of Service February 19, 2023 Assessment & Plan (1) Lumbar radiculopathy: Plan: 32 yo male with PMHx HTN, HLD, depression, PTSD, ADHD, intellectual disability, and constipation presents with R leg weakness and bowel and bladder incontinence. #Lumbar radiculopathy -3 months progressively worsening low back pain, RLE weakness/numbness/tingling with fecal and urinary incontinence. -Borderline leukocytosis likely due to pain. UA negative. Denies fever. -MRI L-spine (02/17/23): redemonstration of L5-S1 disc protrusion with mild right neural foraminal stenosis Orthopedic consultation does not feel that the degree of change on MRI imaging fits with patient's clinical pictures and does not recommend intervention at this time Recommends multimodal pain control with consideration of outpatient pain management consultation PT/OT results of evaluations recommend rehab stay #HTN chronic and stable continue home amlodipine, clonidine #HLD -cont. home statin #Depression with atypical features #PTSD #ADHD #Intellectual disability -cont. home cariprazine, clonidine, duloxetine, hydroxyzine, methylphenidate, prazosin communication from psychiatric provider does not recommend tapering outpatient medication of vraylar and that this could be held at this time DVT ppx: SCDs; no chemical in case for spine surgery FEN/GI: NPO @ midnight in case for spine surgery Code Status: Full Dispo: med surg (2) Major depressive disorder, recurrent episode, with atypical features: (3) Post traumatic stress disorder (PTSD): (4) ADHD (attention deficit hyperactivity disorder): (5) HTN (hypertension): Admission and Anticipated Discharge Date Admission Date: February 17, 2023 Subjective Patient has improvement of his symptoms but still difficulty getting about both PT and OT feel he is a candidate for rehab due to his lack of poor social supports and difficulty with pain can symptom control Physical Exam Physical Exam: Patient appropriate reflexes bilaterally at the patella has intact sensation to his lower extremities with strength able to lift his legs off the bed against gravity but with following strengths do with minor pressure Exam is not consistent with a neurological loss or neuropathy Results & Data Results & Data Vital Signs (Past 12 Hours) Vital Signs Temp Pulse Resp BP Pulse Ox O2 Del Method 02/19/23 07:31 97.7 F 64 16 111/71 94 Room Air PG Care Time/CCT Total # of Minutes Spent Total Time Spent with Patient: Total time spent is greater than 50% in coordination of care (as documented) at patient's floor/unit and/or counseling patient: Coding Level of Care Code 77427 SUB INP/OBS CARE 235MIN Diagnoses Lumbar radiculopathy M54.16 Major depressive disorder, recurrent episode, with atypical features F33.9 Post traumatic stress disorder (PTSD) F43.10 ADHD (attention deficit hyperactivity disorder) F90.9 HTN (hypertension) I10
[2023-02-19] MEDS: METHYLPHENIDATE HCL 10 MG TABLET PO SCH (14:36)
[2023-02-19] MEDS: KETOROLAC 30 MG/ML VIAL IV PRN (14:36)
[2023-02-19] MEDS: cloNIDine HCL 0.1 MG TAB PO SCH (21:39)
[2023-02-19] MEDS: ACETAMINOPHEN 500 MG TAB PO SCH (21:39)
[2023-02-19] MEDS: ATORVASTATIN 10 MG TAB PO SCH (21:39)
[2023-02-19] MEDS: PRAZOSIN HCL 1 MG CAP PO SCH (21:40)
[2023-02-19] MEDS: hydrOXYzine HCl 25 MG TAB PO SCH (22:30)
[2023-02-19] MEDS: traMADol HCL 50 MG TABLET PO PRN (22:32)
[2023-02-20] MEDS: METHYLPHENIDATE PO SCH (06:08)
[2023-02-20] MEDS: PATIENT'S OWN CONTROLLED MED 1 PO SCH (06:09)
[2023-02-20] MEDS: ACETAMINOPHEN 500 MG TAB PO SCH ×3 (09:03→21:12)
[2023-02-20] MEDS: LIDOCAINE 5% 1 PATCH TD SCH (09:04)
[2023-02-20] MEDS: CeleBREX 200 MG CAP PO SCH (09:04)
[2023-02-20] MEDS: amLODIPine BESYLATE 5 MG TAB PO SCH (09:04)
[2023-02-20] MEDS: DULoxetine HCL 20 MG CAP PO SCH (09:05)
[2023-02-20] MEDS: traMADol HCL 50 MG TABLET PO PRN (13:01)
[2023-02-20] MEDS: METHYLPHENIDATE HCL 10 MG TABLET PO SCH (14:56)
--- NOTE | 2023-02-20 16:45 | Hospitalist Progress Note ---
Date of Service February 20, 2023 Assessment & Plan (1) Lumbar radiculopathy: Plan: 32 yo male with PMHx HTN, HLD, depression, PTSD, ADHD, intellectual disability, and constipation presents with R leg weakness and bowel and bladder incontinence. #Lumbar radiculopathy -3 months progressively worsening low back pain, RLE weakness/numbness/tingling with fecal and urinary incontinence. -Borderline leukocytosis likely due to pain. UA negative. Denies fever. -MRI L-spine (02/17/23): redemonstration of L5-S1 disc protrusion with mild right neural foraminal stenosis Orthopedic consultation does not feel that the degree of change on MRI imaging fits with patient's clinical pictures and does not recommend intervention at this time Recommends multimodal pain control with consideration of outpatient pain management consultation PT/OT results of evaluations recommend rehab stay patient on supportive this #HTN chronic and stable continue home amlodipine, clonidine Dyslipidemia -cont. home statin #Depression with atypical features, PTSD, ADHD, Intellectual disability -cont. home cariprazine, clonidine, duloxetine, hydroxyzine, methylphenidate, prazosin communication from psychiatric provider does not recommend tapering outpatient medication of vraylar and that this could be held at this time DVT ppx: SCDs; no chemical in case for spine surgery FEN/GI: NPO @ midnight in case for spine surgery Code Status: Full Dispo: med surg (2) Major depressive disorder, recurrent episode, with atypical features: (3) Post traumatic stress disorder (PTSD): (4) ADHD (attention deficit hyperactivity disorder): (5) HTN (hypertension): Admission and Anticipated Discharge Date Admission Date: February 17, 2023 Subjective Patient has improvement of his symptoms but still difficulty getting about both PT and OT feel he is a candidate for rehab due to his lack of poor social supports and difficulty with pain can symptom control Patient self is not sold on the rehab situation and still wants to try to make at home if he improves over the next day or 2 Physical Exam Physical Exam: Patient appropriate reflexes bilaterally at the patella has intact sensation to his lower extremities with strength able to lift his legs off the bed against gravity but with following strengths do with minor pressure Exam is not consistent with a neurological loss or neuropathy Results & Data Results & Data Vital Signs (Past 12 Hours) Vital Signs Temp Pulse Resp BP Pulse Ox O2 Del Method 02/20/23 15:59 98.1 F 87 16 122/81 98 Room Air 02/20/23 07:10 97.5 F L 65 18 112/73 95 Room Air PG Care Time/CCT Total # of Minutes Spent Total Time Spent with Patient: Total time spent is greater than 50% in coordination of care (as documented) at patient's floor/unit and/or counseling patient: Coding Level of Care Code 46741 SUB INP/OBS CARE 2/35MIN Diagnoses Lumbar radiculopathy M54.16 Major depressive disorder, recurrent episode, with atypical features F33.9 Post traumatic stress disorder (PTSD) F43.10 ADHD (attention deficit hyperactivity disorder) F90.9 HTN (hypertension) I10
[2023-02-20] MEDS: cloNIDine HCL 0.1 MG TAB PO SCH (21:13)
[2023-02-20] MEDS: ATORVASTATIN 10 MG TAB PO SCH (21:13)
[2023-02-20] MEDS: PRAZOSIN HCL 1 MG CAP PO SCH (21:14)
[2023-02-20] MEDS ORDERED: COUGH DROP (SUGAR FREE) LOZ 24 LOZ/1 BOX BUCCAL ONE (21:19)
[2023-02-20] MEDS: hydrOXYzine HCl 25 MG TAB PO SCH (22:12)
[2023-02-21] MEDS: PATIENT'S OWN CONTROLLED MED 1 PO SCH (06:26)
[2023-02-21] MEDS: METHYLPHENIDATE PO SCH (06:26)
[2023-02-21] MEDS: ACETAMINOPHEN 500 MG TAB PO SCH ×3 (08:46→20:10)
[2023-02-21] MEDS: CeleBREX 200 MG CAP PO SCH (08:46)
[2023-02-21] MEDS: LIDOCAINE 5% 1 PATCH TD SCH (08:46)
[2023-02-21] MEDS: amLODIPine BESYLATE 5 MG TAB PO SCH (08:46)
[2023-02-21] MEDS: DULoxetine HCL 20 MG CAP PO SCH (08:46)
[2023-02-21] MEDS: traMADol HCL 50 MG TABLET PO PRN ×2 (10:03→19:39)
[2023-02-21] MEDS: METHYLPHENIDATE HCL 10 MG TABLET PO SCH (13:08)
--- NOTE | 2023-02-21 16:12 | Hospitalist Progress Note ---
Date of Service February 21, 2023 Assessment & Plan (1) Lumbar radiculopathy: Plan: 32 yo male with PMHx HTN, HLD, depression, PTSD, ADHD, intellectual disability, and constipation presents with R leg weakness and bowel and bladder incontinence. #Lumbar radiculopathy -3 months progressively worsening low back pain, RLE weakness/numbness/tingling with fecal and urinary incontinence. -Borderline leukocytosis likely due to pain. UA negative. Denies fever. -MRI L-spine (02/17/23): redemonstration of L5-S1 disc protrusion with mild right neural foraminal stenosis Orthopedic consultation does not feel that the degree of change on MRI imaging fits with patient's clinical pictures and does not recommend intervention at this time Recommends multimodal pain control with consideration of outpatient pain management consultation PT/OT results of evaluations recommend rehab stay patient on supportive this #HTN chronic and stable continue home amlodipine, clonidine Dyslipidemia -cont. home statin #Depression with atypical features, PTSD, ADHD, Intellectual disability -cont. home cariprazine, clonidine, duloxetine, hydroxyzine, methylphenidate, prazosin communication from psychiatric provider does not recommend tapering outpatient medication of vraylar and that this could be held at this time DVT ppx: SCDs; Code Status: Full (2) Major depressive disorder, recurrent episode, with atypical features: (3) Post traumatic stress disorder (PTSD): (4) ADHD (attention deficit hyperactivity disorder): (5) HTN (hypertension): Admission and Anticipated Discharge Date Admission Date: February 17, 2023 Subjective Patient has improvement of his symptoms but still difficulty getting about both PT and OT feel he is a candidate for rehab due to his lack of poor social supports and difficulty with pain can symptom control Patient unable to adequately climb stairs although can walk on flat surfaces well he does have stairs at home and lives independently is unclear how we can support himself getting his shopping getting food etc. at this point time again recommend subacute rehab referral Physical Exam Physical Exam: Patient appropriate reflexes bilaterally at the patella has intact sensation to his lower extremities with strength able to lift his legs off the bed against gravity but with following strengths do with minor pressure Exam is not consistent with a neurological loss or neuropathy Results & Data Results & Data Vital Signs (Past 12 Hours) Vital Signs Temp Pulse Resp BP Pulse Ox O2 Del Method 02/21/23 07:39 97.7 F 73 16 144/86 H 95 Room Air PG Care Time/CCT Total # of Minutes Spent Total Time Spent with Patient: Total time spent is greater than 50% in coordination of care (as documented) at patient's floor/unit and/or counseling patient: Coding Level of Care Code 88413 SUB INP/OBS CARE 2/35MIN Diagnoses Lumbar radiculopathy M54.16 Major depressive disorder, recurrent episode, with atypical features F33.9 Post traumatic stress disorder (PTSD) F43.10 ADHD (attention deficit hyperactivity disorder) F90.9 HTN (hypertension) I10
[2023-02-21] MEDS: PRAZOSIN HCL 1 MG CAP PO SCH (20:10)
[2023-02-21] MEDS: cloNIDine HCL 0.1 MG TAB PO SCH (20:10)
[2023-02-21] MEDS: ATORVASTATIN 10 MG TAB PO SCH (20:11)
[2023-02-21] MEDS: hydrOXYzine HCl 25 MG TAB PO SCH (22:59)
[2023-02-22] MEDS: PATIENT'S OWN CONTROLLED MED 1 PO SCH (06:15)
[2023-02-22] MEDS: METHYLPHENIDATE PO SCH (06:16)
[2023-02-22] MEDS: CeleBREX 200 MG CAP PO SCH (08:21)
[2023-02-22] MEDS: ACETAMINOPHEN 500 MG TAB PO SCH ×3 (08:21→22:05)
[2023-02-22] MEDS: DULoxetine HCL 20 MG CAP PO SCH (08:21)
[2023-02-22] MEDS: amLODIPine BESYLATE 5 MG TAB PO SCH (08:22)
[2023-02-22] MEDS: LIDOCAINE 5% 1 PATCH TD SCH (10:46)
[2023-02-22] MEDS: METHYLPHENIDATE HCL 10 MG TABLET PO SCH (13:33)
[2023-02-22] MEDS: traMADol HCL 50 MG TABLET PO PRN (13:34)
--- NOTE | 2023-02-22 18:26 | Hospitalist Progress Note ---
Date of Service February 22, 2023 Assessment & Plan (1) Lumbar radiculopathy: Plan: 32 yo male with PMHx HTN, HLD, depression, PTSD, ADHD, intellectual disability, and constipation presents with R leg weakness and bowel and bladder incontinence. #Lumbar radiculopathy -3 months progressively worsening low back pain, RLE weakness/numbness/tingling with fecal and urinary incontinence. -Borderline leukocytosis likely due to pain. UA negative. Denies fever. -MRI L-spine (02/17/23): redemonstration of L5-S1 disc protrusion with mild right neural foraminal stenosis Orthopedic consultation does not feel that the degree of change on MRI imaging fits with patient's clinical pictures and does not recommend intervention at this time Recommends multimodal pain control with consideration of outpatient pain management consultation PT/OT results of evaluations recommend rehab stay patient on supportive this #HTN chronic and stable continue home amlodipine, clonidine Dyslipidemia -cont. home statin #Depression with atypical features, PTSD, ADHD, Intellectual disability -cont. home cariprazine, clonidine, duloxetine, hydroxyzine, methylphenidate, prazosin communication from psychiatric provider does not recommend tapering outpatient medication of vraylar and that this could be held at this time DVT ppx: SCDs; Code Status: Full (2) Major depressive disorder, recurrent episode, with atypical features: (3) Post traumatic stress disorder (PTSD): (4) ADHD (attention deficit hyperactivity disorder): (5) HTN (hypertension): Admission and Anticipated Discharge Date Admission Date: February 17, 2023 Subjective Patient has improvement of his symptoms but still difficulty getting about both PT and OT feel he is a candidate for rehab due to his lack of poor social supports and difficulty with pain can symptom control Patient unable to adequately climb stairs although can walk on flat surfaces well he does have stairs at home and lives independently is unclear how we can support himself getting his shopping getting food etc. at this point time again recommend subacute rehab referral No acute clinical changes in examination awaiting placement Physical Exam Physical Exam: Patient appropriate reflexes bilaterally at the patella has intact sensation to his lower extremities with strength able to lift his legs off the bed against gravity but with following strengths do with minor pressure Exam is not consistent with a neurological loss or neuropathy Results & Data Results & Data Vital Signs (Past 12 Hours) Vital Signs Temp Pulse Resp BP Pulse Ox O2 Del Method 06/27/23 14:47 98.4 F 85 18 136/89 98 Room Air 02/22/23 07:31 98.1 F 81 18 132/84 95 Room Air PG Care Time/CCT Total # of Minutes Spent Total Time Spent with Patient: Total time spent is greater than 50% in coordination of care (as documented) at patient's floor/unit and/or counseling patient: Coding Level of Care Code 87353 SUB INP/OBS CARE 09/22MIN Diagnoses Lumbar radiculopathy M54.16 Major depressive disorder, recurrent episode, with atypical features F33.9 Post traumatic stress disorder (PTSD) F43.10 ADHD (attention deficit hyperactivity disorder) F90.9 HTN (hypertension) I10
[2023-02-22] MEDS: PRAZOSIN HCL 1 MG CAP PO SCH (22:04)
[2023-02-22] MEDS: ATORVASTATIN 10 MG TAB PO SCH (22:05)
[2023-02-22] MEDS: cloNIDine HCL 0.1 MG TAB PO SCH (22:06)
[2023-02-22] MEDS: hydrOXYzine HCl 25 MG TAB PO SCH (22:30)
[2023-02-23] MEDS: METHYLPHENIDATE PO SCH (06:09)
[2023-02-23] MEDS: PATIENT'S OWN CONTROLLED MED 1 PO SCH (06:09)
[2023-02-23] MEDS: CeleBREX 200 MG CAP PO SCH (08:23)
[2023-02-23] MEDS: ACETAMINOPHEN 500 MG TAB PO SCH ×3 (08:23→20:06)
[2023-02-23] MEDS: amLODIPine BESYLATE 5 MG TAB PO SCH (08:24)
[2023-02-23] MEDS: DULoxetine HCL 20 MG CAP PO SCH (08:24)
[2023-02-23] MEDS: LIDOCAINE 5% 1 PATCH TD SCH (08:25)
[2023-02-23] MEDS: traMADol HCL 50 MG TABLET PO PRN ×2 (11:41→19:38)
[2023-02-23] MEDS: METHYLPHENIDATE HCL 10 MG TABLET PO SCH (14:09)
[2023-02-23] MEDS ORDERED: SENNA 8.6 MG TAB PO ONE (17:17)
--- NOTE | 2023-02-23 17:19 | Hospitalist Progress Note ---
Date of Service February 23, 2023 Assessment & Plan (1) Lumbar radiculopathy: Plan: 32 yo male with PMHx HTN, HLD, depression, PTSD, ADHD, intellectual disability, and constipation presents with R leg weakness and bowel and bladder incontinence. Lumbar radiculopathy -3 months progressively worsening low back pain, RLE weakness/numbness/tingling with fecal and urinary incontinence. - -MRI L-spine (02/17/23): redemonstration of L5-S1 disc protrusion with mild right neural foraminal stenosis Orthopedic consultation does not feel that the degree of change on MRI imaging fits with patient's clinical pictures and does not recommend intervention at this time Recommends multimodal pain control with consideration of outpatient pain management consultation increased dose of tramadol in the evening of 02/23, remains on scheduled Tylenol Celebrex and lidocaine patch PT/OT results of evaluations recommend rehab stay patient on supportive this HTN chronic and stable continue home amlodipine, clonidine Dyslipidemia -cont. home statin Depression with atypical features, PTSD, ADHD, Intellectual disability -cont. home cariprazine, clonidine, duloxetine, hydroxyzine, methylphenidate, prazosin communication from psychiatric provider does not recommend tapering outpatient medication of vraylar and that this could be held at this time DVT ppx: SCDs; Code Status: Full (2) Major depressive disorder, recurrent episode, with atypical features: (3) Post traumatic stress disorder (PTSD): (4) ADHD (attention deficit hyperactivity disorder): (5) HTN (hypertension): Admission and Anticipated Discharge Date Admission Date: February 17, 2023 Subjective Patient has improvement of his symptoms but still difficulty getting about still complaining of pain and now complaining of constipation Patient unable to adequately climb stairs although can walk on flat surfaces well he does have stairs at home and lives independently is unclear how we can support himself getting his shopping getting food etc. at this point time again recommend subacute rehab referral No acute clinical changes in examination awaiting placement increasing pain con trol and adding laxative medication Physical Exam Physical Exam: Patient appropriate reflexes bilaterally at the patella has intact sensation to his lower extremities with strength able to lift his legs off the bed against gravity but with following strengths do with minor pressure Exam is not consistent with a neurological loss or neuropathy Results & Data Results & Data Vital Signs (Past 12 Hours) Vital Signs Temp Pulse Resp BP Pulse Ox O2 Del Method 06/28/23 14:40 98.8 F 99 H 18 142/90 H 94 Room Air 02/23/23 07:42 97.9 F 76 18 126/83 94 Room Air PG Care Time/CCT Total # of Minutes Spent Total Time Spent with Patient: Total time spent is greater than 50% in coordination of care (as documented) at patient's floor/unit and/or counseling patient: Coding Level of Care Code 13689 SUB INP/OBS CARE 2/35MIN Diagnoses Lumbar radiculopathy M54.16 Major depressive disorder, recurrent episode, with atypical features F33.9 Post traumatic stress disorder (PTSD) F43.10 ADHD (attention deficit hyperactivity disorder) F90.9 HTN (hypertension) I10
[2023-02-23] MEDS ORDERED: bisacodyL 10 MG SUPP PR STA (17:42)
[2023-02-23] MEDS: ATORVASTATIN 10 MG TAB PO SCH (20:07)
[2023-02-23] MEDS: hydrOXYzine HCl 25 MG TAB PO SCH (20:07)
[2023-02-23] MEDS: cloNIDine HCL 0.1 MG TAB PO SCH (20:07)
[2023-02-23] MEDS: PRAZOSIN HCL 1 MG CAP PO SCH (20:08)
[2023-02-24] MEDS: METHYLPHENIDATE PO SCH (05:21)
[2023-02-24] MEDS: PATIENT'S OWN CONTROLLED MED 1 PO SCH (05:21)
[2023-02-24] MEDS: ACETAMINOPHEN 500 MG TAB PO SCH ×2 (08:48→13:32)
[2023-02-24] MEDS: DULoxetine HCL 20 MG CAP PO SCH (08:49)
[2023-02-24] MEDS: amLODIPine BESYLATE 5 MG TAB PO SCH (08:49)
[2023-02-24] MEDS: LIDOCAINE 5% 1 PATCH TD SCH (08:52)
[2023-02-24] MEDS: CeleBREX 200 MG CAP PO SCH (08:52)
[2023-02-24] MEDS ORDERED: SENNA 8.6 MG TAB PO SCH (09:00)
[2023-02-24] MEDS: traMADol HCL 50 MG TABLET PO PRN (10:19)
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
[2023-02-24] MEDS: METHYLPHENIDATE HCL 10 MG TABLET PO SCH (13:41)
== END 2023-02-24 16:08 | DRG 552 ==
LOC: ED 15:54 → SUATTDRO 21:15 → 3N 21:15

== ENCOUNTER 2023-03-17 15:11 | Inpatient (IN) ==
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
--- NOTE | 2023-03-17 17:08 | CT Scan Report ---
CT SCAN OF THE CERVICAL SPINE CLINICAL HISTORY: Fall. Neck pain. COMPARISON STUDY: CT of the cervical spine dated 01/22/2022. TECHNIQUE: CT scan of the cervical spine is performed from the skull base to the upper thoracic spine . Images are reviewed in the axial, sagittal, and coronal planes. IV contrast was not administered fo r this examination. A dose lowering technique was utilized adhering to the principles of ALARA. FINDINGS: Skeletal structures: The skeletal structures are well mineralized. There is no evidence of fracture o r subluxation involving the cervical spine. Vertebral body height and alignment are maintained. There is straightening of the cervical lordosis. The odontoid process and lateral masses are intact. The atlantoaxial articulation is preserved. The spinous processes appear intact. Intervertebral discs: The disc spaces are well maintained. Central canal: Widely patent. Soft tissues: The prevertebral and paraspinous soft tissues are within normal limits. Calvarium: The visualized calvarium at the skull base appears intact. Brain parenchyma: Partially visualized brain parenchyma at the skull base is within normal limits. Sinuses and mastoids: The visualized paranasal sinuses are clear. The mastoid air cells are well pneu matized. Lung apices: Clear as visualized. IMPRESSION: There is no evidence of cervical spine fracture or subluxation. ACT 112: Negative or not required by law. Electronically signed by: Evan Duran M.D. 03/17/2023 5:07 PM
--- NOTE | 2023-03-17 17:11 | CT Scan Report ---
CT SCAN OF THE BRAIN WITHOUT IV CONTRAST CLINICAL HISTORY: Fall. COMPARISON STUDY: CT of the brain dated 01/11/2023. TECHNIQUE: Unenhanced axial CT scan of the brain is performed from the vertex to the skull base. A d ose lowering technique was utilized adhering to the principles of ALARA. CT DOSE: 1148.07 mGy.cm FINDINGS: Brain parenchyma: The brain parenchyma is normal in appearance. There is no hemorrhage, mass effect, or evidence of acute territorial ischemia by CT criteria. Zhao-white matter differentiation is preser brian. No extra-axial fluid collection is seen. Ventricles, sulci, cisterns: Normal in configuration. Intracranial vasculature: The visualized intracranial vasculature at the skull base is normal in appe arance. Calvarium: There is no depressed calvarial fracture. Sinuses and mastoids: The visualized paranasal sinuses are clear. The mastoid air cells are well pneu matized. Orbits: The bony orbits are grossly intact. IMPRESSION: No acute intracranial abnormality. ACT 112: Negative or not required by law. Electronically signed by: Evan Duran M.D. 03/17/2023 5:09 PM
[2023-03-17 17:54] LABS: Albumin Globulin Ratio 1.5 (0.9-2); Albumin Level 4.5 gm/dl (3.4-5.0); BUN Creatinine Ratio 8.2 (10-20); Bilirubin,Total 0.2 mg/dl (0.2-1.0); Calcium 9.3 mg/dl (8.6-10.3); Creatinine Clr Calc Pharmacy 164.1 ml/min; Est GFR (African American) 142.2 ml/min; Est GFR (Non-African American) 122.7 ml/min; Globulin 3.1 gm/dl (2.5-4.0); Potassium 3.9 mmol/L (3.5-5.1); Total Protein 7.6 gm/dl (6.0-8.3)
--- NOTE | 2023-03-17 18:26 | Magnetic Resonance Report ---
MRI OF THE LUMBAR SPINE WITHOUT CONTRAST CLINICAL HISTORY: Right leg numbness, weakness, hx back problems COMPARISON STUDY: Lumbar spine MRI February 17, 2023. TECHNIQUE: Utilizing a 1.5 Alma magnet and dedicated coil, multiplanar, multiecho imaging of the [facility] spine was performed without IV contrast. FINDINGS: For purposes of numbering on this exam, the L5-S1 disc space is assigned to axial image 23 of 25. Ali gnment of the lumbar spine is anatomic. Vertebral body heights are maintained. There is no marrow kendall ma or marrow replacement. No intracanalicular mass or fluid collection is present. Conus terminates a t the lower T12 level. Paravertebral soft tissues are unremarkable. Desiccation of the L5-S1 disc is again noted. L1-2: The central canal and neural foramen are patent. L2-3: The central canal and neural foramen are patent. L3-4: The central canal and neural foramen are patent. L4-5: The central canal and neural foramen are patent. L5-S1: A small central/right paracentral disc protrusion results in mild narrowing of the right later al recess. This has slightly decreased in size since prior exam. This does not significantly narrow t he central canal. The left neural foramen is patent. There is mild facet arthrosis at this level. IMPRESSION: 1. No acute process within the lumbar spine by MRI. 2. Small central/right paracentral disc protrusion at L5-S1 which results in mild narrowing of the ri ght lateral recess. This disc protrusion has slightly decreased in size since prior exam. No addition al disc herniations. ACT 112: Negative or not required by law. Electronically signed by: Kedar Land M.D. 03/17/2023 6:23 PM
[2023-03-17 19:01] LABS: Basophils # (auto) 0.04 K/uL (0-0.2); Basophils % (auto) 0.4 %; Eosinophils # (auto) 0.09 K/uL (0-0.50); Hematocrit (blood only) 40.3 % (42.0-52.0); Hemoglobin 13.5 g/dl (14.0-18.0); Immature Granulocytes # (auto) 0.02 K/uL (0.01-0.20); Immature Granulocytes % (auto) 0.2 %; Lymphocytes # (auto) 2.39 K/uL (1.2-3.4); Lymphocytes % (auto) 25.3 %; Mean Corpuscular Hemoglobin 28.7 pg (25.0-34.0); Mean Corpuscular Hgb Conc 33.5 g/dL (32.0-36.0); Mean Corpuscular Volume 85.6 fL (80.0-100.0); Monocytes # (auto) 0.96 K/uL (0.11-0.59); Monocytes % (auto) 10.2 %; Neutrophils # (auto) 5.93 K/uL (1.40-6.50); Neutrophils % (auto) 62.9 %; Platelet Count 558 K/uL (130-400); RDW Coefficient of Variation 13.6 % (11.5-14.5); RDW Standard Deviation 42.6 fL (36.4-46.3); Red Blood Count 4.71 M/uL (4.70-6.10); White Blood Count 9.43 K/ul (4.8-10.8)
[2023-03-17] MEDS ORDERED: ACETAMINOPHEN 500 MG TAB PO STA (20:42)
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
--- NOTE | 2023-03-17 22:28 | CT Scan Report ---
Exam(s): CT RIGHT HIP Without Contrast EXAM: CT Right Lower Extremity Without Intravenous Contrast, Hip CLINICAL HISTORY: Reason for exam: R hip weakness. TECHNIQUE: Axial computed tomography images of the right hip without intravenous contrast. CTDI is 29.37 mGy and DLP is 631.07 mGy-cm. Automated exposure control was utilized for the study. A dose lowering technique was utilized adhering to the principles of ALARA. COMPARISON: CT abdomen pelvis 11/28/22 FINDINGS: Bones/joints: Unremarkable. No acute fracture. No dislocation. Soft tissues: Unremarkable. No cellulitis or mass. IMPRESSION: 1. No fracture, soft tissue or bony abnormality. Electronically signed by: Ghislaine Dahl M.D. 03/17/23 22:28 PM
[2023-03-17] MEDS: ENOXAPARIN INJ 40 MG/0.4 ML SYR SQ SCH (23:06)
[2023-03-17] MEDS: PRAZOSIN HCL 1 MG CAP PO SCH (23:08)
[2023-03-17] MEDS: hydrOXYzine HCl 25 MG TAB PO SCH (23:09)
[2023-03-17] MEDS: cloNIDine HCL 0.1 MG TAB PO SCH (23:10)
[2023-03-17] MEDS: ATORVASTATIN 10 MG TAB PO SCH (23:10)
[2023-03-17] MEDS: traMADol HCL 50 MG TABLET PO PRN (23:14)
[2023-03-18] MEDS ORDERED: [UNRECOGNIZED DRUG - REMARK] SCH
[2023-03-18] MEDS: ACETAMINOPHEN 325 MG TAB PO PRN ×2 (06:07→19:38)
[2023-03-18] MEDS: METHYLPHENIDATE HCL PO SCH (06:08)
[2023-03-18] MEDS: CONCERTA 54 MG PO SCH (06:09)
[2023-03-18] MEDS: DULoxetine HCL 20 MG CAP PO SCH (07:51)
[2023-03-18] MEDS: CeleBREX 200 MG CAP PO SCH (07:51)
[2023-03-18] MEDS: amLODIPine BESYLATE 5 MG TAB PO SCH (07:51)
--- NOTE | 2023-03-18 08:27 | Hospitalist Progress Note ---
Date of Service March 18, 2023 Assessment & Plan (1) Weakness of right leg: Plan: Patient is a 32-year-old male with a past medical history of hypertension, hyperlipidemia, depression, PTSD, ADHD, intellectual disability, and persistent right lower extremity weakness who presents to the hospital for evaluation for fall due to worsening right lower extremity weakness. Patient to be admitted for further work-up and due to patient not being safe to be discharged home. RLE Weakness/Loss of Sensation - CT Head/C-spine negative for new/worsening abnormalities - MRI of lumbar spine negative for new/worsening abnormalities - No current evidence of spinal cord injury, nerve impingement, or radiculopathy that could cause monoplegia - Patient exhibiting complete RLE loss of strength/sensation, also endorsing uri nary and bowel incontinence - Neurology consulted, recommendations appreciated * Recommending MRI Brain/T-spine to rule out MS vs Transverse Myelitis * Concern exists for conversion disorder vs malingering - Ortho consulted on admission, recommendations appreciated L5-S1 Degenerative Disk Disease - Patient has small disc protrusion at L5-S1 with narrowing of right lateral recess - No evidence of damage to spinal cord or nerve roots - Noted during previous admission, improved since prior imaging - Patient's symptoms not consistent with degree of pathology present on imaging Intellectual Disability - Patient w/ capacity to make informed decisions HTN - Continue home antihypertensive MDD - Continue Vraylar ADD - Continue Methylphenidate Disposition - Patient expressing concern regarding going home independently - Patient notes lack of support at home - CM consulted to aid in facilitation of resources and discharge planning (2) Intellectual disability: (3) HTN (hypertension): Plan: - Continue home medications (4) Major depressive disorder, recurrent episode, with atypical features: (5) ADHD (attention deficit hyperactivity disorder): Plan Disposition: [facility] DVT prophylaxis: Lovenox Diet: Regular CODE STATUS: Full code Admission and Anticipated Discharge Date Admission Date: March 17, 2023 Supervising Physician Co-Signing Physician Notes I personally examined the patient and verified all glass points of history and exam, discussed case, and agree with decision making with Dr Riley Leg weakness. Vitals noted. Breathing unlabored. Otherwise as above. CTs, MRIs noted leg weaknessconversion versus possibly factitious. We will need to discuss further with patient. PT/OT eval and treat. I wonder if living situation plays a role. Otherwise as above. Subjective 7/21: Patient resting comfortably upon arrival. Denies new symptoms. Continues to endorse complete lack of right leg strength and sensation. Patient notes that he fell at home because he was unable to walk, but that he normally walks with a walker at baseline. Patient denies recent trauma or pain in the leg, but notes that he has pain in his low back. He endorses occasional episodes of urinary and bowel incontinence. Denies chest pain, dyspnea, headaches, nausea, or emesis. Patient notes that he was recently admitted to [facility], but that when he got home he didn't have Home health or PT resources, patient noted that he did not feel safe going back home by himself. Physical Exam Physical Exam: Gen: NAD, alert, interactive HEENT: Supple, no LAD, no thyromegaly, no JVD Resp:Non-labored, no wheezing/rhonchi/rales, CTAB CV:RRR, normal S1/S2, no M/R/G Abd: Soft, non-distended, no TTP, normoactive bowels, no masses Extr: 2+ dp bilaterally, no edema Neuro: AO x 3, strength and sensation intact in LUE/RUE, strength 3/5 in RUE w/ sensation intact, strength 0/5 in RLE w/o sensation, reflexes intact and symmetric in UE and LE bilaterally, PERRL, EOMI Skin: No rashes lesions or erythema Results & Data Results & Data Vital Signs (Past 12 Hours) Vital Signs Temp Pulse Resp BP Pulse Ox O2 Del Method 03/18/23 07:32 36.3 C L 80 18 119/81 94 Room Air 03/17/23 22:24 36.7 C 104 H 20 153/111 H 97 Room Air Diagnostic Findings Cervical Spine CT 03/17/23 16:26 CT SCAN OF THE CERVICAL SPINE CLINICAL HISTORY: Fall. Neck pain. COMPARISON STUDY: CT of the cervical spine dated 01/22/2022. TECHNIQUE: CT scan of the cervical spine is performed from the skull base to the upper thoracic spine. Images are reviewed in the axial, sagittal, and coronal planes. IV contrast was not administered for this examination. A dose lowering technique was utilized adhering to the principles of ALARA. FINDINGS: Skeletal structures: The skeletal structures are well mineralized. There is no evidence of fracture or subluxation involving the cervical spine. Vertebral body height and alignment are maintained. There is straightening of the cervical lordosis. The odontoid process and lateral masses are intact. The atlantoaxial articulation is preserved. The spinous processes appear intact. Intervertebral discs: The disc spaces are well maintained. Central canal: Widely patent. Soft tissues: The prevertebral and paraspinous soft tissues are within normal limits. Calvarium: The visualized calvarium at the skull base appears intact. Brain parenchyma: Partially visualized brain parenchyma at the skull base is within normal limits. Sinuses and mastoids: The visualized paranasal sinuses are clear. The mastoid air cells are well pneumatized. Lung apices: Clear as visualized. IMPRESSION: There is no evidence of cervical spine fracture or subluxation. ACT 112: Negative or not required by law. Electronically signed by: Evan Duran M.D. 03/17/2023 5:[address] 03/17/23 16:26 CT SCAN OF THE BRAIN WITHOUT IV CONTRAST CLINICAL HISTORY: Fall. COMPARISON STUDY: CT of the brain dated 01/11/2023. TECHNIQUE: Unenhanced axial CT scan of the brain is performed from the vertex to the skull base. A dose lowering technique was utilized adhering to the principles of ALARA. CT DOSE: 1148.07 mGy.cm FINDINGS: Brain parenchyma: The brain parenchyma is normal in appearance. There is no hemorrhage, mass effect, or evidence of acute territorial ischemia by CT criteria. Zhao-white matter differentiation is preserved. No extra-axial fluid collection is seen. Ventricles, sulci, cisterns: Normal in configuration. Intracranial vasculature: The visualized intracranial vasculature at the skull base is normal in appearance. Calvarium: There is no depressed calvarial fracture. Sinuses and mastoids: The visualized paranasal sinuses are clear. The mastoid air cells are well pneumatized. Orbits: The bony orbits are grossly intact. IMPRESSION: No acute intracranial abnormality. ACT 112: Negative or not required by law. Electronically signed by: Evan Duran M.D. 03/17/2023 5:09 PM Lumbar Spine MRI 03/17/23 17:01 MRI OF THE LUMBAR SPINE WITHOUT CONTRAST CLINICAL HISTORY: Right leg numbness, weakness, hx back problems COMPARISON STUDY: Lumbar spine MRI February 17, 2023. TECHNIQUE: Utilizing a 1.5 Alma magnet and dedicated coil, multiplanar, multiecho imaging of the lumbar spine was performed without IV contrast. FINDINGS: For purposes of numbering on this exam, the L5-S1 disc space is assigned to axial image 23 of 25. Alignment of the lumbar spine is anatomic. Vertebral body heights are maintained. There is no marrow edema or marrow replacement. No intracanalicular mass or fluid collection is present. Conus terminates at the lower T12 level. Paravertebral soft tissues are unremarkable. Desiccation of the L5-S1 disc is again noted. L1-2: The central canal and neural foramen are patent. L2-3: The central canal and neural foramen are patent. L3-4: The central canal and neural foramen are patent. L4-5: The central canal and neural foramen are patent. L5-S1: A small central/right paracentral disc protrusion results in mild narrowing of the right lateral recess. This has slightly decreased in size since prior exam. This does not significantly narrow the central canal. The left neural foramen is patent. There is mild facet arthrosis at this level. IMPRESSION: 1. No acute process within the lumbar spine by MRI. 2. Small central/right paracentral disc protrusion at L5-S1 which results in mild narrowing of the right lateral recess. This disc protrusion has slightly decreased in size since prior exam. No additional disc herniations. ACT 112: Negative or not required by law. Electronically signed by: Kedar Land M.D. 03/17/2023 6:[address] 03/17/23 21:10 Exam(s): CT RIGHT HIP Without Contrast EXAM: CT Right Lower Extremity Without Intravenous Contrast, Hip CLINICAL HISTORY: Reason for exam: R hip weakness. TECHNIQUE: Axial computed tomography images of the right hip without intravenous contrast. CTDI is 29.37 mGy and DLP is 631.07 mGy-cm. Automated exposure control was utilized for the study. A dose lowering technique was utilized adhering to the principles of ALARA. COMPARISON: CT abdomen pelvis 11/28/22 FINDINGS: Bones/joints: Unremarkable. No acute fracture. No dislocation. Soft tissues: Unremarkable. No cellulitis or mass. IMPRESSION: 1. No fracture, soft tissue or bony abnormality. Electronically signed by: Ghislaine Dahl M.D. 03/17/23 22:28 PM Resident Activity Tracking Resident Involvement: Resident Care Provided Care Provided: [facility]
[2023-03-18 08:37] LABS: Hematocrit (blood only) 41.2 % (42.0-52.0); Hemoglobin 13.4 g/dl (14.0-18.0); Mean Corpuscular Hemoglobin 28.8 pg (25.0-34.0); Mean Corpuscular Hgb Conc 32.5 g/dL (32.0-36.0); Mean Corpuscular Volume 88.4 fL (80.0-100.0); Mean Platelet Volume 9.4 fL (9.4-12.4); Platelet Count 505 K/uL (130-400); RDW Coefficient of Variation 14.1 % (11.5-14.5); RDW Standard Deviation 45.2 fL (36.4-46.3); Red Blood Count 4.66 M/uL (4.70-6.10); White Blood Count 7.49 K/ul (4.8-10.8)
[2023-03-18 08:38] LABS: Albumin Level 3.8 gm/dl (3.4-5.0); Bilirubin,Total 0.4 mg/dl (0.2-1.0); Potassium 3.6 mmol/L (3.5-5.1)
[2023-03-18 08:44] LABS: Albumin Globulin Ratio 1.3 (0.9-2); BUN Creatinine Ratio 11.7 (10-20); Creatinine Clr Calc Pharmacy 127.4 ml/min; Est GFR (African American) 123.8 ml/min; Est GFR (Non-African American) 106.9 ml/min; Globulin 2.9 gm/dl (2.5-4.0); Total Protein 6.7 gm/dl (6.0-8.3)
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
[2023-03-18] MEDS: traMADol HCL 50 MG TABLET PO PRN (13:35)
[2023-03-18] MEDS: METHYLPHENIDATE HCL 10 MG TABLET PO SCH (14:23)
[2023-03-18 16:03] LABS: Appearance Urine Clear (Clear); Bilirubin Urine Negative (Negative); Blood Urine Negative (Negative); Color Urine Yellow; Glucose Urine UA Negative (Negative); Ketones Urine Negative (Negative); Leukocyte Esterase Urine Negative (Negative); Nitrite Urine Negative (Negative); Protein Urine Negative (Negative); Specific Gravity Urine 1.018 (1.000-1.030); Urobilinogen Urine Negative (Negative); pH Urine 5.5 (4.5-7.5)
[2023-03-18] MEDS ORDERED: GADOBUTROL 65ML VIAL IV ONE (17:42)
--- NOTE | 2023-03-18 19:32 | Magnetic Resonance Report ---
MR brain wo/w con CLINICAL HISTORY: Leg weakness/sensory loss TECHNIQUE: Multiplanar and multisequence MR images of the brain were obtained prior to and following administration of gadolinium contrast. Comparison: Comparison is made to CT head 03/17/2023 FINDINGS: No abnormal restricted diffusion is identified. The white matter is unremarkable. The ventricular sys tem is normal in appearance. No mass or abnormal enhancement is seen. There is no mass effect or midl ine shift. There is no evidence of acute intraparenchymal hemorrhage. No extra axial fluid collection s are seen. The corpus callosum, pituitary gland, and cerebellar tonsils appear grossly unremarkable. Flow voids of the major intracranial arterial vessels are identified. The imaged portions of the para nasal sinuses, mastoid air cells, and orbits are unremarkable. IMPRESSION: No acute abnormality and in particular no evidence of acute infarct. ACT 112: Negative or not required by law. Electronically signed by: González Welch M.D. 03/18/2023 7:30 PM
--- NOTE | 2023-03-18 19:34 | Magnetic Resonance Report ---
MR thoracic spine wo con CLINICAL HISTORY: leg weakness/sensory loss TECHNIQUE: Multiplanar sequences through the thoracic spine were obtained, without intravenous contra st. Comparison: None available at the time of this dictation. FINDINGS: The alignment is anatomical. Disks are normal in height and signal. The spinal canal and neural foramina are patent. The spinal ligaments are intact, without evidence of disruption or abnormal signal intensity. The spi nal cord is normal in signal intensity and there is no evidence of cord contusion. There is no eviden ce of an extradural, intradural, extramedullary or intramedullary lesion. Visualized soft tissues are normal. IMPRESSION: No evidence of cord compression, significant neuroforaminal narrowing or ligamentous injury. ACT 112: Negative or not required by law. Electronically signed by: González Welch M.D. 03/18/2023 7:32 PM
--- NOTE | 2023-03-18 20:08 | Billing Data ---
Date of Service March 18, 2023 Coding Level of Care Code 94479 SUB INP/OBS CARE
[2023-03-18] MEDS: ENOXAPARIN INJ 40 MG/0.4 ML SYR SQ SCH (20:13)
[2023-03-18] MEDS: cloNIDine HCL 0.1 MG TAB PO SCH (20:13)
[2023-03-18] MEDS: ATORVASTATIN 10 MG TAB PO SCH (20:14)
[2023-03-18] MEDS: PRAZOSIN HCL 1 MG CAP PO SCH (20:14)
[2023-03-18] MEDS: hydrOXYzine HCl 25 MG TAB PO SCH (21:52)
[2023-03-19] MEDS: CONCERTA 54 MG PO SCH (06:14)
[2023-03-19] MEDS: METHYLPHENIDATE HCL PO SCH (06:14)
[2023-03-19 07:28] LABS: Hematocrit (blood only) 39.1 % (42.0-52.0); Hemoglobin 13.2 g/dl (14.0-18.0); Mean Corpuscular Hemoglobin 29.1 pg (25.0-34.0); Mean Corpuscular Hgb Conc 33.8 g/dL (32.0-36.0); Mean Corpuscular Volume 86.1 fL (80.0-100.0); Mean Platelet Volume 9.2 fL (9.4-12.4); Platelet Count 509 K/uL (130-400); RDW Coefficient of Variation 13.5 % (11.5-14.5); RDW Standard Deviation 42.5 fL (36.4-46.3); Red Blood Count 4.54 M/uL (4.70-6.10); White Blood Count 7.35 K/ul (4.8-10.8)
--- NOTE | 2023-03-19 07:51 | Hospitalist Progress Note ---
Date of Service March 19, 2023 Assessment & Plan (1) Weakness of right leg: Plan: Patient is a 32-year-old male with a past medical history of hypertension, hyperlipidemia, depression, PTSD, ADHD, intellectual disability, and persistent right lower extremity weakness who presents to the hospital for evaluation for fall due to worsening right lower extremity weakness. Patient to be admitted for further work-up and due to patient not being safe to be discharged home. RLE Weakness/Loss of Sensation - CT Head/C-spine negative for new/worsening abnormalities - MRI of lumbar spine negative for new/worsening abnormalities - No current evidence of spinal cord injury, nerve impingement, or radiculopathy that could cause monoplegia - Patient exhibiting complete RLE loss of strength/sensation, also endorsing uri nary and bowel incontinence - Neurology consulted, recommendations appreciated * Recommended MRI Brain/T-spine to rule out MS vs Transverse Myelitis - both negative w/o abnormality 03/18 * Concern exists for conversion disorder vs malingering - Ortho consulted on admission, * Reviewed imaging, noted as negative * No indication for surgical intervention - PT/OT recommending inpatient rehab upon discharge --- Clinical picture remains most consistent with conversion disorder vs. factitious --- Discussed negative imaging with patient and possible association with conversion/mental health, patient endorses that living situation is playing a role in his current physical state as he has significant fear/anxiety surrounding stairs/falls at home and thus walks with walker at baseline, will have PT/OT evaluate patient, CM following and have placed referral for [facility] (as patient has been treated there in the past). L5-S1 Degenerative Disk Disease - Patient has small disc protrusion at L5-S1 with narrowing of right lateral recess - No evidence of damage to spinal cord or nerve roots - Noted during previous admission, improved since prior imaging - Patient's symptoms not consistent with degree of pathology present on imaging Intellectual Disability - Patient w/ capacity to make informed decisions HTN - Continue home antihypertensive MDD - Continue Vraylar ADD - Continue Methylphenidate Disposition - Patient expressing concern regarding going home independently - Patient notes lack of support at home - CM consulted to aid in facilitation of resources and discharge planning Disposition: MedSurg, PT rec inpt rehab, referral placed for [facility] DVT prophylaxis: Lovenox Diet: Regular CODE : Full code (2) Intellectual disability: (3) HTN (hypertension): (4) Major depressive disorder, recurrent episode, with atypical features: (5) ADHD (attention deficit hyperactivity disorder): Admission and Anticipated Discharge Date Admission Date: March 17, 2023 Supervising Physician Co-Signing Physician Notes Resident Physician Supervision Note: I independently interviewed and examined the patient and verified the glass history and physical, reviewed labs and image studies and agree with resident findings and care plan. Subjective 03/19: Patient comfortable in bed enjoying breakfast (using silverware with right hand) upon arrival. Patient continues to endorse weakness and lack of sensation in his right leg, but notes that his upper extremities and back pain are improved. Denies chest pain, dyspnea, headaches, nausea, or emesis. Discussed negative testing and patients disposition concerns at length. Patient expressed concern about going home to apartment with stairs as he is afraid of having a fall. Because of this, he walks with a walker at baseline. Patient feels like his mental health care is adequate and supportive ([place] - follows with psychiatrist and counselor). He feels as though he would benefit from additional support with ambulation, specifically regarding stairs. Physical Exam Physical Exam: Gen: NAD, alert, interactive HEENT: Supple, no LAD, no thyromegaly, no JVD Resp:Non-labored, no wheezing/rhonchi/rales, CTAB CV:RRR, normal S1/S2, no M/R/G Abd: Soft, non-distended, no TTP, normoactive bowels, no masses Extr: full and symmetric muscle tone bilaterally in UE and LE, 2+ dp bilaterally, no edema Neuro: AO x 3, strength and sensation intact in LUE/LLE, strength 5/5 in RUE w/ sensation intact, strength 4/5 in RLE w/o sensation, reflexes intact and symmetric in UE and LE bilaterally, PERRL, EOMI Skin: No rashes lesions or erythema Results & Data Results & Data Vital Signs (Past 12 Hours) Vital Signs Temp Pulse Resp BP Pulse Ox O2 Del Method 03/19/23 07:29 36.7 C 84 16 148/81 H 97 Room Air 03/18/23 20:42 36.8 C 92 H 18 131/80 95 Room Air Resident Activity Tracking Resident Involvement: Resident Care Provided Care Provided: Adult Hospital Medicine
[2023-03-19] MEDS: CeleBREX 200 MG CAP PO SCH (07:59)
[2023-03-19] MEDS: amLODIPine BESYLATE 5 MG TAB PO SCH (07:59)
[2023-03-19] MEDS: DULoxetine HCL 20 MG CAP PO SCH (07:59)
[2023-03-19 08:49] LABS: BUN Creatinine Ratio 18.2 (10-20); Creatinine Clr Calc Pharmacy 136.1 ml/min; Est GFR (African American) 131.7 ml/min; Est GFR (Non-African American) 113.7 ml/min; Potassium 3.6 mmol/L (3.5-5.1)
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
[2023-03-19] MEDS: METHYLPHENIDATE HCL 10 MG TABLET PO SCH (14:07)
[2023-03-19] MEDS: ACETAMINOPHEN 325 MG TAB PO PRN (19:54)
[2023-03-19] MEDS: ATORVASTATIN 10 MG TAB PO SCH (20:12)
[2023-03-19] MEDS: ENOXAPARIN INJ 40 MG/0.4 ML SYR SQ SCH (20:12)
[2023-03-19] MEDS: PRAZOSIN HCL 1 MG CAP PO SCH (20:12)
[2023-03-19] MEDS: cloNIDine HCL 0.1 MG TAB PO SCH (20:13)
[2023-03-19] MEDS ORDERED: COUGH DROP (SUGAR FREE) LOZ 24 LOZ/1 BOX BUCCAL PRN (20:46)
[2023-03-19] MEDS: traMADol HCL 50 MG TABLET PO PRN (21:19)
[2023-03-19] MEDS: hydrOXYzine HCl 25 MG TAB PO SCH (22:11)
--- NOTE | 2023-03-20 05:36 | Billing Data ---
Date of Service March 20, 2023 Coding Level of Care Code 54921 INT INP/OBS CARE
[2023-03-20] MEDS: METHYLPHENIDATE HCL PO SCH (05:45)
[2023-03-20] MEDS: CONCERTA 54 MG PO SCH (05:45)
[2023-03-20] MEDS: amLODIPine BESYLATE 5 MG TAB PO SCH (07:42)
[2023-03-20] MEDS: CeleBREX 200 MG CAP PO SCH (07:42)
[2023-03-20] MEDS: DULoxetine HCL 20 MG CAP PO SCH (07:43)
[2023-03-20] MEDS: POLYETHYLENE (MIRALAX) 17 GM PACK PO PRN (07:49)
[2023-03-20] MEDS: traMADol HCL 50 MG TABLET PO PRN (07:49)
--- NOTE | 2023-03-20 07:50 | Hospitalist Progress Note ---
Date of Service March 20, 2023 Assessment & Plan (1) Weakness of right leg: Plan: Patient is a 32-year-old male with a past medical history of hypertension, hyperlipidemia, depression, PTSD, ADHD, intellectual disability, and persistent right lower extremity weakness who presents to the hospital for evaluation for fall due to worsening right lower extremity weakness. Patient to be admitted for further work-up and due to patient not being safe to be discharged home. RLE Weakness/Loss of Sensation - CT Head/C-spine negative for new/worsening abnormalities - MRI of lumbar spine negative for new/worsening abnormalities - No current evidence of spinal cord injury, nerve impingement, or radiculopathy that could cause monoplegia - Patient exhibiting complete RLE loss of strength/sensation, also endorsing urinary and bowel incontinence - Neurology consulted, recommendations appreciated * Recommended MRI Brain/T-spine to rule out MS vs Transverse Myelitis - both negative w/o abnormality 03/18 * Concern exists for conversion disorder vs malingering - clinical picture remains consistent - Ortho consulted on admission, * Reviewed imaging, noted as negative * No indication for surgical intervention- PT/OT recommending inpatient rehab upon discharge --- Patient endorsing living situation plays large role in current physical state d/t anxiety/fear surrounding falls/stairs at home --- PT/OT recommending inpatient rehab, CM placed referral to [facility] (pending) L5-S1 Degenerative Disk Disease - Patient has small disc protrusion at L5-S1 with narrowing of right lateral recess - No evidence of damage to spinal cord or nerve roots - Noted during previous admission, improved since prior imaging - Patient's symptoms not consistent with degree of pathology present on imaging Intellectual Disability - Patient w/ capacity to make informed decisions HTN - Continue home antihypertensive MDD - Continue Vraylar ADD - Continue Methylphenidate Disposition - Patient expressing concern regarding going home independently - Patient notes lack of support at home - CM consulted to aid in facilitation of resources and discharge planning Disposition:[facility] rec inpt rehab, referral placed for [facility] DVT prophylaxis: Lovenox Diet: Regular CODE: Full code (2) Intellectual disability: (3) HTN (hypertension): Plan: - Continue home medications (4) Major depressive disorder, recurrent episode, with atypical features: (5) ADHD (attention deficit hyperactivity disorder): Admission and Anticipated Discharge Date Admission Date: March 19, 2023 Supervising Physician Co-Signing Physician Notes Resident Physician Supervision Note: I independently interviewed and examined the patient and verified the glass history and physical, reviewed labs and image studies and agree with resident findings and care plan. Subjective 03/20: Patient resting comfortably in bed finishing breakfast upon arrival. Patient endorses ongoing leg weakness and occasional back discomfort, he does not believe his symptoms have improved. Patient denies any new chest pain, dyspnea, headache, vision change, or leg pain. Patient requests to continue working with PT and notes his desire to return to [facility] upon discharge. Physical Exam Physical Exam: Gen: NAD, alert, interactive Resp:Non-labored, no wheezing/rhonchi/rales, CTAB CV:RRR, normal S1/S2, no M/R/G Abd: Soft, non-distended, no TTP, normoactive bowels, no masses Extr: full and symmetric muscle tone bilaterally in UE and LE, 2+ dp adia aterally, no edema Neuro: AO x 3, PERRL, EOMI * Strength and sensation intact in LUE/LLE * Strength 5/5 in RUE w/ sensation intact, strength 4/5 in RLE w/o sensation, reflexes intact and symmetric in UE and LE bilaterally Skin: No rashes lesions or erythema Results & Data Results & Data Vital Signs (Past 12 Hours) Vital Signs Temp Pulse Resp BP Pulse Ox O2 Del Method 03/20/23 07:08 36.7 C 76 16 131/82 94 Room Air 03/19/23 20:22 36.8 C 94 H 18 143/99 H 95 Room Air Resident Activity Tracking Resident Involvement: Resident Care Provided Care Provided: Adult Hospital Medicine
[2023-03-20] MEDS: METHYLPHENIDATE HCL 10 MG TABLET PO SCH (14:53)
[2023-03-20] MEDS: ATORVASTATIN 10 MG TAB PO SCH (20:11)
[2023-03-20] MEDS: cloNIDine HCL 0.1 MG TAB PO SCH (20:11)
[2023-03-20] MEDS: ENOXAPARIN INJ 40 MG/0.4 ML SYR SQ SCH (20:11)
[2023-03-20] MEDS: PRAZOSIN HCL 1 MG CAP PO SCH (20:11)
[2023-03-20] MEDS: hydrOXYzine HCl 25 MG TAB PO SCH (22:21)
[2023-03-21] MEDS: METHYLPHENIDATE HCL PO SCH (05:49)
[2023-03-21] MEDS: CONCERTA 54 MG PO SCH (05:49)
--- NOTE | 2023-03-21 07:24 | Hospitalist Progress Note ---
Date of Service March 21, 2023 Assessment & Plan (1) Weakness of right leg: Plan: Patient is a 32-year-old male with a past medical history of hypertension, hyperlipidemia, depression, PTSD, ADHD, intellectual disability, and persistent right lower extremity weakness who presents to the hospital for evaluation for fall due to worsening right lower extremity weakness. Patient to be admitted for further work-up and due to patient not being safe to be discharged home. RLE Weakness/Loss of Sensation - CT Head/C-spine negative for new/worsening abnormalities - MRI of lumbar spine negative for new/worsening abnormalities - No current evidence of spinal cord injury, nerve impingement, or radiculopathy that could cause monoplegia - Patient exhibiting complete RLE loss of strength/sensation, also endorsing urinary and bowel incontinence - Neurology consulted, recommendations appreciated * Recommended MRI Brain/T-spine to rule out MS vs Transverse Myelitis - both negative w/o abnormality 03/18 * Concern exists for conversion disorder vs malingering - clinical picture remains consistent - Ortho consulted on admission, * Reviewed imaging, noted as negative * No indication for surgical intervention- PT/OT recommending inpatient rehab upon discharge - Living situation plays large role in current physical state d/t anxiety/fear surrounding falls/stairs at home - PT/OT recommending inpatient rehab, CM placed referral to [facility] (pending) L5-S1 Degenerative Disk Disease - Patient has small disc protrusion at L5-S1 with narrowing of right lateral recess - No evidence of damage to spinal cord or nerve roots - Noted during previous admission, improved since prior imaging - Patient's symptoms not consistent with degree of pathology present on imaging Intellectual Disability - Patient w/ capacity to make informed decisions HTN - Continue home antihypertensive MDD - Patient on Vraylar at home - Unable to obtain home med, not on hospital formulary - Will start comparable dose of Aripiprazole (Abilify) 5 mg QAM * No known history of adverse reaction or trial of Abilify ADD - Continue Methylphenidate Disposition - Patient expressing concern regarding going home independently - Patient notes lack of support at home - CM consulted to aid in facilitation of resources and discharge planning Disposition:MedSurg, PT rec inpt rehab, referral placed for [facility] DVT prophylaxis: Lovenox Diet: Regular CODE: Full code (2) Intellectual disability: (3) HTN (hypertension): Plan: - Continue home medications (4) Major depressive disorder, recurrent episode, with atypical features: (5) ADHD (attention deficit hyperactivity disorder): Admission and Anticipated Discharge Date Admission Date: March 19, 2023 Supervising Physician Co-Signing Physician Notes Resident Physician Supervision Note: I independently interviewed and examined the patient and verified the glass history and physical, reviewed labs and image studies and agree with resident findings and care plan. Subjective 03/21: Patient remains comfortable. Notes ongoing pain in his leg and back, but states this is not worsening. He notes that his LE symptoms have not changed, but that he wants to work with physical therapy. Patient denies any chest pain, dyspnea, headache, vision change, or abdominal pain. Patient looking forward to transition to [facility] for rehabilitation. Physical Exam Physical Exam: Gen: NAD, alert, interactive Resp:Non-labored, no wheezing/rhonchi/rales, CTAB CV:RRR, normal S1/S2, no M/R/G Abd: Soft, non-distended, no TTP, normoactive bowels, no masses Extr: full and symmetric muscle tone bilaterally in UE and LE, 2+ dp bilaterally, no edema Neuro: AO x 3, PERRL, EOMI * Strength and sensation intact in LUE/LLE * Strength 5/5 in RUE w/ sensation intact, strength 4/5 in RLE w/o sensation, reflexes intact and symmetric in UE and LE bilaterally Skin: No rashes lesions or erythema Results & Data Results & Data Vital Signs (Past 12 Hours) Vital Signs Temp Pulse Resp BP Pulse Ox O2 Del Method 03/20/23 20:10 36.9 C 88 16 137/76 95 Room Air Resident Activity Tracking Resident Involvement: Resident Care Provided Care Provided: Adult Hospital Medicine
[2023-03-21] MEDS: DULoxetine HCL 20 MG CAP PO SCH (08:31)
[2023-03-21] MEDS: amLODIPine BESYLATE 5 MG TAB PO SCH (08:31)
[2023-03-21] MEDS: CeleBREX 200 MG CAP PO SCH (08:31)
[2023-03-21] MEDS: POLYETHYLENE (MIRALAX) 17 GM PACK PO PRN ×2 (08:47→20:49)
[2023-03-21] MEDS: METHYLPHENIDATE HCL 10 MG TABLET PO SCH (13:49)
[2023-03-21] MEDS: ATORVASTATIN 10 MG TAB PO SCH (20:22)
[2023-03-21] MEDS: cloNIDine HCL 0.1 MG TAB PO SCH (20:22)
[2023-03-21] MEDS: ENOXAPARIN INJ 40 MG/0.4 ML SYR SQ SCH (20:22)
[2023-03-21] MEDS: PRAZOSIN HCL 1 MG CAP PO SCH (20:24)
[2023-03-21] MEDS: hydrOXYzine HCl 25 MG TAB PO SCH (22:10)
[2023-03-22] MEDS: METHYLPHENIDATE HCL PO SCH (06:13)
[2023-03-22] MEDS: CONCERTA 54 MG PO SCH (06:13)
[2023-03-22] MEDS: POLYETHYLENE (MIRALAX) 17 GM PACK PO PRN (06:13)
--- NOTE | 2023-03-22 07:06 | Hospitalist Progress Note ---
Date of Service March 22, 2023 Assessment & Plan (1) Weakness of right leg: Plan: Patient is a 32-year-old male with a past medical history of hypertension, hyperlipidemia, depression, PTSD, ADHD, intellectual disability, and persistent right lower extremity weakness who presents to the hospital for evaluation for fall due to worsening right lower extremity weakness. Patient to be admitted for further work-up and due to patient not being safe to be discharged home. RLE Weakness/Loss of Sensation - CT Head/C-spine negative for new/worsening abnormalities - MRI of lumbar spine negative for new/worsening abnormalities - No current evidence of spinal cord injury, nerve impingement, or radiculopathy that could cause monoplegia - Patient exhibiting complete RLE loss of strength/sensation, also endorsing urinary and bowel incontinence - Neurology consulted, recommendations appreciated * Recommended MRI Brain/T-spine to rule out MS vs Transverse Myelitis - both negative w/o abnormality 03/18 * Concern exists for conversion disorder vs malingering - clinical picture remains consistent - Ortho consulted on admission, * Reviewed imaging, noted as negative * No indication for surgical intervention- PT/OT recommending inpatient rehab upon discharge - Living situation plays large role in current physical state d/t anxiety/fear surrounding falls/stairs at home - PT/OT recommending inpatient rehab, CM placed referral to [facility] (pending) L5-S1 Degenerative Disk Disease - Patient has small disc protrusion at L5-S1 with narrowing of right lateral recess - No evidence of damage to spinal cord or nerve roots - Noted during previous admission, improved since prior imaging - Patient's symptoms not consistent with degree of pathology present on imaging Intellectual Disability - Patient w/ capacity to make informed decisions HTN - Continue home antihypertensive MDD - Patient on Vraylar at home - Unable to obtain home med, not on hospital formulary - Will start comparable dose of Aripiprazole (Abilify) 5 mg QAM * No known history of adverse reaction or trial of Abilify ADD - Continue Methylphenidate Disposition - Patient expressing concern regarding going home independently - Patient notes lack of support at home - CM consulted to aid in facilitation of resources and discharge planning Disposition:MedSurg, PT rec inpt rehab, referral placed for [facility] DVT prophylaxis: Lovenox Diet: Regular CODE: Full code (2) Intellectual disability: (3) HTN (hypertension): Plan: - Continue home medications (4) Major depressive disorder, recurrent episode, with atypical features: (5) ADHD (attention deficit hyperactivity disorder): Admission and Anticipated Discharge Date Admission Date: March 19, 2023 Subjective 03/21: Patient remains comfortable. Notes ongoing pain in his leg and back, but states this is not worsening. He notes that his LE symptoms have not changed, but that he wants to work with physical therapy. Patient denies any chest pain, dyspnea, headache, vision change, or abdominal pain. Patient looking forward to transition to [facility] for rehabilitation. 03/22: Physical Exam Physical Exam: Gen: NAD, alert, interactive Resp:Non-labored, no wheezing/rhonchi/rales, CTAB CV:RRR, normal S1/S2, no M/R/G Abd: Soft, non-distended, no TTP, normoactive bowels, no masses Extr: full and symmetric muscle tone bilaterally in UE and LE, 2+ dp bilaterally, no edema Neuro: AO x 3, PERRL, EOMI * Strength and sensation intact in LUE/LLE * Strength 5/5 in RUE w/ sensation intact, strength 4/5 in RLE w/o sensation, reflexes intact and symmetric in UE and LE bilaterally Skin: No rashes lesions or erythema Results & Data Results & Data Vital Signs (Past 12 Hours) Vital Signs Temp Pulse Resp BP Pulse Ox O2 Del Method 03/21/23 23:01 Room Air 03/21/23 20:29 36.7 C 88 18 138/91 96 Room Air Resident Activity Tracking Resident Involvement: Resident Care Provided Care Provided: Adult Hospital Medicine
[2023-03-22] MEDS ORDERED: ARIPiprazole 5 MG TAB PO SCH (09:00)
[2023-03-22] MEDS: amLODIPine BESYLATE 5 MG TAB PO SCH (09:04)
[2023-03-22] MEDS: DULoxetine HCL 20 MG CAP PO SCH (09:04)
[2023-03-22] MEDS: CeleBREX 200 MG CAP PO SCH (09:04)
--- NOTE | 2023-03-22 10:26 | Discharge Summary ---
Date of Service March 22, 2023 Admission HPI Per Admitting Provider Patient is a 32-year-old male with a past medical history of hypertension, hyperlipidemia, depression, PTSD, ADHD, intellectual disability, and persistent right lower extremity weakness who presents to the hospital for evaluation for fall due to worsening right lower extremity weakness. Patient reports he was at home when he was going down his stairs prompting him to fall because this morning he states that he is unable to use his right leg at all. Previous to today, patient was able to at least use his legs somewhat only experiencing numbness and tingling but now has complete paralysis per the patient's descri ption. He was recently admitted for this on 02/17/2023 and at that time he had an MRI of the lumbar spine that showed a disc protrusion at L5-S1. He was seen by orthospine who felt that this protrusion did not correlate with the symptoms the patient was experiencing. He has seen physical therapy in the past which did not seem to help. He does not feel safe at home given that he fell today. No trauma prior to today ever causes to suspect traumatic spinal cord injury. On his previous visit, he had urinary and fecal incontinence but denies either of these currently. Otherwise no other complaints at this time. ED course: Patient evaluated by provider and labs ordered. Labs do show mild AST and ALT elevation at 48 and 97 respectively.Cervical spine and head CT negative for fracture or evidence of stroke/bleed. Lumbar spine MRI shows the same L5-S1 disc protrusion but improved from previous visit. No new lesions noted. Due to the patient's worsening vignette and not being safe to discharge home, the hospitalist service was consulted for admission. Admission Exam Per Admitting Provider Constitutional: WD/WN, vitals as above Eyes: + anicteric sclerae Neck: normal visual inspection Respiratory: normal respiratory effort, lungs clear to auscultation Cardiovascular: RRR, no murmur, no edema Gastrointestinal (Abdomen): normal bowel sounds, soft, nontender, no hepatosplenomegaly Musculoskeletal: Head/Neck/Chest: normocephalic and head atraumatic Skin: no rashes, warm and dry Neurologic: deep tendon reflexes 2+ bilaterally and awake Patient unable to move his right lower extremity at all. Passive range of bonny on shows rigidity in all planes. Negative Babinski sign. No response to painful stimuli of the right lower extremity. Psychiatric: A+Ox3, euthymic affect Principal Diagnosis RLE Weakness Conversion Disorder Discharge Exam Gen: NAD, alert, interactive Resp:Non-labored, no wheezing/rhonchi/rales, CTAB CV:RRR, normal S1/S2, no M/R/G Abd: Soft, non-distended, no TTP, normoactive bowels, no masses Extr: full and symmetric muscle tone bilaterally in UE and LE, 2+ dp bi laterally, no edema Neuro:AO x 3, PERRL, EOMI * Strength and sensation intact in LUE/LLE * Strength 5/5 in RUE w/ sensation intact, strength 4/5 in RLE w/o sensation, reflexes intact and symmetric in UE and LE bilaterallySkin: No rashes lesions or erythema Discharge Data Allergies Allergy/AdvReac Type Severity Reaction Status Date / Time Penicillins Allergy Intermediate lip Verified 03/15/23 11:48 swollen, positive skin testing Consultations 03/17/23 19:49 ED Decision to Admit Stat 03/17/23 20:53 Consult Neurology Routine Consult Orthopedic Spine Surgery Routine Ordered Studies 03/17/23 16:26 CT cervical spine wo con Stat CT head/brain wo con Stat 03/17/23 17:01 MR lumbar spine wo con Stat 03/17/23 21:10 CT hip RT wo con Urgent 03/18/23 12:49 MRI Brain [MR brain wo/w con] Routine MRI Thoracic [MR thoracic spine wo con] Routine Hospital Course (1) Weakness of right leg: (2) Intellectual disability: (3) HTN (hypertension): (4) Major depressive disorder, recurrent episode, with atypical features: (5) ADHD (attention deficit hyperactivity disorder): Plan Patient is a 32-year-old male with a past medical history of hypertension, hyperlipidemia, depression, PTSD, ADHD, intellectual disability, and persistent right lower extremity weakness who presents to the hospital for evaluation for fall due to worsening right lower extremity weakness. Patient to be admitted for further work-up and due to patient not being safe to be discharged home. RLE Weakness/Loss of Sensation - CT Head/C-spine negative for new/worsening abnormalities - MRI of lumbar spine negative for new/worsening abnormalities - No current evidence of spinal cord injury, nerve impingement, or radiculopathy that could cause monoplegia - Patient exhibiting complete RLE loss of strength/sensation, also endorsing urinary and bowel incontinence - Neurology consulted, recommendations appreciated * Recommended MRI Brain/T-spine to rule out MS vs Transverse Myelitis - both negative w/o abnormality 03/18 * Concern exists for conversion disorder vs malingering - clinical picture remains consistent- Ortho consulted on admission, * No indication for surgical intervention- PT/OT recommending inpatient rehab upon discharge- Living situation plays large role in current physical state d/t anxiety/fear surrounding falls/stairs at home - PT/OT recommending inpatient rehab, CM placed referral to [facility], discharge for ongoing rehabilitation 03/22 L5-S1 Degenerative Disk Disease - Patient has small disc protrusion at L5-S1 with narrowing of right lateral recess - No evidence of damage to spinal cord or nerve roots - Noted during previous admission, improved since prior imaging - Patient's symptoms not consistent with degree of pathology present on imaging Intellectual Disability - Patient w/ capacity to make informed decisions HTN - Continue home antihypertensive MDD - Patient on Vraylar at home - Unable to obtain home med, not on hospital formulary - Will start comparable dose of Aripiprazole (Abilify) 5 mg QAM * No known history of adverse reaction or trial of Abilify * Continue Abilify 5 mg PO QAM upon discharge to rehab facility and resume Vraylar once home ADD - Continue Methylphenidate Disposition - Patient expressing concern regarding going home independently - Patient notes lack of support at home - CM consulted to aid in facilitation of resources and discharge planning Disposition:PT rec inpt rehab, dc to [facility] 03/22 DVT prophylaxis: Lovenox Diet: Regular CODE: Full code Total Time Total Time Spent Total Time Spent (In Minutes): See attending attestation Discharge Plan Discharge Items Patient Disposition: Transfer Inpatient Rehab Fac Reason For Visit: FALL Discharge Diagnosis: RLE Weakness Conversion Disorder Activity: Per Instructions section Non-emergency contact: Primary Care Provider Call non-emergency contact if: your symptoms worsen and your pain is worsening Follow-up/Referrals: Vidya Horvath CRNP [Primary Care Provider] - Diet: Regular Addtl Attending Provider Instructions: Patient is a 32-year-old male with a past medical history of hypertension, hyperlipidemia, depression, PTSD, ADHD, intellectual disability, and persistent right lower extremity weakness who presents to the hospital for evaluation for fall due to worsening right lower extremity weakness. Patient to be admitted for further work-up and due to patient not being safe to be discharged home. RLE Weakness/Loss of Sensation - CT Head/C-spine negative for new/worsening abnormalities - MRI of lumbar spine negative for new/worsening abnormalities - No current evidence of spinal cord injury, nerve impingement, or radiculopathy that could cause monoplegia - Patient exhibiting complete RLE loss of strength/sensation, also endorsing urinary and bowel incontinence - Neurology consulted, recommendations appreciated * Recommended MRI Brain/T-spine to rule out MS vs Transverse Myelitis - both negative w/o abnormality 03/18 * Concern exists for conversion disorder vs malingering - clinical picture remains consistent- Ortho consulted on admission, * Reviewed imaging, noted as negative * No indication for surgical intervention- PT/OT recommending inpatient rehab upon discharge- Living situation plays large role in current physical state d/t anxiety/fear surrounding falls/stairs at home - PT/OT recommending inpatient rehab, CM placed referral to [facility], discharge for ongoing rehabilitation 03/22 L5-S1 Degenerative Disk Disease - Patient has small disc protrusion at L5-S1 with narrowing of right lateral recess - No evidence of damage to spinal cord or nerve roots - Noted during previous admission, improved since prior imaging - Patient's symptoms not consistent with degree of pathology present on imaging Intellectual Disability - Patient w/ capacity to make informed decisions HTN - Continue home antihypertensive MDD - Patient on Vraylar at home - Unable to obtain home med, not on hospital formulary - Will start comparable dose of Aripiprazole (Abilify) 5 mg QAM * No known history of adverse reaction or trial of Abilify * Continue Abilify 5 mg PO QAM upon discharge ADD - Continue Methylphenidate Disposition - Patient expressing concern regarding going home independently - Patient notes lack of support at home - CM consulted to aid in facilitation of resources and discharge planning Disposition:PT rec inpt rehab, dc to [facility] 03/22 DVT prophylaxis: Lovenox Diet: Regular CODE: Full code Pending Studies at Discharge: No Stand-Alone Forms: My [employer] Skilled Items Patient informed of condition?: Yes DNR: No Discharge Level of Care: Acute rehab Communicable Disease: No Discharge Prognosis: Stable Lines: None Urinary Catheter: No Medications and DC Order Prescriptions: New acetaminophen 325 mg Tablet 650 mg PO Q4H PRN (Reason: pain) Qty: 30 0RF aripiprazole [Abilify] 5 mg Tablet 5 mg PO QAM 30 Days Qty: 30 0RF Continued (DME) Flexichamber Spacer See Rx Instructions .Route Qty: 1 0RF Rx Instructions: As directed atorvastatin 10 mg tablet 10 mg PO QPM Qty: 30 2RF lidocaine 5 % adhesive patch,medicated 1 patch transdermal QAM Qty: 15 0RF Rx Instructions: Remove after 12 hours amlodipine 10 mg tablet 10 mg PO DAILY Qty: 30 2RF prazosin [Minipress] 2 mg capsule 2 mg PO HS hydroxyzine pamoate 100 mg capsule 100 mg PO HS celecoxib [Celebrex] 200 mg Capsule 200 mg PO QAM Qty: 14 0RF tramadol 50 mg Tablet 100 mg PO Q8H PRN (Reason: severe pain) Qty: 20 0RF methylphenidate HCl 20 mg tablet 20 mg PO .QAFTERNOON Qty: 14 0RF methylphenidate HCl 54 mg tablet extended release 24hr 54 mg PO QAM Qty: 14 0RF Vraylar 1.5 mg capsule 1.5 mg PO DAILY 14 Days Qty: 14 0RF clonidine HCl 0.1 mg tablet 0.1 mg PO HS duloxetine 20 mg capsule,delayed release(DR/EC) 40 mg PO QAM Discharge Orders: Discharge Order (Routine); Ordered 03/22/23 Ordered By: Jag Wiggins/Other Patient Handouts: Slips Trips Falls Prevention Admission Data Admit Date/Time: 03/19/23 14:19 Attending Provider: Lorneza Gibbons Admit Provider: Shon Bledsoe Primary Care Provider: Vidya Horvath Other Providers: Lucien Gomez ; Jigar Santoro ; Chaka Holder ; Aryan Dominguez Other Interventions: Discharge Summary Assessment (RN) Last Done: 03/22/23 10:40 Supervising Physician Co-Signing Physician Notes Resident Physician Supervision Note: I independently interviewed and examined the patient and verified the glass history and physical, reviewed labs and image studies and agree with resident findings and care plan. Resident Activity Tracking Resident Involvement: Resident Care Provided Care Provided: Adult Hospital Medicine
== END 2023-03-22 12:57 | DRG 57 ==
LOC: 3W 15:11 → ED 15:11 → SUATTDRO 20:20 → 3W 22:14

== ENCOUNTER 2023-12-08 10:11 | Inpatient (IN) ==
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
[2023-12-08] MEDS: ACETAMINOPHEN 500 MG TAB PO STA (11:35)
[2023-12-08] MEDS: SODIUM CHLORIDE 0.9% 1,000 ML IV ONE (12:10)
[2023-12-08] MEDS: ONDANSETRON INJ 2 MG/ML 2 ML VIAL IV STA (12:10)
[2023-12-08 12:11] LABS: Adenovirus PCR Not Detected (NotDetected); Bordetella parapertussis PCR Not Detected (NotDetected); Bordetella pertussis PCR Not Detected (NotDetected); Chlamydia pneumoniae PCR Not Detected (NotDetected); Coronavirus 229E PCR Not Detected (NotDetected); Coronavirus CoV-2 (COVID19)PCR Not Detected (NotDetected); Coronavirus HKU1 PCR Not Detected (NotDetected); Coronavirus NL63 PCR Not Detected (NotDetected); Coronavirus OC43PCR Not Detected (NotDetected); Human Metapneumovirus PCR Not Detected (NotDetected); Influenza A PCR Not Detected (NotDetected); Influenza B PCR Not Detected (NotDetected); Mycoplasma pneumoniae PCR Not Detected (NotDetected); Parainfluenza Virus 1 PCR Not Detected (NotDetected); Parainfluenza Virus 2 PCR Not Detected (NotDetected); Parainfluenza Virus 3 PCR Not Detected (NotDetected); Parainfluenza Virus 4 PCR Not Detected (NotDetected); Respiratory Syncytial VirusPCR Not Detected (NotDetected); Rhinovirus/Enterovirus PCR DETECTED (NotDetected)
[2023-12-08 12:31] LABS: Basophils # (auto) 0.06 K/uL (0.00-0.20); Basophils % (auto) 0.3 %; Eosinophils # (auto) 0.03 K/uL (0.00-0.50); Eosinophils % (auto) 0.2 %; Hemoglobin 14.6 g/dl (14.0-18.0); Immature Granulocytes # (auto) 0.06 K/uL (0.01-0.20); Immature Granulocytes % (auto) 0.3 %; Lymphocytes # (auto) 1.13 K/uL (1.20-3.40); Lymphocytes % (auto) 6.2 %; Mean Corpuscular Hemoglobin 28.6 pg (25.0-34.0); Mean Corpuscular Volume 84.1 fL (80.0-100.0); Mean Platelet Volume 9.3 fL (9.4-12.4); Monocytes # (auto) 1.21 K/uL (0.11-0.59); Monocytes % (auto) 6.6 %; Neutrophils # (auto) 15.86 K/uL (1.40-6.50); Neutrophils % (auto) 86.4 %; Platelet Count 603 K/uL (130-400); RDW Coefficient of Variation 14.4 % (11.5-14.5); RDW Standard Deviation 44.3 fL (36.4-46.3); Red Blood Count 5.11 M/uL (4.70-6.10); White Blood Count 18.35 K/ul (4.8-10.8)
[2023-12-08 12:44] LABS: Albumin Level 4.7 gm/dl (3.4-5.0); Bilirubin,Total 0.4 mg/dl (0.2-1.0); Calcium 9.6 mg/dl (8.6-10.3); Potassium 4.1 mmol/L (3.5-5.1)
[2023-12-08 12:50] LABS: Albumin Globulin Ratio 1.3 (0.9-2); BUN Creatinine Ratio 12.3 (10-20); Creatinine Clr Calc Pharmacy 147.7 ml/min; Est GFR (African American) 135.3 ml/min; Est GFR (Non-African American) 116.8 ml/min; Globulin 3.5 gm/dl (2.5-4.0); Total Protein 8.2 gm/dl (6.0-8.3)
[2023-12-08 14:00] LABS: Appearance Urine Clear (Clear); Bilirubin Urine Negative (Negative); Blood Urine Negative (Negative); Color Urine Yellow; Glucose Urine UA Negative (Negative); Ketones Urine Negative (Negative); Leukocyte Esterase Urine Negative (Negative); Nitrite Urine Negative (Negative); Protein Urine Negative (Negative); Specific Gravity Urine 1.007 (1.000-1.030); Urobilinogen Urine Negative (Negative)
--- NOTE | 2023-12-08 14:09 | XRay Report ---
XR chest 1V portable HISTORY: asplenic, sepsis workup COMPARISON: Chest 06/16/2023. FINDINGS: No pneumothorax. No pleural effusions. The cardiac silhouette is normal in size. There are bibasilar linear densities suggesting scarring or subsegmental atelectasis. This is similar to the pr ior study. Otherwise, no new focal lung consolidations to suggest a pneumonia. No evidence for pulmon carmella edema. No acute fractures identified. IMPRESSION: No significant change compared to the prior study. No acute process. ACT 112: Negative or not required by law. Electronically signed by: Osei Mejias M.D. 12/08/2023 2:08 PM
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
[2023-12-08] MEDS: OPTIRAY 320 100ml IV ONE (15:38)
--- NOTE | 2023-12-08 15:54 | CT Scan Report ---
CT abd pelvis IV con only CLINICAL HISTORY: RUQ pain, leukocytosis/fever TECHNIQUE: Helical axial images of the abdomen and pelvis were obtained and displayed. Automated dose lowering techniques and/or adjustment according to patient size were utilized for this exam. This e xam was performed with intravenous contrast. CT DOSE: 1446.76 mGy.cm COMPARISON: Comparison is made to CT abdomen pelvis 06/16/2023 FINDINGS: Lower chest: Bibasilar atelectasis versus scarring is seen. Liver: Hepatic steatosis is noted. Gallbladder and biliary tree: No calcified gallstones. Normal caliber wall. No intra- or extrahepatic biliary ductal dilation. Pancreas: Unremarkable, no focal lesions. Spleen: Status post splenectomy with multiple splenules. Adrenals: Unremarkable. Kidneys and ureters: Unremarkable. Bladder: Unremarkable. Reproductive organs: Unremarkable. Bowel: Patient is status post appendectomy. Lymph nodes Retroperitoneal: Unremarkable. Pelvic: Unremarkable. Mesenteric: Unremarkable. Peritoneum: Normal. Vessels: Unremarkable. Abdominal wall: Unremarkable. Bones: Unremarkable. IMPRESSION: 1. No acute abnormalities to explain leukocytosis. 2. Hepatic steatosis, steatohepatitis cannot be excluded. ACT 112: Negative or not required by law. Electronically signed by: González Welch M.D. 12/08/2023 3:53 PM
[2023-12-08 16:03] LABS: C Reactive Protein 0.65 mg/dl (0-0.5)
[2023-12-08] MEDS: KETOROLAC TROMETHAMINE 15 MG/ML VIAL IV ONE (16:56)
[2023-12-08] MEDS ORDERED: ONDANSETRON INJ 2 MG/ML 2 ML VIAL IV PRN (17:28)
[2023-12-08] MEDS ORDERED: CYCLOBENZAPRINE HCL 5 MG TAB PO PRN (17:28)
[2023-12-08] MEDS: cloNIDine HCL 0.1 MG TAB PO SCH (19:57)
[2023-12-08] MEDS: PRAZOSIN HCL 1 MG CAP PO SCH (19:57)
[2023-12-08] MEDS: ATORVASTATIN 20 MG TAB PO SCH (19:57)
[2023-12-08] MEDS: ENOXAPARIN INJ 40 MG/0.4 ML SYR SQ SCH (19:57)
[2023-12-09 05:19] LABS: Albumin Globulin Ratio 1.3 (0.9-2); Albumin Level 3.9 gm/dl (3.4-5.0); BUN Creatinine Ratio 12.8 (10-20); Bilirubin,Total 0.2 mg/dl (0.2-1.0); C Reactive Protein 3.32 mg/dl (0-0.5); Creatinine Clr Calc Pharmacy 138.4 ml/min; Est GFR (African American) 132.1 ml/min; Est GFR (Non-African American) 113.9 ml/min; Globulin 3.1 gm/dl (2.5-4.0); Potassium 3.7 mmol/L (3.5-5.1)
[2023-12-09 05:20] LABS: Basophils # (auto) 0.04 K/uL (0.00-0.20); Basophils % (auto) 0.5 %; Eosinophils # (auto) 0.11 K/uL (0.00-0.50); Eosinophils % (auto) 1.3 %; Hematocrit (blood only) 38.3 % (42.0-52.0); Hemoglobin 12.9 g/dl (14.0-18.0); Immature Granulocytes # (auto) 0.04 K/uL (0.01-0.20); Immature Granulocytes % (auto) 0.5 %; Lymphocytes # (auto) 1.56 K/uL (1.20-3.40); Lymphocytes % (auto) 19.1 %; Mean Corpuscular Hemoglobin 28.7 pg (25.0-34.0); Mean Corpuscular Hgb Conc 33.7 g/dL (32.0-36.0); Mean Corpuscular Volume 85.1 fL (80.0-100.0); Mean Platelet Volume 9.5 fL (9.4-12.4); Monocytes # (auto) 1.28 K/uL (0.11-0.59); Monocytes % (auto) 15.7 %; Neutrophils # (auto) 5.13 K/uL (1.40-6.50); Neutrophils % (auto) 62.9 %; Platelet Count 519 K/uL (130-400); RDW Coefficient of Variation 14.7 % (11.5-14.5); RDW Standard Deviation 45.7 fL (36.4-46.3); White Blood Count 8.16 K/ul (4.8-10.8)
[2023-12-09] MEDS: DULoxetine HCL 60 MG CAP PO SCH (08:00)
[2023-12-09] MEDS: lisinopril 10 MG TAB PO SCH (08:00)
[2023-12-09] MEDS: amLODIPine BESYLATE 5 MG TAB PO SCH (08:00)
[2023-12-09] MEDS: DULoxetine HCL 30 MG CAP PO SCH (08:01)
[2023-12-09] MEDS: KETOROLAC TROMETHAMINE 15 MG/ML VIAL IV PRN (10:38)
[2023-12-09] MEDS: ACETAMINOPHEN 325 MG TAB PO PRN (11:38)
[2023-12-09] MEDS: METHYLPHENIDATE HCL 10 MG TABLET PO SCH (13:12)
[2023-12-09] MEDS: cefTRIAXone SODIUM 2,000 MG in DEXTROSE 5 % MINI-B 50 ML IV SCH (14:42)
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
[2023-12-10 08:24] LABS: Basophils # (auto) 0.04 K/uL (0.00-0.20); Basophils % (auto) 0.6 %; Eosinophils # (auto) 0.15 K/uL (0.00-0.50); Eosinophils % (auto) 2.2 %; Hematocrit (blood only) 41.1 % (42.0-52.0); Hemoglobin 13.5 g/dl (14.0-18.0); Immature Granulocytes # (auto) 0.03 K/uL (0.01-0.20); Immature Granulocytes % (auto) 0.4 %; Lymphocytes # (auto) 2.19 K/uL (1.20-3.40); Lymphocytes % (auto) 31.7 %; Mean Corpuscular Hemoglobin 28.2 pg (25.0-34.0); Mean Corpuscular Hgb Conc 32.8 g/dL (32.0-36.0); Mean Platelet Volume 10.2 fL (9.4-12.4); Monocytes % (auto) 17.4 %; Neutrophils % (auto) 47.7 %; Platelet Count 505 K/uL (130-400); RDW Coefficient of Variation 14.5 % (11.5-14.5); RDW Standard Deviation 45.9 fL (36.4-46.3); Red Blood Count 4.78 M/uL (4.70-6.10); White Blood Count 6.91 K/ul (4.8-10.8)
[2023-12-10 08:45] LABS: Albumin Globulin Ratio 1.3 (0.9-2); Albumin Level 3.9 gm/dl (3.4-5.0); BUN Creatinine Ratio 14.1 (10-20); Bilirubin,Total 0.3 mg/dl (0.2-1.0); Calcium 9.1 mg/dl (8.6-10.3); Creatinine Clr Calc Pharmacy 152.7 ml/min; Est GFR (African American) 137.5 ml/min; Est GFR (Non-African American) 118.6 ml/min; Globulin 3.1 gm/dl (2.5-4.0); Potassium 3.8 mmol/L (3.5-5.1)
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
== END 2023-12-10 15:43 | disposition home or self-care (01) | DRG 866 ==
LOC: ED 10:11 → 2W 14:58 → SUATTDRO 14:58 → 2W 17:05

== ENCOUNTER 2023-12-13 15:20 | Observation (INO) ==
--- NOTE | 2023-12-13 15:38 | ED Triage Note ---
Date of Service December 13, 2023 Provider in Triage Author: Yudith Mariscal History of Present Illness This patient was briefly evaluated while in triage. An abbreviated physical exam was performed. This patient is a 33-year-old Male who presents to the ED for evaluation of worsening flu like symptoms. Patient has history of splenectomy. He was admitted for rhinovirus and was feeling better 3 days ago when he was discharged but symptoms worsened again the next day. He reports fevers, sore throat, body aches. He is currently taking abx. Tylenol for fevers. Physical Exam GENERAL: Non-toxic and in no acute distress. HEENT: Pupils equal. No obvious scleral icterus. HEART: Regular rate and rhythm. LUNGS: Clear to auscultation. No accessory muscle use. NEURO: Alert and oriented. No obvious neurological deficits on quick neuro exam. Initial orders for labs and / or imaging were placed and patient was placed in the waiting area until a bed is available. Please see further documentation for the full ED course.
[2023-12-13 16:31] LABS: Basophils # (auto) 0.05 K/uL (0.00-0.20); Basophils % (auto) 0.4 %; Eosinophils # (auto) 0.17 K/uL (0.00-0.50); Eosinophils % (auto) 1.5 %; Hematocrit (blood only) 42.4 % (42.0-52.0); Hemoglobin 13.9 g/dl (14.0-18.0); Immature Granulocytes # (auto) 0.04 K/uL (0.01-0.20); Immature Granulocytes % (auto) 0.4 %; Lymphocytes # (auto) 2.51 K/uL (1.20-3.40); Lymphocytes % (auto) 22.1 %; Mean Corpuscular Hemoglobin 28.4 pg (25.0-34.0); Mean Corpuscular Hgb Conc 32.8 g/dL (32.0-36.0); Mean Corpuscular Volume 86.5 fL (80.0-100.0); Mean Platelet Volume 9.3 fL (9.4-12.4); Monocytes # (auto) 1.28 K/uL (0.11-0.59); Monocytes % (auto) 11.3 %; Neutrophils # (auto) 7.32 K/uL (1.40-6.50); Neutrophils % (auto) 64.3 %; Platelet Count 579 K/uL (130-400); RDW Coefficient of Variation 14.4 % (11.5-14.5); RDW Standard Deviation 45.7 fL (36.4-46.3); White Blood Count 11.37 K/ul (4.8-10.8)
[2023-12-13 16:49] LABS: Albumin Globulin Ratio 1.3 (0.9-2); Albumin Level 4.7 gm/dl (3.4-5.0); BUN Creatinine Ratio 15.4 (10-20); Bilirubin,Total 0.2 mg/dl (0.2-1.0); Calcium 9.8 mg/dl (8.6-10.3); Creatinine Clr Calc Pharmacy 146.2 ml/min; Est GFR (African American) 137.5 ml/min; Est GFR (Non-African American) 118.6 ml/min; Globulin 3.5 gm/dl (2.5-4.0); Potassium 3.7 mmol/L (3.5-5.1); Total Protein 8.2 gm/dl (6.0-8.3)
--- NOTE | 2023-12-13 17:00 | XRay Report ---
XR chest 1V portable HISTORY: fever COMPARISON: Chest 12/08/2023. FINDINGS: The lungs are clear. Cardiac silhouette is normal in size. No pleural effusions. No pneumot horax. IMPRESSION: No acute process. ACT 112: Negative or not required by law. Electronically signed by: Osei Mejias M.D. 12/13/2023 4:59 PM
[2023-12-13 20:12] LABS: Appearance Urine Cloudy (Clear); Bacteria Urine Automated None Seen (None Seen); Bilirubin Urine Negative (Negative); Blood Urine Trace (Negative); Color Urine Yellow; Epithelial Cell Urine Auto 0-2 /hpf (0-2); Glucose Urine UA Negative (Negative); Ketones Urine 1+ (Negative); Leukocyte Esterase Urine Negative (Negative); Mucus Urine Present (None Prsent); Nitrite Urine Negative (Negative); Protein Urine Negative (Negative); RBC Urine Automated 0-2 /hpf (0-2); Specific Gravity Urine 1.026 (1.000-1.030); Urobilinogen Urine Negative (Negative); WBC Urine Automated 0-5 /hpf (0-5)
[2023-12-13 20:33] LABS: Adenovirus PCR Not Detected (NotDetected); Bordetella parapertussis PCR Not Detected (NotDetected); Bordetella pertussis PCR Not Detected (NotDetected); Chlamydia pneumoniae PCR Not Detected (NotDetected); Coronavirus 229E PCR Not Detected (NotDetected); Coronavirus CoV-2 (COVID19)PCR Not Detected (NotDetected); Coronavirus HKU1 PCR Not Detected (NotDetected); Coronavirus NL63 PCR Not Detected (NotDetected); Coronavirus OC43PCR Not Detected (NotDetected); Human Metapneumovirus PCR Not Detected (NotDetected); Influenza A PCR Not Detected (NotDetected); Influenza B PCR Not Detected (NotDetected); Mycoplasma pneumoniae PCR Not Detected (NotDetected); Parainfluenza Virus 1 PCR Not Detected (NotDetected); Parainfluenza Virus 2 PCR Not Detected (NotDetected); Parainfluenza Virus 3 PCR Not Detected (NotDetected); Parainfluenza Virus 4 PCR Not Detected (NotDetected); Respiratory Syncytial VirusPCR Not Detected (NotDetected); Rhinovirus/Enterovirus PCR DETECTED (NotDetected)
[2023-12-13] MEDS: CEFEPIME 2,000 MG/20 ML VIAL IV STA (20:44)
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
[2023-12-13] MEDS: COUGH DROP (SUGAR FREE) LOZ 24 LOZ/1 BOX BUCCAL PRN (21:39)
[2023-12-13] MEDS: ACETAMINOPHEN 500 MG TAB PO STA (21:40)
[2023-12-13] MEDS: LACTATED RINGER'S 1,000 ML IV ONE (21:40)
[2023-12-13] MEDS: guaiFENesin 600 MG TABCR PO SCH (21:40)
[2023-12-13] MEDS ORDERED: CYCLOBENZAPRINE HCL 5 MG TAB PO PRN (23:42)
[2023-12-13] MEDS: LACTATED RINGER'S 1,000 ML IV SCH (23:58)
[2023-12-14] MEDS: CEFDINIR 300 MG CAP PO SCH (00:32)
[2023-12-14] MEDS: PRAZOSIN HCL 1 MG CAP PO SCH (00:33)
[2023-12-14] MEDS: ACETAMINOPHEN 325 MG TAB PO PRN (05:59)
[2023-12-14 07:29] LABS: BUN Creatinine Ratio 13.6 (10-20); Calcium 8.9 mg/dl (8.6-10.3); Creatinine Clr Calc Pharmacy 180.7 ml/min; Est GFR (African American) 147.2 ml/min; Magnesium 1.9 mg/dl (1.7-2.4); Potassium 3.3 mmol/L (3.5-5.1)
[2023-12-14 07:35] LABS: Basophils # (auto) 0.04 K/uL (0.00-0.20); Basophils % (auto) 0.5 %; Eosinophils # (auto) 0.23 K/uL (0.00-0.50); Eosinophils % (auto) 2.7 %; Hematocrit (blood only) 38.8 % (42.0-52.0); Hemoglobin 12.5 g/dl (14.0-18.0); Immature Granulocytes # (auto) 0.03 K/uL (0.01-0.20); Immature Granulocytes % (auto) 0.4 %; Lymphocytes # (auto) 2.75 K/uL (1.20-3.40); Lymphocytes % (auto) 32.5 %; Mean Corpuscular Hemoglobin 27.8 pg (25.0-34.0); Mean Corpuscular Hgb Conc 32.2 g/dL (32.0-36.0); Mean Corpuscular Volume 86.4 fL (80.0-100.0); Mean Platelet Volume 9.5 fL (9.4-12.4); Monocytes # (auto) 1.07 K/uL (0.11-0.59); Monocytes % (auto) 12.7 %; Neutrophils # (auto) 4.33 K/uL (1.40-6.50); Neutrophils % (auto) 51.2 %; Platelet Count 523 K/uL (130-400); RDW Coefficient of Variation 14.4 % (11.5-14.5); RDW Standard Deviation 45.9 fL (36.4-46.3); Red Blood Count 4.49 M/uL (4.70-6.10); White Blood Count 8.45 K/ul (4.8-10.8)
[2023-12-14 08:18] LABS: C Reactive Protein 0.84 mg/dl (0-0.5)
[2023-12-14] MEDS: POTASSIUM CHLORIDE CRTAB 20 MEQ TABCR PO STA (08:24)
[2023-12-14] MEDS: amLODIPine BESYLATE 5 MG TAB PO SCH (08:30)
[2023-12-14] MEDS: DULoxetine HCL 60 MG CAP PO SCH (08:30)
[2023-12-14] MEDS: lisinopril 10 MG TAB PO SCH (08:31)
[2023-12-14] MEDS: DULoxetine HCL 30 MG CAP PO SCH (08:31)
[2023-12-14] MEDS: METHYLPHENIDATE HCL 10 MG TABLET PO SCH (13:57)
[2023-12-14] MEDS: FLUTICASONE PROPIONATE NA SPR 16 GM BTL SCH (13:58)
--- NOTE | 2023-12-14 14:59 | Hospitalist Progress Note ---
Date of Service December 14, 2023 Assessment & Plan (1) Rhinovirus infection: Plan: -Was sent back to the ED today from his PCP's office due to ongoing fever of 100.9, sore throat, and body aches -Blood cultures and throat culture from 12/07 have been negative. CRP downtr ending. Procal negative. -leukocytosis improving -Urine and CXR are stable -received LR x2 -Supportive care -PRN tylenol and cough drops -Scheduled Guaifenesin, add flonase -Incentive spirometry (2) Asplenia: Plan: -Will continue his current Cefdinir course he was discharged with on 12/09 -Repeat blood cultures 12/12: pending -Monospot: negative - Lyme: Pending (3) Leukocytosis: Plan: -Continue supportive care and Cefdinir Plan Dispo: continued inpatient stay, hopeful for discharge tomorrow DVT proh: SCDs, encourage ambulation Admission and Anticipated Discharge Date Admission Date: December 13, 2023 Subjective Patient sitting up in bed, just finished lunch. Reports pain in throat while eating, but liquids okay. No further fever or chills. Overally just feels poorly. No cough or congestion, but does feel like he cant hear as well out of his left ear since Tuesday. no bowel changes. Feels about the same as he did on admission Review of Systems Review of Systems: All systems reviewed & are unremarkable except as noted in Subjective Physical Exam Physical Exam: General: NAD, VS as above HEENT: + fluid behind b/l TM, but no erythema or signs of infection. no auricular tenderness Resp: normal respiratory effort, lungs clear to auscultation CV: RRR, no murmur, Abd: normal bowel sounds, non tender, no hepatomegaly Extremities: Moves all extremities, no edema Neuro: A&O x3, Results & Data Results & Data Vital Signs (Past 12 Hours) Vital Signs Temp Pulse Resp BP Pulse Ox O2 Del Method 12/14/23 07:05 36.5 C 88 18 144/77 H 98 Room Air Laboratory Results CBC, chemistry and monospot reviewed PG Care Time/CCT Total # of Minutes Spent Total Time Spent with Patient: Total time spent is greater than 50% in coordination of care (as documented) at patient's floor/unit and/or counseling patient: Coding Level of Care Code 72779 SUB INP/OBS CARE 3/50MIN Diagnoses Rhinovirus infection B34.8 Asplenia Q89.01 Leukocytosis D72.829 Leukocytosis type: unspecified (3) Leukocytosis Leukocytosis type: unspecified Qualified Code(s): D72.829 - Elevated white blood cell count, unspecified
[2023-12-14] MEDS: ATORVASTATIN 20 MG TAB PO SCH (20:29)
[2023-12-15 05:52] LABS: Basophils # (auto) 0.03 K/uL (0.00-0.20); Basophils % (auto) 0.3 %; Eosinophils # (auto) 0.23 K/uL (0.00-0.50); Eosinophils % (auto) 2.6 %; Hematocrit (blood only) 39.3 % (42.0-52.0); Hemoglobin 12.6 g/dl (14.0-18.0); Immature Granulocytes # (auto) 0.03 K/uL (0.01-0.20); Immature Granulocytes % (auto) 0.3 %; Lymphocytes # (auto) 2.69 K/uL (1.20-3.40); Lymphocytes % (auto) 29.9 %; Mean Corpuscular Hemoglobin 27.8 pg (25.0-34.0); Mean Corpuscular Hgb Conc 32.1 g/dL (32.0-36.0); Mean Corpuscular Volume 86.6 fL (80.0-100.0); Mean Platelet Volume 9.1 fL (9.4-12.4); Monocytes # (auto) 0.83 K/uL (0.11-0.59); Monocytes % (auto) 9.2 %; Neutrophils # (auto) 5.18 K/uL (1.40-6.50); Neutrophils % (auto) 57.7 %; Platelet Count 553 K/uL (130-400); RDW Coefficient of Variation 14.4 % (11.5-14.5); Red Blood Count 4.54 M/uL (4.70-6.10); White Blood Count 8.99 K/ul (4.8-10.8)
[2023-12-15 06:09] LABS: BUN Creatinine Ratio 13.9 (10-20); Calcium 9.2 mg/dl (8.6-10.3); Creatinine Clr Calc Pharmacy 165.6 ml/min; Est GFR (African American) 142.1 ml/min; Est GFR (Non-African American) 122.6 ml/min; Potassium 3.6 mmol/L (3.5-5.1)
[2023-12-15 07:07] VITALS: BP 128/81; PULSE 78; RESP 16; TEMP 97.7; O2SAT 95
--- NOTE | 2023-12-15 10:53 | Discharge Summary ---
Discharge Summary Date of Service December 15, 2023 Notes For Next Care Provider Admitted for continued rhinovirus symptoms - no signs of new bacteria infection. treated with supportive care, continue course of cefdinir. - blood cultures pending, blood cultures from prior admission are negative Lyme blood work pending (send out lab) Medication Changes From Visit Rx for Mucinex Continue flonase Admission HPI Per Admitting Provider Osei is a 33-year-old male with PMH of splenectomy, postconcussion syndrome, seizures, syncopal episodes, GERD, HTN, dyslipidemia, ADHD, conversion disorder, PTSD, and depression who presented back to the [facility] ED on 12/13/23 from his PCPs office due to concerns for ongoing fever, sore throat, and body aches. Patient was recently admitted to [facility] from 12/07-12/09 for the same symptoms. He was found to be enterovirus/rhinovirus positive. See discharge summary from 12/09 for details. He was seen by his PCP today for post discharge follow-up and then sent him back to the ED as the patient was reporting a temperature of 100.9 F, ongoing sore throat, and body aches at home. He remained stable in the ED. Labs were significant for a leukocytosis of 11 with with neutrophil predominance of 7, and full respiratory biofire still positive for Rhinovirus. Chest xray was sycuan for acute findings. The patient was given a dose of Cefepime in the ED. We were asked to admit the patient for observation due to the patient's immunocompromised state. At the time of the exam the patient was sitting in bed in no acute distress. States he initially felt well after discharge home but had recurrence of fever of 100.9, ongoing sore throat, body aches, and non-productive cough. Was using some tylenol and cough drops for symptoms. He is concerned that his white blood cell count is going back up. I explained that is WBC can be elevated for multiple other reasons besides possible bacterial infection, especially as he is dealing with an active rhinovirus infection and appears dehydrated. Has experienced some right sided rib pain with coughing but denies pain at rest or with inspiration. Please refer to Dr. Holder's attestation for any changes to the treatment plan Principal Dx & Hospital Course #1 = Principal Diagnosis (1) Rhinovirus infection: -Was sent back to the ED today from his PCP's office due to ongoing fever of 100.9, sore throat, and body aches -Blood cultures and throat culture from 12/07 have been negative. CRP downtrending. Procal negative. -leukocytosis improving -Urine and CXR are stable -received LR x2 -Supportive care - continue at discharge -PRN tylenol and cough drops -Scheduled Guaifenesin, flonase -Incentive spirometry D/c to home today (2) Asplenia: -Will continue his current Cefdinir course he was discharged with on 12/09 Repeat blood cultures: no growth at 24 hours -Monospot: negative - lyme: pending (3) Leukocytosis: -Continue supportive care and Cefdinir improving Plan Dispo: discharge to home Discharge Exam General: NAD, VS as above HEENT: MMM, no erythema Resp: normal respiratory effort, lungs clear to auscultation CV: RRR, no murmur, Abd: normal bowel sounds, non tender, no hepatomegaly Extremities: Moves all extremities, no edema Neuro: A&O x3, Updated Medication List Medication Instructions Recorded Confirmed Type inhalational spacing device #1 ea 07/13/22 12/13/23 Rx (Flexichamber spacer) acetaminophen 325 mg tablet 650 mg (2 x 325 mg) PO Q4H PRN 03/22/23 12/13/23 Rx pain #30 tabs vrayinp-mfflmmfnjvytn-tvyivxyz 250 1 tab PO Q6H PRN Migraine Headache 05/16/23 12/13/23 History mg-250 mg-65 mg tablet (Excedrin Migraine) methylphenidate HCl 20 mg tablet 20 mg PO .QAFTERNOON 05/16/23 12/13/23 History (Ritalin) methylphenidate HCl 54 mg 54 mg PO QAM 05/16/23 12/13/23 History tablet,extended release 24 hr (Concerta) Walking Cane #1 ea 06/02/23 12/13/23 Rx cholecalciferol (vitamin D3) 25 1,000 unit PO QAM #30 caps 06/29/23 12/13/23 Rx mcg (1,000 unit) capsule duloxetine 60 mg capsule,delayed 60 mg PO QAM 12/08/23 12/13/23 History release cefdinir 300 mg capsule 300 mg PO BID 5 days #10 caps 12/10/23 12/13/23 Rx amlodipine 10 mg tablet 10 mg PO DAILY 12/13/23 12/13/23 History atorvastatin 20 mg tablet 20 mg PO QPM 12/13/23 12/13/23 History cyclobenzaprine 5 mg tablet 5 - 10 mg PO TID PRN muscle spasm 12/13/23 12/13/23 History duloxetine 30 mg capsule,delayed 30 mg PO QAM 12/13/23 12/13/23 History release lisinopril 10 mg tablet 10 mg PO DAILY 12/13/23 12/13/23 History prazosin 2 mg capsule 4 mg PO HS 12/13/23 12/13/23 History fluticasone propionate 50 2 spray NA QAM 5 days #2 grams 12/15/23 Rx mcg/actuation nasal spray,suspension guaifenesin 600 mg tablet, 1,200 mg (2 x 600 mg) PO Q12H 5 12/15/23 Rx extended release 12 hr (Mucinex) days #20 tabs Hospital Stay Data Consultations 12/13/23 21:17 ED Decision to Admit Stat Diagnostic Imagining Performed Chest X-Ray 12/13/23 15:41 XR chest 1V portable HISTORY: fever COMPARISON: Chest 12/08/2023. FINDINGS: The lungs are clear. Cardiac silhouette is normal in size. No pleural effusions. No pneumothorax. IMPRESSION: No acute process. ACT 112: Negative or not required by law. Electronically signed by: Osei Mejias M.D. 12/13/2023 4:59 PM Pending Results Patient Have Any Pending Studies at Discharge: Yes (blood cultures ) Discharge Instructions Given to Patient (Per Discharging Provider) Mr. Granado, You were hospitalized again for rhinovirus and your sore throat. Thankfully, your cultures from the prior stay have been negative. Many of your labs are improving from the prior admission as well. As we discussed, your symptoms may linger around for another few days. - Continue Guaifenesin (Mucinex) - 1200mg every 12 hours - I sent in a prescription for this, but if it is not covered by your insurance, please purchase this over the counter - Continue flonase - 2 strays in each nostril every morning - you can add a Ceritizine (zyrtec) over the counter if your congestion does not improve. - continue with tylenol as needed for pain or fevers - follow the instructions on the bottle - if you have a fever at home recommend taking tylenol and recheckin temperature in 2 hours - continue to use cough drops as needed, avoid irritating foods until your throat feels better - finish the course of cefdinir you already have at home Your blood cultures are pending, they will take 5 days to get the final result. Your PCP will have those results. Activity: You can do normal everyday activities as your body allows. Take rest breaks if you feel tired. Do not overexert. Stop activity if you have pain, shortness of breath or feel dizzy. Follow-up appointments: Make an appointment with your primary care physician within one week of discharge. A copy of this summary will be sent to them. Every time you see your primary care physician, or any other doctor, bring your medication list, and a list of questions. CONTACT YOUR PRIMARY CARE PROVIDER if you experience any of the following: Shortness of breath or difficulty breathing Fevers or chills Feeling tired with normal activity or experiencing dizziness or fainting Difficulty following your treatment plan, or difficulty taking medications CALL 911 OR GO TO THE EMERGENCY DEPARTMENT if you experience any of the following: Severe abdominal pain or nausea/vomiting Severe chest pain, or chest pain that radiates (moves) to your jaw or arm Sudden, severe shortness of breath or difficulty breathing Thank you for allowing us to participate in your care. Total Time Total Time Spent Total Time Spent (In Minutes): Time spend day of discharge 35 minutes including direct patient care, medication reconciliation, documentation, review of labs and images, and coordination of care. Coding Level of Care Code 64085 INP/OBS DISCH >30 MIN Diagnoses Rhinovirus infection B34.8 Asplenia Q89.01 Leukocytosis D72.829 Leukocytosis type: unspecified
[2023-12-15 13:32] LABS: EBV Nuclear Ag Antibody <18.00 U/mL; EBV Virus Capsid Ag IgG Ab >750.00 U/mL; Epstein Barr Virus Early Ag Ab <9.00 U/mL
[2023-12-17 17:27] LABS: Lyme DNA PCR Blood Not Detected (Not Detected); Lyme DNA Source Whole Blood
== END 2023-12-15 12:30 | disposition home or self-care (01) ==
LOC: ED 15:20 → 3E 15:20 → SUATTDRO 21:28 → 3E 12-14 00:07
DX: Z88.0 Allergy status to penicillin; F44.9 Dissociative and conversion disorder, unspecified; I10 Essential (primary) hypertension; Z79.899 Other long term (current) drug therapy; F43.10 Post-traumatic stress disorder, unspecified; Z90.81 Acquired absence of spleen; B34.8 Other viral infections of unspecified site; Z86.16 Personal history of COVID-19; F32.A Depression, unspecified; E78.5 Hyperlipidemia, unspecified; F07.81 Postconcussional syndrome; F90.9 Attention-deficit hyperactivity disorder, unspecified type